=== PATIENT | male | born 1965 ===

== ENCOUNTER 2019-08-25 15:12 | Inpatient (IN) | payer MEDICAID, OTHER, SELFPAY ==
[2019-08-25 16:28] LABS: Protime INR 1.13
[2019-08-25 16:33] LABS: ALT/SGPT 35 U/L (12-78); AST/SGOT 47 U/L (15-37); Alkaline Phosphatase 140 U/L (45-117); BUN Blood Urea Nitrogen 13 mg/dL (7-18); Bicarbonate 28 mmol/L (21-32); Bilirubin Direct 0.3 mg/dL (0-0.2); Bilirubin Total 0.5 mg/dL (0.2-1.0); Glucose Level 85 mg/dL (74-106); NT PRO-BNP 148 pg/mL (<125); Potassium 3.6 mmol/L (3.5-5.1); Protein, Total 7.6 g/dL (6.4-8.2); Sodium Level 140 mmol/L (136-145); Troponin (Emerg Dept Use Only) < 0.02 ng/mL (0.0-0.045)
[2019-08-25 16:35] LABS: Absolute Lymphocytes (CBC) 2.2 K/uL (0.7-4.9); Basophils % 0.6 % (0-1.3); Hematocrit 35.5 % (39.6-49.0); Lymphocytes % 46.1 % (15.3-44.8); RBC Red Blood Cell Count 3.76 M/uL (4.33-5.43)
--- NOTE | 2019-08-25 16:37 | RAD REPORT ---
EXAM DESCRIPTION: Jayant Single View08/25/2019 3:45 pm CLINICAL HISTORY: Chest pain COMPARISON: none FINDINGS: Scoliosis involves the spine The lungs appear clear of acute infiltrate. The heart is mildly enlarged. Aorta is tortuous/ectatic . Right humeral head lies inferior to the glenohumeral joint which could in dicate laxity of the joint or dislocation
[2019-08-25] MEDS ORDERED: MORPHINE 2 MG/ML SYR ONE (16:47)
[2019-08-25] MEDS ORDERED: NA CHLORIDE 0.9% 500 ML ONE (16:47)
--- NOTE | 2019-08-25 17:08 | EDPHYS ---
Physician Documentation [facility] Name: Nico Woods Age: 54 yrs Sex: Male : 1965 Arrival Date: 08/25/2019 Time: 15:18 Bed 6 Private MD: ED Physician Prabhakar Bermeo HPI: 08/24 15:35 This 54 yrs old Male presents to ER via EMS with complaints of Chest Pain > 30 y/o. cp 15:35 The patient or guardian reports chest pain that is located primarily in the substernal cp area, right side. Onset: last night. The pain radiates to the right arm. 15:35 Associated signs and symptoms: Pertinent positives: lower extremity pain, lower cp extremity swelling, Pertinent negatives: abdominal pain, cough, shortness of breath. 15:35 Duration: The patient or guardian reports a single episode, that is still ongoing, and cp unchanged. Historical: - Allergies: 15:37 No Known Allergies; ss - PMHx: 15:37 GERD; Hypertension; CVA; ss - Immunization history:: Adult Immunizations up to date. - Social history:: Smoking status: unknown. ROS: 15:40 Constitutional: Negative for body aches, chills, fever, poor PO intake. cp 15:40 Eyes: Negative for injury, pain, redness, and discharge. cp 15:40 Neck: Negative for pain with movement, pain at rest, stiffness. 15:40 Cardiovascular: Positive for chest pain, Negative for palpitations. 15:40 Respiratory: Negative for cough, shortness of breath, wheezing. 15:40 Abdomen/GI: Negative for abdominal pain, nausea, vomiting, and diarrhea, constipation. 15:40 Back: Negative for radiated pain. 15:40 MS/extremity: Positive for pain, of the right arm and right leg. 15:40 Skin: Negative for rash. 15:40 Neuro: Negative for altered mental status, headache. 15:40 All other systems are negative. Exam: 15:30 ECG was reviewed by the Attending Physician. cp 15:42 Constitutional: The patient appears in no acute distress, alert, awake, cp non-diaphoretic, non-toxic, well developed, well nourished. 15:42 Head/Face: Normocephalic, atraumatic. cp 15:42 Eyes: Periorbital structures: appear normal, Conjunctiva: normal, no exudate, no injection, Sclera: no appreciated abnormality, Lids and lashes: appear normal, bilaterally. 15:42 ENT: External ear(s): are unremarkable, Nose: is normal, Mouth: Lips: moist, Oral mucosa: pink and intact, moist, Posterior pharynx: is normal, airway is patent, no erythema, no exudate. 15:42 Neck: ROM/movement: is normal, is supple, without pain, no range of motions limitations, no nuchal rigidity. 15:42 Chest/axilla: Inspection: normal, Palpation: is normal, no crepitus, no tenderness. 15:42 Cardiovascular: Rate: normal, Rhythm: regular, Edema: mild right lower leg, JVD: is not appreciated. 15:42 Respiratory: the patient does not display signs of respiratory distress, Respirations: normal, no use of accessory muscles, no retractions, labored breathing, is not present, Breath sounds: are clear throughout, no decreased breath sounds, no stridor, no wheezing. 15:42 Abdomen/GI: Inspection: abdomen appears normal, Palpation: abdomen is soft and non-tender, in all quadrants. 15:42 Back: pain, is absent. 15:42 Musculoskeletal/extremity: Extremities: the patient is contracted, in the right leg and right arm. 15:42 Skin: no rash present. 15:42 Neuro: Orientation: no acute changes, Mentation: no acute changes, patient non-verbal from previous CVA. Vital Signs: 15:27 BP 113 / 84; Pulse 65; Resp 16; Temp 98.4(TE); Pulse Ox 97% on R/A; Weight 77.11 kg; ss Pain 5/10; 17:30 BP 118 / 76; Pulse 64; Resp 18; Pulse Ox 98% on R/A; ph 19:00 BP 83 / 54; Pulse 67; Resp 15; Pulse Ox 98% on R/A; rv 19:30 BP 94 / 55; Pulse 67; Resp 15; Pulse Ox 100% on R/A; rv 20:00 BP 102 / 62; Pulse 66; Resp 17; Pulse Ox 100% on R/A; rv 21:25 BP 131 / 92; Pulse 54; Resp 16; Temp 98.2; Pulse Ox 98% on R/A; rv MDM: 15:26 Patient medically screened. adolfo 15:45 Differential diagnosis: abnormal EKG, acute myocardial infarction, acute pericarditis, cp pericarditis, pneumonia, pneumothorax, pulmonary embolus, stable angina, thoracic aortic disection, unstable angina. 17:06 Data reviewed: vital signs, nurses notes, lab test result(s), EKG, radiologic studies, cp plain films. Physician consultation: Marcus Moreau MD was called at 17:05, was contacted at 17:05, regarding admission, to the telemetry unit. patient's condition. 08/24 15:27 Order name: Basic Metabolic Panel 08/24 15:27 Order name: CBC with Diff; Complete Time: 17:03 cp 08/24 17:03 Interpretation: Normal except: RBC 3.76; HGB 11.9; HCT 35.5; STEVENSON% 36.2; LYM% 46.1; MN% cp 13.0; NEUT A 1.7. 08/24 15:27 Order name: LFT's; Complete Time: 16:45 08/24 16:45 Interpretation: Normal except: AST 47; ALK 140; BILID 0.3; ALB 3.0; GLOB 4.6; A/G 0.7. 08/24 15:27 Order name: Magnesium; Complete Time: 16:45 cp 08/24 15:27 Order name: NT PRO-BNP; Complete Time: 16:45 cp 08/24 15:27 Order name: PT-INR; Complete Time: 17:03 08/24 17:03 Interpretation: Abnormal: PT 13.3. 08/24 15:27 Order name: Troponin (emerg Dept Use Only); Complete Time: 16:45 cp 08/24 15:27 Order name: XRAY Chest (1 view); Complete Time: 16:45 cp 08/24 15:27 Order name: Basic Metabolic Panel; Complete Time: 16:45 EDNJ 08/24 16:56 Order name: US Extremity Venous Unilateral Ltd 08/24 17:54 Order name: CKMB Creatine Kinase MB [facility] 08/24 17:54 Order name: Creatine Phosphokinase [facility] 08/24 17:54 Order name: Troponin I [facility] 08/24 18:03 Order name: Thorax W/ Con EDNJ 08/24 15:27 Order name: EKG; Complete Time: 15:28 08/24 15:27 Order name: Cardiac monitoring; Complete Time: 16:05 cp 08/24 15:27 Order name: EKG - Nurse/Tech; Complete Time: 16:05 cp 08/24 15:27 Order name: IV Saline Lock; Complete Time: 16:04 cp 08/24 15:27 Order name: Labs collected and sent; Complete Time: 16:04 cp 08/24 15:27 Order name: O2 Per Protocol; Complete Time: 16:04 08/24 17:50 Order name: Diet Mech. Soft (ground); Complete Time: 17:50 dh3 08/24 17:53 Order name: Heart Healthy [facility] 08/24 17:54 Order name: CONS Physician Consult [facility] 08/24 18:37 Order name: US [facility] 08/24 15:27 Order name: O2 Sat Monitoring; Complete Time: 16:04 cp EC:30 Rate is 56 beats/min. Rhythm is regular. TN interval is normal. QRS interval is normal. cp QT interval is normal. T waves are Inverted in lead aVR. Interpreted by me. Reviewed by me. Administered Medications: 16:48 Drug: NS 0.9% 500 ml Route: IV; Rate: 100 ml/hr; Site: left hand; ph 16:48 Drug: morphine 1 mg Route: IVP; Site: left hand; ph 16:58 CANCELLED (Physician Discretion): fentaNYL (PF) 25 mcg IVP once; RASS on ADMIN: cp Combtv4, Very Agttd3, Agttd2, Rstlss1, AlertClm0, Drwsy-1, Lt Sdtn-2, Mod Sdtn-3, Dp Sdtn-4, UnArsble-5 Disposition: 08/25 10:26 Co-signature as Attending Physician, Prabhakar Bermeo MD I agree with the assessment and adolfo plan of care. Disposition: 08/25/19 17:08 Hospitalization ordered by Marcus Moreau for Observation. Preliminary diagnosis is Chest pain, unspecified. - Bed requested for Telemetry/MedSurg (observation). - Status is Observation. rv - Condition is Stable. - Problem is new. - Symptoms have improved. Signatures: Dispatcher [employer] [facility] Laila Fields RN RN dw Anderson, Corey, MD MD cha Smirch, Shelby, RN RN ss Jackie Canales RN RN ph Prabhakar Gordon, MIKE PA cp Vinnie Rivera, RN RN rv Corrections: (The following items were deleted from the chart) 08/24 16:58 16:55 fentaNYL (PF) 25 mcg IVP once; RASS on ADMIN: Combtv4, Very Agttd3, Agttd2, cp Rstlss1, AlertClm0, Drwsy-1, Lt Sdtn-2, Mod Sdtn-3, Dp Sdtn-4, UnArsble-5 ordered. cp 18:36 17:08 Hospitalization Ordered by Marcus Moreau MD for Observation. Preliminary dw diagnosis is Chest pain, unspecified. Bed requested for Telemetry/MedSurg (observation). Status is Observation. Condition is Stable. Problem is new. Symptoms have improved. cp 21:29 18:36 08/25/2019 17:08 Hospitalization Ordered by Marcus Moreau MD for Observation. rv Preliminary diagnosis is Chest pain, unspecified. Bed requested for Telemetry/MedSurg (observation). Status is Observation. Condition is Stable. Problem is new. Symptoms have improved. dw
--- NOTE | 2019-08-25 17:08 | ER ---
Nurse's Notes [facility] Name: Nico Woods Age: 54 yrs Sex: Male : 1965 Arrival Date: 08/25/2019 Time: 15:18 Bed 6 Private MD: Diagnosis: Chest pain, unspecified Presentation: 08/24 15:27 Chief complaint: Chest pain that began at 9pm yesterday evening. Nitro x 1 given 18 ss gauge to L AC inserted. Coronavirus screen: Patient denies a cough. Patient denies shortness of breath or difficulty breathing. Patient denies measured and/or subjective temperature greater than 100.4F prior to today's visit. Patient denies travel on a cruise ship or to a country the [facility] currently lists as an affected area. possible contact at [facility] group home. Ebola Screen: Patient denies exposure to infectious person. Patient denies travel to an Ebola-affected area in the 21 days before illness onset. Initial Sepsis Screen: Does the patient meet any 2 criteria? Does the patient have a suspected source of infection? No. Patient's initial sepsis screen is negative. Risk Assessment: Do you want to hurt yourself or someone else? Patient reports no desire to harm self or others. Onset of symptoms was August 24, 2019. 15:27 Acuity: AMADOU 3 ss 15:27 Method Of Arrival: EMS: [facility] ss Historical: - Allergies: 15:37 No Known Allergies; ss - PMHx: 15:37 GERD; Hypertension; CVA; ss - Immunization history:: Adult Immunizations up to date. - Social history:: Smoking status: unknown. Screenin:53 Abuse screen: Denies threats or abuse. Denies injuries from another. Nutritional ph screening: No deficits noted. Nutritional screening: No deficits noted. Tuberculosis screening: No symptoms or risk factors identified. Fall Risk No fall in past 12 months (0 pts). Secondary diagnosis (15 points) impaired mobility, IV access (20 points). Ambulatory Aid- None/Bed Rest/Nurse Assist (0 pts). Gait- Impaired (20 pts.). Mental Status- Oriented to own ability (0 pts). Total Alanis Fall Scale indicates High Risk Score (45 or more points). Fall prevention measures have been instituted. Side Rails Up X 2 Placed Close to Nursing Station Frequent Obs/Assessments Occuring As available patient and family educated on Fall Prevention Program and Strategies. Assessment: 16:00 General: Appears in no apparent distress. comfortable, slender, Behavior is calm, ph cooperative, appropriate for age, Denies fever, feeling ill. Pain: Complains of pain in chest Pain radiates to left arm Pain began 1 day ago. Neuro: Level of Consciousness is awake, alert, obeys commands, Oriented to person, place, time, situation, Hx of CVA w/ R sided deficits, pt aphasic. Cardiovascular: Reports chest pain, Denies nausea, palpitations, shortness of breath. Respiratory: Airway is patent Respiratory effort is even, unlabored. Derm: Skin is intact, Skin is pink, warm \T\ dry. 17:00 Reassessment: Patient appears in no apparent distress at this time. Patient and/or ph family updated on plan of care and expected duration. Pain level reassessed. Patient is alert, oriented x 3, equal unlabored respirations, skin warm/dry/pink. 18:00 Reassessment: Patient appears in no apparent distress at this time. Patient and/or ph family updated on plan of care and expected duration. Pain level reassessed. Patient is alert, oriented x 3, equal unlabored respirations, skin warm/dry/pink. Vital Signs: 15:27 BP 113 / 84; Pulse 65; Resp 16; Temp 98.4(TE); Pulse Ox 97% on R/A; Weight 77.11 kg; ss Pain 5/10; 17:30 BP 118 / 76; Pulse 64; Resp 18; Pulse Ox 98% on R/A; ph 19:00 BP 83 / 54; Pulse 67; Resp 15; Pulse Ox 98% on R/A; rv 19:30 BP 94 / 55; Pulse 67; Resp 15; Pulse Ox 100% on R/A; rv 20:00 BP 102 / 62; Pulse 66; Resp 17; Pulse Ox 100% on R/A; rv 21:25 BP 131 / 92; Pulse 54; Resp 16; Temp 98.2; Pulse Ox 98% on R/A; rv ED Course: 15:18 Patient arrived in ED. ss 15:23 Prabhakar Gordon PA is PHCP. cp 15:23 Prabhakar Bermeo MD is Attending Physician. cp 15:32 Triage completed. ss 15:37 Arm band placed on right wrist. ss 15:40 Jackie Canales, RN is Primary Nurse. ph 15:45 XRAY Chest (1 view) In Process Unspecified. EDMS 16:00 Patient has correct armband on for positive identification. Bed in low position. Call ph light in reach. Side rails up X2. platform supervisor on. Pulse ox on. NIBP on. Door closed. Noise minimized. Warm blanket given. Pillow given. 16:01 Initial lab(s) drawn, by me, sent to lab. [facility] 17:07 Marcus Moreau MD is Hospitalizing Provider. cp 18:23 Ultrasound completed. Patient tolerated well. Notified MEDICAL CUSTOMER SERVICE REPRESENTATIVE/PA page. 3 19:54 No provider procedures requiring assistance completed. Maintain EMS IV. Dressing ph intact. Good blood return noted. Site clean \T\ dry. Gauge \T\ site: 18 L wrist. Patient admitted, IV remains in place. Patient maintains SpO2 saturation greater than 95% on room air. Administered Medications: 16:48 Drug: NS 0.9% 500 ml Route: IV; Rate: 100 ml/hr; Site: left hand; ph 16:48 Drug: morphine 1 mg Route: IVP; Site: left hand; ph 16:58 CANCELLED (Physician Discretion): fentaNYL (PF) 25 mcg IVP once; RASS on ADMIN: cp Combtv4, Very Agttd3, Agttd2, Rstlss1, AlertClm0, Drwsy-1, Lt Sdtn-2, Mod Sdtn-3, Dp Sdtn-4, UnArsble-5 Outcome: 17:08 Decision to Hospitalize by Provider. cp 21:28 Admitted to Med/surg accompanied by nurse, via stretcher, room 217, with chart, Report rv called to SG CARREON 21:28 Condition: good 21:28 Instructed on the need for admit. 21:29 Patient left the ED. rv Signatures: Dispatcher [employer] EDWA Olivia Andrea RN RN Jackie Canales, RN RN ph Page, MIKE Radford cp, Deanna [facility] Leslie Verdugo 3 Vinnie Rivera RN RN rv
[2019-08-25] MEDS ORDERED: ACETAMINOPHEN 500 MG TAB PO PRN (17:50)
[2019-08-25] MEDS ORDERED: ONDANSETRON 4 MG/2 ML VIAL IV PRN (17:50)
[2019-08-25] MEDS ORDERED: HYDRALAZINE HCL 20 MG/ML VIAL IV PRN (17:53)
--- NOTE | 2019-08-25 18:01 | P.HP ---
Certification for Inpatient Patient admitted to: Observation With expected LOS: <2 Midnights Patient will require the following post-hospital care: None Practitioner: I am a practitioner with admitting privileges, knowledge of patient current condition, hospital course, and medical plan of care. Services: Services provided to patient in accordance with Admission requirements found in Title 42 Section 412.3 of the Code of Federal Regulations Patient History Date of Service: 08/25/19 Reason for admission: Chest Pain History of Present Illness: 54-year-old male with a past medical history hypertension, CVA with residual defect , GERD given with chest pain. Chest pain is located retrosternally radiating to the right arm. Denies any shortness of breath. No fever or chills. The patient is a poor historian because of the cognitive defect hence most of the history is obtained from the chart review and also talking to the ER physician. At the time of interview the pain is slightly better. Patient was assessed in the ER and was admitted to rule out ACS - Past Medical/Surgical History Past Medical History: Reviewed- Non-Contributory -: Hypertension -: CVA -: GERD Past Surgical History: Reviewed- Non-Contributory -: No significant past surgical history - Family History Family History: Reviewed- Non-Contributory - Social History Smoking Status: Former smoker Review of Systems 10-point ROS is otherwise unremarkable Physical Examination - Vital Signs Temperature: 97.8 F Blood Pressure: 158/88 Pulse: 78 Respirations: 18 - Physical Exam General: Alert, In no apparent distress HEENT: Atraumatic, Normocephalic Neck: Supple Respiratory: Clear to auscultation bilaterally, Normal air movement Cardiovascular: Regular rate/rhythm, Normal S1 S2 Capillary refill: <2 Seconds Gastrointestinal: Soft and benign, W/out hepatosplenomegaly Musculoskeletal: No clubbing, No swelling Integumentary: No rashes Neurological: Other (Alert , Awake , Focal Neurological deficits), Abnormal gait, Abnormal strength Lymphatics: No axilla or inguinal lymphadenopathy - Studies Laboratory Data (last 24 hrs) 08/25/19 16:01: PT 13.3 H, INR 1.13 08/25/19 16:01: WBC 4.8, Hgb 11.9 L, Hct 35.5 L, Plt Count 200 08/25/19 16:01: Sodium 140, Potassium 3.6, BUN 13, Creatinine 0.69, Glucose 85, Magnesium 2.0, Total Bilirubin 0.5, AST 47 H, ALT 35, Alkaline Phosphatase 140 H Assessment and Plan - Problems (Diagnosis) (1) Chest pain Current Visit: Yes Status: Acute - Plan Chest pain to rule out ACS Hypertension History of CVA with residual deficit GERD Plan Monitor under telemetry Trend cardiac enzymes Start on aspirin statin Pain control X-ray showing tortuous after Will get a CTA of the chest Continue home medications and titrate as needed Antihypertensives titrated Cardiology evaluation PT eval GI/DVT prophylaxis - Advance Directives Does patient have a Living Will: No Does patient have a Durable POA for Healthcare: No Time Spent Managing Pts Care (In Minutes): 45
--- NOTE | 2019-08-25 18:36 | RAD REPORT ---
EX[facility] DES[facility]/25/[facility] 6:30 pm CLINICAL HISTORY: Right leg pain COMPARISON: None. FINDINGS: Right common femoral, superficial femoral, popliteal and right posterior tibial veins are compressible and demonstrate augmentation. Doppler demonstrates good flow. IMPRESSION: No evidence of deep venous thrombosis involving the right lower extremity.
--- NOTE | 2019-08-25 19:32 | RAD REPORT ---
EXAM DESCRIPTION: CT - Thorax W/ Con - 08/25/2019 6:39 pm CLINICAL HISTORY: Chest pain COMPARISON: None TECHNIQUE: Computed axial tomography of the chest was obtained. 100 cc Isovue 300 was administered i ntravenously. All CT scans are performed using dose optimization technique as appropriate and may include automated exposure control or mA/KV adjustment according to patient size. FINDINGS: Minimal tree-in-bud opacity lingula. The right lung is clear No mediastinal or hilar lymphadenopathy is seen. The ascending thoracic aorta has an AP diameter 3.6 centimeters. A pleural effusion is not present. A pericardial effusion is not seen. Ill-defined increased density is present within the superior aspect of the liver. IMPRESSION: Tortuous and ectatic thoracic aorta Ill-defined heterogeneous and increased density within the superior aspect of the liver is incomplete ly evaluated on this exam. It is recommended that the patient have an ultrasound for further evaluati on
[2019-08-25] MEDS ORDERED: ASPIRIN 81 MG CHEWABLE TABLET ONE (19:48)
[2019-08-25 22:29] VITALS: BMI 22.7
[2019-08-25] MEDS: ATORVASTATIN 40 MG TAB PO SCH (23:12)
[2019-08-25 23:38] LABS: Urine Appearance CLEAR; Urine Bilirubin NEGATIVE (NEG); Urine Blood NEGATIVE (NEG); Urine Color YELLOW; Urine Glucose NEGATIVE (NEG); Urine Protein NEGATIVE (NEG); Urine pH 7.5 (5.0-7.0)
[2019-08-25 23:39] LABS: Urine Microscopic Reflex ORDER UMIC
[2019-08-25 23:56] LABS: Urine Bacteria LOADED /HPF (NONE SEEN); Urine Culture Reflex Order REFLEXED; Urine RBC <5 /HPF (NONE SEEN)
[2019-08-26 01:17] LABS: CKMB Creatine Kinase MB < 1.0 ng/mL (0.3-3.6); Creatine Phosphokinase 131 U/L (39-308); Troponin I < 0.02 ng/mL (0.0-0.045)
[2019-08-26 05:45] LABS: Absolute Lymphocytes (CBC) 2.2 K/uL (0.7-4.9); Basophils % 0.5 % (0-1.3); Hematocrit 32.8 % (39.6-49.0); Lymphocytes % 52.7 % (15.3-44.8); MPV 10.1 fL (7.6-11.3); RBC Red Blood Cell Count 3.48 M/uL (4.33-5.43)
[2019-08-26 05:54] LABS: ALT/SGPT 32 U/L (12-78); AST/SGOT 41 U/L (15-37); Albumin 2.6 g/dL (3.4-5.0); Alkaline Phosphatase 117 U/L (45-117); BUN Blood Urea Nitrogen 13 mg/dL (7-18); Bicarbonate 29 mmol/L (21-32); Bilirubin Total 0.6 mg/dL (0.2-1.0); Glucose Level 89 mg/dL (74-106); Phosphorus 3.1 mg/dL (2.5-4.9); Potassium 3.4 mmol/L (3.5-5.1); Protein, Total 6.7 g/dL (6.4-8.2); Sodium Level 143 mmol/L (136-145)
[2019-08-26 07:39] LABS: Blood Morphology Comment NOT SEEN (NOT SEEN); Platelet Estimate ADEQ
[2019-08-26] MEDS ORDERED: POTASSIUM 25 MEQ EFFERV TAB PO ONE (08:00)
--- NOTE | 2019-08-26 08:10 | EKG ---
Test Date: 2019-08-25 Test Time: 15:21:14 Hr Coordinator: HEATHER MEASUREMENT RESULTS: Intervals: Rate: 56 VT: 160 QRSD: 86 QT: 446 QTc: 430 [place]: P: 59 VT: 160 QRS: -20 T: 36 INTERPRETIVE STATEMENTS: Sinus bradycardia Septal infarct, age undetermined Abnormal ECG No previous ECG available for comparison Electronically Signed On 08-26-19 08:08:49 CDT by Feng Mejia
[2019-08-26 08:15] LABS: CKMB Creatine Kinase MB < 1.0 ng/mL (0.3-3.6); Creatine Phosphokinase 115 U/L (39-308); Troponin I < 0.02 ng/mL (0.0-0.045)
[2019-08-26] MEDS: ENOXAPARIN 40 MG/0.4 ML SQ SCH (09:00)
[2019-08-26] MEDS: ASPIRIN EC 81 MG TAB PO SCH (09:00)
[2019-08-26 10:22] LABS: CKMB Creatine Kinase MB < 1.0 ng/mL (0.3-3.6); Creatine Phosphokinase 110 U/L (39-308); Troponin I < 0.02 ng/mL (0.0-0.045)
--- NOTE | 2019-08-26 11:22 | P.PN ---
Subjective Date of Service: 08/26/19 Chief Complaint: Chest Pain Subjective: No new changes, Improving Review of Systems 10-point ROS is otherwise unremarkable Physical Examination - Vital Signs Temperature: 97.3 F Blood Pressure: 142/89 Pulse: 52 Respirations: 18 Pulse Ox (%): 99 - Physical Exam General: Alert, In no apparent distress HEENT: Atraumatic, Normocephalic Neck: Supple Respiratory: Clear to auscultation bilaterally Cardiovascular: Normal pulses, Regular rate/rhythm Capillary refill: <2 Seconds Gastrointestinal: Soft and benign, W/out hepatosplenomegaly Musculoskeletal: No erythema, Contractures Integumentary: No rashes Neurological: Abnormal gait, Abnormal speech, Abnormal strength Lymphatics: No axilla or inguinal lymphadenopathy - Studies Laboratory Data (last 24 hrs) 08/26/19 04:55: Sodium 143, Potassium 3.4 L, BUN 13, Creatinine 0.72, Glucose 89, Phosphorus 3.1, Magnesium 2.0, Total Bilirubin 0.6, AST 41 H, ALT 32, Alkaline Phosphatase 117 08/26/19 04:55: WBC 4.2 L, Hgb 11.4 L, Hct 32.8 L, Plt Count 162 08/26/19 00:09: Troponin I < 0.02 08/25/19 16:01: PT 13.3 H, INR 1.13 08/25/19 16:01: WBC 4.8, Hgb 11.9 L, Hct 35.5 L, Plt Count 200 08/25/19 16:01: Sodium 140, Potassium 3.6, BUN 13, Creatinine 0.69, Glucose 85, Magnesium 2.0, Total Bilirubin 0.5, AST 47 H, ALT 35, Alkaline Phosphatase 140 H Assessment & Plan - Problems (Diagnosis) (1) Chest pain Current Visit: Yes Status: Acute Physician Review Additional Text: Chest pain to rule out ACS Hypertension History of CVA with residual deficit GERD Plan Monitor under telemetry Trend cardiac enzymes Start on aspirin statin Pain control X-ray showing tortuous after Will get a CTA of the chest Continue home medications and titrate as needed Antihypertensives titrated Cardiology evaluation PT eval GI/DVT prophylaxis 08/26/2019 Chest pain is better Cardiac enzymes trended and is negative CT findings noted Continue home medications and antihypertensives titrated Awaiting cardiology recommendation Physical therapy evaluation and treatment Possible Dc if cleared by cardiology Time Spent Managing Pts Care (In Minutes): 39
--- NOTE | 2019-08-26 12:28 | CON ---
Date of Consultation: 08/26/[address] Moreau on 08/26/2019. I saw the patient on 08/26/2019. Reason For Consultation: Chest pain. History Of Present Illness: Mr. Woods is a 54-year-old black male, who has a history of hypertension , gastroesophageal reflux disease. He has had a CVA. He is aphasic. Could not really obtain adequa te history from him, but does sound like he had some chest pain that he was pointing to on the left l ateral chest wall that, according to him, seems to be sharp and not pressure without any other associ ated symptoms. By the time I saw him, he has already had a negative troponin and his EKG shows sinus bradycardia. He had a chest x-ray showing some cardiomegaly. CT of the chest did not show any pulm onary embolus. Venous Doppler was negative. Past Medical History: As stated above. Allergies: NONE. Review of Systems: Positive for the fact that he is aphasic. Social History: Unobtainable. Family History: Unobtainable. Medications: At home include Cardura, Coreg, and Norvasc. Physical Examination: General: Mr. Woods was aphasic, appeared to have some abnormal muscular movement in the upper and lo wer extremities, appeared to be agitated. He wanted to go home. Vital Signs: Stable, afebrile, sinus rhythm. HEENT: Negative. Neck: Supple. No bruit. Chest: Clear. Cardiac: Revealed regular rhythm and rate. No murmurs, gallops, or rubs. Abdomen: Benign. Extremities: Revealed no clubbing, cyanosis, or edema. Diagnostic Data: As stated earlier. Impression And Plan: 1.Atypical chest pain. 2.Hypertension. 3.Cerebrovascular accident with aphasia. 4.Gastroesophageal reflux disease. Mr. Woods wants to go home, but apparently has to wait for his COVID test to be back. I had initiall y ordered a stress test on him, but after physical examination, I am not so sure he can have a pharma cological stress test. I do not think he can sit still for the camera. I am very comfortable with m edical treatment for his chest pain. His chest pain is very atypical. I do not think it is cardiac in nature. I will discuss the case further with Dr. Moreau, but I am comfortable with him going home on his home medication, may be addition of a baby aspirin would be reasonable and maybe addition of a statin would be reasonable. DEVANTE/ZACHARY Voice ID: [id number] Report ID: [id number]
[2019-08-26] MEDS ORDERED: POTASSIUM CL SA 10 MEQ TAB PO ONE (15:56)
[2019-08-26] MEDS: IPRATROPIUM BROM 0.5MG/2.5ML NEB SCH (18:50)
[2019-08-26] MEDS: ALBUTEROL 2.5 MG/3 ML NEB SOL NEB SCH (18:50)
--- NOTE | 2019-08-26 19:41 | RAD REPORT ---
EXAM DESCRIPTION: CT - Head Brain Wo Cont - 08/26/2019 7:31 pm CLINICAL HISTORY: pt reports trouble swallowing Headache, drowsiness COMPARISON: No comparisons TECHNIQUE: All CT scans are performed using dose optimization technique as appropriate and may inclu de automated exposure control or mA/KV adjustment according to patient size. FINDINGS: No intracranial hemorrhage, hydrocephalus or extra-axial fluid collection.Areas of old inf arction are seen in the periventricular region bilaterally.No areas of brain edema or evidence of mid line shift. The paranasal sinuses and mastoids are clear. The calvarium is intact. IMPRESSION: No acute intracranial abnormality.
--- NOTE | 2019-08-26 20:35 | RAD REPORT ---
EXAM DESCRIPTION: RAD - Chest Single View - 08/26/2019 8:25 pm CLINICAL HISTORY: Pt reports trouble swallowing Chest pain. COMPARISON: Chest Single View dated 08/25/2019 FINDINGS: Portable technique limits examination quality. The lungs are grossly clear. The heart is mildly enlarged with a tortuous thoracic aorta again seen. No displaced fractures. IMPRESSION: No acute intrathoracic process suspected.
[2019-08-26] MEDS: ATORVASTATIN 40 MG TAB PO SCH (20:58)
[2019-08-27] MEDS: IPRATROPIUM BROM 0.5MG/2.5ML NEB SCH ×7 (04:00→23:45)
[2019-08-27] MEDS: ALBUTEROL 2.5 MG/3 ML NEB SOL NEB SCH ×7 (04:00→23:45)
[2019-08-27 04:50] LABS: BUN Blood Urea Nitrogen 11 mg/dL (7-18); Bicarbonate 30 mmol/L (21-32); Glucose Level 88 mg/dL (74-106); Potassium 3.6 mmol/L (3.5-5.1); Sodium Level 142 mmol/L (136-145)
[2019-08-27] MEDS: ASPIRIN EC 81 MG TAB PO SCH (09:00)
[2019-08-27] MEDS ORDERED: KCL 20 MEQ/100 mL IVPB 20 MEQ/100 ML BAG IV SCH (09:00)
[2019-08-27] MEDS: ENOXAPARIN 40 MG/0.4 ML SQ SCH (09:18)
--- NOTE | 2019-08-27 11:35 | P.PN ---
Subjective Date of Service: 08/27/19 Chief Complaint: Chest Pain c/o Chest Pain and cough Possible aspiration Review of Systems 10-point ROS is otherwise unremarkable Physical Examination - Vital Signs Temperature: 96.2 F Blood Pressure: 159/105 Pulse: 55 Respirations: 18 Pulse Ox (%): 96 - Physical Exam General: Alert, In no apparent distress, Other (aphasic ) HEENT: Atraumatic, Normocephalic Neck: Supple Respiratory: Clear to auscultation bilaterally, Normal air movement Cardiovascular: Normal pulses, Regular rate/rhythm Capillary refill: <2 Seconds Gastrointestinal: Soft and benign, W/out hepatosplenomegaly Musculoskeletal: No clubbing, No swelling Integumentary: No rashes Neurological: Abnormal gait, Abnormal speech, Abnormal strength Lymphatics: No axilla or inguinal lymphadenopathy Assessment & Plan - Problems (Diagnosis) (1) Chest pain Current Visit: Yes Status: Acute Physician Review Additional Text: Chest pain to rule out ACS Hypertension History of CVA with residual deficit GERD Plan Monitor under telemetry Trend cardiac enzymes Start on aspirin statin Pain control X-ray showing tortuous after Will get a CTA of the chest Continue home medications and titrate as needed Antihypertensives titrated Cardiology evaluation PT eval GI/DVT prophylaxis 08/27/2019 Chest pain resolved Cardiac enzymes trended and is negative CT findings noted Appreciate help from cardiology Will continue conservative management with outpatient follow up Continue home medications and antihypertensives titrated Physical therapy evaluation and treatment Patient has cough Chest x-ray was done to rule out aspiration pneumonia speech therapy was consulted He underwent a modified barium swallow Speech recommended NPO for now Will discuss family regarding placement of PEG tube Time Spent Managing Pts Care (In Minutes): 40
--- NOTE | 2019-08-27 12:43 | RAD REPORT ---
EXAM DESCRIPTION: RAD - Barium Swallow Modified - 08/27/2019 12:35 pm CLINICAL HISTORY: speech recommendation, cough, difficulty swallowing, CVA COMPARISON: None. TECHNIQUE: The patient was given liquid, semi-solid and solid forms of barium. Lateral view fluorosc opic imaging was performed in conjunction with speech pathology service. FINDINGS: Cineloop acquisitions: 13 Fluoro time: 2 minutes 33 seconds Laryngeal penetration not cleared. Deep tot he level of the vocal cords with pureed. Aspiration; No cough with thin, nectar, honey. There is reduced oral bolus manipulation and loss over the base of tongue. There is pooling in the v alleculae and pyriforms before the swallow. Swallow on set is delayed. There is reduced hyolaryngea l elevation and protraction. There was SILENT ASPIRATION of thin, nectar, and honey thick liquids. There was a deep penetration to the level of the vocal cords with pureed that did not clear. Study w as limited due to aggitation and limited cooperation. IMPRESSION: Modified barium swallow as summarized above and fully detailed on speech pathology mirella connors
[2019-08-27] MEDS ORDERED: LORazepam 2 MG/ML VIAL IM ONE (20:31)
[2019-08-27] MEDS ORDERED: D5 0.9 NS 1,000 ML with POTASSIUM CL 10 MEQ IV SCH ×2 (21:00)
[2019-08-27] MEDS: ATORVASTATIN 40 MG TAB PO SCH (21:00)
[2019-08-27] MEDS: D5 0.9 NS 1,000 ML IV SCH (22:00)
--- NOTE | 2019-08-27 23:16 | P.PN ---
Date of Service: 08/27/19 Patient diagnosed with oral pharyngeal dysphagia. MBS study results reviewed. Patient has severe dysphagia, even with pureed diet and pudding. I recommended IV hydration tonight and PEG tube. Patient provided his sisters phone number numbers to call and inform them. I called and spoke to the to the twin sister Shannan at [phone] and updated her. I recommended PEG tube feeding versus hospice with pleasure feeding. I suspect patient has some cognitive impairment and lacking full understandigng of his current clinical condition and may need family to assist with decision regarding PEG tube. Family would want to visit patient and discuss goals of care. Patient is refusing IV insertion and IV fluid. Vitals are stable. Continued to monitor.
[2019-08-28] MEDS: ALBUTEROL 2.5 MG/3 ML NEB SOL NEB SCH ×6 (04:00→23:46)
[2019-08-28] MEDS: IPRATROPIUM BROM 0.5MG/2.5ML NEB SCH ×6 (04:00→23:46)
[2019-08-28] MEDS: ASPIRIN EC 81 MG TAB PO SCH (08:51)
[2019-08-28] MEDS: ENOXAPARIN 40 MG/0.4 ML SQ SCH (08:53)
--- NOTE | 2019-08-28 10:50 | P.PN ---
Subjective Date of Service: 08/28/19 Chief Complaint: Chest Pain Subjective: No new changes Review of Systems is unable to be obtained Physical Examination - Vital Signs Temperature: 98.1 F Blood Pressure: 164/98 Pulse: 61 Respirations: 19 Pulse Ox (%): 93 - Physical Exam General: Alert, In no apparent distress HEENT: Atraumatic, Normocephalic Neck: Supple Respiratory: Clear to auscultation bilaterally, Normal air movement Cardiovascular: Normal pulses, Regular rate/rhythm Capillary refill: <2 Seconds Gastrointestinal: Soft and benign, W/out hepatosplenomegaly Musculoskeletal: No clubbing, No swelling Integumentary: No rashes Neurological: Normal speech, Normal strength at 5/5 x4 extr Lymphatics: No axilla or inguinal lymphadenopathy - Studies Microbiology Data (last 24 hrs): 08/25/19 23:05 Clean Catch Urine [place] Count - Final >100,000 CFU/ML. 08/25/19 23:05 Clean Catch Urine - Final Enterobacter Cloacae 08/25/19 23:00 Nasopharnyx Coronavirus COVID-19 PCR - Final Assessment & Plan - Problems (Diagnosis) (1) Chest pain Current Visit: Yes Status: Acute Physician Review Additional Text: Chest pain to rule out ACS Hypertension History of CVA with residual deficit GERD Plan Monitor under telemetry Trend cardiac enzymes Start on aspirin statin Pain control X-ray showing tortuous after Will get a CTA of the chest Continue home medications and titrate as needed Antihypertensives titrated Cardiology evaluation PT eval GI/DVT prophylaxis 08/27/2019 Chest pain resolved Cardiac enzymes trended and is negative CT findings noted Appreciate help from cardiology Will continue conservative management with outpatient follow up Continue home medications and antihypertensives titrated Physical therapy evaluation and treatment Patient has cough Chest x-ray was done to rule out aspiration pneumonia speech therapy was consulted He underwent a modified barium swallow Speech recommended NPO for now Will discuss family regarding placement of PEG tube 08/28/2019 Patient failed modified barium swallow Kept NPO Will get a speech therapy evaluation tomorrow again Will get a surgical consult for possible PEG tube placement Will discuss with family regarding PEG tube Continue antibiotics for possible aspiration pneumonia Time Spent Managing Pts Care (In Minutes): 42
[2019-08-28] MEDS: D5 0.9 NS 1,000 ML IV SCH (14:21)
[2019-08-28] MEDS: ATORVASTATIN 40 MG TAB PO SCH (20:08)
[2019-08-29] MEDS: ALBUTEROL 2.5 MG/3 ML NEB SOL NEB SCH ×5 (03:21→20:00)
[2019-08-29] MEDS: IPRATROPIUM BROM 0.5MG/2.5ML NEB SCH ×5 (03:21→20:00)
[2019-08-29] MEDS: D5 0.9 NS 1,000 ML IV SCH (03:25)
[2019-08-29] MEDS: ASPIRIN EC 81 MG TAB PO SCH (08:33)
[2019-08-29] MEDS: ENOXAPARIN 40 MG/0.4 ML SQ SCH (09:00)
--- NOTE | 2019-08-29 10:56 | P.PN ---
Subjective Date of Service: 08/29/19 Chief Complaint: Chest Pain Wants to go back Review of Systems is unable to be obtained Physical Examination - Vital Signs Temperature: 97.8 F Blood Pressure: 143/96 Pulse: 57 Respirations: 18 Pulse Ox (%): 95 - Physical Exam General: Alert HEENT: Atraumatic, Normocephalic Neck: Supple Respiratory: Clear to auscultation bilaterally, Normal air movement Cardiovascular: Normal pulses, Regular rate/rhythm Capillary refill: <2 Seconds Gastrointestinal: Soft and benign, No tenderness Musculoskeletal: No clubbing, No swelling Integumentary: No rashes Neurological: Abnormal gait, Abnormal speech, Abnormal strength Lymphatics: No axilla or inguinal lymphadenopathy - Studies Microbiology Data (last 24 hrs): 08/25/19 23:05 Clean Catch Urine [place] Count - Final >100,000 CFU/ML. 08/25/19 23:05 Clean Catch Urine - Final Enterobacter Cloacae Assessment & Plan - Problems (Diagnosis) (1) Chest pain Current Visit: Yes Status: Acute Physician Review Additional Text: Chest pain to rule out ACS Hypertension History of CVA with residual deficit GERD Plan Monitor under telemetry Trend cardiac enzymes Start on aspirin statin Pain control X-ray showing tortuous after Will get a CTA of the chest Continue home medications and titrate as needed Antihypertensives titrated Cardiology evaluation PT eval GI/DVT prophylaxis 08/27/2019 Chest pain resolved Cardiac enzymes trended and is negative CT findings noted Appreciate help from cardiology Will continue conservative management with outpatient follow up Continue home medications and antihypertensives titrated Physical therapy evaluation and treatment Patient has cough Chest x-ray was done to rule out aspiration pneumonia speech therapy was consulted He underwent a modified barium swallow Speech recommended NPO for now Will discuss family regarding placement of PEG tube 08/28/2019 Patient failed modified barium swallow Kept NPO Will get a speech therapy evaluation tomorrow again Will get a surgical consult for possible PEG tube placement Will discuss with family regarding PEG tube Continue antibiotics for possible aspiration pneumonia 08/29/2019 Repeat speech valve was done Patient was not cooperative Could not do modified barium swallow Awaiting surgical consult Patient [facility] Will discuss with disability case manager Discuss the patient regarding the nature of the illness and chance of aspiration if he eats Possible Dc back to jail if patient wishes and they can arrange for follow up as outpatient with GI to put a PEG tube if in case he fails Time Spent Managing Pts Care (In Minutes): 42
[2019-08-29] MEDS: ATORVASTATIN 40 MG TAB PO SCH (21:00)
[2019-08-30] MEDS: ALBUTEROL 2.5 MG/3 ML NEB SOL NEB SCH ×6 (04:00→20:00)
[2019-08-30] MEDS: IPRATROPIUM BROM 0.5MG/2.5ML NEB SCH ×6 (04:00→20:00)
[2019-08-30] MEDS: ASPIRIN EC 81 MG TAB PO SCH (08:39)
[2019-08-30] MEDS: ENOXAPARIN 40 MG/0.4 ML SQ SCH (08:41)
--- NOTE | 2019-08-30 12:07 | P.PN ---
Subjective Date of Service: 08/30/19 Chief Complaint: Chest Pain Subjective: No new changes, Other (Still NPO) Wants to go back Review of Systems is unable to be obtained Physical Examination - Vital Signs Temperature: 97.6 F Blood Pressure: 165/99 Pulse: 65 Respirations: 16 Pulse Ox (%): 94 - Physical Exam General: Alert, In no apparent distress HEENT: Atraumatic, Normocephalic Neck: Supple Respiratory: Clear to auscultation bilaterally, Normal air movement Cardiovascular: Normal pulses, Regular rate/rhythm Capillary refill: <2 Seconds Gastrointestinal: Soft and benign Musculoskeletal: No clubbing Neurological: Abnormal gait, Abnormal speech, Abnormal strength Lymphatics: No axilla or inguinal lymphadenopathy Assessment & Plan - Problems (Diagnosis) (1) Chest pain Current Visit: Yes Status: Acute Physician Review Additional Text: Chest pain to rule out ACS Hypertension History of CVA with residual deficit GERD Plan Monitor under telemetry Trend cardiac enzymes Start on aspirin statin Pain control X-ray showing tortuous after Will get a CTA of the chest Continue home medications and titrate as needed Antihypertensives titrated Cardiology evaluation PT eval GI/DVT prophylaxis 08/27/2019 Chest pain resolved Cardiac enzymes trended and is negative CT findings noted Appreciate help from cardiology Will continue conservative management with outpatient follow up Continue home medications and antihypertensives titrated Physical therapy evaluation and treatment Patient has cough Chest x-ray was done to rule out aspiration pneumonia speech therapy was consulted He underwent a modified barium swallow Speech recommended NPO for now Will discuss family regarding placement of PEG tube 08/28/2019 Patient failed modified barium swallow Kept NPO Will get a speech therapy evaluation tomorrow again Will get a surgical consult for possible PEG tube placement Will discuss with family regarding PEG tube Continue antibiotics for possible aspiration pneumonia 08/29/2019 Repeat speech valve was done Patient was not cooperative Could not do modified barium swallow Awaiting surgical consult Patient [facility] back [facility] the [facility] Will discuss with case operator Discuss the patient regarding the nature of the illness and chance of aspiration if he eats 08/30/2019 monitor closely Awaiting a repeat speech eval patient still refuses IV Will try to put on PPN Discusses family They want to make a decision about PEG tube after they visit him on tuesday Time Spent Managing Pts Care (In Minutes): 38
[2019-08-30] MEDS: D5 0.9 NS 1,000 ML IV SCH ×2 (16:40)
--- NOTE | 2019-08-30 17:08 | RAD REPORT ---
EXAM DESCRIPTION: RAD - Barium Swallow Modified - 08/30/2019 4:58 pm CLINICAL HISTORY: Cough/CVA FINDINGS: reduced oral bolus manipulation and increased oral transit time. Less of bolus over base of tongue with all consistencies. Delay in swallow approximately 6-13 seconds . Aspirations of thin liquid with cough, mild penetration of pureed x 1 that was cleared no penetration or aspiration of nectar and honey consistency and no aspiration of pureed. final puree d bolus passed into lower esophagus without incident hx of CVA, dysphagia. fluoro time- 3 min,6 sec 26 fluoroscopic images obtained
[2019-08-30] MEDS: ATORVASTATIN 40 MG TAB PO SCH (21:16)
[2019-08-31] MEDS: IPRATROPIUM BROM 0.5MG/2.5ML NEB SCH ×3 (04:00→08:00)
[2019-08-31] MEDS: ALBUTEROL 2.5 MG/3 ML NEB SOL NEB SCH ×3 (04:00→08:00)
[2019-08-31 04:30] VITALS: O2SAT 98
[2019-08-31] MEDS ORDERED: ASPIRIN 81 MG CHEWABLE TABLET PO SCH (09:00)
[2019-08-31] MEDS: ENOXAPARIN 40 MG/0.4 ML SQ SCH (09:07)
[2019-08-31] MEDS: D5 0.9 NS 1,000 ML IV SCH (09:20)
--- NOTE | 2019-08-31 09:48 | P.PN ---
Subjective Date of Service: 08/31/19 Chief Complaint: Chest Pain Subjective: No new changes, Other (Tolerating diet) Wants to go back Review of Systems 10-point ROS is otherwise unremarkable Physical Examination - Vital Signs Temperature: 97.4 F Blood Pressure: 124/81 Pulse: 65 Respirations: 16 Pulse Ox (%): 98 - Physical Exam General: Alert, In no apparent distress HEENT: Atraumatic, Normocephalic Neck: 2+ carotid pulse no bruit Respiratory: Clear to auscultation bilaterally Cardiovascular: Regular rate/rhythm, Normal S1 S2 Capillary refill: <2 Seconds Gastrointestinal: Soft and benign, W/out hepatosplenomegaly Musculoskeletal: No swelling Integumentary: No rashes Neurological: Abnormal gait, Abnormal speech, Abnormal strength Lymphatics: No axilla or inguinal lymphadenopathy Assessment & Plan - Problems (Diagnosis) (1) Chest pain Current Visit: Yes Status: Acute Physician Review Additional Text: Chest pain to rule out ACS Hypertension History of CVA with residual deficit GERD Plan Monitor under telemetry Trend cardiac enzymes Start on aspirin statin Pain control X-ray showing tortuous after Will get a CTA of the chest Continue home medications and titrate as needed Antihypertensives titrated Cardiology evaluation PT eval GI/DVT prophylaxis 08/27/2019 Chest pain resolved Cardiac enzymes trended and is negative CT findings noted Appreciate help from cardiology Will continue conservative management with outpatient follow up Continue home medications and antihypertensives titrated Physical therapy evaluation and treatment Patient has cough Chest x-ray was done to rule out aspiration pneumonia speech therapy was consulted He underwent a modified barium swallow Speech recommended NPO for now Will discuss family regarding placement of PEG tube 08/28/2019 Patient failed modified barium swallow Kept NPO Will get a speech therapy evaluation tomorrow again Will get a surgical consult for possible PEG tube placement Will discuss with family regarding PEG tube Continue antibiotics for possible aspiration pneumonia 08/29/2019 Repeat speech valve was done Patient was not cooperative Could not do modified barium swallow Awaiting surgical consult Patient wanted go back to the alf Will discuss with complex case manager Discuss the patient regarding the nature of the illness and chance of aspiration if he eats 08/30/2019 monitor closely Awaiting a repeat speech eval patient still refuses IV Will try to put on PPN Discusses family They want to make a decision about PEG tube after they visit him on tuesday08/31/2019 Appreciate help from speech therapy Start on pureed diet Tolerating well Patient is being discharged to alf Monitor closely Time Spent Managing Pts Care (In Minutes): 39
--- NOTE | 2019-08-31 13:13 | P.DS ---
Admission Date: 08/26/19 Discharge Date: 08/31/19 Disposition: [facility] Discharge Condition: FAIR Reason for Admission: Chest Pain - Problems (1) Chest pain Current Visit: Yes Status: Acute Brief History of Present Illness: 54-year-old male with a past medical history hypertension, CVA with residual defect , GERD given with chest pain. Chest pain is located retrosternally radiating to the right arm. Denies any shortness of breath. No fever or chills. The patient is a poor historian because of the cognitive defect hence most of the history is obtained from the chart review and also talking to the ER physician. At the time of interview the pain is slightly better. Patient was assessed in the ER and was admitted to rule out ACS Hospital Course: Chest pain unspecified Hypertension History of CVA with residual deficit GERD Dysphagia Course Monitored under telemetry Trended cardiac enzymes Started on aspirin statin Pain control X-ray showing tortuous vesselsa Got CTA of the chest Continue home medications and titrate as needed Antihypertensives titrated Chest pain resolved Cardiac enzymes trended and is negative CT findings noted Appreciate help from cardiology Will continue conservative management with outpatient follow up Continue home medications and antihypertensives titrated Physical therapy evaluation and treatment Patient has cough Chest x-ray was done to rule out aspiration pneumonia speech therapy was consulted He underwent a modified barium swallow Speech recommended NPO for now Patient failed modified barium swallow Kept NPO Will discuss with family regarding PEG tube Continued antibiotics for possible aspiration pneumonia Repeat speech valve was done Patient was not cooperative Could not do modified barium swallow Appreciate help from speech therapy Start on pureed diet Tolerating well Patient is being discharged to intermediate Vital Signs/Physical Exam: Temp Pulse Resp BP Pulse Ox 97 F 59 18 133/89 97 08/31/19 12:00 08/31/19 12:00 08/31/19 12:00 08/31/19 12:00 08/31/19 12:00 Laboratory Data at Discharge: WBC 4.2 K/uL (4.3-10.9) L 08/26/19 04:55 Hgb 11.4 g/dL (13.6-17.9) L 08/26/19 04:55 Hct 32.8 % (39.6-49.0) L 08/26/19 04:55 Plt Count 162 K/uL (152-406) 08/26/19 04:55 PT 13.3 SECONDS (9.5-12.5) H 08/25/19 16:01 INR 1.13 08/25/19 16:01 Sodium Cancelled 08/28/19 05:00 Potassium Cancelled 08/28/19 05:00 BUN Cancelled 08/28/19 05:00 Creatinine Cancelled 08/28/19 05:00 Glucose Cancelled 08/28/19 05:00 Phosphorus 3.1 mg/dL (2.5-4.9) 08/26/19 04:55 Magnesium 2.0 mg/dL (1.8-2.4) 08/26/19 04:55 Total Bilirubin 0.6 mg/dL (0.2-1.0) 08/26/19 04:55 AST 41 U/L (15-37) H 08/26/19 04:55 ALT 32 U/L (12-78) 08/26/19 04:55 Alkaline Phosphatase 117 U/L (45-117) 08/26/19 04:55 Troponin I < 0.02 ng/mL (0.0-0.045) 08/26/19 09:55 Home Medications: Acetaminophen [Tylenol] 650 mg PO Q6HP PRN 08/25/19 Amlodipine [Norvasc*] 10 mg PO DAILY 08/25/19 Ascorbic Acid [Vitamin C*] 500 mg PO DAILY 08/25/19 Carvedilol [Coreg] 12.5 mg PO BID 08/25/19 Docusate [Colace Cap*] 100 mg PO BID 08/25/19 Doxazosin [Cardura*] 2 mg PO BEDTIME 08/25/19 Lactulose 15 ml PO BID 08/25/19 Mag Hydrox/Al Hydrox/Simeth [Maalox Maximum Strength Susp] 30 ml PO TIDP PRN 08/25/19 Melatonin 5 mg PO BEDTIME 08/25/19 Mirtazapine [Remeron*] 15 mg PO BEDTIME 08/25/19 Multivitamin with Minerals [Multivitamins with Minerals] 1 each PO DAILY 08/25/19 Nystatin 10 ml PO QID 08/25/19 Omeprazole 20 mg PO DAILY 08/25/19 Zinc Sulfate [Zinc Sulfate*] 220 mg PO DAILY 08/25/19 Aspirin Chewable [Aspirin Chewable*] 81 mg PO DAILY #30 tab.chew 08/31/19 New Medications: Aspirin Chewable [Aspirin Chewable*] 81 mg PO DAILY #30 tab.chew Diet: PUREED Time spent managing pt's care (in minutes): 42
[2019-08-31 13:18] VITALS: BP 124/81; TEMP 97.4
== END 2019-08-31 14:25 | DRG 313 ==
LOC: ER 15:12 → ERHOLD 17:51 → 2ND 20:07 → OBSVTOIN 08-26 07:05 → 2ND 08-27 23:16
PROVIDERS: ADMIT Family Medicine; ATTEND Family Medicine
DX: R07.89 Other chest pain (principal); J69.0 Pneumonitis due to inhalation of food and vomit; K21.9 Gastro-esophageal reflux disease without esophagitis; I10 Essential (primary) hypertension; I69.320 Aphasia following cerebral infarction; R13.13 Dysphagia, pharyngeal phase; Z87.891 Personal history of nicotine dependence; Z11.59 Encounter for screening for other viral diseases
CPT/HCPCS: 36415; 70450; 71045; 71260; 74230; 80048; 80053; 80076; 81003; 81015; 82550; 82553; 83735; 83880; 84100; 84132; 84484; 85025; 85610; 87077; 87086; 87088; 87186; 92507; 92526; 92611; 93005; 93971; 94640; 96374; 97161; 97164; 97530; 99285; G0378; J0360; J1650; J2270; J3480; J7040; Q9967; U0002

== ENCOUNTER 2019-09-02 13:05 | Emergency (ER) | payer MEDICAID, SELFPAY ==
--- OUTSIDE RECORDS SUMMARY | 2019-09-02 13:08 | XMS REPORT | Clinical Summary ---
:1965 Author Organization [facility] Address [address] [place] [address] Care Team Providers Name Role Phone Unavailable Primary Care Provider Unavailable Allergies No Known Allergies Medications Medication Sig Dispensed Refills Start End Status Date Date hydroCHLOROthiazide Take 1 28 tablet 0 Active (HYDRODIURIL) 25 mg tablet by 8 tabletIndications: mouth daily. Hypertensive urgency atorvastatin (LIPITOR) Take 1 28 tablet 0 Active 20 mg tablet by 8 tabletIndications: mouth daily. History of CVA (cerebrovascular accident) aspirin (ASPIRIN) 81 mg Chew and 28 tablet 0 Active chewable swallow 1 8 tabletIndications: tablet by History of CVA mouth daily. (cerebrovascular accident) carvedilol (COREG) 6.25 Take 1 56 tablet 0 Active mg tabletIndications: tablet by 8 Hypertensive urgency mouth 2 times daily (with meals). amLODIPine (NORVASC) 10 Take 1 90 tablet 1 Active mg tabletIndications: tablet by 9 Medication refill, mouth daily. Essential hypertension carvedilol (COREG) 6.25 Take 1 180 tablet 1 Active mg tabletIndications: tablet by 9 Medication refill, mouth 2 Essential hypertension times daily (with meals). lisinopril (ZESTRIL) 40 Take 1 90 tablet 1 Active mg tabletIndications: tablet by 9 Medication refill, mouth daily. Essential hypertension ammonium lactate Apply to 444 mL 2 Act gabby (LAC-HYDRIN) 12 % affected 9 lotionIndications: area as Medication refill needed for dry skin. triamcinolone (TRIDERM) Apply to 160 g 2 Active 0.1 % topical affected 9 creamIndications: area 2 times Medication refill daily. ivermectin (STROMECTOL) Take all 5.5 5.5 tablet 0 Active 3 mg tabletIndications: tablets as 1 9 Scabies dose, 1 week after 1st dose (take on 01/12/19). amLODIPine (NORVASC) 10 Take 1 30 tablet 0 Active mg tabletIndications: tablet by 9 History of hypertension mouth daily. carvedilol (COREG) 6.25 Take 1 60 tablet 0 Active mg tabletIndications: tablet by 9 History of hypertension mouth 2 times daily (with meals). lisinopril (ZESTRIL) 40 Take 1 30 tablet 0 Active mg tabletIndications: tablet by 9 History of hypertension mouth daily. amLODIPine (NORVASC) 5 Take 1 28 tablet 0 Discontinued mg tabletIndications: tablet by 8 019 (Dose Hypertensive urgency mouth daily. adjustment) famotidine (PEPCID) 40 Take 1 28 tablet 0 Discontinued mg tabletIndications: tablet by 8 019 (Alternate Heartburn mouth 2 therapy) times daily. omeprazole (PRILOSEC) Take 1 28 capsule 0 Discontinued 20 mg delayed release capsule by 8 019 (Alternate capsuleIndications: mouth every therapy) Heartburn morning (before breakfast). omeprazole (PRILOSEC) Take 1 30 capsule 0 20 mg delayed release capsule by 9 020 capsuleIndications: mouth daily Gastroesophageal reflux for 30 days. disease, esophagitis presence not specified Active Problems Problem Noted Date Screening for depression 03/16/2017 Slurred speech 02/25/2017 Severe uncontrolled hypertension 10/23/2008 History of hypertension Medication refill Nonintractable headache Weakness Chest pain Gastroesophageal reflux disease Encounters Date Type Specialty Care Team Description 03/02/2019 Intake Emergency Medicine 02/20/2019 Office Visit Family Practice Aylin Kasper, Essential hypertension (Primary Dx); Physician Hiwot hassan reflux disease without esophagitis 01/08/2019 - Emergency Emergency Medicine Aaron Zuniga Severe uncontrolled hypertension (Primary Dx); 01/09/2019 S, MD Gastroesophagea l reflux disease, esophagitis presence not specified 01/05/2019 - Emergency Emergency Medicine Adreinne García, Gastro esophageal reflux disease, esophagitis presence not specified (Primary Dx); 01/06/2019 Chest pain, uns pecified type; Scabies; History of hype rtension; Liver mass 12/21/2018 Same Day Family Practice Musa Prince r efill (Primary Dx); MD Sulaiman Essential hyper tension 12/20/2018 Emergency Emergency Medicine Dinesh Lopez MD after 09/01/2018 Immunizations Name Administration Dates Next Due Influenza Vaccine 12/21/2018 (Deferred: Patient Refused) Influenza Vaccine, Seasonal, 12/22/2016 Injectable Family History Medical History Relation Name Comments Alcohol/Drug Brother Hypertension Brother Hypertension Father Stroke Father Diabetes Maternal Grandmother Hypertension Maternal Grandmother Hypertension Mother Unknown Fam Hx Paternal Aunt Unknown Fam Hx Paternal Grandfather Unknown Fam Hx Paternal Grandmother Unknown Fam Hx Paternal Uncle Hypertension Sister Relation Name Status Comments Brother Father Maternal Grandfather Maternal Grandmother Alive Mother Paternal Aunt Paternal Grandfather Paternal Grandmother Paternal Uncle Sister Social History Tobacco Use Types Packs/Day Years Used Date Current Every Day Smoker Cigarettes Smokeless Tobacco: Never Used Tobacco Cessation: Ready to Quit: Yes; C ounseling Given: Yes Alcohol Use Drinks/Week oz/Week Comments No Sex Assigned at Date Recorded Not on file Job Start Date Occupation Industry Not on file Not on file Not on file Travel History Travel Start Travel End No recent travel history available. Last Filed Vital Signs Vital Sign Reading Time Taken Comments Blood Pressure 151/83 01/09/2019 6:00 AM MESS COOK Pulse 68 01/09/2019 6:00 AM M[facility]OOK Temperature 36.8 C (98.3 F) 01/09/2019 6:00 AM M[facility] COOK Respiratory Rate 20 01/09/2019 6:00 AM MESS COOK Oxygen Saturation 99% 01/09/2019 6:00 AM MESS COOK Inhaled Oxygen Concentration - - Weight 84.8 kg (187 lb) 02/20/2019 3:58 PM M[facility] COOK Height 185.4 cm (6' 1") 02/20/2019 3:58 PM M[facility] COOK Body Mass Index 24.67 02/20/2019 3:58 PM MESS COOK Plan of Treatment Health Maintenance Due Date Last Done Comments Colorectal Cancer Scrn Annual (FIT/FOBT) Age 50 to 75 2014 IMM Influenza Seasonal Nov to April (>/= 19 yrs) 11/08/2019 12/22/2016 Procedures Procedure Name Priority Date/Time Associated Diagnosis Comme nts ECHG EKG PROC 12 STAT 01/05/2019 11:06 Results for this LEAD EKG; TRACING PM MESS COOK procedure are in ONLY the results section. TROPONIN I POC Routine 01/05/2019 7:59 Results f or this PM MESS COOK procedure are i n the results section. ECHG EKG PROC 12 STAT 01/05/2019 7:47 Results for this LEAD EKG; TRACING PM MESS COOK procedure are in ONLY the results section. U/S ABDOMEN STAT 01/05/2019 6:14 Gastroesophageal reflux Results for this PM MESS COOK disease, esophagitis procedu re are in presence not spe cified the results Chest pain, unspecified sect ion. type XRAY CHEST 2 VIEWS STAT 01/05/2019 5:20 Chest pain, unspec ified Results for this PM M[facility] COOK type procedure are i n the results section. BMP POC Routine 01/05/2019 1:42 Results for this PM M[facility] procedure are i n the results section. TROPONIN I POC Routine 01/05/2019 1:41 Results f or this PM M[facility] COOK procedure are i n the results section. URINALYSIS STAT 01/05/2019 1:35 Results for this PM [facility] procedure are i n the results section. CBC STAT 01/05/2019 1:35 Results for this PM M[facility]OOK procedure are i n the results section. URINALYSIS STAT 01/05/2019 1:35 Results for this PM M[facility] procedure are i n the results section. LIPASE STAT 01/05/2019 1:35 Results for this PM M[facility]OOK procedure are i n the results section. LIVER PROFILE STAT 01/05/2019 1:35 Results fo r this PM M[facility] COOK procedure are i n the results section. CBC/DIFF STAT 01/05/2019 1:35 Results for this PM MESS COOK procedure are i n the results section. ECHG EKG PROC 12 Routine 01/05/2019 1:19 Results for this LEAD EKG; TRACING PM MESS COOK procedure are in ONLY the results section. 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 Measu rements Intervals [place] Rate: 58 P: 65 [place]: 151 QRS: -37 QRSD: 102 T: 71 QT: 436 QTc: 431 Interpretive S tatements SINUS BRADYCARDIA POSSIBLE LEFT ATRIAL ENLARGEMENT [-0.1mV P WAVE IN V1/ V2] MARKED LEFT AXIS DEVIATION [QRS AXIS < -30] Electronically Signed On 01-06-2019 5:47:02 MESS COOK by Bala Ordaz M.D. Specimen Performing Organization Address [facility] Phone Number [facility] POCT TROPONIN I POC docked device (01/05/2019 7:59 PM MESS COOK)Only the most recent of2 resultswithin the time period is included. Pathologist Sig nature Troponin POC 0.01 0.00 - 0.08 ng/mL [facility] Specimen Blood, venous Performing Organization Address [facility] Phone Number [facility] [address] [place] [address] 12 LEAD EKG (01/05/2019 7:47 PM MESS COOK) 12 LEAD EKG FOR [facility] SMS Test Date: 2019-01-05 Pat Name: NICO SPENCE [facility] ent: [id number] Room: [facility] ISO 1 Gender: M Hand Heel Seat Fitter: : 1965 0 Requested By: YANIRA Bell Order Number: [id number] Reading MD: Hayden Ordaz M.D. Measu rements Intervals [place] Rate: 57 P: 50 [place]: 149 QRS: -2 QRSD: 94 T: 7 QT: 452 QTc: 442 Interpretive S tatements SINUS BRADYCARDIA MODERATE ST DEPRESSION [0.05+ mV ST DEPRESSION] Reviewed by Electronically Signed On 01-05-2019 20:27:59 MESS COOK by Diana Ordaz M.D. Specimen Performing Organization Address [facility] Phone Number [facility] U/S ABDOMEN (01/05/2019 6:14 PM MESS COOK) Specimen Impressions Performed At IMPRESSION: SMS 1. Two focal hepatic masses suspicious for malignancy. Recommend nonemergent CT abdomen with and without contrast liver mass protocol for further evaluation. 2. Dilation of the main pancreatic duct at 0.5 cm, w hich can be further evaluated on the CT abdomen. 3. Dilation of the main portal vein at 1.5 cm, nonsp ecific finding that can be seen in portal hypertension. Hepa topedal flow is maintained. Dictated By: Bev Otto DO, 01/06/20 6:57 PM I have reviewed the study and agree with the findings in this report. Signed By: Neha Soria MD, 01/05/2019 7:2 6 PM Narrative Performed At EXAM: Complete Abdominal Ultrasound SMS INDICATION: elevated LFTs, epigastric pain COMPARISON: None. TECHNIQUE: Transverse and longitudinal i mages of the upper abdomen were obtained. FINDINGS: Liver: Size: 17.6 cm in the right midcla vicular line, enlarged Appearance: Normal echogenicity, smooth contour Mass: 5.2 x 3.8 x 3.6 cm hypoechoic heterogenou s mass in the right lobe of the liver with questionable franco pheral vascularity. Hypoechoic 2.6 x 2.4 x 2.5 cm mass in the left lobe of the liver with internal vascularity. Spleen: Size: 7.9cm in length, normal Echogenicity: Normal Mass: No focal masses Gallbladder: Stones/Sludge: None Wall: 0.2 cm Appearance: No pericholecystic fl uid or hydrops. Sonographic Fu's Sign: Negati ve Bile Ducts: Intrahepatic Ducts: No dilatation Extrahepatic Ducts: Common bile duct measures 0 .5 cm, no dilatation Pancreas: Dilation of the pancreatic duct at 0.5 c m. Right Kidney: Size: 11.3 cm Echogenicity: Normal Parenchymal thickness: Normal Collecting System: No hydroneph rosis Stone: None Cyst/Mass: None Left Kidney: Size: 10.3 cm Echogenicity: Normal Parenchymal thickness: Normal Collecting System: No hydroneph rosis Stone: None Cyst/Mass: None Vessels: Aorta: Visualized portions are no rmal Inferior Vena Cava: Visualized po rtions are normal Main Portal Vein: 1.5 cm, dilated with hepatopetal flow. Free Fluid: No ascites or pleural effusion Procedure Note Interface, Rad/Mammog In - 01/05/2019 7 :31 PM MESS [facility]OOK EXAM: Complete Abdominal Ultrasound INDICATION: elevated LFTs, epigastric pain COMPARISON: None. TECHNIQUE: Transverse and longitudinal i mages of the upper abdomen were obtained. FINDINGS: Liver: Size: 17.6 cm in the right midclavi cular line, enlarged Appearance: Normal echogenicity, sm ooth contour Mass: 5.2 x 3.8 x 3.6 cm hypoechoic heterogenous mass in the right lobe of the liver with questionable franco pheral vascularity. Hypoechoic 2.6 x 2.4 x 2.5 cm mass in the left lobe of the liver with internal vascularity. Spleen: Size: 7.9cm in length, normal Echogenicity: Normal Mass: No focal masses Gallbladder: Stones/Sludge: None Wall: 0.2 cm Appearance: No pericholecystic flui d or hydrops. Sonographic Fu's Sign: Negative Bile Ducts: Intrahepatic Ducts: No dilatation Extrahepatic Ducts: Common bile nick t measures 0.5 cm, no dilatation Pancreas: Dilation of the pancreatic duct at 0.5 c m. Right Kidney: Size: 11.3 cm Echogenicity: Normal Parenchymal thickness: Normal Collecting System: No hydronephros is Stone: None Cyst/Mass: None Left Kidney: Size: 10.3 cm Echogenicity: Normal Parenchymal thickness: Normal Collecting System: No hydronephros is Stone: None Cyst/Mass: None Vessels: Aorta: Visualized portions are norm al Inferior Vena Cava: Visualized port ions are normal Main Portal Vein: 1.5 cm, dilated w ith hepatopetal flow. Free Fluid: No ascites or pleural effusion IMPRESSION IMPRESSION: 1. Two focal hepatic masses suspicious for malignancy. Recommend nonemergent CT abdomen with and without contrast liver mass protocol for further evaluation. 2. Dilation of the main pancreatic duct at 0.5 cm, which can be further evaluated on the CT abdomen. 3. Dilation of the main portal vein at 1.5 cm, nonspecific finding that can be seen in portal hypertension. Hepa topedal flow is maintained. Dictated By: Bev Otto DO, 01/06/20 19 6:57 PM I have reviewed the study and agree with the findings in this report. Signed By: Neha Soria MD, 01/05/2019 7:2 6 PM Performing Organization Address City/[facility] Phone Number [facility] XRAY CHEST 2 VIEWS (01/05/2019 5:20 PM MESS COOK) Specimen Impressions Performed At IMPRESSION: [facility] No acute thoracic abnormality. Dictated By: Benjamin Merino DO, 01/05/2019 7:07 PM I have reviewed the study and agree with the findings in this report. Signed By: Neha Soria MD, 01/05/2019 7:2 7 PM Narrative Performed At EXAMINATION: XRAY CHEST 2 VIEWS SMS INDICATION: chest paid COMPARISON: Chest x-ray 02/25/2017 FINDINGS: PA view TUBES, LINES, DEVICES: None. LUNGS AND PLEURA: Lungs are well infla salena. Lungs are clear. There is no evidence of pneumonia or pulmonary ed rosales. No pleural effusion or pneumothorax. HEART AND MEDIASTINUM: The cardiomediast inal silhouette is unremarkable. BONES AND SOFT TISSUES: No acute osseo us lesion. Soft tissues are unremarkable. UPPER ABDOMEN: No free air under the fahad phragm. Procedure Note Interface, Rad/Mammog In - 01/05/2019 7 :32 PM M[facility] COOK EXAMINATION: XRAY CHEST 2 VIEWS INDICATION: chest paid COMPARISON: Chest x-ray 02/25/2017 FINDINGS: PA view TUBES, LINES, DEVICES: None. LUNGS AND PLEURA: Lungs are well inflat ed. Lungs are clear. There is no evidence of pneumonia or pulmonary ed rosales. No pleural effusion or pneumothorax. HEART AND MEDIASTINUM: The cardiomediast inal silhouette is unremarkable. BONES AND SOFT TISSUES: No acute osseou s lesion. Soft tissues are unremarkable. UPPER ABDOMEN: No free air under the fahad phragm. IMPRESSION IMPRESSION: No acute thoracic abnormality. Dictated By: Benjamin Merino DO, 01/05/2019 7:07 PM I have reviewed the study and agree with the findings in this report. Signed By: Neha Soria MD, 01/05/2019 7:2 7 PM Performing Organization Address [facility] Phone Number SMS POCT BMP POC docked device (01/05/2019 1:42 PM MESS COOK) Sodium POC 134 (L) 136 - 145 [facility]/L [facility] Potassium POC 3.7 3.5 - 5.1 [facility]/L [facility] Chloride POC 98 98 - 107 [facility]L [facility] TCO2 POC 24 21 - 32 [facility] mmol/L [facility] Urea Nitrogen POC 14 7 - 18 mg/dL [facility] Creatinine POC 0.9 0.6 - 1.3 [facility] mg/dL [facility] Glucose POC 105 74 - 106 [facility] mg/dL [facility] Ionized Calcium 1.14 (L) 1.15 - 1.29 [facility] POC mmol/L LAB[facility]ORY eGFR If Africn Am >90 >=90 [facility] mL/min/1.73 [facility] m2 GFR, Estimated >90 >=90 [facility] mL/min/1.73 [facility] m2 Hemoglobin POC 14.6Comment: 12 - 16 g/dL [facility] Physician [facility] Notified Hematocrit POC 43.0 37.0 - 47.0 % [facility] Specimen Blood, venous Performing Organization Address City/State/Zipcode Phone Number [facility] [address] [place] [address] [phone] CBC/Diff (01/05/2019 1:35 PM MESS COOK) WBC 6.9 4.5 - 12.0 K/uL [facility] RBC 4.13 (L) 4.60 - 6.20 [facility] M/uL Hemoglobin 13.2 (L) 14.0 - 18.0 [facility] g/dL Hematocrit 38.3 (L) 40.0 - 54.0 % [facility] MCV 92.7 (H) 82.0 - 92.0 fL [facility] MCH 32.0 (H) 27.0 - 31.0 pg [facility] MCHC 34.5 32.0 - 36.0 [facility] g/dL RDW 44.9 (H) 35.1 - 43.9 fL [facility] Platelet 164 150 - 400 K/uL [facility] Mean Platelet Volume 12.1 9.4 - 12.4 fL [facility] Percent NRBC 0.0 % [facility] Neutrophil 51.0 34.0 - 67.9 % [facility] Lymphs 28.8 21.8 - 50.0 % [facility] Monocytes 19.4 (H) 5.3 - 12.0 % [facility] Eos 0.1 (L) 0.8 - 5.0 % [facility] Basos 0.4 0.2 - 1.2 % [facility] Immature Granulocytes 0.3 0.0 - 0.5 % [facility] Neutrophils (Absolute) 3.53 1.78 - 5.36 [facility] Y K/uL Lymphs (Absolute) 1.99 1.32 - 3.57 [facility] K/uL Monocytes(Absolute) 1.34 (H) 0.30 - 0.82 [facility] K/uL Eos (Absolute) 0.01 (L) 0.04 - 0.54 [facility] K/uL Baso (Absolute) 0.03 0.01 - 0.08 [facility] K/uL Immature Grans (Abs) 0.02 0.00 - 0.03 [facility] K/uL Absolute NRBC 0.00 K/uL [facility] Specimen Blood Performing Organization Address [facility] Phone Number [facility] [address] [place] [address] Urinalysis (01/05/2019 1:35 PM MESS COOK) Pathologist Sig nature Color Yellow Colorless, Straw, [facility] Yellow Clarity Hazy (A) Clear [facility] Spec [place], Ur 1.006 1.001 - 1.035 [facility] pH, Ur 7.0 5.0 - 8.0 [facility] Protein, Ur Negative Negative mg/dL [facility] Glucose, Ur Negative Negative mg/dL [facility] Ketone, Ur Negative Negative mg/dL [facility] Bilirubin, Ur Negative Negative mg/dL [facility] Nitrite, Ur Negative Negative [facility] Leukocyte Negative Negative mg/dL [facility] Blood, Ur 2+ (A) Negative mg/dL [facility] RBC <1 0 - 4 /HPF [facility] Urobilinogen, Ur 1.0 (A) <1.0 EU/dL [facility] Specimen Urine Performing Organization Address [facility] Phone Number [facility] [address] [place] [address] Liver Profile (01/05/2019 1:35 PM MESS COOK) Pathologist Sig nature Total Protein 6.7 6.0 - 8.3 g/dL [facility] Bilirubin, Total 1.7 (H) 0.2 - 1.2 mg/dL [facility] Alkaline Phosphatase 111 (H) 34 - 104 U/L [facility] AST 76 (H) 13 - 39 U/L [facility] Direct Bilirubin 0.8 (H) 0.0 - 0.2 mg/dL [facility] ALT 50 7 - 52 U/L [facility] Albumin 3.5 (L) 4.2 - 5.5 g/dL [facility] Specimen Blood Performing Organization Address [facility] Phone Number [facility] [address] [place], [place] [id number] Lipase (01/05/2019 1:35 PM MESS COOK) Pathologist Sig nature Lipase 34 11 - 82 U/L [facility] Specimen Blood Performing Organization Address [facility] Phone Number [facility] [address] [place] [address] 12 LEAD EKG (01/05/2019 1:19 PM MESS COOK) 12 LEAD EKG FOR [facility] SMS Test Date: 2019-01-05 Pat Name: NICO SPENCE [facility] ent: [id number] Room: Gender: Hand Heel Seat Fitter: [id number] : 1965 Requested By: JESÚS BURNETT Order Number: [id number] [place] MD: Hayden Ordaz M.D. Measu rements Intervals [place] Rate: 65 P: 79 [place]: 152 QRS: -1 QRSD: 95 T: 73 QT: 417 QTc: 436 Interpretive S tatements SINUS RHYTHM POSSIBLE RIGHT ATRIAL ENLARGEMENT [0.25mV P WAVE] POSSIBLE LEFT ATRIAL ENLARGEMENT [-0.1mV P WAVE IN V1/ V2] POSSIBLE ANTERIOR MYOCARDIAL INFARCTION [30 ms Q WAVE IN V3/V4, OR R < 0.2 mV IN V4], OF INDETERMINATE AGE Electronically Signed On 01-05-2019 13:24:15 MESS COOK by Diana Ordaz M.D. Specimen Performing Organization Address [facility] Phone Number [facility] after 09/01/2018 Insurance Payer Benefit Plan / Subscriber ID Effective Dates Phone Addre ss Type Group HOMELESS DALY HOMELESS DALY xxxxxx 2018- [id number] [id number]
--- OUTSIDE RECORDS SUMMARY | 2019-09-02 13:11 | XMS REPORT | Clinical Summary ---
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 POC GLUCOSE Routine 04/04/2019 11:42 Results for this AM ADVERTISER procedure are i n the results section. POC GLUCOSE Routine 04/04/2019 6:34 Results for this AM ADVERTISER procedure are i n the results section. POC GLUCOSE Routine 04/03/2019 11:37 Results for this PM ADVERTISER procedure are i n the results section. POC GLUCOSE Routine 04/03/2019 4:06 Results for this PM ADVERTISER procedure are i n the results section. POC GLUCOSE Routine 04/03/2019 11:26 Results for this AM ADVERTISER procedure are i n the results section. POC GLUCOSE Routine 04/03/2019 4:01 Results for this AM ADVERTISER procedure are i n the results section. POC GLUCOSE Routine 04/02/2019 11:54 Results for this PM ADVERTISER procedure are i n the results section. POC GLUCOSE Routine 04/02/2019 4:01 Results for this PM ADVERTISER procedure are i n the results section. POC GLUCOSE Routine 04/02/2019 11:58 Results for this AM ADVERTISER procedure are i n the results section. POC GLUCOSE Routine 04/02/2019 4:02 Results for this AM ADVERTISER procedure are i n the results section. POC GLUCOSE Routine 04/01/2019 11:06 Results for this PM ADVERTISER procedure are i n the results section. POC GLUCOSE Routine 04/01/2019 4:22 Results for this PM ADVERTISER procedure are i n the results section. POC GLUCOSE Routine 04/01/2019 11:53 Results for this AM ADVERTISER procedure are i n the results section. POC GLUCOSE Routine 04/01/2019 4:49 Results for this AM ADVERTISER procedure are i n the results section. POC GLUCOSE Routine 03/31/2019 11:18 Results for this PM ADVERTISER procedure are i n the results section. POC GLUCOSE Routine 03/31/2019 4:36 Results for this PM ADVERTISER procedure are i n the results section. POC GLUCOSE Routine 03/31/2019 11:47 Results for this AM ADVERTISER procedure are i n the results section. POC GLUCOSE Routine 03/31/2019 6:02 Results for this AM ADVERTISER procedure are i n the results section. SMEAR REVIEW Routine 03/31/2019 4:00 Results for this AM ADVERTISER procedure are i n the results section. ESTIMATED GFR Routine 03/31/2019 4:00 Results fo r this AM ADVERTISER procedure are i n the results section. BASIC METABOLIC PANEL Routine 03/31/2019 4:00 Re sults for this AM ADVERTISER procedure are i n the results section. HC COMPLETE BLD COUNT Routine 03/31/2019 4:00 Re sults for this W/AUTO DIFF AM ADVERTISER procedure are i n the results section. POC GLUCOSE Routine 03/30/2019 11:25 Results for this PM ADVERTISER procedure are i n the results section. POC GLUCOSE Routine 03/30/2019 6:12 Results for this PM ADVERTISER procedure are i n the results section. POC GLUCOSE Routine 03/30/2019 11:23 Results for this AM ADVERTISER procedure are i n the results section. POC GLUCOSE Routine 03/29/2019 11:32 Results for this PM ADVERTISER procedure are i n the results section. POC GLUCOSE Routine 03/29/2019 6:35 Results for this PM ADVERTISER procedure are i n the results section. POC GLUCOSE Routine 03/29/2019 11:56 Results for this AM ADVERTISER procedure are i n the results section. POC GLUCOSE Routine 03/29/2019 4:48 Results for this AM ADVERTISER procedure are i n the results section. POC GLUCOSE Routine 03/28/2019 11:49 Results for this PM ADVERTISER procedure are i n the results section. POC GLUCOSE Routine 03/28/2019 4:22 Results for this PM ADVERTISER procedure are i n the results section. POC GLUCOSE Routine 03/28/2019 11:09 Results for this AM ADVERTISER procedure are i n the results section. POC GLUCOSE Routine 03/28/2019 5:02 Results for this AM ADVERTISER procedure are i n the results section. POC GLUCOSE Routine 03/27/2019 11:29 Results for this PM ADVERTISER procedure are i n the results section. POC GLUCOSE Routine 03/27/2019 4:21 Results for this PM ADVERTISER procedure are i n the results section. POC GLUCOSE Routine 03/27/2019 12:01 Results for this PM ADVERTISER procedure are i n the results section. POC GLUCOSE Routine 03/27/2019 4:56 Results for this AM ADVERTISER procedure are i n the results section. POC GLUCOSE Routine 03/26/2019 11:08 Results for this PM ADVERTISER procedure are i n the results section. POC GLUCOSE Routine 03/26/2019 4:08 Results for this PM ADVERTISER procedure are i n the results section. POC GLUCOSE Routine 03/26/2019 11:12 Results for this AM ADVERTISER procedure are i n the results section. POC GLUCOSE Routine 03/26/2019 7:09 Results for this AM ADVERTISER procedure are i n the results section. ESTIMATED GFR Routine 03/26/2019 5:00 Results fo r this AM ADVERTISER procedure are i n the results section. BASIC METABOLIC PANEL Routine 03/26/2019 5:00 Re sults for this AM ADVERTISER procedure are i n the results section. HC COMPLETE BLD COUNT Routine 03/26/2019 5:00 Re sults for this W/AUTO DIFF AM ADVERTISER procedure are i n the results section. POC GLUCOSE Routine 03/26/2019 4:53 Results for this AM ADVERTISER procedure are i n the results section. POC GLUCOSE Routine 03/25/2019 11:54 Results for this PM ADVERTISER procedure are i n the results section. POC GLUCOSE Routine 03/25/2019 4:38 Results for this PM ADVERTISER procedure are i n the results section. POC GLUCOSE Routine 03/25/2019 11:35 Results for this AM ADVERTISER procedure are i n the results section. POC GLUCOSE Routine 03/25/2019 5:49 Results for this AM ADVERTISER procedure are i n the results section. POC GLUCOSE Routine 03/25/2019 12:23 Results for this AM ADVERTISER procedure are i n the results section. POC GLUCOSE Routine 03/24/2019 4:07 Results for this PM ADVERTISER procedure are i n the results section. POC GLUCOSE Routine 03/24/2019 11:18 Results for this AM ADVERTISER procedure are i n the results section. POC GLUCOSE Routine 03/24/2019 6:19 Results for this AM ADVERTISER procedure are i n the results section. POC GLUCOSE Routine 03/24/2019 3:11 Results for this AM ADVERTISER procedure are i n the results section. POC GLUCOSE Routine 03/23/2019 11:32 Results for this PM ADVERTISER procedure are i n the results section. POC GLUCOSE Routine 03/23/2019 11:23 Results for this AM ADVERTISER procedure are i n the results section. POC GLUCOSE Routine 03/23/2019 4:50 Results for this AM ADVERTISER procedure are i n the results section. POC GLUCOSE Routine 03/22/2019 11:30 Results for this PM ADVERTISER procedure are i n the results section. POC GLUCOSE Routine 03/22/2019 4:05 Results for this PM ADVERTISER procedure are i n the results section. POC GLUCOSE Routine 03/22/2019 11:17 Results for this AM ADVERTISER procedure are i n the results section. POC GLUCOSE Routine 03/22/2019 5:33 Results for this AM ADVERTISER procedure are i n the results section. POC GLUCOSE Routine 03/21/2019 11:31 Results for this PM ADVERTISER procedure are i n the results section. POC GLUCOSE Routine 03/21/2019 4:35 Results for this PM ADVERTISER procedure are i n the results section. POC GLUCOSE Routine 03/21/2019 11:36 Results for this AM ADVERTISER procedure are i n the results section. POC GLUCOSE Routine 03/21/2019 5:27 Results for this AM ADVERTISER procedure are i n the results section. POC GLUCOSE Routine 03/20/2019 11:37 Results for this PM ADVERTISER procedure are i n the results section. POC GLUCOSE Routine 03/20/2019 4:25 Results for this PM ADVERTISER procedure are i n the results section. POC GLUCOSE Routine 03/20/2019 11:47 Results for this AM ADVERTISER procedure are i n the results section. POC GLUCOSE Routine 03/20/2019 7:53 Results for this AM ADVERTISER procedure are i n the results section. POC GLUCOSE Routine 03/20/2019 5:58 Results for this AM ADVERTISER procedure are i n the results section. POC GLUCOSE Routine 03/19/2019 11:33 Results for this PM ADVERTISER procedure are i n the results section. POC GLUCOSE Routine 03/19/2019 5:48 Results for this PM ADVERTISER procedure are i n the results section. POC GLUCOSE Routine 03/19/2019 12:16 Results for this PM ADVERTISER procedure are i n the results section. POC GLUCOSE Routine 03/19/2019 4:22 Results for this AM ADVERTISER procedure are i n the results section. POC GLUCOSE Routine 03/18/2019 11:10 Results for this PM ADVERTISER procedure are i n the results section. POC GLUCOSE Routine 03/18/2019 4:11 Results for this PM ADVERTISER procedure are i n the results section. POC GLUCOSE Routine 03/18/2019 11:17 Results for this AM ADVERTISER procedure are i n the results section. POC GLUCOSE Routine 03/18/2019 5:25 Results for this AM ADVERTISER procedure are i n the results section. ESTIMATED GFR Routine 03/18/2019 4:50 Results fo r this AM ADVERTISER procedure are i n the results section. BASIC METABOLIC PANEL Routine 03/18/2019 4:50 Re sults for this AM ADVERTISER procedure are i n the results section. HC COMPLETE BLD COUNT Routine 03/18/2019 4:50 Re sults for this W/AUTO DIFF AM ADVERTISER procedure are i n the results section. POC GLUCOSE Routine 03/17/2019 11:43 Results for this PM ADVERTISER procedure are i n the results section. POC GLUCOSE Routine 03/17/2019 4:00 Results for this PM ADVERTISER procedure are i n the results section. POC GLUCOSE Routine 03/17/2019 11:21 Results for this AM ADVERTISER procedure are i n the results section. POC GLUCOSE Routine 03/17/2019 6:58 Results for this AM ADVERTISER procedure are i n the results section. POC GLUCOSE Routine 03/17/2019 12:01 Results for this AM ADVERTISER procedure are i n the results section. POC GLUCOSE Routine 03/16/2019 3:28 Results for this PM ADVERTISER procedure are i n the results section. POC GLUCOSE Routine 03/16/2019 11:32 Results for this AM ADVERTISER procedure are i n the results section. POC GLUCOSE Routine 03/16/2019 6:43 Results for this AM ADVERTISER procedure are i n the results section. POC GLUCOSE Routine 03/15/2019 11:38 Results for this PM ADVERTISER procedure are i n the results section. POC GLUCOSE Routine 03/15/2019 4:24 Results for this PM ADVERTISER procedure are i n the results section. XR CHEST 1 VW PORTABLE Routine 03/15/2019 1:48 R esults for this PM ADVERTISER procedure are i n the results section. POC GLUCOSE Routine 03/15/2019 11:31 Results for this AM ADVERTISER procedure are i n the results section. POC GLUCOSE Routine 03/15/2019 4:57 Results for this AM ADVERTISER procedure are i n the results section. POC GLUCOSE Routine 03/14/2019 11:20 Results for this PM ADVERTISER procedure are i n the results section. POC GLUCOSE Routine 03/14/2019 5:11 Results for this PM ADVERTISER procedure are i n the results section. POC GLUCOSE Routine 03/14/2019 11:16 Results for this AM ADVERTISER procedure are i n the results section. POC GLUCOSE Routine 03/14/2019 4:37 Results for this AM ADVERTISER procedure are i n the results section. ESTIMATED GFR Routine 03/14/2019 4:00 Results fo r this AM ADVERTISER procedure are i n the results section. MAGNESIUM LEVEL Routine 03/14/2019 4:00 Results for this AM ADVERTISER procedure are i n the results section. BASIC METABOLIC PANEL Routine 03/14/2019 4:00 Re sults for this AM ADVERTISER procedure are i n the results section. HC COMPLETE BLD COUNT Routine 03/14/2019 4:00 Re sults for this W/AUTO DIFF AM ADVERTISER procedure are i n the results section. POC GLUCOSE Routine 03/13/2019 11:31 Results for this PM ADVERTISER procedure are i n the results section. POC GLUCOSE Routine 03/13/2019 3:22 Results for this PM ADVERTISER procedure are i n the results section. POC GLUCOSE Routine 03/13/2019 11:19 Results for this AM ADVERTISER procedure are i n the results section. POC GLUCOSE Routine 03/13/2019 5:52 Results for this AM ADVERTISER procedure are i n the results section. POC GLUCOSE Routine 03/12/2019 11:26 Results for this PM ADVERTISER procedure are i n the results section. POC GLUCOSE Routine 03/12/2019 3:55 Results for this PM ADVERTISER procedure are i n the results section. POC GLUCOSE Routine 03/12/2019 11:39 Results for this AM ADVERTISER procedure are i n the results section. ESTIMATED GFR Routine 03/12/2019 5:00 Results fo r this AM ADVERTISER procedure are i n the results section. MAGNESIUM LEVEL Routine 03/12/2019 5:00 Results for this AM ADVERTISER procedure are i n the results section. HC COMPLETE BLD COUNT Routine 03/12/2019 5:00 Re sults for this W/AUTO DIFF AM ADVERTISER procedure are i n the results section. BASIC METABOLIC PANEL Routine 03/12/2019 5:00 Re sults for this AM ADVERTISER procedure are i n the results section. POC GLUCOSE Routine 03/12/2019 4:30 Results for this AM ADVERTISER procedure are i n the results section. POC GLUCOSE Routine 03/11/2019 11:44 Results for this PM ADVERTISER procedure are i n the results section. POC GLUCOSE Routine 03/11/2019 7:23 Results for this PM ADVERTISER procedure are i n the results section. POC GLUCOSE Routine 03/11/2019 4:13 Results for this PM ADVERTISER procedure are i n the results section. POC GLUCOSE Routine 03/11/2019 11:22 Results for this AM ADVERTISER procedure are i n the results section. POC GLUCOSE Routine 03/11/2019 7:47 Results for this AM ADVERTISER procedure are i n the results section. POC GLUCOSE Routine 03/11/2019 3:43 Results for this AM ADVERTISER procedure are i n the results section. POC GLUCOSE Routine 03/10/2019 11:34 Results for this PM ADVERTISER procedure are i n the results section. POC GLUCOSE Routine 03/10/2019 7:53 Results for this PM ADVERTISER procedure are i n the results section. POC GLUCOSE Routine 03/10/2019 4:48 Results for this PM ADVERTISER procedure are i n the results section. POC GLUCOSE Routine 03/10/2019 11:16 Results for this AM ADVERTISER procedure are i n the results section. POC GLUCOSE Routine 03/10/2019 7:42 Results for this AM ADVERTISER procedure are i n the results section. ESTIMATED GFR Routine 03/10/2019 4:40 Results fo r this AM ADVERTISER procedure are i n the results section. THYROID STIMULATING Routine 03/10/2019 4:40 Resu lts for this HORMONE AM ADVERTISER procedure are i n the results section. COMPREHENSIVE Routine 03/10/2019 4:40 Results fo r this METABOLIC PANEL AM ADVERTISER procedure ar e in the results section. HC COMPLETE BLD COUNT Routine 03/10/2019 4:40 Re sults for this W/AUTO DIFF AM ADVERTISER procedure are i n the results section. POC GLUCOSE Routine 03/10/2019 3:36 Results for this AM ADVERTISER procedure are i n the results section. POC GLUCOSE Routine 03/09/2019 11:24 Results for this PM ADVERTISER procedure are i n the results section. POC GLUCOSE Routine 03/09/2019 7:42 Results for this PM ADVERTISER procedure are i n the results section. POC GLUCOSE Routine 03/09/2019 5:27 Results for this PM ADVERTISER procedure are i n the results section. POC GLUCOSE Routine 03/09/2019 11:24 Results for this AM ADVERTISER procedure are i n the results section. POC GLUCOSE Routine 03/09/2019 7:32 Results for this AM ADVERTISER procedure are i n the results section. POC GLUCOSE Routine 03/09/2019 4:19 Results for this AM ADVERTISER procedure are i n the results section. ESTIMATED GFR Routine 03/09/2019 1:20 Results fo r this AM ADVERTISER procedure are i n the results section. PHOSPHORUS LEVEL Routine 03/09/2019 1:20 Results for this AM ADVERTISER procedure are i n the results section. MAGNESIUM LEVEL Routine 03/09/2019 1:20 Results for this AM ADVERTISER procedure are i n the results section. IONIZED CALCIUM Routine 03/09/2019 1:20 Results for this AM ADVERTISER procedure are i n the results section. HC COMPLETE BLD COUNT Routine 03/09/2019 1:20 Re sults for this W/AUTO DIFF AM [employer]VERTISER procedure are i n the results section. BASIC METABOLIC PANEL Routine 03/09/2019 1:20 Re sults for this AM ADVERTISER procedure are i n the results section. POC GLUCOSE Routine 03/09/2019 12:12 Results for this AM ADVERTISER procedure are i n the results section. POC GLUCOSE Routine 03/08/2019 7:21 Results for this PM ADVERTISER procedure are i n the results section. 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 POC GLUCOSE Routine 03/08/2019 Results for 11:31 AM ADVERTISER this procedure are in the results section. POC GLUCOSE Routine 03/08/2019 Results for 7:38 AM ADVERTISER this procedure are in the results section. XR CHEST 1 VW PORTABLE Routine 03/08/2019 Resul ts for 5:18 AM ADVERTISER this procedure are in the results section. POC GLUCOSE Routine 03/08/2019 Results for 4:06 AM ADVERTISER this procedure are in the results section. POC GLUCOSE Routine 03/08/2019 Results for 2:34 AM ADVERTISER this procedure are in the results section. ESTIMATED GFR Routine 03/08/2019 Results for 12:43 AM ADVERTISER this procedure are in the results section. PHOSPHORUS LEVEL Routine 03/08/2019 Results for 12:43 AM ADVERTISER this procedure are in the results section. MAGNESIUM LEVEL Routine 03/08/2019 Results for 12:43 AM ADVERTISER this procedure are in the results section. IONIZED CALCIUM Routine 03/08/2019 Results for 12:43 AM ADVERTISER this procedure are in the results section. BASIC METABOLIC PANEL Routine 03/08/2019 Result s for 12:43 AM ADVERTISER this procedure are in the results section. POC GLUCOSE Routine 03/08/2019 Results for 12:10 AM ADVERTISER this procedure are in the results section. CBC HEMOGRAM Routine 03/08/2019 Results for 12:10 AM ADVERTISER this procedure are in the results section. POC GLUCOSE Routine 03/07/2019 Results for 7:35 PM ADVERTISER this procedure are in the results section. POC GLUCOSE Routine 03/07/2019 Results for 4:00 PM ADVERTISER this procedure are in the results section. POC GLUCOSE Routine 03/07/2019 Results for 12:22 PM ADVERTISER this procedure are in the results section. POC GLUCOSE Routine 03/07/2019 Results for 7:39 AM ADVERTISER this procedure are in the results section. POC GLUCOSE Routine 03/07/2019 Results for 4:25 AM ADVERTISER this procedure are in the results section. ESTIMATED GFR Routine 03/07/2019 Results for 12:15 AM ADVERTISER this procedure are in the results section. PHOSPHORUS LEVEL Routine 03/07/2019 Results for 12:15 AM ADVERTISER this procedure are in the results section. MAGNESIUM LEVEL Routine 03/07/2019 Results for 12:15 AM ADVERTISER this procedure are in the results section. IONIZED CALCIUM Routine 03/07/2019 Results for 12:15 AM ADVERTISER this procedure are in the results section. CBC HEMOGRAM Routine 03/07/2019 Results for 12:15 AM ADVERTISER this procedure are in the results section. BASIC METABOLIC PANEL Routine 03/07/2019 Result s for 12:15 AM ADVERTISER this procedure are in the results section. POC GLUCOSE Routine 03/07/2019 Results for 12:13 AM ADVERTISER this procedure are in the results section. POC GLUCOSE Routine 03/06/2019 Results for 7:50 PM ADVERTISER this procedure are in the results section. POC GLUCOSE Routine 03/06/2019 Results for 3:27 PM ADVERTISER this procedure are in the results section. CV CTA CORONARY ARTERIES W STAT 03/06/2019 R esults for CONTRAST 12:30 PM ADVERTISER this procedure are in the results section. POC GLUCOSE Routine 03/06/2019 Results for 11:03 AM ADVERTISER this procedure are in the results section. XR ABDOMEN 1 VW PORTABLE Routine 03/06/2019 Res ults for 9:43 AM ADVERTISER this procedure are in the results section. POC GLUCOSE Routine 03/06/2019 Results for 7:08 AM ADVERTISER this procedure are in the results section. XR CHEST 1 VW PORTABLE Routine 03/06/2019 Resul ts for 4:35 AM ADVERTISER this procedure are in the results section. POC GLUCOSE Routine 03/06/2019 Results for 4:21 AM ADVERTISER this procedure are in the results section. ESTIMATED GFR Routine 03/06/2019 Results for 12:56 AM ADVERTISER this procedure are in the results section. IONIZED CALCIUM Routine 03/06/2019 Results for 12:56 AM ADVERTISER this procedure are in the results section. PHOSPHORUS LEVEL Routine 03/06/2019 Results for 12:56 AM ADVERTISER this procedure are in the results section. MAGNESIUM LEVEL Routine 03/06/2019 Results for 12:56 AM ADVERTISER this procedure are in the results section. BASIC METABOLIC PANEL Routine 03/06/2019 Result s for 12:56 AM ADVERTISER this procedure are in the results section. VITAMIN B12 LEVEL Routine 03/06/2019 Results fo r 12:56 AM ADVERTISER this procedure are in the results section. VITAMIN D 25 HYDROXY LEVEL Routine 03/06/2019 R esults for 12:55 AM ADVERTISER this procedure are in the results section. CBC HEMOGRAM Routine 03/06/2019 Results for 12:15 AM ADVERTISER this procedure are in the results section. VITAMIN C LEVEL, PLASMA Routine 03/06/2019 Resu lts for 12:15 AM ADVERTISER this procedure are in the results section. POC GLUCOSE Routine 03/05/2019 Results for 11:46 PM ADVERTISER this procedure are in the results section. POC GLUCOSE Routine 03/05/2019 Results for 7:45 PM ADVERTISER this procedure are in the results section. POC GLUCOSE Routine 03/05/2019 Results for 4:05 PM ADVERTISER this procedure are in the results section. SODIUM LEVEL Timed 03/05/2019 Results for 1:42 PM ADVERTISER this procedure are in the results section. POC GLUCOSE Routine 03/05/2019 Results for 11:10 AM ADVERTISER this procedure are in the results section. POC GLUCOSE Routine 03/05/2019 Results for 7:23 AM ADVERTISER this procedure are in the results section. SODIUM LEVEL Routine 03/05/2019 Results for 6:00 AM ADVERTISER this procedure are in the results section. XR CHEST 1 VW PORTABLE Routine 03/05/2019 Resul ts for 5:53 AM ADVERTISER this procedure are in the results section. POC GLUCOSE Routine 03/05/2019 Results for 4:18 AM ADVERTISER this procedure are in the results section. ESTIMATED GFR Routine 03/05/2019 Results for 12:40 AM ADVERTISER this procedure are in the results section. PHOSPHORUS LEVEL Routine 03/05/2019 Results for 12:40 AM ADVERTISER this procedure are in the results section. MAGNESIUM LEVEL Routine 03/05/2019 Results for 12:40 AM ADVERTISER this procedure are in the results section. IONIZED CALCIUM Routine 03/05/2019 Results for 12:40 AM ADVERTISER this procedure are in the results section. BASIC METABOLIC PANEL Routine 03/05/2019 Result s for 12:40 AM ADVERTISER this procedure are in the results section. ARTERIAL BLOOD GAS Routine 03/05/2019 Results f or 12:25 AM ADVERTISER this procedure are in the results section. HC COMPLETE BLD COUNT W/AUTO Routine 03/05/2019 Results for DIFF 12:25 AM ADVERTISER this procedure are in the results section. POC GLUCOSE Routine 03/04/2019 Results for 11:47 PM ADVERTISER this procedure are in the results section. POC GLUCOSE Routine 03/04/2019 Results for 7:39 PM ADVERTISER this procedure are in the results section. ESTIMATED GFR Routine 03/04/2019 Results for 6:41 PM ADVERTISER this procedure are in the results section. BASIC METABOLIC PANEL Routine 03/04/2019 Result s for 6:41 PM ADVERTISER this procedure are in the results section. POC GLUCOSE Routine 03/04/2019 Results for 3:27 PM ADVERTISER this procedure are in the results section. SODIUM LEVEL Timed 03/04/2019 Results for 11:57 AM ADVERTISER this procedure are in the results section. POC GLUCOSE Routine 03/04/2019 Results for 11:17 AM ADVERTISER this procedure are in the results section. POC GLUCOSE Routine 03/04/2019 Results for 7:30 AM ADVERTISER this procedure are in the results section. SODIUM LEVEL Timed 03/04/2019 Results for 6:31 AM ADVERTISER this procedure are in the results section. POC GLUCOSE Routine 03/04/2019 Results for 4:21 AM ADVERTISER this procedure are in the results section. ESTIMATED GFR Routine 03/04/2019 Results for 12:45 AM ADVERTISER this procedure are in the results section. IONIZED CALCIUM Routine 03/04/2019 Results for 12:45 AM ADVERTISER this procedure are in the results section. MAGNESIUM LEVEL Routine 03/04/2019 Results for 12:45 AM ADVERTISER this procedure are in the results section. PHOSPHORUS LEVEL Routine 03/04/2019 Results for 12:45 AM ADVERTISER this procedure are in the results section. BASIC METABOLIC PANEL Routine 03/04/2019 Result s for 12:45 AM ADVERTISER this procedure are in the results section. CBC HEMOGRAM Routine 03/04/2019 Results for 12:42 AM ADVERTISER this procedure are in the results section. POC GLUCOSE Routine 03/03/2019 Results for 11:56 PM ADVERTISER this procedure are in the results section. POC GLUCOSE Routine 03/03/2019 Results for 8:25 PM ADVERTISER this procedure are in the results section. SODIUM LEVEL Timed 03/03/2019 Results for 5:58 PM ADVERTISER this procedure are in the results section. POC GLUCOSE Routine 03/03/2019 Results for 3:33 PM ADVERTISER this procedure are in the results section. POC GLUCOSE Routine 03/03/2019 Results for 11:30 AM ADVERTISER this procedure are in the results section. POC GLUCOSE Routine 03/03/2019 Results for 7:41 AM ADVERTISER this procedure are in the results section. POC GLUCOSE Routine 03/03/2019 Results for 3:50 AM ADVERTISER this procedure are in the results section. ESTIMATED GFR Routine 03/03/2019 Results for 12:32 AM ADVERTISER this procedure are in the results section. MAGNESIUM LEVEL Routine 03/03/2019 Results for 12:32 AM ADVERTISER this procedure are in the results section. PHOSPHORUS LEVEL Routine 03/03/2019 Results for 12:32 AM ADVERTISER this procedure are in the results section. BASIC METABOLIC PANEL Routine 03/03/2019 Result s for 12:32 AM ADVERTISER this procedure are in the results section. IONIZED CALCIUM Routine 03/03/2019 Results for 12:00 AM ADVERTISER this procedure are in the results section. HC COMPLETE BLD COUNT W/AUTO Routine 03/03/2019 Results for DIFF 12:00 AM ADVERTISER this procedure are in the results section. POC GLUCOSE Routine 03/02/2019 Results for 11:33 PM ADVERTISER this procedure are in the results section. POC GLUCOSE Routine 03/02/2019 Results for 8:33 PM ADVERTISER this procedure are in the results section. ESTIMATED GFR Routine 03/02/2019 Results for 4:14 PM ADVERTISER this procedure are in the results section. BASIC METABOLIC PANEL Routine 03/02/2019 Result s for 4:14 PM ADVERTISER this procedure are in the results section. POC GLUCOSE Routine 03/02/2019 Results for 4:01 PM ADVERTISER this procedure are in the results section. POC GLUCOSE Routine 03/02/2019 Results for 11:30 AM ADVERTISER this procedure are in the results section. POC GLUCOSE Routine 03/02/2019 Results for 7:20 AM ADVERTISER this procedure are in the results section. XR CHEST 1 VW PORTABLE Timed 03/02/2019 Resul ts for 5:51 AM ADVERTISER this procedure are in the results section. POC GLUCOSE Routine 03/02/2019 Results for 3:27 AM ADVERTISER this procedure are in the results section. ESTIMATED GFR Routine 03/02/2019 Results for 12:20 AM ADVERTISER this procedure are in the results section. IONIZED CALCIUM, ARTERIAL Routine 03/02/2019 Re sults for 12:20 AM ADVERTISER this procedure are in the results section. PHOSPHORUS LEVEL Routine 03/02/2019 Results for 12:20 AM ADVERTISER this procedure are in the results section. MAGNESIUM LEVEL Routine 03/02/2019 Results for 12:20 AM ADVERTISER this procedure are in the results section. CBC HEMOGRAM Routine 03/02/2019 Results for 12:20 AM ADVERTISER this procedure are in the results section. BASIC METABOLIC PANEL Routine 03/02/2019 Result s for 12:20 AM ADVERTISER this procedure are in the results section. ARTERIAL BLOOD GAS Routine 03/02/2019 Results f or 12:20 AM ADVERTISER this procedure are in the results section. POC GLUCOSE Routine 03/01/2019 Results for 11:45 PM ADVERTISER this procedure are in the results section. POC GLUCOSE Routine 03/01/2019 Results for 7:53 PM ADVERTISER this procedure are in the results section. POC GLUCOSE Routine 03/01/2019 Results for 4:12 PM ADVERTISER this procedure are in the results section. POC GLUCOSE Routine 03/01/2019 Results for 11:21 AM ADVERTISER this procedure are in the results section. POC GLUCOSE Routine 03/01/2019 Results for 7:28 AM ADVERTISER this procedure are in the results section. XR CHEST 1 VW PORTABLE Timed 03/01/2019 Resul ts for 5:41 AM ADVERTISER this procedure are in the results section. POC GLUCOSE Routine 03/01/2019 Results for 4:22 AM ADVERTISER this procedure are in the results section. POC GLUCOSE Routine 03/01/2019 Results for 12:24 AM ADVERTISER this procedure are in the results section. ESTIMATED GFR Routine 03/01/2019 Results for 12:20 AM ADVERTISER this procedure are in the results section. IONIZED CALCIUM, ARTERIAL Routine 03/01/2019 Re sults for 12:20 AM ADVERTISER this procedure are in the results section. PHOSPHORUS LEVEL Routine 03/01/2019 Results for 12:20 AM ADVERTISER this procedure are in the results section. MAGNESIUM LEVEL Routine 03/01/2019 Results for 12:20 AM ADVERTISER this procedure are in the results section. CBC HEMOGRAM Routine 03/01/2019 Results for 12:20 AM ADVERTISER this procedure are in the results section. BASIC METABOLIC PANEL Routine 03/01/2019 Result s for 12:20 AM ADVERTISER this procedure are in the results section. ARTERIAL BLOOD GAS Routine 03/01/2019 Results f or 12:20 AM ADVERTISER this procedure are in the results section. POC GLUCOSE Routine 02/28/2019 Results for 7:48 PM ADVERTISER this procedure are in the results section. POC GLUCOSE Routine 02/28/2019 Results for 4:07 PM ADVERTISER this procedure are in the results section. URINE EOSINOPHILS Routine 02/28/2019 Results fo r 3:30 PM ADVERTISER this procedure are in the results section. ESTIMATED GFR Routine 02/28/2019 Results for 2:00 PM ADVERTISER this procedure are in the results section. BASIC METABOLIC PANEL Routine 02/28/2019 Result s for 2:00 PM ADVERTISER this procedure are in the results section. XR CHEST 1 VW PORTABLE STAT 02/28/2019 Resul ts for 12:45 PM ADVERTISER this procedure are in the results section. ECHOCARDIOGRAM TRANSESOPHAGEAL Routine 02/28/2019 Results for W ANESTHESIA 12:13 PM ADVERTISER this procedure are in the results section. POC GLUCOSE Routine 02/28/2019 Results for 12:05 PM ADVERTISER this procedure are in the results section. XR ABDOMEN 1 VW PORTABLE STAT 02/28/2019 Res ults for 12:05 PM ADVERTISER this procedure are in the results section. XR CHEST 1 VW PORTABLE STAT 02/28/2019 Resul ts for 12:00 PM ADVERTISER this procedure are in the results section. XR ABDOMEN 1 VW PORTABLE Routine 02/28/2019 Res ults for 9:15 AM ADVERTISER this procedure are in the results section. POC GLUCOSE Routine 02/28/2019 Results for 8:19 AM ADVERTISER this procedure are in the results section. POC GLUCOSE Routine 02/28/2019 Results for 3:57 AM ADVERTISER this procedure are in the results section. XR CHEST 1 VW PORTABLE Routine 02/28/2019 Resul ts for 3:50 AM ADVERTISER this procedure are in the results section. ESTIMATED GFR Routine 02/28/2019 Results for 12:10 AM ADVERTISER this procedure are in the results section. IONIZED CALCIUM, ARTERIAL Routine 02/28/2019 Re sults for 12:10 AM ADVERTISER this procedure are in the results section. ARTERIAL BLOOD GAS Routine 02/28/2019 Results f or 12:10 AM ADVERTISER this procedure are in the results section. MAGNESIUM LEVEL Routine 02/28/2019 Results for 12:10 AM ADVERTISER this procedure are in the results section. PHOSPHORUS LEVEL Routine 02/28/2019 Results for 12:10 AM ADVERTISER this procedure are in the results section. BASIC METABOLIC PANEL Routine 02/28/2019 Result s for 12:10 AM ADVERTISER this procedure are in the results section. HC COMPLETE BLD COUNT W/AUTO Routine 02/28/2019 Results for DIFF 12:10 AM ADVERTISER this procedure are in the results section. POC GLUCOSE Routine 02/27/2019 Results for 11:45 PM ADVERTISER this procedure are in the results section. POC GLUCOSE Routine 02/27/2019 Results for 7:47 PM ADVERTISER this procedure are in the results section. POC GLUCOSE Routine 02/27/2019 Results for 3:10 PM ADVERTISER this procedure are in the results section. POC GLUCOSE Routine 02/27/2019 Results for 12:05 PM ADVERTISER this procedure are in the results section. ESOPHAGOGASTRODUODENOSCOPY 02/27/[address] of (EGD) 10:25 AM ADVERTISER liver POC GLUCOSE Routine 02/27/2019 Results for 7:24 AM ADVERTISER this procedure are in the results section. XR CHEST 1 VW PORTABLE Routine 02/27/2019 Resul ts for 4:31 AM ADVERTISER this procedure are in the results section. POC GLUCOSE Routine 02/27/2019 Results for 4:02 AM ADVERTISER this procedure are in the results section. ESTIMATED GFR Routine 02/27/2019 Results for 12:15 AM ADVERTISER this procedure are in the results section. HIV AG/AB COMBINATION Routine 02/27/2019 Result s for 12:15 AM ADVERTISER this procedure are in the results section. ARTERIAL BLOOD GAS Routine 02/27/2019 Results f or 12:15 AM ADVERTISER this procedure are in the results section. IONIZED CALCIUM Routine 02/27/2019 Results for 12:15 AM ADVERTISER this procedure are in the results section. MAGNESIUM LEVEL Routine 02/27/2019 Results for 12:15 AM ADVERTISER this procedure are in the results section. PHOSPHORUS LEVEL Routine 02/27/2019 Results for 12:15 AM ADVERTISER this procedure are in the results section. BASIC METABOLIC PANEL Routine 02/27/2019 Result s for 12:15 AM ADVERTISER this procedure are in the results section. HC COMPLETE BLD COUNT W/AUTO Routine 02/27/2019 Results for DIFF 12:15 AM ADVERTISER this procedure are in the results section. POC GLUCOSE Routine 02/26/2019 Results for 11:49 PM ADVERTISER this procedure are in the results section. POC GLUCOSE Routine 02/26/2019 Results for 8:02 PM ADVERTISER this procedure are in the results section. POC GLUCOSE Routine 02/26/2019 Results for 3:08 PM ADVERTISER this procedure are in the results section. BLOOD CULTURE, AEROBIC & Routine 02/26/2019 Res ults for ANAEROBIC 11:46 AM ADVERTISER this procedure are in the results section. BLOOD CULTURE, AEROBIC & Routine 02/26/2019 Res ults for ANAEROBIC 11:45 AM ADVERTISER this procedure are in the results section. POC GLUCOSE Routine 02/26/2019 Results for 11:12 AM ADVERTISER this procedure are in the results section. POC GLUCOSE Routine 02/26/2019 Results for 7:06 AM ADVERTISER this procedure are in the results section. XR CHEST 1 VW PORTABLE Routine 02/26/2019 Resul ts for 6:09 AM ADVERTISER this procedure are in the results section. XR ABDOMEN 1 VW PORTABLE Timed 02/26/2019 Res ults for 5:59 AM ADVERTISER this procedure are in the results section. POC GLUCOSE Routine 02/26/2019 Results for 4:19 AM ADVERTISER this procedure are in the results section. ESTIMATED GFR Routine 02/26/2019 Results for 12:52 AM ADVERTISER this procedure are in the results section. BASIC METABOLIC PANEL Routine 02/26/2019 Result s for 12:52 AM ADVERTISER this procedure are in the results section. HC COMPLETE BLD COUNT W/AUTO Routine 02/26/2019 Results for DIFF 12:35 AM ADVERTISER this procedure are in the results section. ARTERIAL BLOOD GAS Routine 02/26/2019 Results f or 12:35 AM ADVERTISER this procedure are in the results section. POC GLUCOSE Routine 02/26/2019 Results for 12:13 AM ADVERTISER this procedure are in the results section. POC GLUCOSE Routine 02/25/2019 Results for 8:17 PM ADVERTISER this procedure are in the results section. POC GLUCOSE Routine 02/25/2019 Results for 4:12 PM ADVERTISER this procedure are in the results section. POC GLUCOSE Routine 02/25/2019 Results for 11:21 AM ADVERTISER this procedure are in the results section. XR ABDOMEN 1 VW PORTABLE STAT 02/25/2019 Res ults for 10:27 AM ADVERTISER this procedure are in the results section. POC GLUCOSE Routine 02/25/2019 Results for 7:32 AM ADVERTISER this procedure are in the results section. XR CHEST 1 VW PORTABLE Routine 02/25/2019 Resul ts for 4:45 AM ADVERTISER this procedure are in the results section. XR ABDOMEN 1 VW PORTABLE Routine 02/25/2019 Res ults for 4:45 AM ADVERTISER this procedure are in the results section. POC GLUCOSE Routine 02/25/2019 Results for 3:54 AM ADVERTISER this procedure are in the results section. IONIZED CALCIUM, ARTERIAL Routine 02/25/2019 Re sults for 12:35 AM ADVERTISER this procedure are in the results section. ESTIMATED GFR Routine 02/25/2019 Results for 12:35 AM ADVERTISER this procedure are in the results section. ARTERIAL BLOOD GAS Routine 02/25/2019 Results f or 12:35 AM ADVERTISER this procedure are in the results section. PHOSPHORUS LEVEL Routine 02/25/2019 Results for 12:35 AM ADVERTISER this procedure are in the results section. MAGNESIUM LEVEL Routine 02/25/2019 Results for 12:35 AM ADVERTISER this procedure are in the results section. HC COMPLETE BLD COUNT W/AUTO Routine 02/25/2019 Results for DIFF 12:35 AM ADVERTISER this procedure are in the results section. BASIC METABOLIC PANEL Routine 02/25/2019 Result s for 12:35 AM ADVERTISER this procedure are in the results section. POC GLUCOSE Routine 02/24/2019 Results for 11:52 PM ADVERTISER this procedure are in the results section. US DUPLEX VENOUS LOWER Routine 02/24/2019 Resul ts for EXTREMITY BILATERAL 8:20 PM ADVERTISER this procedure are in the results section. POC GLUCOSE Routine 02/24/2019 Results for 7:17 PM ADVERTISER this procedure are in the results section. POC GLUCOSE Routine 02/24/2019 Results for 3:13 PM ADVERTISER this procedure are in the results section. POC GLUCOSE Routine 02/24/2019 Results for 11:23 AM ADVERTISER this procedure are in the results section. XR ABDOMEN 1 VW PORTABLE STAT 02/24/2019 Res ults for 9:21 AM ADVERTISER this procedure are in the results section. POC GLUCOSE Routine 02/24/2019 Results for 7:16 AM ADVERTISER this procedure are in the results section. POC GLUCOSE Routine 02/24/2019 Results for 3:05 AM ADVERTISER this procedure are in the results section. ESTIMATED GFR Routine 02/24/2019 Results for 12:16 AM ADVERTISER this procedure are in the results section. IONIZED CALCIUM, ARTERIAL Routine 02/24/2019 Re sults for 12:16 AM ADVERTISER this procedure are in the results section. ARTERIAL BLOOD GAS Routine 02/24/2019 Results f or 12:16 AM ADVERTISER this procedure are in the results section. PHOSPHORUS LEVEL Routine 02/24/2019 Results for 12:16 AM ADVERTISER this procedure are in the results section. MAGNESIUM LEVEL Routine 02/24/2019 Results for 12:16 AM ADVERTISER this procedure are in the results section. HC COMPLETE BLD COUNT W/AUTO Routine 02/24/2019 Results for DIFF 12:16 AM ADVERTISER this procedure are in the results section. BASIC METABOLIC PANEL Routine 02/24/2019 Result s for 12:16 AM ADVERTISER this procedure are in the results section. POC GLUCOSE Routine 02/23/2019 Results for 11:15 PM ADVERTISER this procedure are in the results section. POC GLUCOSE Routine 02/23/2019 Results for 7:08 PM ADVERTISER this procedure are in the results section. GRAM STAIN Routine 02/23/2019 Results for 5:35 PM ADVERTISER this procedure are in the results section. RESPIRATORY CULTURE, Routine 02/23/2019 Results for QUANTITATIVE 5:35 PM ADVERTISER this procedure are in the results section. POC GLUCOSE Routine 02/23/2019 Results for 3:48 PM ADVERTISER this procedure are in the results section. BLOOD CULTURE, AEROBIC & Routine 02/23/2019 Res ults for ANAEROBIC 12:30 PM ADVERTISER this procedure are in the results section. BLOOD CULTURE, AEROBIC & Routine 02/23/2019 Res ults for ANAEROBIC 12:25 PM ADVERTISER this procedure are in the results section. POC GLUCOSE Routine 02/23/2019 Results for 11:27 AM ADVERTISER this procedure are in the results section. POC GLUCOSE Routine 02/23/2019 Results for 7:28 AM ADVERTISER this procedure are in the results section. XR CHEST 1 VW PORTABLE Routine 02/23/2019 Resul ts for 5:11 AM ADVERTISER this procedure are in the results section. POC GLUCOSE Routine 02/23/2019 Results for 4:15 AM ADVERTISER this procedure are in the results section. POC GLUCOSE Routine 02/23/2019 Results for 12:17 AM ADVERTISER this procedure are in the results section. IONIZED CALCIUM, ARTERIAL Routine 02/23/2019 Re sults for 12:10 AM ADVERTISER this procedure are in the results section. ESTIMATED GFR Routine 02/23/2019 Results for 12:10 AM ADVERTISER this procedure are in the results section. SEDIMENTATION RATE Routine 02/23/2019 Results f or 12:10 AM ADVERTISER this procedure are in the results section. ARTERIAL BLOOD GAS Routine 02/23/2019 Results f or 12:10 AM ADVERTISER this procedure are in the results section. MAGNESIUM LEVEL Routine 02/23/2019 Results for 12:10 AM ADVERTISER this procedure are in the results section. PHOSPHORUS LEVEL Routine 02/23/2019 Results for 12:10 AM ADVERTISER this procedure are in the results section. HC COMPLETE BLD COUNT W/AUTO Routine 02/23/2019 Results for DIFF 12:10 AM ADVERTISER this procedure are in the results section. BASIC METABOLIC PANEL Routine 02/23/2019 Result s for 12:10 AM ADVERTISER this procedure are in the results section. POC GLUCOSE Routine 02/22/2019 Results for 8:03 PM ADVERTISER this procedure are in the results section. POC GLUCOSE Routine 02/22/2019 Results for 3:45 PM ADVERTISER this procedure are in the results section. POC GLUCOSE Routine 02/22/2019 Results for 11:32 AM ADVERTISER this procedure are in the results section. POC GLUCOSE Routine 02/22/2019 Results for 7:31 AM ADVERTISER this procedure are in the results section. XR CHEST 1 VW PORTABLE Routine 02/22/2019 Resul ts for 4:30 AM ADVERTISER this procedure are in the results section. POC GLUCOSE Routine 02/22/2019 Results for 3:24 AM ADVERTISER this procedure are in the results section. IONIZED CALCIUM, ARTERIAL Routine 02/22/2019 Re sults for 12:35 AM ADVERTISER this procedure are in the results section. ESTIMATED GFR Routine 02/22/2019 Results for 12:35 AM ADVERTISER this procedure are in the results section. ARTERIAL BLOOD GAS Routine 02/22/2019 Results f or 12:35 AM ADVERTISER this procedure are in the results section. MAGNESIUM LEVEL Routine 02/22/2019 Results for 12:35 AM ADVERTISER this procedure are in the results section. PHOSPHORUS LEVEL Routine 02/22/2019 Results for 12:35 AM ADVERTISER this procedure are in the results section. HC COMPLETE BLD COUNT W/AUTO Routine 02/22/2019 Results for DIFF 12:35 AM ADVERTISER this procedure are in the results section. BASIC METABOLIC PANEL Routine 02/22/2019 Result s for 12:35 AM ADVERTISER this procedure are in the results section. POC GLUCOSE Routine 02/21/2019 Results for 11:03 PM ADVERTISER this procedure are in the results section. POC GLUCOSE Routine 02/21/2019 Results for 6:57 PM ADVERTISER this procedure are in the results section. MRI BRAIN WO CONTRAST STAT 02/21/2019 Result s for 5:05 PM ADVERTISER this procedure are in the results section. POC GLUCOSE Routine 02/21/2019 Results for 3:27 PM ADVERTISER this procedure are in the results section. POC GLUCOSE Routine 02/21/2019 Results for 11:18 AM ADVERTISER this procedure are in the results section. XR CHEST 1 VW PORTABLE Routine 02/21/2019 Resul ts for 9:31 AM ADVERTISER this procedure are in the results section. POC GLUCOSE Routine 02/21/2019 Results for 7:20 AM ADVERTISER this procedure are in the results section. POC GLUCOSE Routine 02/21/2019 Results for 3:28 AM ADVERTISER this procedure are in the results section. CT HEAD WO CONTRAST Routine 02/21/2019 Results for 3:14 AM ADVERTISER this procedure are in the results section. IONIZED CALCIUM Routine 02/21/2019 Results for 12:15 AM ADVERTISER this procedure are in the results section. ESTIMATED GFR Routine 02/21/2019 Results for 12:15 AM ADVERTISER this procedure are in the results section. MAGNESIUM LEVEL Routine 02/21/2019 Results for 12:15 AM ADVERTISER this procedure are in the results section. PHOSPHORUS LEVEL Routine 02/21/2019 Results for 12:15 AM ADVERTISER this procedure are in the results section. BASIC METABOLIC PANEL Routine 02/21/2019 Result s for 12:15 AM ADVERTISER this procedure are in the results section. CBC HEMOGRAM Routine 02/21/2019 Results for 12:15 AM ADVERTISER this procedure are in the results section. POC GLUCOSE Routine 02/20/2019 Results for 11:10 PM ADVERTISER this procedure are in the results section. POC GLUCOSE Routine 02/20/2019 Results for 7:06 PM ADVERTISER this procedure are in the results section. XR ABDOMEN 1 VW PORTABLE Routine 02/20/2019 Res ults for 4:30 PM ADVERTISER this procedure are in the results section. XR CHEST 1 VW PORTABLE Routine 02/20/2019 Resul ts for 4:30 PM ADVERTISER this procedure are in the results section. POC GLUCOSE Routine 02/20/2019 Results for 3:11 PM ADVERTISER this procedure are in the results section. POC GLUCOSE Routine 02/20/2019 Results for 11:51 AM ADVERTISER this procedure are in the results section. POC GLUCOSE Routine 02/20/2019 Results for 7:21 AM ADVERTISER this procedure are in the results section. POC GLUCOSE Routine 02/20/2019 Results for 3:52 AM ADVERTISER this procedure are in the results section. CT HEAD WO CONTRAST Routine 02/20/2019 Results for 2:07 AM ADVERTISER this procedure are in the results section. ESTIMATED GFR Routine 02/20/2019 Results for 12:50 AM ADVERTISER this procedure are in the results section. PHOSPHORUS LEVEL Routine 02/20/2019 Results for 12:50 AM ADVERTISER this procedure are in the results section. MAGNESIUM LEVEL Routine 02/20/2019 Results for 12:50 AM ADVERTISER this procedure are in the results section. BASIC METABOLIC PANEL Routine 02/20/2019 Result s for 12:50 AM ADVERTISER this procedure are in the results section. IONIZED CALCIUM, ARTERIAL Routine 02/20/2019 Re sults for 12:20 AM ADVERTISER this procedure are in the results section. ARTERIAL BLOOD GAS Routine 02/20/2019 Results f or 12:20 AM ADVERTISER this procedure are in the results section. CBC HEMOGRAM Routine 02/20/2019 Results for 12:20 AM ADVERTISER this procedure are in the results section. POC GLUCOSE Routine 02/20/2019 Results for 12:15 AM ADVERTISER this procedure are in the results section. MRI BRAIN W WO CONTRAST Routine 02/19/2019 Resu lts for 9:12 PM ADVERTISER this procedure are in the results section. POC GLUCOSE Routine 02/19/2019 Results for 7:53 PM ADVERTISER this procedure are in the results section. CT ANGIOGRAM ABDOMEN W WO Routine 02/19/2019 Re sults for CONTRAST 6:47 PM ADVERTISER this procedure are in the results section. POC GLUCOSE Routine 02/19/2019 Results for 3:10 PM ADVERTISER this procedure are in the results section. US RENAL DOPPLER Routine 02/19/2019 Results for 1:00 PM ADVERTISER this procedure are in the results section. IONIZED CALCIUM Routine 02/19/2019 Results for 12:25 PM ADVERTISER this procedure are in the results section. POTASSIUM LEVEL Routine 02/19/2019 Results for 12:25 PM ADVERTISER this procedure are in the results section. POC GLUCOSE Routine 02/19/2019 Results for 11:37 AM ADVERTISER this procedure are in the results section. TTE COMPLETE, WO CONTRAST, W Routine 02/19/2019 Results for DOPPLER ([id number]) 9:10 AM ADVERTISER this procedure are in the results section. POC GLUCOSE Routine 02/19/2019 Results for 7:41 AM ADVERTISER this procedure are in the results section. XR CHEST 1 VW PORTABLE Routine 02/19/2019 Resul ts for 5:52 AM ADVERTISER this procedure are in the results section. XR ABDOMEN 1 VW PORTABLE Routine 02/19/2019 Res ults for 5:47 AM ADVERTISER this procedure are in the results section. POC GLUCOSE Routine 02/19/2019 Results for 4:19 AM ADVERTISER this procedure are in the results section. CT HEAD WO CONTRAST Routine 02/19/2019 Results for 3:58 AM ADVERTISER this procedure are in the results section. CA INSERT Routine 02/19/2019 Pontine hemorrhage Results f or CATH,ART,PERCUT,SHORTTERM 2:57 AM ADVERTISER ([facility]) this Hemorrhagic procedure are cerebrovascular in the accident (CVA) results ([facility]) section. Hypertensive emergency Hypokalemia Elevated lactic acid level Acute respiratory failure with hypoxia ([facility]) Non-intractable vomiting, presence of nausea not specified, unspecified vomiting type JAIR (acute kidney injury) ([facility]) Cocaine abuse ([facility]) LACTIC ACID LEVEL Routine 02/19/2019 Results fo r 1:07 AM ADVERTISER this procedure are in the results section. ESTIMATED GFR Routine 02/19/2019 Results for 1:07 AM ADVERTISER this procedure are in the results section. PHOSPHORUS LEVEL Routine 02/19/2019 Results for 1:07 AM ADVERTISER this procedure are in the results section. MAGNESIUM LEVEL Routine 02/19/2019 Results for 1:07 AM ADVERTISER this procedure are in the results section. BASIC METABOLIC PANEL Routine 02/19/2019 Result s for 1:07 AM ADVERTISER this procedure are in the results section. TROPONIN Timed 02/19/2019 Results for 1:00 AM ADVERTISER this procedure are in the results section. TYPE AND SCREEN Routine 02/19/2019 Results for 12:41 AM ADVERTISER this procedure are in the results section. IONIZED CALCIUM, ARTERIAL Routine 02/19/2019 Re sults for 12:41 AM ADVERTISER this procedure are in the results section. HC COMPLETE BLD COUNT W/AUTO Routine 02/19/2019 Results for DIFF 12:41 AM ADVERTISER this procedure are in the results section. ARTERIAL BLOOD GAS Routine 02/19/2019 Results f or 12:41 AM ADVERTISER this procedure are in the results section. POC GLUCOSE Routine 02/19/2019 Results for 12:22 AM ADVERTISER this procedure are in the results section. LACTIC ACID LEVEL Timed 02/18/2019 Results fo r 10:45 PM ADVERTISER this procedure are in the results section. TROPONIN Timed 02/18/2019 Results for 10:45 PM ADVERTISER this procedure are in the results section. CT ANGIOGRAM HEAD W WO CONTRAST STAT 02/18/2019 Results for 9:07 PM ADVERTISER this procedure are in the results section. CT ANGIOGRAM NECK W WO CONTRAST STAT 02/18/2019 Results for 9:04 PM ADVERTISER this procedure are in the results section. ARTERIAL BLOOD GAS STAT 02/18/2019 Results f or 8:50 PM ADVERTISER this procedure are in the results section. ALCOHOL LEVEL, BLOOD STAT 02/18/2019 Results for 8:47 PM ADVERTISER this procedure are in the results section. URINALYSIS SCREEN AND STAT 02/18/2019 Result s for MICROSCOPY, WITH REFLEX TO 8:40 PM ADVERTISER t his CULTURE procedure are in the results section. URINE DRUGS OF ABUSE SCREEN STAT 02/18/2019 Results for 8:40 PM ADVERTISER this procedure are in the results section. URINE CULTURE STAT 02/18/2019 Results for 8:40 PM ADVERTISER this procedure are in the results section. CT STROKE BRAIN WO CONTRAST STAT 02/18/2019 Results for 8:22 PM ADVERTISER this procedure are in the results section. XR CHEST 1 VW PORTABLE STAT 02/18/2019 Resul ts for 8:06 PM ADVERTISER this procedure are in the results section. POC GLUCOSE Routine 02/18/2019 Results for 8:02 PM ADVERTISER this procedure are in the results section. ECG ED PRELIMINARY Routine 02/18/2019 Results f or INTERPRETATION 7:54 PM ADVERTISER this procedure are in the results section. CA PLACEMENT NG/OG TUBE BY Routine 02/18/2019 R esults for PHYSICIAN 7:54 PM ADVERTISER this procedure are in the results section. INTUBATION Routine 02/18/2019 Results for 7:54 PM ADVERTISER this procedure are in the results section. CA CRITICAL CARE, E/M 30-74 Routine 02/18/2019 Results for MINUTES 7:54 PM ADVERTISER this procedure are in the results section. ECG 12-LEAD STAT 02/18/2019 Results for 7:51 PM ADVERTISER this procedure are in the results section. ESTIMATED GFR STAT 02/18/2019 Results for 7:50 PM ADVERTISER this procedure are in the results section. TROPONIN STAT 02/18/2019 Results for 7:50 PM ADVERTISER this procedure are in the results section. PARTIAL THROMBOPLASTIN TIME STAT 02/18/2019 Results for (PTT) 7:50 PM ADVERTISER this procedure are in the results section. PROTHROMBIN TIME WITH INR STAT 02/18/2019 Re sults for 7:50 PM ADVERTISER this procedure are in the results section. LACTIC ACID LEVEL STAT 02/18/2019 Results fo r 7:50 PM ADVERTISER this procedure are in the results section. HC COMPLETE BLD COUNT W/AUTO STAT 02/18/2019 Results for DIFF 7:50 PM ADVERTISER this procedure are in the results section. COMPREHENSIVE METABOLIC PANEL STAT 02/18/2019 Results for 7:50 PM ADVERTISER this procedure are in the results section. after 09/01/2018 Results PEG tube removal (05/30/2019 8:54 AM CDT) Narrative Performed At Shannan uDrham NP 05/30/2019 1 0:23 AM PEG tube removal Date/Time: 05/30/2019 8:55 AM Performed by: Shannan Durham NP Authorized by: Shannan Durham NP Consent: Consent obtained: Verbal Consent given by: Patient Risks discussed: Pain and bleeding Alternatives discussed: Delayed salomón atment Indications: Indications: No more use of PEG tub e Anesthesia (see MAR for exact dosages): Anesthesia method: None Post-procedure details: Patient tolerance of procedure: Danielle erated well, no immediate complications Comments: PEG tube came out as whole. No bleeding present. Applied pressure at the site. Applied clean sterile dressing. Estimated GFR (05/30/2019 4:45 AM CDT)Only the most recent of41 resultswithin the time period is included. Estimated GFR >=90 mL/min/1.73 STEELE HINDU Comment: [address] Catergory Units Interpretation G1 >=90 Normal or high G2 60-89 Mildly decreased G3a 45-59 Mildly to moderately decreas ed G3b 30-44 Moderately to severely decre ased G4 15-29 Severely decreased G5 <15 Kidney failure The eGFR was calculated using the Chronic Kidney Disea se Epidemiology Collaboration (CKD-EPI) equation. Interpretation is based on recommendations of the National Kidney Foundation-Kidney Disease Outcomes Pancho lity Initiative (NKF-KDOQI) published in 2014. Specimen Performing Organization Address City/[facility] Cent[facility]ode Phone Number [facility] DEPARTMENT OF PATHOLOGY AND [address] [place] [phone] [facility] [address] [place], [place] [address] Partial thromboplastin time, activated (05/30/2019 4:45 AM CDT)Only the most recent of2 resultswithin the time period is included. PTT 35.2 23.0 - 36.0 JESUS HINDU Comment: [facility] PTT therapeutic range for unfractionated heparin is 61.0-112.0 seconds which corresponds to Anti-Xa 0.3-0.7 U/ml. Specimen Blood Performing Organization Address City/[facility]/Zipcode Phone Number [facility] DEPARTMENT OF PATHOLOGY AND [address] [place] [place], [place] [address] [facility] [address] [place], [place] [address] Prothrombin time with INR (05/30/2019 4:45 AM CDT)Only the most recent of2 resultswithin the time period is included. Prothrombin time 13.9 11.5 - 14.5 [facility] INR 1.1 STEELE Comment: [facility] International Normalized Ratio (INR) is a [facility] HOSPITAL monitoring tool for patients who are stable on oral anticoagulant therapy. An INR of 2.0-3.0 is suggested for deep vein thrombosis/pulmonary embolism. Specimen Blood Performing Organization Address City/State/Zipcode Phone Number [facility] DEPARTMENT OF PATHOLOGY AND [address] [place], [place] [address] [facility] [address] [place] [address] CBC with platelet and differential (05/30/2019 4:45 AM CDT)Only the most recent of29 resultswithin the time period is included. Pathologist [facility] WBC 7.53 4.50 - 11.00 [facility] k/uL [facility] RBC 4.33 (L) 4.40 - 6.00 [facility] m/uL [facility] HGB 14.2 14.0 - 18.0 [facility] g/dL [facility] HCT 41.5 41.0 - 51.0 % [facility] MCV 95.8 82.0 - 100.0 fL [facility] MCH 32.8 27.0 - 34.0 pg [facility] MCHC 34.2 31.0 - 37.0 [facility] g/dL [facility] RDW - SD 41.6 37.0 - 55.0 fL [facility] MPV 12.2 8.8 - 13.2 fL [facility] Platelet count 225 150 - 400 k/uL [facility] Neutrophils 42.6 39.0 - 69.0 % [facility] Lymphocytes 44.0 25.0 - 45.0 % [facility] Monocytes 8.8 0.0 - 10.0 % [facility] Eosinophils 4.2 0.0 - 5.0 % [facility] Basophils 0.3 0.0 - 1.0 % [facility] Immature granulocytes 0.1 0.0 - 1.0 % [facility] Specimen Blood Performing Organization Address City/State/Zipcode Phone Number [facility] DEPARTMENT OF PATHOLOGY AND [address] [address] [place] [place], [place] [address] [facility] [address] [address] [place], [place] [address] Basic metabolic panel (05/30/2019 4:45 AM CDT)Only the most recent of34 results within the time period is included. Pathologist Sig nature Sodium 144 135 - 148 mEq/L [facility] Potassium 3.3 (L) 3.5 - 5.0 mEq/L [facility] Chloride 103 99 - 109 mEq/L [facility] CO2 26 24 - 31 mEq/L [facility] Anion gap 15@ANIO 7 - 15 mEq/L [facility] BUN 15 8 - 24 mg/dL [facility] Creatinine 1.05 0.70 - 1.20 mg/dL [facility] Glucose 80 65 - 99 mg/dL [facility] Calcium 11.4 (H) 8.6 - 10.6 mg/dL [facility] Specimen Blood Performing Organization Address City/State/Zipcode Phone Number [facility] DEPARTMENT OF PATHOLOGY AND [address] [address] [place], [place] [address] [facility] [address] [address] [place], [place] [address] 4 XR Abdomen 1 Vw (05/29/2019 5:24 PM CDT) Specimen Narrative Performed At EXAMINATION: XR ABDOMEN 1 VW [facility] CLINICAL HISTORY: PEG tube removal COMPARISON: KUB from 03/06/2019 IMPRESSION: Radiopaque tubing likely representing a gastrostomy fe eding tube overlies the mid abdomen. Confirmation of placement of the tube is not possible on this radiograph. If placement within the s tomach needs to be confirmed, recommend injection of enteri c contrast and follow-up imaging with a re peat KUB. A moderate amount of stool seen throughout the visuali zed portions of the colon, correlate for constipation. No dilated gas- filled loops of large or small bowel are noted. [id number] Procedure Note Hm Interface, Radiology Results Incoming - 05/29/2019 5:37 PM CDT EXAMINATION: XR ABDOMEN 1 VW CLINICAL HISTORY: PEG tube removal COMPARISON: KUB from 03/06/2019 IMPRESSION: Radiopaque tubing likely representing a gastrostomy feeding tube overlies the mid abdomen. Confirmation of placement of the tube is not possible on this radiograph. If placement within the stomach needs to be confirmed, recommend injection of enteric contrast and follow-up imaging with a re peat KUB. A moderate amount of stool seen througho ut the visualized portions of the colon, correlate for constipation. No dilated gas-filled loops of large or small bowel are noted. [id number] Performing Organization Address City/State/Zipcode Phone Number [facility] [address] [place] [address] POC glucose (05/21/2019 3:41 PM CDT)Only the most recent of371 resultswithin the time period is included. [facility] POC glucose 103 (H) 65 - 99 mg/dL [facility] Comment: [facility] Point of Care Testing performed at [facility],[address], [place] [address] Guest Services Director Name: Osvaldo Lua Device ID: [id number] Chartable: [facility] Notified RN Specimen Blood Performing Organization Address City/State/Zipcode Phone Number [facility] DEPARTMENT OF PATHOLOGY AND [address] [facility] [place], [place] [address] [facility]IC[facility] [address] [place], [place] [address] Comprehensive metabolic panel (05/15/2019 4:00 AM CDT)Only the most recent of7 resultswithin the time period is included. [facility] nature Sodium 147 135 - 148 mEq/L [facility] Potassium 3.4 (L) 3.5 - 5.0 mEq/L [facility] Chloride 108 99 - 109 mEq/L [facility] CO2 25 24 - 31 mEq/L [facility] Anion gap 14@ANIO 7 - 15 mEq/L [facility] BUN 19 8 - 24 mg/dL [facility] Creatinine 0.83 0.70 - 1.20 [facility] mg/dL [facility] Glucose 80 65 - 99 mg/dL [facility] Calcium 10.2 8.6 - 10.6 mg/dL [facility] Protein 7.7 6.3 - 8.2 g/dL [facility] Albumin 2.7 (L) 3.5 - 5.0 g/dL [facility] A/G ratio 0.5 (L) 0.7 - 3.8 [facility] Alkaline phosphatase 187 (H) 30 - 115 U/L [facility] AST 91 (H) 15 - 46 U/L [facility] ALT 67 (H) 10 - 55 U/L [facility] Total bilirubin 0.7 0.2 - 1.2 mg/dL [facility] Specimen Blood Performing Organization Address City/[facility]/Zipcode Phone Number [facility] DEPARTMENT OF PATHOLOGY AND [address] [place] [place] [address] [facility] [address] [address] [place], [place] [address] Manual differential (05/06/2019 4:40 AM CDT)Only the most recent of2 results within the time period is included. Manual differential PERFORMED [facility] Neutrophils 38.0 (L) 39.0 - 69.0 % [facility] Lymphocytes 48.0 (H) 25.0 - 45.0 % [facility] Monocytes 7.0 0.0 - 10.0 % [facility] Eosinophils 6.0 (H) 0.0 - 5.0 % [facility] Basophils 1.0 0.0 - 1.0 % [facility] Metamyelocytes 0 % [facility] Promyelocytes 0 % [facility] Platelet slide review [place] adequate [facility] Anisocytosis Moderate [facility] Polychromasia Moderate [facility] Tear drop cells Occasional [facility] Enlarged platelets Moderate (A) [facility] Specimen Performing Organization Address City/[facility] Centercode Phone Number [facility] DEPARTMENT OF PATHOLOGY AND [address] [address] [place] [address] [facility] [address] [place] [address] Smear review (04/25/2019 4:40 AM CDT)Only the most recent of5 resultswithin the time period is included. Pathologist Sig nature Platelet slide [place] adequate [facility] Specimen Performing Organization Address City/[facility]/Zipcode Phone Number [facility] DEPARTMENT OF PATHOLOGY AND [address] [place] [address] [facility] [address] [place] [address] Head Wo Contrast (04/19/2019 1:23 PM CDT)Only the most recent of4 results within the time period is included. Specimen Narrative Performed At EXAMINATION: CT HEAD WO CONTRAST HM [facility] CLINICAL HISTORY: Altered level of consciousness (LO C) unexplained, Stroke follow up COMPARISON: CT head 02/21/2019 TECHNIQUE: Noncontrast head CT performed using radiati on dose reduction techniques. Technical factors are evaluated and adju sted to ensure appropriate moderation of exposure. Automated dose m anagement technology is applied to adjust radiatio n exposure while achieving a diagnostic quality willy ge. FINDINGS: Examination is limited by patient motion. No evidence of acute intracranial hemorrhage, mass, mass effect, midline sh ift, or acute infarct. Encephalomalacia in the left brachium pontis, wilma, an d cerebellar peduncle in previously noted region of hemorrhage. Mul tiple chronic colmenares radiata infarcts. Moderate chronic microvascula r ischemic change. Basal cisterns are clear. Intracranial vascular calcifications are present. Calvarium is intact. Visualized orbits are normal in a ppearance. Visualized paranasal sinuses are clear. Large left mas toid and small right mastoid effusion. IMPRESSION: 1. Examination is limited by patient motion. No CT césar dence of acute intracranial abnormality. [id number] Procedure Note Hm Interface, Radiology Results Incoming - 04/19/2019 1:30 PM CDT EXAMINATION: CT HEAD WO CONTRAST CLINICAL HISTORY: Altered level of cons ciousness (LOC) unexplained, Stroke follow up COMPARISON: CT head 02/21/2019 TECHNIQUE: Noncontrast head CT performed using radiation dose reduction techniques. Technical factors are evaluated and adjusted to ensure appropriate moderation of exposure. Automated dose management technology is applied to adjust radiation exposure while achieving a diagnostic quality willy ge. FINDINGS: Examination is limited by patient motion . No evidence of acute intracranial hemorrhage, mass, mass effect, midline shift, or acute infarct. Encephalomalacia in the left brachium po ntis, wilma, and cerebellar peduncle in previously noted region of hemorrhage. Multiple chronic colmenares radiata infarcts. Moderate chronic microvascular ischemic change. Basal cisterns are clear. Intracranial vascular calcifications are present. Calvarium is intact. Visualized orbits a re normal in appearance. Visualized paranasal sinuses are clear. Large left mastoid and small right mastoid effusion. IMPRESSION: 1. Examination is limited by patient mot ion. No CT evidence of acute intracranial abnormality. [id number] Performing Organization Address [facility]/Zipcode Phone Number [facility] [address] [place] [address] Magnesium level (04/19/2019 4:00 AM CDT)Only the most recent of22 resultswithin the time period is included. Pathologist Sig nature Magnesium 1.8 1.7 - 2.4 mg/dL [facility] Specimen Plasma specimen Performing Organization Address [facility] Centercohi Phone Number [facility] DEPARTMENT OF PATHOLOGY AND [address] [place] [address] GENOMIC MEDICINE [facility] [address] [place] [address] US Gallbladder (04/16/2019 6:21 PM CDT) Specimen Narrative Performed At EXAMINATION: US GALLBLADDER [facility] CLINICAL HISTORY:Abn liver function test s (LFTs) COMPARISON: CT angiogram dated 02/19/19 20 IMPRESSION: 1. The gallbladder is not seen. A liver mass is not se en. The study is limited due to bowel gas and altered mental status wit h the patient not being able to cooperate with the exam. 2. CBD: The common bile duct is within normal limits.. The duct measures 4.6 mm. 3. Other Findings: None [id number] Procedure Note Hm Interface, Radiology Results Incoming - 04/16/2019 7:45 PM CDT EXAMINATION: US GALLBLADDER CLINICAL HISTORY:Abn liver function test s (LFTs) COMPARISON: CT angiogram dated 0 IMPRESSION: 1. The gallbladder is not seen. A liver mass is not seen. The study is limited due to bowel gas and altered mental status with the patient not being able to cooperate with the exam. 2. CBD: The common bile duct is within n ormal limits.. The duct measures 4.6 mm. 3. Other Findings: None [id number] Performing Organization Address [facility] Centercode Phone Number [facility] [address] [place] [address] Heparin PF4 antibody (IgG) (04/15/2019 5:00 AM CDT) Pathologist Sig nature Heparin PF4 Ab OD 0.194 0.000 - 0.399 [facility] Heparin PF4 Ab, IgG Negative Negative [facility] Specimen Blood Performing Organization Address City/[facility]/Zipcode Phone Number [facility] DEPARTMENT OF PATHOLOGY AND [address] [place], [place] [address] [address] XR Chest 1 Vw Portable (03/15/2019 1:48 PM ADVERTISER)Only the most recent of18 resultswithin the time period is included. Specimen Narrative Performed At EXAMINATION: XR CHEST 1 VW PORTABLE [facility] CLINICAL HISTORY: Tachypnea IMPRESSION: Aorta is tortuous. Heart size is at upper limits of no rmal. Lungs are clear. Regional skeleton is intact. [id number] Procedure Note Hm Interface, Radiology Results Incoming - 03/15/2019 2:00 PM ADVERTISER EXAMINATION: XR CHEST 1 VW PORTABLE CLINICAL HISTORY: Tachypnea IMPRESSION: Aorta is tortuous. Heart size is at uppe r limits of normal. Lungs are clear. Regional skeleton is intact. [id number] Performing Organization Address City/[facility] Centercode Phone Number [facility] [address] [place] [address] Thyroid stimulating hormone (03/10/2019 4:40 AM ADVERTISER) Pathologist Sig nature TSH 1.01 0.55 - 4.78 uIU/mL [facility] Specimen Serum Performing Organization Address [facility] Centercohi Phone Number [facility] DEPARTMENT OF PATHOLOGY AND [address] [place] [place] [address] [facility] [address] [place] [address] [place] [address] Phosphorus level (03/09/2019 1:20 AM ADVERTISER)Only the most recent of18 results within the time period is included. Pathologist Sig nature Phosphorus 3.8 2.4 - 4.5 mg/dL [facility] L Specimen Plasma specimen Performing Organization Address [facility]/Zipcode Phone Number [facility] DEPARTMENT OF PATHOLOGY AND [address] [place], [place] [address] [address] Ionized calcium (03/09/2019 1:20 AM ADVERTISER)Only the most recent of10 resultswithin the time period is included. Pathologist Sig nature pH 7.49 [facility] Ionized calcium 1.21 1.11 - 1.32 mmol/L [facility] Specimen Plasma specimen Performing Organization Address City/[facility]/Zipcode Phone Number [facility] DEPARTMENT OF PATHOLOGY AND [address] [place] [address] 0 [place] [address] CBC hemogram (03/08/2019 12:10 AM ADVERTISER)Only the most recent of8 resultswithin the time period is included. Pathologist Sig nature WBC 7.22 4.50 - 11.00 k/uL [facility] RBC 3.96 (L) 4.40 - 6.00 m/uL [facility] HGB 12.2 (L) 14.0 - 18.0 g/dL [facility] HCT 37.2 (L) 41.0 - 51.0 % [facility] MCV 93.9 82.0 - 100.0 fL [facility] MCH 30.8 27.0 - 34.0 pg [facility] MCHC 32.8 31.0 - 37.0 g/dL [facility] RDW - SD 47.5 37.0 - 55.0 fL [facility] MPV 10.8 8.8 - 13.2 fL [facility] Platelet count 434 (H) 150 - 400 k/uL [facility] Nucleated RBC 0.00 /100 WBC [facility] Specimen Blood Performing Organization Address City/[facility]/Zipcode Phone Number [facility] DEPARTMENT OF PATHOLOGY AND [address] [place], [place] [address] 0 [place] [phone] Cv cta coronary arteries w contrast and ffr if needed (03/06/2019 12:30 PM ADVERTISER) Specimen Narrative Performed At This result has an attachment that is no t available. [facility] Nuclear Cardiology and Card iac CT [address] [place] [id number] [phone] CTA Coronary Arteries R eport Pat.Name: NICO WOODS Pat .ID: [id number] .Date: 03/06/2019 Refer.MD: ALLISON MARROQUIN MD. Exam Time: 12:25:00 PM Study Type:CT A Coronary Arteries Height: 70in Weight: 181lb BSA: 2 m2 Age: 608/06/1965,53Y Sex: MALE BP: 165/82 HR: 77 bpm Nuclear Tech:Leia Rod RT(R)(CT) Pat. Stat.:Inpatient Tape Vol: 25.91, CPT - 4: CCTA w Thoracic Aorta (NonCongenital) [id number] Nuclear Event ID:[id number] Order ID: [id number] Reason for Study:Endocardititis Procedures: CT Retrospective Race: B SUMMARY: Technique: IV contrast was administered and sequential 0.[address] cuts were obtained through the chest using the [employer] ravinder Force CT scanner. Image post-processing consisting of multiplan ar and 3D reconstructions were performed using the [employer] workstation. Interactive image viewing, volumetric dis play and analysis were also performed. CTA RESULTS Left Main: A normal sized artery which arises normally from the l eft sinus of Valsalva and divides into the left anterior descending and circumflex coronary arteries. Mild predominantly calcified athero sclerotic plaque is present but without significant stenosis. A small b ranch courses posterior and superiorly between the LM and left atr ium The left main has a high take-off, arising superior to the aortic root cusp at the level of the ST junction. Left anterior descending (LAD): A normal sized artery which wraps around the apex and gives off one diagonal branch. Moderate calcified and non-calcifie d atherosclerotic plaque is present in the proximal and distal segments but without significant stenosis in the visualized segments. A por tion of the LAD's mid segment cannot be assessed due to motion art ifact. The first diagonal is a normal sized bifurcating arter y which has mild predominantly calcified atherosclerotic plaque present but with no significant stenosis. Left circumflex: A normal sized non-dominant artery which arises normal ly from the left main and gives off one large major obtuse marginal art rosana before terminating in the AV groove. Mild predominantly calci fied atherosclerotic plaque is present in the proximal segm ent with but without significant stenosis. The first obtuse marginal is a large mm trifurcating a rtery which has no significant atherosclerotic plaque present in the v isualized proximal and mid segments. Right coronary artery: A normal sized dominant artery which arises normally f rom the right sinus of Valsalva and gives off a large right ventricu lar branche, the posterior descending artery and the posterolateral art rosana. Mild predominantly calcified atherosclerotic plaque is pres ent in the proximal segment but without significant stenosis. T he RCA has a high take-off, arising superior to the aortic root cusp at the level of the ST junction. The posterior descending is not well visualized. It pr obably branches out of the large RV branch, which has no significant a therosclerotic plaque present. The posterolateral is a small artery which has no sign ificant atherosclerotic plaque present. Stents: None. Bypass Grafts: None. Pulmonary Arteries: Normal pulmonary artery sizes with no proximal thrombu s identified. Left Atrial and Pulmonary Vein Dimensions: Left atrial size (A-P diameter) 4.5 cm. Left atrial volume 117 ml. Variant PV anatomy (superior PV). There is no evidence of the left atrial appendage clot . Left Ventricular Valve Morphology/Function: LV end-diastolic volume is 153 mL LV end-systolic volume is 55 mL LVE is 64% with normal wall motion. LV septal wall thickness 11 mm. Aortic valve is tri-leaflet and there is no evidence o f stenosis. Mitral valve is normal without evidence of stenosis. Thoracic Aortic Dimensions: No aortic aneurysm or dissection is seen. Aortic root 3.3 cm. Sinotubular junction 3.0 cm. Mid ascending aorta 3.8 cm. Descending thoracic aorta 2.6 cm. Pericardium: No pericardial effusion or pericardial thickening. Non-Cardiac Findings: Small bilateral pleural effusions. A gastric tube is noted. CONCLUSION Coronary CTA shows mild coronary atherosclerosis but n o significant coronary artery stenosis in the visualized segments. T he left main and RCA exhibit high take-off at the level of the ST junct ion. No evidence of left sided valvular endocarditis or abs cess The LVEF is normal. There is no evidence of the left atrial appendage clot . Please refer to the separate radiology report in Epic of non-cardiovascular findings. STUDY QUALITY The study quality is good. COMMENTS None. FINDINGS: Signed 03/06/2019 04:34 PM Jaycee Serna MD Procedure Note Interface, Radiology Results In - 2019 4:34 PM ADVERTISER Nuclear Cardiology and Cardiac CT [address] [place] [address] CTA Coronary Arteri es Report Pat.Name: NICO WOODS Pat.I D: [id number] St.Date: 03/06/2019 Refer .MD: ALLISON MARROQUIN MD. Exam Time: 12:25:00 PM Study Type:CTA Coronary Arteries Height: 70in Weigh t: 181lb BSA: 2 m2 Age: 608/06/1965,53Y Sex: MALE BP: 165/82 HR: 77 bpm Nuclear Tech:RT Maximo(R)(CT) Pat. Stat.:Inpatient Tape Vol: 25.91, CPT - 4: CCTA w Thoracic Aorta (NonCo ngenital) 66282;20220 Nuclear Event ID:[id number] Order ID: [id number] Reason for Study:Endocardititis Procedures: CT Retrospective Race: B SUMMARY: Technique: IV contrast was administered and sequential 0.[address] cuts were obtained through the chest using e Siemens Somatom Force CT scanner. Image post-processing consistin g of multiplanar and 3D reconstructions were performed using the [employer] Aortic Valve workstation. Interactive image viewing, volumetric display and analysis were also performed. CTA RESULTS Left Main: A normal sized artery which arises ashley lly from the left sinus of Valsalva and divides into the left anter ior descending and circumflex coronary arteries. Mild predominantly ca lcified atherosclerotic plaque is present but without significant steno sis. A small branch courses posterior and superiorly between the LM and left atrium The left main has a high take-off, arisi ng superior to the aortic root cusp at the level of the ST junction. Left anterior descending (LAD): A normal sized artery which wraps around the apex and gives off one diagonal branch. Moderate calcified and non-calcified atherosclerotic plaque is present in the proximal and di stal segments but without significant stenosis in the visualized s egments. A portion of the LAD's mid segment cannot be assessed due to motion artifact. The first diagonal is a normal sized bif urcating artery which has mild predominantly calcified atherosclerotic plaque present but with no significant stenosis. Left circumflex: A normal sized non-dominant artery which arises normally from the left main and gives off one large major obtus e marginal artery before terminating in the AV groove. Mild predo minantly calcified atherosclerotic plaque is present in the proximal segment with but without significant stenosis. The first obtuse marginal is a large mm trifurcating artery which has no significant atherosclerotic plaque pr esent in the visualized proximal and mid segments. Right coronary artery: A normal sized dominant artery which cayetano ses normally from the right sinus of Valsalva and gives off a large right ventricular branche, the posterior descending artery and the post erolateral artery. Mild predominantly calcified atherosclerotic plaque is present in the proximal segment but without significant stenosis. The RCA has a high take-off, arising superior to the aortic root cusp at the level of the ST junction. The posterior descending is not well vis ualized. It probably branches out of the large RV branch, which has no significant atherosclerotic plaque present. The posterolateral is a small artery whi ch has no significant atherosclerotic plaque present. Stents: None. Bypass Grafts: None. Pulmonary Arteries: Normal pulmonary artery sizes with no pr oximal thrombus identified. Left Atrial and Pulmonary Vein Dimension s: Left atrial size (A-P diameter) 4.5 cm. Left atrial volume 117 ml. Variant PV anatomy (superior PV). There is no evidence of the left atrial appendage clot. Left Ventricular Valve Morphology/Functi on: LV end-diastolic volume is 153 mL LV end-systolic volume is 55 mL LVE is 64% with normal wall motion. LV septal wall thickness 11 mm. Aortic valve is tri-leaflet and there is no evidence of stenosis. Mitral valve is normal without evidence of stenosis. Thoracic Aortic Dimensions: No aortic aneurysm or dissection is seen . Aortic root 3.3 cm. Sinotubular junction 3.0 cm. Mid ascending aorta 3.8 cm. Descending thoracic aorta 2.6 cm. Pericardium: No pericardial effusion or pericardial t hickening. Non-Cardiac Findings: Small bilateral pleural effusions. A gastric tube is noted. CONCLUSION Coronary CTA shows mild coronary atheros clerosis but no significant coronary artery stenosis in the visualiz ed segments. The left main and RCA exhibit high take-off at the level o f the ST junction. No evidence of left sided valvular endoc arditis or abscess The LVEF is normal. There is no evidence of the left atrial appendage clot. Please refer to the separate radiology r eport in [facility] of non-cardiovascular findings. STUDY QUALITY The study quality is good. COMMENTS None. FINDINGS: Signed 03/06/2019 04:34 PM Jaycee Serna MD Performing Organization Address [facility] Cent[facility]i Phone Number [facility] [address] [place] [address] XR Abdomen 1 Vw Portable (03/06/2019 9:43 AM ADVERTISER)Only the most recent of9 resultswithin the time period is included. Specimen Narrative Performed At EXAM: XR ABDOMEN 1 VW PORTABLE RADIANT CLINICAL: Ileus COMPARISON: 02/28/2019 IMPRESSION: 1.Dobbhoff tube advanced into the third portion duodenum. 2.Nonspecific gaseous distention of loops of small bow el and colon, possible ileus. 3.Lung bases are clear. 4.No acute osseous abnormality. [id number] Procedure Note Interface, Radiology Results Incoming - 03/06/2019 9:58 AM ADVERTISER EXAM: XR ABDOMEN 1 VW PORTABLE CLINICAL: Ileus COMPARISON: 02/28/2019 IMPRESSION: 1.Dobbhoff tube advanced into the third portion duodenum. 2.Nonspecific gaseous distention of loop s of small bowel and colon, possible ileus. 3.Lung bases are clear. 4.No acute osseous abnormality. [id number] Performing Organization Address [facility] CenterCarePaymenthi Phone Number [employer] [address] [place] [address] Vitamin B12 level (03/06/2019 12:56 AM ADVERTISER) Vitamin B12 611 211 - 946 [facility] Comment: pg/mL HOSPITAL Significant overlap exists between normal and deficien cy states. However, most patients with deficiencies will have Ser um B12 <200 pg/mL. Specimen Serum Performing Organization Address City/[facility]/Zipcode Phone Number [facility] DEPARTMENT OF PATHOLOGY AND [address] [place] [address] [phone] [address] Vitamin D 25 hydroxy level (03/06/2019 12:55 AM ADVERTISER) Vitamin D, 13.5 (L) 30.0 - 150.0 [facility] 25-hydroxy Comment: ng/mL HOSPITAL This assay reports the sum of 25-hydroxy vitamin D3 an d 25-hydroxy vitamin D2. Reference range: 0-17 years: Deficiency: less than 20ng/mL Optimum level: greater than or equal to 20 ng/mL. 18 years and older: Deficiency: less than 20ng/mL Insufficiency: 20-29 ng/mL Optimum Level: 30-80 ng/mL The assay reportable range is 3.4 155.9 ng/mL. Level s higher than 150 ng/mL may be associated with toxicity. If toxicity is clinically suspected and the reported r esult is >155.9 ng/mL,contact lab for alternative methods to obtain a definitive level. If separate quantitation of 25-hydroxy vitamin D3 and 25-hydroxy vitamin D2 is needed, please contact lab for alternative methods. Specimen Blood Performing Organization Address City/[facility]/Zipcode Phone Number [facility] DEPARTMENT OF PATHOLOGY AND [address] [place] [address] [phone] [address] Vitamin C level, plasma (03/06/2019 12:15 AM ADVERTISER) Vitamin C, plasma 31 23 - 114 [facility] Comment: umol/L INTERPRETIVE DATA: Vitamin C (Ascorbic Acid), Plasma Vitamin C concentrations lower than 11 umol/L indicate deficiency. Concentrations between 11 and 23 umol/L are consistent with a moderate risk of deficiency due to inadequate tissue s inge. Vitamin C concentration is reported as micromoles per liter (umol/L). To convert concentration to milligrams per d eciliter (mg/dL), multiply the result by 0.0176. Test developed and characteristics determined by [facility]. See Compliance Statement B: GTx.Drawn to Scale/ CS Performed by [facility], [address] [place] [email or web address], Law Scott MD, Lab. Director Specimen Plasma specimen Performing Organization Address [facility] Centercode Phone Number [facility] [address] [place] [address] [facility] [address] [place] [address] Sodium level (03/05/2019 1:42 PM ADVERTISER)Only the most recent of5 resultswithin the time period is included. Pathologist Sig nature Sodium 143 135 - 148 mEq/L [facility] Specimen Plasma specimen Performing Organization Address [facility] Phone Number [facility] DEPARTMENT OF PATHOLOGY AND [address] [place] [address] [address] Arterial blood gas (03/05/2019 12:25 AM ADVERTISER)Only the most recent of13 results within the time period is included. Pathologist Sig nature pH, arterial 7.45 7.35 - 7.45 [facility] pCO2, arterial 35 35 - 45 mmHg [facility] pO2, arterial 106 (H) 80 - 90 mmHg [facility] Bicarbonate, 24.2 21.0 - 28.0 [facility] mmol/L HOSPITAL Base excess, 1 -2 - 2 mEq/L [facility] O2 saturation, 98 95 - 100 % [facility] Specimen Blood Performing Organization Address [facility] Phone Number [facility] DEPARTMENT OF PATHOLOGY AND [address] [place], [place] [address] [address] [address] Ionized calcium, arterial (03/02/2019 12:20 AM ADVERTISER)Only the most recent of9 resultswithin the time period is included. Pathologist Sig nature Ionized calcium, 1.19 1.11 - 1.32 [facility] arterial mmol/L HOSPITAL Specimen Blood Performing Organization Address [facility] Centercode Phone Number [facility] DEPARTMENT OF PATHOLOGY AND [address] [place], [place] [address] 0 [facility] [address] [place] [address] Urine eosinophils (02/28/2019 3:30 PM ADVERTISER) Pathologist Sig nature Eosinophils, urine NONE [facility] ITAL Specimen Urine Performing Organization Address City/State/Zipcode Phone Number [facility] DEPARTMENT OF PATHOLOGY AND [address] [place], [place] [address] [facility] [address] [place] [address] Echocardiogram transesophageal (02/28/2019 12:13 PM ADVERTISER) Specimen Narrative Performed At [facility] Transes ophageal Echo Report [address], [place], [place] [address] Pat.Name: NICO WOODS Pat.ID: [id number]Date: 02/28/2019 Refer.MD: JUSTIN ARRIETA MD Exam Time: 10:08:00 AM Study Type:TE E Height: 70in Weight: 181lb BSA: 2 m2 Age: 608/06/1965,53Y Sex: MALE BP: 159/78 HR: 60 bpm Sonogr phr: Guillaume De La Rosa MD Room: [facility] ICU( [facility]) Study Statu s:Final Echo Event ID:[id number] Order ID: [id number] Reason for Study:THROMBUS History / Clinical:Pontine hemorrhage Procedures: Transesophageal Echo with Co lorflow Doppler Race: B SUMMARY: No thrombus or mass is visualized in the LA or LA appendage. No Valvular vegetations visualized. There is an echo lucency adjacent to the sinotubular junction superior to the LCC of the aortic valve. This m ay represent an unusually large or prominent coronary artery. If infecti on is a clinical concern, this area would be better evaluated with a [facility]. FINDINGS: ROSA: The attending shoe sticks repairer performed the ROSA procedure and was present for the ent [place] duration. The patient was counseled and an informed consent was obtained. Topical and intravenous anesthesia was administer ed. The esophagus was intubated without difficulty. The pro be was passed to the gastric fundus and all standard echocardiographic views were obtained. The patient tolerated the procedure well. LV: LV size is normal. LV EF is hyperdynamic. Overall wall motion is hyperdynamic. Estimated EF is >70%. RV: RV size is normal. RV systo lic function is normal. LA: LA volume is mildly enlarge d. No thrombus or mass is visualized in the LA or LA appendage. RA: RA size is normal. AO: Aortic root diameter is nor mal. DEANNA: No pericardial effusion. AV: Focal thickening and calcification of AV left coronary cusp. Mild central aortic reg urgitation. MV: No structural MV abnormalit ies noted. PV: No structural PV abnormalit ies noted. TV: No structural TV abnormalit ies noted. ROSA: Anesthesia: Moderate Sedation A Class: 4 Physician: Tyler Redman M.D. Bayron tant: Guillaume De La Rosa MD Pre ROSA BP HR Post ROSA BP HR 159/78 60 148/69 60 Meds: Viscous xylocaine, Cetacai ne spray to oropharynx, Versed 2 mg IV, Fentanyl 50 mcg IV Complications: None Condition: Stable Signed 02/28/2019 03:58 PM Tyler Redman M.D. Procedure Note Interface, Radiology Results In - 2019 3:59 PM ADVERTISER Transesophageal Ec ho Report [address], [place], [place] [address] Pat.Name: NICO WOODS Pat.I D: [id number] St.Date: 02/28/2019 Refer .MD: JUSTIN ARRIETA MD Exam Time: 10:08:00 AM Study Type:ROSA Height: 70in Weigh t: 181lb BSA: 2 m2 Age: 608/06/1965,53Y Sex: MALE BP: 159/78 HR: 60 bpm Sonog rphr: Guillaume De La Rosa MD Room: [facility]( 1114) Study Status:Final Echo Event ID:[id number] Order ID: [id number] Reason for Study:THROMBUS History / Clinical:Pontine hemorrhage Procedures: Transesophageal Echo with Co lorflow Doppler Race: B SUMMARY: No thrombus or mass is visualized in the LA or LA appendage. No Valvular vegetations visualized. There is an echo lucency adjacent to the sinotubular junction superior to the LCC of the aortic valve. This ma y represent an unusually large or prominent coronary artery. If infecti on is a clinical concern, this area would be better evaluated with a [place] CT. FINDINGS: ROSA: The attending shoe sticks repairer per formed the ROSA procedure and was present for the entire du ration. The patient was counseled and an informed con sent was obtained. Topical and intravenous anesthesia was ad ministered. The esophagus was intubated without difficulty. The probe was passed to the gastric fundus and all standa rd echocardiographic views were obtained. The patient to lerated the procedure well. LV: LV size is normal. LV EF is hy perdynamic. Overall wall motion is hyperdynamic. Estim ated EF is >70%. RV: RV size is normal. RV systolic function is normal. LA: LA volume is mildly enlarged. No thrombus or mass is visualized in the LA or LA ap pendage. RA: RA size is normal. AO: Aortic root diameter is normal . DEANNA: No pericardial effusion. AV: Focal thickening and calcifica tion of AV left coronary cusp. Mild central aortic regurgita tion. MV: No structural MV abnormalities noted. PV: No structural PV abnormalities noted. TV: No structural TV abnormalities noted. ROSA: Anesthesia: Moderate Sedation ASA C lass: 4 Physician: Tyler Redman M.D. Bayron tant: Guillaume De La Rosa MD Pre ROSA BP HR Post ROSA BP HR 159/78 60 148/69 60 Meds: Viscous xylocaine, Cetacaine spray to oropharynx, Versed 2 mg IV, Fentanyl 50 mcg IV Complications: None Condition: Stable Signed 02/28/2019 03:58 PM Tyler Redman M.D. Performing Organization Address City/[facility]/Zipcode Phone Number [facility] [address] [place] [address] HIV Ag/Ab combination (02/27/2019 12:15 AM ADVERTISER) HIV Ag/Ab combination Non-reactive Non-reactive [facility] Specimen Blood Performing Organization Address City/[facility] Centercode Phone Number [facility] DEPARTMENT OF PATHOLOGY AND [address] [place] [address] [phone] [address] Blood culture, aerobic & anaerobic (02/26/2019 11:46 AM ADVERTISER)Only the most recent of4 resultswithin the time period is included. Blood culture No growth after 5 days of incubation. MARYJO GIBSON HINDU isolate Comment: HOSPITAL Specimen Information Specimen Source: Blood Specimen Site: Hand, left Specimen Blood - Hand, left Performing Organization Address [facility]/Zipcode Phone Number [facility] DEPARTMENT OF PATHOLOGY AND [address] [place] [address] [phone] [address] Us duplex venous lower extremity (02/24/2019 8:20 PM ADVERTISER) Specimen Narrative Performed At [facility] Vascular U ltrasound Laboratory Lower Extr emity Venous Report [address] [facility], [place] [address], [place] [address] Pat.Name: NICO WOODS Pat.ID: [id number]Date: 02/24/2019 Refer.MD: JUSTIN ARRIETA MD Exam Time: 7:52:00 PM Study Type:L E Venous Height: 70in Weight: 181lb BSA: 2 m2 Age: 608/06/1965,53Y Sex: MALE Sonogr phr: Venkatesh Chavez, RVT, RDMS Pat. Stat.:Inpatient Room: [address] Tape Vol: MK, CPT - 4: [address] Echo Event ID:[id number] Order ID: [id number] Reason for Study:Evaluate for DVT. PMH o f stroke, HTN. Procedures: Colorflow, Grayscale/2D, Pul sed wave Doppler Race: B SUMMARY: DUPLEX SCAN OBSERVATIONS Deep Veins Superficial Veins Right Left Right Left EIV GSV (prox) Normal Normal CFV Normal Normal (above knee) Femoral Normal Normal GSV (dist) Normal Normal Profunda Normal Normal (below knee) Popliteal Normal Normal PT (prox) Normal Normal SSV Normal Nor mal PT (dist) Normal Normal Peroneal Normal Normal Gastrocs Normal Normal RIGHT: There is normal compressibility w ith no evidence of echogenic material noted within the lumen of the v isualized veins.Colorflow and Doppler signals are normal. LEFT: There is normal compressibility wi th no evidence of echogenic material noted within the lumen of the v isualized veins.Colorflow and Doppler signals are normal. PRELIMINARY FINDINGS 1. No evidence of venous thrombosis in t he visualized veins. PHYSICIAN INTERPRETATION Venous examination of the both lower ext remities demonstrated no evidence of venous thrombosis in the vis ualized veins. Normal compressibility and augmentation of all veins visualized. FINDINGS: Signed 02/24/2019 11:02 PM Yash Stanley MD, RPVI Procedure Note Interface, Radiology Results In - 2019 11:04 PM [facility] Vascular Ultrasound Laboratory Lower Extremity Veno us Report [address] [facility], [place] [address] , [place] [address] Pat.Name: NICO WOODS Pat.I D: [id number] St.Date: 02/24/2019 Refer .MD: JUSTIN ARRIETA MD Exam Time: 7:52:00 PM Study Type:LE Venous Height: 70in Weigh t: 181lb BSA: 2 m2 Age: 608/06/1965,53Y Sex: MALE Sonog rphr: Venkatesh Chavez RVT, RDMS Pat. Stat.:Inpatient Room: [address] Vol: , [facility] - 4: [address] Echo Event ID:[id number] Order ID: [id number] Reason for Study:Evaluate for DVT. PMH o f stroke, HTN. Procedures: Colorflow, Grayscale/2D, Pul sed wave Doppler Race: B SUMMARY: DUPLEX SCAN OBSERVATIONS Deep Veins Superficial Veins Right Left Right Left EIV GSV (prox) Normal Normal CFV Normal Normal (above knee) Femoral Normal Normal GSV (dist) Normal Normal Profunda Normal Normal (below knee) Popliteal Normal Normal PT (prox) Normal Normal SSV Normal Norm al PT (dist) Normal Normal Peroneal Normal Normal Gastrocs Normal Normal RIGHT: There is normal compressibility w ith no evidence of echogenic material noted within the lumen of the v isualized veins.Colorflow and Doppler signals are normal. LEFT: There is normal compressibility wi th no evidence of echogenic material noted within the lumen of the v isualized veins.Colorflow and Doppler signals are normal. PRELIMINARY FINDINGS 1. No evidence of venous thrombosis in t he visualized veins. PHYSICIAN INTERPRETATION Venous examination of the both lower ext remities demonstrated no evidence of venous thrombosis in the vis ualized veins. Normal compressibility and augmentation of all veins visualized. FINDINGS: Signed 02/24/2019 11:02 PM Yash Stanley MD, RPVI Performing Organization Address [facility] Centercode Phone Number [facility] [address] [place] [address] Respiratory culture, quantitative (02/23/2019 5:35 PM ADVERTISER) Respiratory culture Normal oral liliam JESUS isolate, >10-5 cfu/ml [facility] quantitative (A) [facility]OSPITAL Comment: Specimen Information Specimen Source: Mini bronchial alveolar lavage Specimen Site: UNSPECIFIED Respiratory culture Staphylococcus aureus JESUS isolate, >10-5 cfu/ml HINDU quantitative This organism is Methicillin Sensitive. H OSPITAL (A) Specimen Mini bronchial alveolar lavage Organism Antibiotic Method Susceptibility Staphylococcus aureus Ampicillin CHINO mcg/mL: R esistant Staphylococcus aureus Clindamycin CHINO <=0.5 mcg/ mL: Susceptible Staphylococcus aureus Erythromycin CHINO <=0.5 mcg/ mL: Susceptible Staphylococcus aureus Linezolid CHINO 2 mcg/mL: Susceptible Staphylococcus aureus Minocycline CHINO <=1 mcg/mL : Susceptible Staphylococcus aureus Oxacillin CHINO 1 mcg/mL: Susceptible Staphylococcus aureus Penicillin G CHINO >1 mcg/mL: Resistant Staphylococcus aureus Rifampin CHINO <=0.5 mcg/ mL: Susceptible Staphylococcus aureus Tetracycline CHINO <=0.5 mcg/ mL: Susceptible Staphylococcus aureus Trimethoprim/Sulfamethoxazo CHINO <=0.5/9.5 mcg/mL: Susceptible le Staphylococcus aureus Vancomycin CHINO 1 mcg/mL: Susceptible Performing Organization Address [facility] Centercode Phone Number [facility] DEPARTMENT OF PATHOLOGY AND [address] [place], [place] [address] GENOMIC MEDICINE [address] [address] Gram stain (02/23/2019 5:35 PM ADVERTISER) Gram stain isolate Many WBC's [facility] Moderate Gram positive cocci in pairs HOS PITAL Comment: Specimen Information Specimen Source: Mini bronchial alveolar lavage Specimen Site: UNSPECIFIED Specimen Mini bronchial alveolar lavage Performing Organization Address City/[facility]/Zipcode Phone Number [facility] DEPARTMENT OF PATHOLOGY AND [address] [place], [place] [address] [facility] [address] [place] [address] Sedimentation rate (02/23/2019 12:10 AM ADVERTISER) Pathologist Sig nature Sedimentation rate 62 (H) 0 - 10 mm/hr [facility] Specimen Blood Performing Organization Address City/[facility]/Zipcode Phone Number [facility] DEPARTMENT OF PATHOLOGY AND [address] [place] [address] [facility] [address] [place] [address] MRI Brain Wo Contrast (02/21/2019 5:05 PM ADVERTISER) Specimen Narrative Performed At This result has an attachment that is no t available. EXAMINATION: MRI BRAIN WO CONTRAST [facility] COMPARISON: February 19, 2019. CLINICAL HISTORY: STROKE COMMENTS: Multiplanar MR imaging of th e brain was obtained without contrast material. FINDINGS: The appearance of acute hemo rrhage in the left cerebellum extending to the wilma and midbrain is again noted. The slight diffusion signal change along the margins is again identified. There i s a tiny new focus of acute ischemic change in the superior cerebellar vermis and also at the left assistant analyst ior insula. The scattered areas of susceptibility ar tifact in the brain are again identified. The appearance of small amounts of hemor rhage in the occipital horns of the lateral ventricles is again noted. The moderate signal change in the perive ntricular white matter is again noted. The chronic insults in the periventricular white matter focally are again noted. The expected flow voids are present in t he internal carotid and basilar arteries. There is mild mucosal thickening in the visualized sinuses. There is mild fluid like signal in the mastoid air cells. IMPRESSION: Parenchymal and intraventr icular hemorrhage again noted as described. Tiny new foci of acute ischemic change a t the cerebellar vermis superiorly and at the left posterior insula. [id number] Procedure Note Interface, Radiology Results Incoming - 02/21/2019 5:43 PM ADVERTISER EXAMINATION: MRI BRAIN WO CONTRAST COMPARISON: February 19, 2019. CLINICAL HISTORY: STROKE COMMENTS: Multiplanar MR imaging of the brain was obtained without contrast material. FINDINGS: The appearance of acute hemor rhage in the left cerebellum extending to the wilma and midbrain is again noted. The slight diffusion signal change along the margins is again identified. There is a tiny new focus of acute ischemic change in the superior cerebellar vermis and also at t he left posterior insula. The scattered areas of susceptibility ar tifact in the brain are again identified. The appearance of small amounts of hemor rhage in the occipital horns of the lateral ventricles is again noted. The moderate signal change in the perive ntricular white matter is again noted. The chronic insults in the periventricular white matter focally are again noted. The expected flow voids are present in t he internal carotid and basilar arteries. There is mild mucosal thickening in the visualized sinuses. There is mild fluid like signal in the mastoid air cells. IMPRESSION: Parenchymal and intraventri cular hemorrhage again noted as described. Tiny new foci of acute ischemic change a t the cerebellar vermis superiorly and at the left posterior insula. [id number] Performing Organization Address City/State/Zipcode Phone Number [facility] [address] [place] [address] MRI Brain W Wo Contrast (02/19/2019 9:12 PM ADVERTISER) Specimen Narrative Performed At This result has an attachment that is no t available. EXAMINATION: MRI BRAIN W WO CONTRAST HELENA CLINICAL HISTORY: ICH COMPARISON: CT brain dated February 19, 2019 TECHNIQUE: Multiplanar and multisequence MRI imaging of the brain was obtained with and without contrast. FINDINGS: Diffusion imaging shows some mild diffus ion signal changes around the area of the left pontine hemorrhage as expected. There is no acute cortical ischemia. The hematoma in the left wilma extending down t he left middle cerebellar peduncle and anterior left cerebellar hemisphere is again noted an d grossly similar to prior CT. Postcontrast imaging shows no enhancing lesion in this area. There is mild local mass effect without significant midline shift or effacement of the fourth ventricle. FLAIR imaging shows moderate extensive F LAIR signal changes which are confluent around the periventricular white matter corresponding to the lucencies on CT as well as chronic bilateral colmenares radiata insults. These are stable. There is no extra-axial fluid or hydroce phalus. Visualized paranasal sinuses shows no acute air-fluid levels. Visualized soft tissue shows no gross abnormalities. Coronal imaging shows no midline shift. Sagittal imaging shows no mass lesion. Postcontrast imaging shows no enhancing lesions in the brain parenchyma. IMPRESSION: MRI confirms a hematoma in the left wilma , middle cerebellar peduncle and left cerebellum which is similar to the prior CT with no new or progressive change. [facility]-[id number] Procedure Note Hm Interface, Radiology Results Incoming - 02/19/2019 10:11 PM ADVERTISER EXAMINATION: MRI BRAIN W WO CONTRAST CLINICAL HISTORY: ICH COMPARISON: CT brain dated February 19, 2019 TECHNIQUE: Multiplanar and multisequence MRI imaging of the brain was obtained with and without contrast. FINDINGS: Diffusion imaging shows some mild diffus ion signal changes around the area of the left pontine hemorrhage as expected. There is no acute cortical ischemia. The hematoma in the left wilma extending down the left middle cerebellar peduncle and anterior left cerebellar hemisphere is again noted an d grossly similar to prior CT. Postcontrast imaging shows no enhancing lesion in this area. There is mild local mass effect without significant midline shift or effacement of the fourth ventricle. FLAIR imaging shows moderate extensive F LAIR signal changes which are confluent around the periventricular white matter corresponding to the lucencies on CT as well as chronic bilateral colmenares radiata insults. These are stable. There is no extra-axial fluid or hydroce phalus. Visualized paranasal sinuses shows no acute air-fluid levels. Visualized soft tissue shows no gross abnormalities. Coronal imaging shows no midline shift. Sagittal imaging shows no mass lesion. Postcontrast imaging shows no enhancing lesions in the brain parenchyma. IMPRESSION: MRI confirms a hematoma in the left wilma , middle cerebellar peduncle and left cerebellum which is similar to the prior CT with no new or progressive change. [facility]-[id number] Performing Organization Address City/State/Zipcode Phone Number [facility] [address] [place] [address] CTA Abdomen W Wo Contrast (02/19/2019 6:47 PM ADVERTISER) Specimen Narrative Performed At EXAMINATION: CT ANGIOGRAM ABDOMEN W WO CONTRAST [facility] CLINICAL HISTORY: Eval for renal artery stenosis F U to renal artery US COMPARISON: Renal Doppler ultrasound TECHNIQUE: Multiple CT angiographic images of the abdomen were ob tained during intravenous administration of contrast. Multiple compu terized reformatted images as well as 3-D volume rendered imag es were also obtained. Precontrast images of the abdomen were also obtained. CT imaging was performed with iterative reconstruction techniques and/or automated exposure control to reduce rad iation dose. Findings: 1.There are single bilateral main renal arteries which are widely patent. Renal arterial branches all appear widely toth nt without stenoses. 2.The aorta, superior mesenteric, and inferior mesente shanel arteries and imaged visceral branch arteries are norm al. 3.The partly imaged bilateral common iliac arteries de monstrate minimal atherosclerosis but otherwise are normal . 4.There is dependent left lower basal delacruz bsegmental atelectasis. 5.The liver has a slightly lobular contour, the possib ility of cirrhosis is raised. 6.Low-attenuation in right hepatic lobe adjacent to ga llbladder may represent focal fatty deposition. 7.The spleen, pancreas, and adrenals are normal. 8.Renal parenchyma is normal bilaterally. Enhancement is symmetric. There is no hydronephrosis. 9.There is an NG tube in the proximal stomach. Otherwi se the stomach and imaged bowel loops are within normal frost its. 10.There is no ascites or lymphadenopath y. 11.No significant skeletal abnormality i s seen. IMPRESSION: No renal artery stenosis. [id number] Procedure Note [facility], Radiology Results Incoming - 02/19/2019 7:06 PM ADVERTISER EXAMINATION: CT ANGIOGRAM ABDOMEN W WO CONTRAST CLINICAL HISTORY: Eval for renal artery stenosis FU to renal artery US COMPARISON: Renal Doppler ultrasound TECHNIQUE: Multiple CT angiographic images of the a bdtaniya were obtained during intravenous administration of contrast. Multiple computerized reformatted images as well as 3-D volume rendered images were also obtained. Precontrast images of the abdomen were also obtained. CT imaging was performed with iterative reconstruction techniques and/or automated exposure control to reduce radiation dose. Findings: 1.There are single bilateral main renal arteries which are widely patent. Renal arterial branches all appear widely patent without stenoses. 2.The aorta, superior mesenteric, and in ferior mesenteric arteries and imaged visceral branch arteries are normal. 3.The partly imaged bilateral common sandor ac arteries demonstrate minimal atherosclerosis but otherwise are normal. 4.There is dependent left lower basal delacruz bsegmental atelectasis. 5.The liver has a slightly lobular conto ur, the possibility of cirrhosis is raised. 6.Low-attenuation in right hepatic lobe adjacent to gallbladder may represent focal fatty deposition. 7.The spleen, pancreas, and adrenals are normal. 8.Renal parenchyma is normal bilaterally . Enhancement is symmetric. There is no hydronephrosis. 9.There is an NG tube in the proximal st omach. Otherwise the stomach and imaged bowel loops are within normal limits. 10.There is no ascites or lymphadenopath y. 11.No significant skeletal abnormality i s seen. IMPRESSION: No renal artery stenosis. [id number] Performing Organization Address City/State/Zipcode Phone Number [facility] [address] [place] [address] [place] Renal Doppler (02/19/2019 1:00 PM ADVERTISER) Specimen Narrative Performed At EXAMINATION: US RENAL DOPPLER [facility] CLINICAL HISTORY: Uncontrolled HTN TECHNIQUE: Examination includes a full duplex Doppler scan of the renal vessels (real-time B mode grayscale, Doppler spectral analysis, and Doppler color flow imaging). COMPARISON: None. FINDINGS: Right renal arterial waveforms demonstrate normal sys tolic upstrokes and good end diastolic flow. The right renal vein is patent. Evaluation of the intrarenal arteries demonstrates nor mal acceleration time and acceleration indices. Left renal arterial waveforms demonstrate normal systo lic upstrokes and good end diastolic flow. The left renal vein is patent . Evaluation of the intrarenal arteries demonstrate normal acceleratio n times and low acceleration indices. IMPRESSION: 1. Low acceleration indices on the left kidney may be artifactual given normal acceleration times and normal Doppler evaluatio n of the main renal artery. Alternate consideration would include di stal renal artery stenosis which could be better evaluated with CTA or MRA of the renal arteries. 2. No Doppler evidence of right renal ar heaven stenosis. [id number] Procedure Note Interface, Radiology Results Incoming - 02/19/2019 4:18 PM ADVERTISER EXAMINATION: US RENAL DOPPLER CLINICAL HISTORY: Uncontrolled HTN TECHNIQUE: Examination includes a full d uplex Doppler scan of the renal vessels (real-time B mode grayscale, Doppler spectral analysis, and Doppler color flow imaging). COMPARISON: None. FINDINGS: Right renal arterial waveforms demonstr ate normal systolic upstrokes and good end diastolic flow. The right renal vein is patent. Evaluation of the intrarenal arteries demonstrates normal acceleration time and acceleration indices. Left renal arterial waveforms demonstrat e normal systolic upstrokes and good end diastolic flow. The left renal vein is patent. Evaluation of the intrarenal arteries demonstrate normal acceleration times and low acceleration indices. IMPRESSION: 1. Low acceleration indices on the left kidney may be artifactual given normal acceleration times and normal Doppler evaluation of the main renal artery. Alternate consideration would include distal renal artery stenosis which could be better evaluated with CTA or MRA of the renal arteries. 2. No Doppler evidence of right renal ar heaven stenosis. [id number] Performing Organization Address [facility]/Zipcode Phone Number [facility] [address] [place] [address] Potassium level (02/19/2019 12:25 PM ADVERTISER) Pathologist [facility] [place] [place] nature Potassium 3.9 3.5 - 5.0 mEq/L [facility] L Specimen Plasma specimen Performing Organization Address [facility] Centercohi Phone Number [facility] DEPARTMENT OF PATHOLOGY AND [address] [place], [place] [address] 0 GENOMIC MEDICINE [facility] [address] [place] [address] Echocardiogram complete w contrast and 3D if needed (02/19/2019 9:10 AM ADVERTISER) Specimen Narrative Performed At [facility] Echo cardiography Report [id number] [facility], [facility] [address] [id number] Pat.Name: NICO WOODS Pat.ID: [id number] .Date: 02/19/2019 Refer.MD: JUSTIN ARRIETA MD Exam Time: 8:23:00 AM Study Type:R outine Echo Height: 70in Weight: 181lb BSA: 2 m2 Age: 608/06/1965,53Y Sex: MALE BP: 164/68 HR: 77 bpm Sonogrphr: Taya Gambino RDCS, RVT Pat. Stat.:Inpatient Room: [address] Study Status:Final Echo Event ID:[id number] Order ID: [id number] Reason for Study:Stroke History / Clinical:Pontine hemorrhage Procedures: 2D Echo, Colorflow Doppler, Strain, Portable SUMMARY: Normal LV size with hyperdynamic functio n and cavitary obliteration. Normal RV size and function. No hemodynamically significant valvular abnormalities. Normal filling pressure. FINDINGS: LV: LV size is normal. Concentr ic left ventricular remodeling. Reduced average LV global longitudina l strain at -14%. LV EF is hyperdynamic with cavity oblite ration. Overall wall motion is hyperdynamic. Estimated EF is >70%. RV: RV size is normal. RV systo lic function is normal. LA: LA volume is mildly enlarge d. RA: RA size is normal. AO: Aortic root diameter is nor mal. DEANNA: No pericardial effusion. SVn: Inferior vena cava is ashley l. Normal collapse of IVC during inspiration is consiste nt with normal RA pressure. AV: Mild calcification of AV le aflets. Tri cuspid aortic valve. A trace of aortic regur gitation. MV: No structural MV abnormalit ies noted. PV: No structural PV abnormalit ies noted. A trace of pulmonic regurgitation. TV: No structural TV abnormalit ies noted. Delgado: LV relaxation is normal. LV filling pressure is normal. Hepatic vein pressure i s normal, RA pressure < 5mmHg. Other: Estimated PA systolic pressu re is 34 mmHg, assuming a mean RAP of 5 mmHg. MEASUREMENTS: 2D Parasternal Long Lotus Ao An 2.4 cm LVPWd 1.1 cm Ao Rtd 3.1 cm Index 1.5 cm/m2 LA Ds 2.9 cm IVSd 0.96 cm RWT 0.44 LVIDd 5 cm Index 2.5 cm/m2 LV Mass 189 g (122-1 74) LVIDs 2.8 cm LVM In dex 94 g/m LV%fs 44 % LA Sng Plane LA Area 22 cm (8.8-23.4) LA Vol 72 ml Index 36 ml/m2 LA LngAx 6 cm LVOT Stroke Vol LVOT 2.2 cm LVOT LVOT Area 3.8 cm DOPPLER LVOT Stroke Vol LVOT TVI 32 cm LVOT CI 4.4 l/m/m LVOT SV 122 ml HR 73 bpm LVOT CO 8.9 l/min LVOT SVi 61 ml/m TV Pressure Gradient TV PkVel 269 cm/s TV PG 29 mmHg Signed 02/19/2019 03:28 PM Bibi Benavidez MD Procedure Note Interface, Radiology Results In - 2019 3:29 PM ADVERTISER Echocardiography Report [address] [place] [address] Pat.Name: NICO WOODS Pat.I D: [id number] .Date: 02/19/2019 Refer .MD: JUSTIN ARRIETA MD Exam Time: 8:23:00 AM Study Type:Routine Echo Height: 70in Weigh t: 181lb BSA: 2 m2 Age: 608/06/1965,53Y Sex: MALE BP: 164/68 HR: 77 bpm Sonogrphr: Taya Gambino RDCS, RVT Pat. Stat.:Inpatient Room: [address] Study Status:Final Echo Event ID:[id number] Order ID: [id number] Reason for Study:Stroke History / Clinical:Pontine hemorrhage Procedures: 2D Echo, Colorflow Doppler, Strain, Portable SUMMARY: Normal LV size with hyperdynamic functio n and cavitary obliteration. Normal RV size and function. No hemodynamically significant valvular abnormalities. Normal filling pressure. FINDINGS: LV: LV size is normal. Concentric left ventricular remodeling. Reduced average LV global saran gitudinal strain at -14%. LV EF is hyperdynamic with cavit y obliteration. Overall wall motion is hyperdynamic. Estim ated EF is >70%. RV: RV size is normal. RV systolic function is normal. LA: LA volume is mildly enlarged. RA: RA size is normal. AO: Aortic root diameter is normal . DEANNA: No pericardial effusion. SVn: Inferior vena cava is normal. Normal collapse of IVC during inspiration is consistent wit h normal RA pressure. AV: Mild calcification of AV leafl ets. Tri cuspid aortic valve. A trace of aortic regurgitati on. MV: No structural MV abnormalities noted. PV: No structural PV abnormalities noted. A trace of pulmonic regurgitation. TV: No structural TV abnormalities noted. Delgado: LV relaxation is normal. LV fi lling pressure is normal. Hepatic vein pressure is norm al, RA pressure < 5mmHg. Other: Estimated PA systolic pressure is 34 mmHg, assuming a mean RAP of 5 mmHg. MEASUREMENTS: 2D Parasternal Long Lotus Ao An 2.4 cm LVPW d 1.1 cm Ao Rtd 3.1 cm Inde x 1.5 cm/m2 LA Ds 2.9 cm IVSd 0.96 cm RWT 0.44 LVIDd 5 cm Inde x 2.5 cm/m2 LV Mass 189 g (122-174) LVIDs 2.8 cm LVM Index 94 g/m LV%fs 44 % LA Sng Plane LA Area 22 cm (8.8-23.4) L A Vol 72 ml Index 36 ml/m2 LA LngAx 6 cm LVOT Stroke Vol LVOT 2.2 cm LVOT LVOT Area 3.8 cm DOPPLER LVOT Stroke Vol LVOT TVI 32 cm LVOT CI 4.4 l/m/m LVOT SV 122 ml HR 73 bpm LVOT CO 8.9 l/min LVOT SVi 61 ml/m TV Pressure Gradient TV PkVel 269 cm/s TV P G 29 mmHg Signed 02/19/2019 03:28 PM Bibi Benavidez MD Performing Organization Address [facility] Cent[facility]ode Phone Number [facility] [address] [place] [address] Arterial Line Insertion (02/19/2019 2:57 AM ADVERTISER) Narrative Performed At Paul Herring NP 02/19/2019 2:59 AM Arterial Line Insertion Date/Time: 02/19/2019 2:57 AM Performed by: Paul Herring NP Authorized by: Paul Herring NP Consent: Consent obtained: Emergent situatio n Indications: Indications: hemodynamic monitoring a nd multiple ABGs Pre-procedure details: Skin preparation: 2% Chlorhexidine Preparation: Patient was prepped and draped in sterile fashion Anesthesia (see MAR for exact dosages): Anesthesia method: Local infiltrati on Local anesthetic: Lidocaine 1% w/o epi Procedure details: Location: R radial Rupert's test performed: yes Rupert's test abnormal: no Needle gauge: 20 G Placement technique: Ultrasound maryanne ded Number of attempts: 1 Transducer: waveform confirmed Post-procedure details: Post-procedure: Biopatch applied, secured with ta pe, sterile dressing applied, sutured and wrist guard applied CMS: Normal Patient tolerance of procedure: Danielle erated well, no immediate complications Lactic acid level (02/19/2019 1:07 AM ADVERTISER)Only the most recent of3 results within the time period is included. Pathologist Sig nature Lactic acid 1.6 0.5 - 2.2 mmol/L [facility] Specimen Plasma specimen Performing Organization Address [facility] Centercode Phone Number [facility] DEPARTMENT OF PATHOLOGY AND [address] [place], [place] [address] GENOMIC MEDICINE [facility] [address] [place] [phone] Troponin (02/19/2019 1:00 AM ADVERTISER)Only the most recent of3 resultswithin the time period is included. Troponin 0.014 0.000 - 0.040 [facility] Comment: ng/mL HOSPITAL In patients suspected of having a myocardial infarctio n, along with all other appropriate clinical measures and actions includ ing ECG and other diagnostics as appropriate, measure Ultra TnI at 0 hrs and at 3 hrs. Myocardial infarction VERY LIKELY The 0 hr TnI level is > 0.10 ng/mL Myocardial infarction LIKELY The 0 hr TnI level is > 0.04 ng/mL and 3 hr level is i ncreased or decreased by at least 0.020 ng/mL Myocardial infarction VERY UNLIKELY Both the 0 hr and 3 hr TnI levels <= 0.04 ng/mL(within normal limits) OR 0 hr is > 0.04 ng/mL and 3 hr is increased OR decreased by less than 0.020 ng/mL Specimen Plasma specimen Performing Organization Address City/[facility]/Zipcode Phone Number [facility] DEPARTMENT OF PATHOLOGY AND [address] [place] [address] Type and screen (02/19/2019 12:41 AM ADVERTISER) Pathologist Sig nature ABO grouping B [facility] Rh type NEG [facility] Antibody screen (gel) NEG [facility] Specimen Blood Performing Organization Address City/[facility] Centercode Phone Number [facility] DEPARTMENT OF PATHOLOGY AND [address] [place] [address] 0 [place] [phone] CTA Head W Wo Contrast (02/18/2019 9:07 PM ADVERTISER) Specimen Narrative Performed At EXAMINATION: CT ANGIOGRAM HEAD W WO CONT RAST [facility] CLINICAL HISTORY: STROKE COMPARISON: CT brain dated February 18, 2019 TECHNIQUE: Imaging of the intracranial circulation w as obtained from the skull base to the vertex during the arterial phase of enhancement. Postprocessing was performed with MIP multiplanar and 3D reconstructed images. CT imaging was performed with iterative reconstruction technique and/or automated ex posure control to reduce radiation dose. FINDINGS: The large hematoma in the left wilma and cerebellum is visualized but better assessed on noncontrast CT imagin g. Orbits are intact. Soft tissue shows no evidence of lacerat ion or hematoma. No hemodynamically significant stenosis is identified of the intracranial internal carotid arteries, middle cerebra l arteries, anterior cerebral arteries, intracranial vertebral art eries, basilar artery or posterior cerebral arteries. T here is no aneurysmal dilatation or vascular malfor mation of the [place]. There is no vascular abnormality in the area of hemorr hussain suggesting hypertensive hemorrhage. There is tortuosity of the ve rtebrobasilar circulation from chronic hypertension changes. There i s origin of the right posterior cerebral artery. IMPRESSION: No hemodynamically significant narrowing of the [place] vessels. [facility]-[id number] Procedure Note Interface, Radiology Results Incoming - 02/18/2019 9:18 PM ADVERTISER EXAMINATION: CT ANGIOGRAM HEAD W WO CONTRAST CLINICAL HISTORY: STROKE COMPARISON: CT brain dated February 18, 2019 TECHNIQUE: Imaging of the intracranial circulation was obtained from the skull base to the vertex during the arterial phase of enhancement. Postprocessing was performed with MIP multiplanar and 3D reconstructed images. CT imaging was performed with iterative reconstruction technique and/o r automated exposure control to reduce radiation dose. FINDINGS: The large hematoma in the left wilma and cerebellum is visualized but better assessed on noncontrast CT imaging. Orbits are intact. Soft tissue shows no evidence of lacerat ion or hematoma. No hemodynamically significant stenosis is identified of the intracranial internal carotid arteries, middle cerebral arteries, anterior cerebral arteries, intracranial vertebral arteries, basilar artery or posterior cerebral arteries. There is no aneurysmal dilatation or vascular malfor mation of the [place]. There is no vascular abnormality in the area of hemorrhage suggesting hypertensive hemorrhage. There is tortuosity of the vertebrobasilar circulation from chronic hypertension changes. There is origin of the right posterior cerebral artery. IMPRESSION: No hemodynamically significant narrowing of the [place] vessels. [facility]-[id number] Performing Organization Address City/State/Zipcode Phone Number [facility] [address] [place] [address] CTA Neck W Wo Contrast (02/18/2019 9:04 PM ADVERTISER) Specimen Narrative Performed At EXAMINATION: CT ANGIOGRAM NECK W WO CONT RAST [facility] CLINICAL HISTORY: STROKE COMPARISON: None TECHNIQUE: Imaging of the cervical circulation was obt ained from the upper thorax to the skull base during the arterial pha se of enhancement. Postprocessing was performed with MIP multiplanar and 3D reconstructed images. CT imaging was performed with iterative reconstruction technique and/or automated ex posure control to reduce radiation dose. FINDINGS: Visualized upper mediastinum shows no mass lesion. Micheal g apices are clear. Visualized soft tissues shows no mass, adenopathy or f luid collection. The patient is intubated. Feeding tube i s also noted in the esophagus. Visualized osseous structures shows no a cute fracture or dislocation. The common carotid arteries, carotid bulbs, internal c arotid arteries and external carotid arteries are opacified with 0% st enosis by NASCET criteria. The vertebral arteries are patent throughout the visua lized cervical segments without significant stenosis. The right vertebral artery is dominant. The left verte bral artery takes off directly from the aortic arch. IMPRESSION: No hemodynamically significant narrowing of the cervic al vessels by NASCET criteria. [facility]-[id number] Procedure Note Interface, Radiology Results Incoming - 02/18/2019 9:19 PM ADVERTISER EXAMINATION: CT ANGIOGRAM NECK W WO CONTRAST CLINICAL HISTORY: STROKE COMPARISON: None TECHNIQUE: Imaging of the cervical circu lation was obtained from the upper thorax to the skull base during the arterial phase of enhancement. Postprocessing was performed with MIP multiplanar and 3D reconstructed images. CT imaging was performed with iterative reconstruction technique and/o r automated exposure control to reduce radiation dose. FINDINGS: Visualized upper mediastinum shows no ma ss lesion. Lung apices are clear. Visualized soft tissues shows no mass, a denopathy or fluid collection. The patient is intubated. Feeding tube is also noted in the esophagus. Visualized osseous structures shows no a cute fracture or dislocation. The common carotid arteries, carotid bul bs, internal carotid arteries and external carotid arteries are opacified with 0% stenosis by NASCET criteria. The vertebral arteries are patent throug hout the visualized cervical segments without significant stenosis. The right vertebral artery is dominant. The left vertebral artery takes off directly from the aortic arch. IMPRESSION: No hemodynamically significant narrowing of the cervical vessels by NASCET criteria. [facility]-[id number] Performing Organization Address City/State/[facility] Centercode Phone Number [facility] [address] [place] [address] Alcohol level, blood (02/18/2019 8:47 PM ADVERTISER) Pathologist [facility] Alcohol None Detected mg/dL [facility] Comment: HOSPITAL Normal None Detected Legal Intoxication in [place] 80 mg/dL (0.08%) - Whole Blood Toxic Concentration 200 mg/dL (0.2%) Potentially Fatal 350 - 500 mg/dL (0. 35 - 0.5%) Alcohol percent None Detected % [facility] Specimen Plasma specimen Performing Organization Address [facility] Centercohi Phone Number [facility] DEPARTMENT OF PATHOLOGY AND [address] [place] [phone] [facility] MEDICINE [address] [address] Urinalysis screen and microscopy, with reflex to culture (02/18/2019 8:40 PM ADVERTISER) Specimen site Catheterized [facility] Color, UA Phoebe [facility] Appearance, UA Hazy [facility] Specific gravity, UA 1.025 1.001 - 1.035 [facility] pH, UA 5.0 5.0 - 8.5 [facility] Protein, UA 2+ (A) Negative [facility] Glucose, UA Negative Negative [facility] Ketones, UA Negative Negative [facility] Bilirubin, UA Negative Negative [facility] Blood, UA Negative Negative [facility] Nitrite, UA Negative Negative [facility] Urobilinogen, UA 4.0 (A) <2.0 [facility] Leukocyte esterase, Negative Negative [facility] Epithelial cells, UA <1 /HPF [facility] WBC, UA 1 0 - 1 /HPF [facility] RBC, UA <1 0 - 5 /HPF [facility] Bacteria, UA Few None seen [facility] Yeast, UA None seen [facility] Yeast with None seen [facility] pseudohyphae, [facility] Amorphous crystals Few [facility] Hyaline casts, UA 6 /LPF [facility] Specimen Urine Performing Organization Address City/[facility] Centercode Phone Number [facility] DEPARTMENT OF PATHOLOGY AND [address] [place] [address] [phone] [address] Urine drugs of abuse screen (02/18/2019 8:40 PM ADVERTISER) Amphetamine screen, Negative STEELE urine [facility] Barbiturate screen, Negative STEELE urine [facility] Benzodiazepine Negative [place]EELE screen, urine [facility] Cocaine screen, urine Positive (A) [facility] Methadone metabolite Negative STEELE (EDDP), urine [facility] Opiates screen, urine Negative [facility] Oxycodone screen, Negative STEELE urine [facility] Phencyclidine screen, Negative STEELE urine [facility] Tricyclic screen, Negative STEELE urine [facility] Cannabinoid screen, Negative STEELE urine Comment: [facility] Drug screen minimum concentration of detectability [facility] Amphetamines 1000 ng/mL Barbiturates 200 ng/mL Benzodiazepines 300 ng/mL Cocaine 300 ng/mL Methadone 300 ng/mL Opiates 300 ng/mL Oxycodone 300 ng/mL Phencyclidine 25 ng/mL Cannabinoids 50 ng/mL Tricyclics 1000 ng/mL Results are from screening tests and should only be used for medical evaluation. Drug testing for legal purposes requires definitive (or confirmatory) testing methods, which are available upon request. Contact the laboratory if definitive testing is requir ed. Specimen Urine Performing Organization Address City/State/Zipcode Phone Number [facility] DEPARTMENT OF PATHOLOGY AND [address] [place] [phone] Urine culture (02/18/2019 8:40 PM ADVERTISER) Pathologist Sig nature Urine culture SEE COMMENTComment: [facility] Bacteriuria screen HOSPITAL negative. Specimen Performing Organization Address City/[facility] Centercohi Phone Number [facility] DEPARTMENT OF PATHOLOGY AND [address] [place], [place] [phone] CT Stroke Brain Wo Contrast (02/18/2019 8:22 PM ADVERTISER) Specimen Narrative Performed At EXAMINATION: CT STROKE BRAIN WO CONTRAST [facility] CLINICAL HISTORY: STROKE COMPARISON: None TECHNIQUE: Noncontrast enhanced images of the brain we re obtained from the skull base to the vertex. Both soft tissue and bon e reconstruction algorithms were performed. CT imaging was performed with iterative reconstruction technique and/or automate d exposure control to reduce radiation dos e. FINDINGS: There is an acute hematoma involving the anterolateral left wilma extending to left middle cerebellar peduncle and down into the anterior left cerebellar hemisphere. There is no significant ma ss effect. There is mild adjacent edema and a couple punc wild areas of subarachnoid hemorrhage noted in the anterior posterior fossa. The hematoma measures mostly 2.7 cm in transverse dime nsion by 3 cm in superior inferior dimension by 3.4 cm in AP dimension. There is no hydrocephalus. There are extensive lucen cies throughout the white matter from chronic small vessel changes and lacunar insults as well as chronic bilateral basal katelynn glia insults. There is no midline shift or mass effect . No definite acute loss of ezpeda-white mat ter distinction identified. No acute soft tissue hematoma or lacerat ion. Paranasal sinuses shows no acute air-flu id levels. Mastoid air cells are clear. No skull fractures or a ggressive bony lesions. IMPRESSION: There is a large hematoma arising in the left anterola teral wilma extending inferiorly and laterally into the middle cer ebellar peduncle and anterior left cerebellar hemisphere. Findings were discussed with Dr. Roberts at 02/18/2019 8 :23 PM who verbalized understanding. [facility]-[id number] Procedure Note Hm Interface, Radiology Results Incoming - 02/18/2019 8:30 PM ADVERTISER EXAMINATION: CT STROKE BRAIN WO CONTRAST CLINICAL HISTORY: STROKE COMPARISON: None TECHNIQUE: Noncontrast enhanced images o f the brain were obtained from the skull base to the vertex. Both soft tissue and bone reconstruction algorithms were performed. CT imaging was performed with iterative reconstruction technique and/or automate d exposure control to reduce radiation dos e. FINDINGS: There is an acute hematoma involving the anterolateral left wilma extending to left middle cerebellar peduncle and down into the anterior left cerebellar hemisphere. There is no significant mass effect. There is mild adjacent edema and a couple punctate areas of subarachnoid hemorrhage noted i n the anterior posterior fossa. The hematoma measures mostly 2.7 cm in transverse dimension by 3 cm in superior inferior dimension by 3.4 cm in AP dimension. There is no hydrocephalus. There are extensive lucen cies throughout the white matter from chroni c small vessel changes and lacunar insults as well as chronic bilateral basal ganglia insults. There is no midline shift or mass effect. No definite acute loss of zepeda-white mat ter distinction identified. No acute soft tissue hematoma or lacerat ion. Paranasal sinuses shows no acute air-flu id levels. Mastoid air cells are clear. No skull f ractures or aggressive bony lesions. IMPRESSION: There is a large hematoma arising in the left anterolateral wilma extending inferiorly and laterally into the middle cerebellar peduncle and anterior left cerebellar hemisphere. Findings were discussed with Dr. Roberts at 02/18/2019 8:23 PM who verbalized understanding. [id number] Performing Organization Address City/State/Zipcode Phone Number [facility] [address] [place] [address] ECG ED Preliminary Interpretation - Not an Order (02/18/2019 7:54 PM ADVERTISER) Narrative Performed At Jd Roberts DO 02/19/2019 1:00 PM ECG ED Preliminary Interpretation - Not an Order Date/Time: 02/18/2019 7:51 PM Performed by: Jd Roberts DO Authorized by: Jd Roberts DO ECG reviewed by ED Physician in the abse nce of a shoe sticks repairer: yes Interpretation: Interpretation: abnormal Rate: ECG rate: 70 ECG rate assessment: normal Rhythm: Rhythm: sinus rhythm QRS: QRS axis: Left QRS intervals: Normal Conduction: Conduction: normal ST segments: ST segments: Normal T waves: T waves: normal Other findings: Other findings: LVH CRITICAL CARE (02/18/2019 7:54 PM ADVERTISER) Narrative Performed At Jd Roberts DO 02/19/2019 1:00 PM Critical Care Performed by: Jd Roberts DO Authorized by: Jd Roberts DO Critical care provider statement: Critical care time (minutes): 45 Critical care time was exclusive of: Separately b illable procedures and treating other patients Critical care was necessary to treat or prevent imminent or life-threatening deterioration of the following condit ions: Respiratory failure and FOOD BR[employer]ER failure or compromise Critical care was time spent personal ly by me on the following activities: Ordering and performing tr eatments and interventions, ordering and review of laboratory studie s, ordering and review of radiographic studies, pulse oximetry, re -evaluation of patient's condition, ventilator management, obtain ing history from patient or surrogate, examination of patient, evalu ation of patient's response to treatment, discussions with consultants, development of treatment plan with patient or surrogate and gastric in tubation Kory 'yes' if you are taking over critical care for this patient from another provider.: no Comments: The patient is critically ill due to but not limited to: ongoing respiratory failure, high risk for respi ratory failure, hemodynamic or metabolic deterioration, altered mental status, and ac curyung organ failure. The patient is requiring frequent assess ment, treatment, life-saving devices, and prevention and management of life threate darwin conditions. Intubation (02/18/2019 7:54 PM ADVERTISER) Narrative Performed At Jd Roberts DO 02/19/2019 1:00 PM Intubation Performed by: Jd Roberts DO Authorized by: Jd Roberts DO Consent: Consent obtained: Emergent situatio n [place] protocol: Patient identity confirmed: Provide d demographic data Pre-procedure details: Patient status: Altered mental stat us Induction: Etomidate Paralytics: Rocuronium Procedure details: Preoxygenation: Nasal cannula CPR in progress: no Intubation method: Oral Technique: Video laryngoscopy Laryngoscope blade: Mac 4 Difficult airway?: No Tube size (mm): 7.5 Tube type: Cuffed Number of attempts: 1 Ventilation between attempts: no Cricoid pressure: yes Tube visualized through cords: yes Placement assessment: ETT to lip: 25 Tube secured with: ETT youngblood Breath sounds: Equal Placement verification: chest rise, c ondensation, CXR verification, direct visualization, equal breath sound s and ETCO2 detector CXR findings: ETT in proper place Post-procedure details: Patient tolerance of procedure: Danielle erated well, no immediate complications GI Tubes (02/18/2019 7:54 PM ADVERTISER) Narrative Performed At Jd Roberts DO 02/19/2019 1:00 PM GI Tubes Performed by: Jd Roberts DO Authorized by: Jd Roberts DO Consent: Consent obtained: Emergent situatio n Procedure details: Patient position: Supine Procedure type: Insertion Fluoro Guidance?: No Tube type: Orogastric Tube size: 16 Fr Post-procedure details: Placement/position confirmation: Au scultation Placement difficulty: None Bleeding: None Patient tolerance of procedure: Danielle erated well, no immediate complications ECG 12 lead (02/18/2019 7:51 PM ADVERTISER) Pathologist Sig nature Ventricular rate 70 [facility] Atrial rate 70 [facility] CA interval 148 [facility] QRSD interval 110 [facility] QT interval 442 [facility] QTC interval 477 [facility] P axis 1 64 [facility] QRS axis 1 -37 [facility] T wave axis 71 [facility] EKG impression Normal sinus [facility] M[facility] rhythm-Left axis deviation-Minimal voltage criteria for LVH, may be normal variant-Abnormal ECG-No previous ECGs available-Electronicall y Signed By Mariana Chou MD ([id number]) on 02/19/2019 10:59:01 PM Specimen Narrative Performed At This result has an attachment that is no t available. Performing Organization Address City/State/Zipcode Phone Number [facility] MUSE [address] [place] [address] after 09/01/2018 Insurance Payer Benefit Plan / Subscriber ID Effective Phone Address T ype Group Dates PENDING PENDING xxxxxxxxx 2019-Pres [address] Medic aid MEDICAID DISABILITY ent [id number] [place], [place] [id number] Advance Directives For more information, please contact: [phone] Type Date Recorded Patient Top Flavor Attendant Explanati on Advance Directives, Living Will and Medical Power of Entry Level Assistant Manager
--- OUTSIDE RECORDS SUMMARY | 2019-09-02 13:17 | XMS REPORT | Continuity of Care Document ---
:1965 Author Organization [facility] t Address [address] [place] [address] Care Team Providers Name Role Phone ER, PHYSICIAN Primary Care Physician Unavailable John Paul Lara MD Attending Clinician Seamus Parker RN Attending Clinician Unavailable MoralesreJd daley DO Attending Clinician Viktoriya Lowery MD. Attending Clinician Reyes CARTER TKaylin Attending Clinician Dory CARREON Attending Clinician Unavailable Emery CARTER V. Attending Clinician Jose CARTER Attending Clinician Jhon [place] Attending Clinician Jose Saldivar MD Attending Clinician Ranjith Physician, L Attending Clinician Destinee Zuniga MD Attending Clinician Nona García MD Attending Clinician Niki CARTER Attending Clinician Jessica CARTER Attending Clinician CRYSTAL Attending Clinician Unavailable JEM AVILEZ MD, M.D. Attending Clinician Unavailable KYREE Attending Clinician Unavailable NOOR Admitting Clinician Unavailable SEBASTIÁN Admitting Clinician Unavailable CRYSTAL Admitting Clinician Unavailable JEM AVILEZ MD, M.D., M Admitting Clinician Unavailable KYREE Admitting Clinician Unavailable Payers Payer Name Policy Type Policy Number Effective Expiration Source Date Date PENDING xxxxxxxxx 2019 [place] MEDICAIDPENDING 00:00:00 [facility]ain[facility] DISABILITY MEDICAID COVERAGExxxxxxxxx1/3 02/2019-Present [address], [place] [address]Medicaid HOMELESS xxxxxx 2018 2019 [facility] GRANTHOMELESS 00:00:00 23:59:59 GRANTxxxxxx9/10/07/[id number] [place] [address] Problems Condition Condition Condition Status Onset Resolution Last Treating Co mments Source Name Details Category Date Date Treatment Clinician Date CVA CVA Disease Active [place] (cerebral (cerebral 03-09 Meth kamari vascular vascular 00:00: st accident) accident) 00 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 Me thodi 00:00: st 00 Abnormal Abnormal Disease Active Overview: Atif elkins CT of CT of 12 Added Methodi liver liver 00:00: automatic st 00 ally from request for surgery [id number] Screening Screening Disease Active Matt ris for for 2-07 Health depression depression 00:00: 00 Slurred Slurred Disease Active [place] speech speech 1-19 Health 00:00: 00 Severe Severe Disease Active [facility] uncontroll uncontroll 9-16 He alth ed ed 00:00: hypertensi hypertensi 00 on on History of History of Disease Active H arris hypertensi hypertensi He alth on on Medication Medication Disease Active H arris refill refill Health Nonintract Nonintract Disease Active H arris able able Health headache headache Weakness Weakness Disease Active [facility] Chest pain Chest pain Disease Active H [facility] Health Gastroesop Gastroesop Disease Active H arris hageal hageal Health reflux reflux disease disease Allergies, Adverse Reactions, Alerts This patient has no known allergies or adverse reactions. Family History Family Member Diagnosis Comments Start Date Stop Date Source Natural brother Alcohol/Drug [facility] Natural brother Hypertension [facility] Natural father Hypertension [facility] Natural father Stroke [facility] Maternal grandmother Diabetes [facility] Maternal grandmother Hypertension [facility] Natural mother Hypertension [facility] Paternal aunt Unknown Fam Hx [facility] Paternal grandfather Unknown Fam Hx [facility] Paternal grandmother Unknown Fam Hx [facility] Paternal uncle Unknown Fam Hx [facility] Natural sister Hypertension [place] Damian bush Social History Social Habit Start Date Stop Date Quantity Comments Source History of Cigarette Smoker [facility] tobacco use Sex Assigned At [facility] ethodist Alcohol intake 2019-04-19 2019-04-19 Current drinker [place] [facility] 00:00:00 00:00:00 of alcohol (finding) Smoking Status Start Date Stop Date Source Former smoker 2019-04-19 00:00:00 2019-04-19 00:00:00 [facility] Current every day smoker 2019-04-02 00:00:00 [facility] Medications Ordered Filled Start Stop Current Ordering Indication Dosage Frequency Signature Comments Components Source Medication Medication Date Date Medication? Clinician (SIG) Name Name amLODIPine 2019- No 10mg QD Take 1 [place] (NORVASC) 05-30 tablet (10 Met hodi 10 mg 00:00: 23:59 mg total) st tablet 00 :00 by mouth daily for 30 days. doxazosin 2019- No 2mg QD Take 1 [place] (CARDURA) 2 05-30 tablet (2 Me thodi MG tablet 00:00: 23:59 mg total) st 00 :00 by mouth daily for 30 days. carvediloL 2019- 2020- No 12.5mg Q.5D Take 1 [place] (COREG) 05-29- tablet Methodi 12.5 MG 00:00: 23:59 (12.[address] tablet 00 :00 total) by mouth 2 (two) times a day for 30 days. mirtazapine 2019- 2020- No 15mg QD Take 1 Adeola ston (REMERON) 05-29 tablet (15 Met hodi 15 MG 00:00: 23:59 mg total) st tablet 00 :00 by mouth nightly for 30 days. docusate 2019- 2020- No 50mg Q.5D Take 1 [place] sodium 05-29 capsule Methodi (COLACE) 50 00:00: 23:59 ([address] MG capsule 00 :00 total) by mouth 2 (two) times a day for 30 days. omeprazole 2018-02 2020- No Gastroesoph 20mg QD Take 1 [facility] (PRILOSEC) 2-03 02-08 ageal capsule by ealth 20 mg 00:00: 23:59 reflux mouth delayed 00 :00 disease, daily for release esophagitis 30 days. capsule presence not specified ivermectin 2018-02 Yes Scabies Take all [facility] (STROMECTOL - 5.5 Health ) 3 mg 00:00: tablets as tablet 00 1 dose, 1 week after 1st dose (take on 01/12/19). amLODIPine 2018-02 Yes History of 10mg QD Take 1 [facility] (NORVASC) 1- hypertensio tablet by [facility] 10 mg 00:00: n mouth tablet 00 daily. carvedilol 2018-02 Yes History of 6.25mg Take 1 [facility] (COREG) - hypertensio tablet by [facility] 6.25 mg 00:00: n mouth 2 tablet 00 times daily (with meals). lisinopril 2018-02 Yes History of 40mg QD Take 1 [facility] (ZESTRIL) 29 hypertensio tablet by [facility] 40 mg 00:00: n mouth tablet 00 daily. amLODIPine 2018-02 Yes Essential 10mg QD Take 1 [facility] (NORVASC) 1-14 hypertensio tablet by [facility] 10 mg 00:00: n mouth tablet 00 daily. carvedilol 2018-02 Yes Essential 6.25mg Take 1 [facility] (COREG) 1-14 hypertensio tablet by [facility] 6.25 mg 00:00: n mouth 2 tablet 00 times daily (with meals). lisinopril 2018-02 Yes Essential 40mg QD Take 1 [facility] (ZESTRIL) 1-14 hypertensio tablet by [facility] 40 mg 00:00: n mouth tablet 00 daily. ammonium 2018-02 Yes Medication Apply to [place] lactate 1-14 refill affected Health (LAC-HYDRIN 00:00: area as ) 12 % 00 needed for lotion dry skin. triamcinolo 2018-02 Yes Medication Q.5D Apply to [place] ne 1-14 refill affected Health (TRIDERM) 00:00: area 2 0.1 % 00 times topical daily. cream hydroCHLORO Yes Hypertensiv 25mg QD Take 1 [place] thiazide 2-07 e urgency tablet by H ealth (HYDRODIURI 00:00: mouth L) 25 mg 00 daily. tablet atorvastati Yes History of 20mg QD Take 1 [facility] n (LIPITOR) 2- CVA tablet by Hea lth 20 mg 00:00: (cerebrovas mouth tablet 00 cular daily. accident) aspirin Yes History of 81mg QD Chew and [facility] (ASPIRIN) 2- CVA swallow 1 Healt h 81 mg 00:00: (cerebrovas tablet by chewable 00 cular mouth tablet accident) daily. carvedilol Yes Hypertensiv 6.25mg Take 1 [facility] (COREG) 2 e urgency tablet by alth 6.25 mg 00:00: mouth 2 tablet 00 times daily (with meals). famotidine 2018- No Heartburn 40mg Q.5D Take 1 [place] (PEPCID) 40 03-16 tablet by alth mg tablet 00:00: 00:00 mouth 2 00 :00 times daily. omeprazole 2018- No Heartburn 20mg QD Take 1 [facility] (PRILOSEC) 03-16 capsule by alth 20 mg 00:00: 00:00 mouth delayed 00 :00 every release morning capsule (before breakfast) . amLODIPine 2018- No Hypertensiv 5mg QD Take 1 [place] (NORVASC) 5 03-16 e urgency tablet by Health mg tablet 00:00: 00:00 mouth 00 :00 daily. Immunizations Ordered Immunization Filled Immunization Date Status Commen ts Source Name Name Influenza Vaccine, 2016-12-22 Completed [facility] Seasonal, Injectable 00:00:00 Vital Signs Vital Name Observation Time Observation Value Comments Source Systolic blood 2019-05-30 08:30:26 108 mm[Hg] Nino n [facility]ainism pressure Diastolic blood 2019-05-30 08:30:26 73 mm[Hg] Lenard mckinney Jainism pressure Heart rate 2019-05-30 08:30:26 56 /min [place] [facility] Body temperature 2019-05-30 08:30:26 36.39 Cecy Brijesh ton Jainism Respiratory rate 2019-05-30 08:30:26 19 /min Brijesh slaughter Jainism Oxygen saturation in 2019-05-30 08:30:26 95 /min [place] [facility] Arterial blood by Pulse oximetry Body weight 2019-05-27 03:18:51 72.1 kg [place] [facility] BMI 2019-05-27 03:18:51 22.81 kg/m2 [place] [facility] Body height 2019-03-09 18:05:00 177.8 cm [place] [facility] Body height 2019-02-20 15:58:00 185.4 cm [facility] Body weight 2019-02-20 15:58:00 84.823 kg [facility] BMI 2019-02-20 15:58:00 24.67 kg/m2 [facility] Systolic blood 2019-01-09 06:00:00 151 mm[Hg] [place] [facility] pressure Diastolic blood 2019-01-09 06:00:00 83 mm[Hg] [facility] pressure Heart rate 2019-01-09 06:00:00 68 /min [facility] Body temperature 2019-01-09 06:00:00 36.83 Cecy [facility] Respiratory rate 2019-01-09 06:00:00 20 /min [facility] Oxygen saturation in 2019-01-09 06:00:00 99 /min [facility] Arterial blood by Pulse oximetry Procedures Procedure Date / Time Performing Source Performed Clinician GENERAL 2019-05-30 [facility] Shannan SterlingKaylin Mane 08:54:30 [facility] HC COMPLETE BLD COUNT W/AUTO DIFF 2019-05-30 [facility] Shannan SterlingKaylin Mane 04:45:00 [facility]ism BASIC METABOLIC PANEL 2019-05-30 [facility] Shannan SterlingKaylin Mane 04:45:00 Jainism PROTHROMBIN TIME WITH INR 2019-05-30 [facility] Shannan EspinalMunir Adeola ston 04:45:00 Jainism PARTIAL THROMBOPLASTIN TIME (PTT) 2019-05-30 [facility] Shannan SterlingKaylin Mane 04:45:00 Jainism ESTIMATED GFR 2019-05-30 [facility] Shannan SchusterMau Mane 04:45:00 Jainism XR ABDOMEN 1 VW 2019-05-29 [facility] Shannan SterlingKaylin Mane 17:24:33 [facility] HC COMPLETE BLD COUNT W/AUTO DIFF 2019-05-23 Gopal Espinal Mane 04:30:00 Juana Jainism BASIC METABOLIC PANEL 2019-05-22 Gloria Wall [place] 04:30:00 [place] [facility] HC COMPLETE BLD COUNT W/AUTO DIFF 2019-05-22 Vandana Wall [facility] 04:30:00 Jillian Jainism ESTIMATED GFR 2019-05-22 Gloria Wall [facility] 04:30:00 Jillian Jainism POC GLUCOSE 2019-05-21 Noor, [facility] 15:41:00 Jainism HC COMPLETE BLD COUNT W/AUTO DIFF 2019-05-15 [facility] 04:[facility]:00 [facility]ainism COMPREHENSIVE METABOLIC PANEL 2019-05-15 [facility] 04:00:00 [facility]ainism ESTIMATED GFR 2019-05-15 [facility] 04:00:00 Jainism POC GLUCOSE 2019-05-11 Noor, [facility] 12:09:00 Jainism POC GLUCOSE 2019-05-11 Noor, [facility] 04:43:00 Jainism POC GLUCOSE 2019-05-10 Noor, [facility] 23:19:00 Jainism POC GLUCOSE 2019-05-10 Noor, [facility] 16:02:00 Jainism POC GLUCOSE 2019-05-10 Noor, [facility] 11:06:00 Jainism POC GLUCOSE 2019-05-10 Noor, [facility] 00:04:00 Jainism POC GLUCOSE 2019-05-09 Noor, [facility] 16:38:00 Jainism POC GLUCOSE 2019-05-09 Noor, [facility] 10:56:00 Jainism POC GLUCOSE 2019-05-08 Noor, [facility] 23:45:00 Jainism POC GLUCOSE 2019-05-08 Noor, [facility] 16:03:00 Jainism POC GLUCOSE 2019-05-08 Noor, [facility] 11:45:00 Jainism POC GLUCOSE 2019-05-08 Noor, [facility] 05:11:00 Jainism POC GLUCOSE 2019-05-08 Noor, [facility] 00:33:00 Jainism POC GLUCOSE 2019-05-07 Noor, [facility] 16:44:00 Jainism POC GLUCOSE 2019-05-07 Noor, [facility] 11:35:00 Jainism POC GLUCOSE 2019-05-07 Noor, [facility] 04:29:00 Jainism POC GLUCOSE 2019-05-06 Noor, [facility] 23:42:00 Jainism POC GLUCOSE 2019-05-06 Noor, [facility] 16:16:00 Jainism POC GLUCOSE 2019-05-06 Noor, [facility] 11:04:00 Jainism POC GLUCOSE 2019-05-06 Noor, [facility] 04:50:00 Jainism CBC WITH PLATELET AND DIFFERENTIAL 2019-05-06 Gentry, [facility] 04:40:00 Robyn-Ratna Jainism BASIC METABOLIC PANEL 2019-05-06 Gentry, [facility] 04:40:00 Robyn-Ratna Jainism ESTIMATED GFR 2019-05-06 Gentry, [facility] 04:40:00 Robyn-Ratna Jainism MANUAL DIFFERENTIAL 2019-05-06 Gentry, [facility] 04:40:00 Robyn-Ratna Jainism POC GLUCOSE 2019-05-05 Noor, [facility] 23:43:00 Jainism POC GLUCOSE 2019-05-05 Noor, [facility] 16:36:00 Jainism POC GLUCOSE 2019-05-05 Noor, [facility] 11:53:00 Jainism POC GLUCOSE 2019-05-05 Noor, [facility] 04:55:00 Jainism POC GLUCOSE 2019-05-04 Noor, [facility] 23:15:00 Jainism POC GLUCOSE 2019-05-04 Noor, [facility] 16:05:00 Jainism POC GLUCOSE 2019-05-04 Noor, [facility] 11:53:00 Jainism POC GLUCOSE 2019-05-04 Noor, [facility] 04:37:00 Jainism POC GLUCOSE 2019-05-03 Noor, [facility] 23:14:00 Jainism POC GLUCOSE 2019-05-03 Noor, [facility] 15:26:00 Jainism POC GLUCOSE 2019-05-03 Noor, [facility] 11:11:00 Jainism POC GLUCOSE 2019-05-03 Noor, [facility] 04:23:00 Jainism POC GLUCOSE 2019-05-02 Noor, [facility] 23:31:00 Jainism POC GLUCOSE 2019-05-02 Noor, [facility] 17:00:00 Jainism POC GLUCOSE 2019-05-02 Noor, [facility] 11:27:00 Jainism POC GLUCOSE 2019-05-02 Noor, [facility] 05:36:00 Jainism POC GLUCOSE 2019-05-02 Noor, [facility] 00:11:00 Jainism POC GLUCOSE 2019-05-01 Noor, [facility] 15:54:00 Jainism POC GLUCOSE 2019-05-01 Noor, [facility] 12:02:00 Jainism POC GLUCOSE 2019-05-01 Noor, [facility] 05:55:00 Jainism POC GLUCOSE 2019-04-30 Noor, [facility] 23:48:00 Jainism POC GLUCOSE 2019-04-30 Noor, [facility] 16:28:00 Jainism POC GLUCOSE 2019-04-30 Noor, [facility] 11:24:00 Jainism HC COMPLETE BLD COUNT W/AUTO DIFF 2019-04-30 [facility], Shannan SchusterMau [facility] 04:10:00 Jainism COMPREHENSIVE METABOLIC PANEL 2019-04-30 [facility], Shannan SchusterMau [facility] 04:10:00 Jainism ESTIMATED GFR 2019-04-30 [facility], Shannan SterlingKaylin [facility] 04:10:00 Jainism POC GLUCOSE 2019-04-30 Noor, [facility] 04:03:00 Jainism POC GLUCOSE 2019-04-29 Noor, [facility] 23:29:00 Jainism POC GLUCOSE 2019-04-29 Noor, [facility] 16:51:00 Jainism POC GLUCOSE 2019-04-29 Noor, [facility] 11:16:00 Jainism POC GLUCOSE 2019-04-29 Noor, [facility] 05:15:00 Jainism POC GLUCOSE 2019-04-28 Noor, [facility] 23:29:00 Jainism POC GLUCOSE 2019-04-28 Noor, [facility] 16:28:00 Jainism POC GLUCOSE 2019-04-28 Noor, [facility] 11:51:00 Jainism POC GLUCOSE 2019-04-28 Noor, [facility] 06:17:00 Jainism POC GLUCOSE 2019-04-28 Noor, [facility] 00:13:00 Jainism POC GLUCOSE 2019-04-27 Noor, [facility] 16:42:00 Jainism POC GLUCOSE 2019-04-27 Noor, [facility] 11:47:00 Jainism POC GLUCOSE 2019-04-27 Noor, [facility] 05:28:00 Jainism POC GLUCOSE 2019-04-26 Noor, [facility] 23:55:00 Jainism POC GLUCOSE 2019-04-26 Noor, [facility] 16:47:00 Jainism POC GLUCOSE 2019-04-26 Noor, [facility] 11:34:00 Jainism POC GLUCOSE 2019-04-26 Noor, [facility] 05:46:00 Jainism POC GLUCOSE 2019-04-25 Noor, [facility] 23:34:00 Jainism POC GLUCOSE 2019-04-25 Noor, [facility] 16:07:00 Jainism POC GLUCOSE 2019-04-25 Noor, [facility] 11:56:00 Jainism POC GLUCOSE 2019-04-25 Noor, [facility] 05:44:00 Jainism HC COMPLETE BLD COUNT W/AUTO DIFF 2019-04-25 Jessica Rod [facility] 04:40:00 Robyn-Ratna Jainism BASIC METABOLIC PANEL 2019-04-25 Jemma Rod [facility] 04:40:00 Robyn-Ratna Jainism ESTIMATED GFR 2019-04-25 Viola Jemma [facility] 04:40:00 Robyn-Ratna Jainism SMEAR REVIEW 2019-04-25 Viola Jemma [facility] 04:40:00 Robyn-Ratna Jainism POC GLUCOSE 2019-04-25 Noor, [facility] 00:21:00 Jainism POC GLUCOSE 2019-04-24 Noor, [facility] 16:47:00 Jainism POC GLUCOSE 2019-04-24 Noor, [facility] 11:45:00 Jainism POC GLUCOSE 2019-04-24 Noor, [facility] 04:54:00 Jainism POC GLUCOSE 2019-04-24 Noor, [facility] 00:06:00 Jainism POC GLUCOSE 2019-04-23 Noor, [facility] 16:58:00 Jainism POC GLUCOSE 2019-04-23 Noor, [facility] 11:19:00 Jainism POC GLUCOSE 2019-04-23 Noor, [facility] 05:06:00 Jainism POC GLUCOSE 2019-04-22 Noor, [facility] 23:46:00 Jainism POC GLUCOSE 2019-04-22 Nosc, [facility] 16:01:00 Jainism POC GLUCOSE 2019-04-22 Nosc, [facility] 11:50:00 [facility]ainism [facility]OC GLUCOSE [facility]04[facility] Jainism POC GLUCOSE 2019-04-21 Nosc, [facility] 23:40:00 Jainism POC GLUCOSE 2019-04-21 Nosc, [facility] 16:42:00 Jainism POC GLUCOSE 2019-04-21 Nosc, [facility] 11:52:00 Jainism POC GLUCOSE 2019-04-21 Nosc, [facility] 05:06:00 Jainism POC GLUCOSE 2019-04-21 [facility]ainism POC GLUCOSE 2019-04-20 [facility] 17[facility]18:00 Jainism POC GLUCOSE 2019-04-20 Nosc, [facility] 11:51:00 Jainism POC GLUCOSE 2019-04-20 Nosc, [facility] 04:49:00 Jainism POC GLUCOSE 2019-04-19 [facility] 23:35:00 [facility]ain[facility] POC GLUCOSE 2019-04-19 [facility] HEAD WO CONTRAST 2019-04-19 [facility] 13:23:17 Jainism POC GLUCOSE 2019-04-19 [facility] 11:42:00 Jainism POC GLUCOSE 2019-04-19 [facility] 04:09:00 Jainism HC COMPLETE BLD COUNT W/AUTO DIFF 2019-04-19 [facility] 04:00:00 [facility]ism COMPREHENSIVE METABOLIC PANEL 2019-04-19 [facility] 04:00:00 Jainism MAGNESIUM LEVEL 2019-04-19 [facility] 04:00:00 [facility]ainism ESTIMATED GFR 2019-04-19 [facility] 04:00:00 [facility]ainism SMEAR REVIEW 2019-04-19 [facility] 04:00:00 Jainism POC GLUCOSE 2019-04-18 [facility] 23:29:00 Jainism POC GLUCOSE 2019-04-18 Nosc, [facility] 16:04:00 Jainism POC GLUCOSE 2019-04-18 Noor, [facility] 10:57:00 Jainism POC GLUCOSE 2019-04-18 Noor, [facility] 04:28:00 Jainism POC GLUCOSE 2019-04-17 Noor, [facility] 17:24:00 Jainism POC GLUCOSE 2019-04-17 Noor, [facility] 11:25:00 Jainism POC GLUCOSE 2019-04-17 Noor, [facility] 04:08:00 Jainism COMPREHENSIVE METABOLIC PANEL 2019-04-17 Nosc, [facility] 04:00:00 Jainism MAGNESIUM LEVEL 2019-04-17 Nosc, [facility] 04:00:00 Jainism ESTIMATED GFR 2019-04-17 [facility], [facility] 04:00:00 Jainism POC GLUCOSE 2019-04-17 [facility], [facility] 01:04:00 Jainism US GALLBLADDER 2019-04-16 MoosaviJem [facility] 18:21:39 Shadaab Jainism POC GLUCOSE 2019-04-16 Nosc, [facility] 16:20:00 Jainism POC GLUCOSE 2019-04-16 Nosc, [facility] 11:14:00 Jainism HC COMPLETE BLD COUNT W/AUTO DIFF 2019-04-16 [facility] Shannan SterlingKaylin Rosman 05:00:00 Jainism COMPREHENSIVE METABOLIC PANEL 2019-04-16 [facility] 05:00:00 Jainism ESTIMATED GFR 2019-04-16 [facility] 05:00:00 Jainism SMEAR REVIEW 2019-04-16 [facility] MarielyKaylin Rosman 05:00:00 Jainism POC GLUCOSE 2019-04-16 [facility], [facility] 04:36:00 Jainism POC GLUCOSE 2019-04-15 Nosc, [facility] 23:16:00 Jainism POC GLUCOSE 2019-04-15 Nosc, [facility] 15:45:00 Jainism POC GLUCOSE 2019-04-15 Nosc, [facility] 11:44:00 Jainism POC GLUCOSE 2019-04-15 Nosc, [facility] 06:53:00 Jainism HEPARIN PF4 ANTIBODY (IGG) 2019-04-15 Shannan [place] 05:00:00 Jainism POC GLUCOSE 2019-04-14 Nosc, [facility] 23:38:00 Jainism POC GLUCOSE 2019-04-14 Noor, [facility] 16:10:00 Jainism POC GLUCOSE 2019-04-14 Noor, [facility] 11:19:00 Jainism POC GLUCOSE 2019-04-14 Noor, [facility] 05:10:00 Jainism POC GLUCOSE 2019-04-14 Noor, [facility] 00:04:00 Jainism POC GLUCOSE 2019-04-13 Noor, [facility] 16:50:00 Jainism POC GLUCOSE 2019-04-13 Noor, [facility] 11:15:00 Jainism POC GLUCOSE 2019-04-13 Noor, [facility] 05:10:00 Jainism POC GLUCOSE 2019-04-12 Noor, [facility] 23:51:00 Jainism POC GLUCOSE 2019-04-12 Noor, [facility] 16:01:00 Jainism POC GLUCOSE 2019-04-12 Noor, [facility] 11:16:00 Jainism POC GLUCOSE 2019-04-12 Noor, [facility] 04:34:00 Jainism POC GLUCOSE 2019-04-11 Noor, [facility] 23:52:00 Jainism POC GLUCOSE 2019-04-11 Noor, [facility] 16:25:00 Jainism POC GLUCOSE 2019-04-11 Nosc, [facility] 11:19:00 Jainism POC GLUCOSE 2019-04-11 Noor, [facility] 05:46:00 Jainism CBC WITH PLATELET AND DIFFERENTIAL 2019-04-11 GentryJessy Ros[facility] 05:11:00 Robyn-Ratna Jainism BASIC METABOLIC PANEL 2019-04-11 Gentry Jemma [facility] 05:11:00 Robyn-Ratna Jainism ESTIMATED GFR 2019-04-11 GentryJemma [facility] 05:11:00 Robyn-Ratna Jainism MANUAL DIFFERENTIAL 2019-04-11 GentryAprylJemma Rosman 05:11:00 Robyn-Ratna Jainism POC GLUCOSE 2019-04-11 Noor, [facility] 00:02:00 Jainism POC GLUCOSE 2019-04-10 Noor, [facility] 16:23:00 Jainism POC GLUCOSE 2019-04-10 Noor, [facility] 12:00:00 Jainism BASIC METABOLIC PANEL 2019-04-10 Jmema Rod [facility] 11:55:00 Robyn-Ratna Jainism ESTIMATED GFR 2019-04-10 Jemma Rod [facility] 11:55:00 Robyn-Ratna Jainism POC GLUCOSE 2019-04-10 Noor, [facility] 06:13:00 Jainism POC GLUCOSE 2019-04-10 Noor, [facility] 00:03:00 Jainism POC GLUCOSE 2019-04-09 Noor, [facility] 16:39:00 Jainism POC GLUCOSE 2019-04-09 Noor, [facility] 11:37:00 Jainism POC GLUCOSE 2019-04-09 Noor, [facility] 06:30:00 Jainism HC COMPLETE BLD COUNT W/AUTO DIFF 2019-04-09 Jessica Rod [facility] 04:00:00 Robyn-Ratna Jainism BASIC METABOLIC PANEL 2019-04-09 Jemma Rod Rosman 04:00:00 Robyn-Ratna Jainism ESTIMATED GFR 2019-04-09 Jemma Rod Rosman 04:00:00 Robyn-Ratna Jainism SMEAR REVIEW 2019-04-09 Jemma Rod Rosman 04:00:00 Robyn-Ratna Jainism POC GLUCOSE 2019-04-09 Noor, [facility] 00:24:00 Jainism POC GLUCOSE 2019-04-08 Noor, [facility] 17:20:00 Jainism POC GLUCOSE 2019-04-08 Noor, [facility] 10:38:00 Jainism POC GLUCOSE 2019-04-08 Noor, [facility] 07:49:00 Jainism POC GLUCOSE 2019-04-08 Noor, [facility] 05:28:00 Jainism POC GLUCOSE 2019-04-07 Noor, [facility] 23:24:00 Jainism POC GLUCOSE 2019-04-07 Noor, [facility] 15:23:00 Jainism POC GLUCOSE 2019-04-07 Noor, [facility] 11:22:00 Jainism POC GLUCOSE 2019-04-07 Noor, [facility] 03:39:00 Jainism POC GLUCOSE 2019-04-07 Noor, [facility] 00:10:00 Jainism POC GLUCOSE 2019-04-06 Noor, [facility] 16:39:00 Jainism POC GLUCOSE 2019-04-06 Noor, [facility] 11:40:00 Jainism POC GLUCOSE 2019-04-06 Noor, [facility] 06:24:00 Jainism POC GLUCOSE 2019-04-06 Noor, [facility] 00:53:00 Jainism POC GLUCOSE 2019-04-05 Noor, [facility] 16:05:00 Jainism POC GLUCOSE 2019-04-05 Noor, [facility] 11:30:00 Jainism POC GLUCOSE 2019-04-05 Noor, [facility] 05:08:00 Jainism POC GLUCOSE 2019-04-04 Noor, [facility] 23:42:00 Jainism POC GLUCOSE 2019-04-04 Noor, [facility] 16:24:00 Jainism POC GLUCOSE 2019-04-04 Noor, [facility] 11:42:00 Jainism POC GLUCOSE 2019-04-04 Noor, [facility] 06:34:00 Jainism POC GLUCOSE 2019-04-03 Noor, [facility] 23:37:00 Jainism POC GLUCOSE 2019-04-03 Noor, [facility] 16:06:00 Jainism POC GLUCOSE 2019-04-03 Noor, [facility] 11:26:00 Jainism POC GLUCOSE 2019-04-03 Noor, [facility] 04:01:00 Jainism POC GLUCOSE 2019-04-02 Noor, [facility] 23:54:00 Jainism POC GLUCOSE 2019-04-02 Noor, [facility] 16:01:00 Jainism POC GLUCOSE 2019-04-02 Noor, [facility] 11:58:00 Jainism POC GLUCOSE 2019-04-02 Noor, [facility] 04:02:00 Jainism POC GLUCOSE 2019-04-01 Noor, [facility] 23:06:00 Jainism POC GLUCOSE 2019-04-01 Noor, [facility] 16:22:00 Jainism POC GLUCOSE 2019-04-01 Noor, [facility] 11:53:00 Jainism POC GLUCOSE 2019-04-01 Noor, [facility] 04:49:00 Jainism POC GLUCOSE 2019-03-31 Noor, [facility] 23:18:00 Jainism POC GLUCOSE 2019-03-31 Noor, [facility] 16:36:00 Jainism POC GLUCOSE 2019-03-31 Noor, [facility] 11:47:00 Jainism POC GLUCOSE 2019-03-31 Noor, [facility] 06:02:00 Jainism HC COMPLETE BLD COUNT W/AUTO DIFF 2019-03-31 GentryJessica Rosman 04:00:00 Robyn-Ratna Jainism BASIC METABOLIC PANEL 2019-03-31 GentryJemma Rosman 04:00:00 Robyn-Ratna Jainism ESTIMATED GFR 2019-03-31 Gentry, Jemma Rosman 04:00:00 Robyn-Ratna Jainism SMEAR REVIEW 2019-03-31 [facility] 04:[facility]00 Robyn-Ratna Jainism POC GLUCOSE 2019-03-30 Noor, [facility] 23:25:00 Jainism POC GLUCOSE 2019-03-30 Noor, [facility] 18:12:00 Jainism POC GLUCOSE 2019-03-30 Noor, [facility] 11:23:00 Jainism POC GLUCOSE 2019-03-29 Noor, [facility] 23:32:00 Jainism POC GLUCOSE 2019-03-29 Noor, [facility] 18:35:00 Jainism POC GLUCOSE 2019-03-29 Noor, [facility] 11:56:00 Jainism POC GLUCOSE 2019-03-29 Noor, [facility] 04:48:00 Jainism POC GLUCOSE 2019-03-28 Noor, [facility] 23:49:00 Jainism POC GLUCOSE 2019-03-28 Noor, [facility] 16:22:00 Jainism POC GLUCOSE 2019-03-28 Noor, [facility] 11:09:00 Jainism POC GLUCOSE 2019-03-28 Noor, [facility] 05:02:00 Jainism POC GLUCOSE 2019-03-27 Noor, [facility] 23:29:00 Jainism POC GLUCOSE 2019-03-27 Noor, [facility] 16:21:00 Jainism POC GLUCOSE 2019-03-27 Noor, [facility] 12:01:00 Jainism POC GLUCOSE 2019-03-27 Noor, [facility] 04:56:00 Jainism POC GLUCOSE 2019-03-26 Noor, [facility] 23:08:00 Jainism POC GLUCOSE 2019-03-26 Noor, [facility] 16:08:00 Jainism POC GLUCOSE 2019-03-26 Noor, [facility] 11:12:00 Jainism POC GLUCOSE 2019-03-26 Noor, [facility] 07:09:00 Jainism HC COMPLETE BLD COUNT W/AUTO DIFF 2019-03-26 GentryJessica Rosman 05:00:00 Robyn-Ratna Jainism BASIC METABOLIC PANEL 2019-03-26 Gentry, Jemma Rosman 05:00:00 Robyn-Ratna Jainism ESTIMATED GFR 2019-03-26 Gentry, [facility] 05:00:00 Robyn-Ratna Jainism POC GLUCOSE 2019-03-26 Noor, [facility] 04:53:00 Jainism POC GLUCOSE 2019-03-25 Noor, [facility] 23:54:00 Jainism POC GLUCOSE 2019-03-25 Noor, [facility] 16:38:00 Jainism POC GLUCOSE 2019-03-25 Noor, [facility] 11:35:00 Jainism POC GLUCOSE 2019-03-25 Noor, [facility] 05:49:00 Jainism POC GLUCOSE 2019-03-25 Noor, [facility] 00:23:00 Jainism POC GLUCOSE 2019-03-24 Noor, [facility] 16:07:00 Jainism POC GLUCOSE 2019-03-24 Noor, [facility] 11:18:00 Jainism POC GLUCOSE 2019-03-24 Noor, [facility] 06:19:00 Jainism POC GLUCOSE 2019-03-24 Noor, [facility] 03:11:00 Jainism POC GLUCOSE 2019-03-23 Noor, [facility] 23:32:00 Jainism POC GLUCOSE 2019-03-23 Noor, [facility] 11:23:00 Jainism POC GLUCOSE 2019-03-23 Noor, [facility] 04:50:00 Jainism POC GLUCOSE 2019-03-22 Noor, [facility] 23:30:00 Jainism POC GLUCOSE 2019-03-22 Noor, [facility] 16:05:00 Jainism POC GLUCOSE 2019-03-22 Noor, [facility] 11:17:00 Jainism POC GLUCOSE 2019-03-22 Noor, [facility] 05:33:00 Jainism POC GLUCOSE 2019-03-21 Noor, [facility] 23:31:00 Jainism POC GLUCOSE 2019-03-21 Noor, [facility] 16:35:00 Jainism POC GLUCOSE 2019-03-21 Noor, [facility] 11:36:00 Jainism POC GLUCOSE 2019-03-21 Noor, [facility] 05:27:00 Jainism POC GLUCOSE 2019-03-20 Noor, [facility] 23:37:00 Jainism POC GLUCOSE 2019-03-20 Noor, [facility] 16:25:00 Jainism POC GLUCOSE 2019-03-20 Noor, [facility] 11:47:00 Jainism POC GLUCOSE 2019-03-20 Noor, [facility] 07:53:00 Jainism POC GLUCOSE 2019-03-20 Noor, [facility] 05:58:00 Jainism POC GLUCOSE 2019-03-19 Noor, [facility] 23:33:00 Jainism POC GLUCOSE 2019-03-19 Noor, [facility] 17:48:00 Jainism POC GLUCOSE 2019-03-19 Noor, [facility] 12:16:00 Jainism POC GLUCOSE 2019-03-19 Noor, [facility] 04:22:00 Jainism POC GLUCOSE 2019-03-18 Noor, [facility] 23:10:00 Jainism POC GLUCOSE 2019-03-18 Noor, [facility] 16:11:00 Jainism POC GLUCOSE 2019-03-18 Noor, [facility] 11:17:00 Jainism POC GLUCOSE 2019-03-18 Noor, [facility] 05:25:00 Jainism HC COMPLETE BLD COUNT W/AUTO DIFF 2019-03-18 Jessica Rod Rosman 04:50:00 Robyn-Ratna Jainism BASIC METABOLIC PANEL 2019-03-18 Jemma Rod 04:50:00 Robyn-Ratna Jainism ESTIMATED GFR 2019-03-18 Jemma Rod Rosman 04:50:00 Robyn-Ratna Jainism POC GLUCOSE 2019-03-17 Noor, [facility] 23:43:00 Jainism POC GLUCOSE 2019-03-17 Noor, [facility] 16:00:00 Jainism POC GLUCOSE 2019-03-17 Noor, [facility] 11:21:00 Jainism POC GLUCOSE 2019-03-17 Noor, [facility] 06:58:00 Jainism POC GLUCOSE 2019-03-17 Noor, [facility] 00:01:00 Jainism POC GLUCOSE 2019-03-16 Noor, [facility] 15:28:00 Jainism POC GLUCOSE 2019-03-16 Noor, [facility] 11:32:00 Jainism POC GLUCOSE 2019-03-16 Noor, [facility] 06:43:00 Jainism POC GLUCOSE 2019-03-15 Noor, [facility] 23:38:00 Jainism POC GLUCOSE 2019-03-15 Noor, [facility] 16:24:00 Jainism XR CHEST 1 VW PORTABLE 2019-03-15 [facility]-03-15 Noor, [facility] 11:31:00 Jainism POC GLUCOSE 2019-03-15 Noor, [facility] 04:57:00 Jainism POC GLUCOSE 2019-03-14 Noor, [facility] 23:20:00 Jainism POC GLUCOSE 2019-03-14 Noor, [facility] 17:11:00 Jainism POC GLUCOSE 2019-03-14 Noor, [facility] 11:16:00 Jainism POC GLUCOSE 2019-03-14 Noor, [facility] 04:37:00 Jainism HC COMPLETE BLD COUNT W/AUTO DIFF 2019-03-14 Jessica Rod Rosman 04:00:00 Robyn-Ratna Meansist BASIC METABOLIC PANEL 2019-03-14 [facility] 04:00:00 Robyn-Ratna Jainism MAGNESIUM LEVEL 2019-03-14 [facility]ola [facility] 04:00:00 Robyn-Ratna Jainism ESTIMATED GFR 2019-03-14 Viola Jemma Rosman 04:00:00 Robyn-Ratna Jainism POC GLUCOSE 2019-03-13 Noor, [facility] 23:31:00 Jainism POC GLUCOSE 2019-03-13 Noor, [facility] 15:22:00 Jainism POC GLUCOSE 2019-03-13 Noor, [facility] 11:19:00 Jainism POC GLUCOSE 2019-03-13 [facility] 05[facility]00 Jainism POC GLUCOSE 2019-03-12 Noor, [facility] 23:26:00 Jainism POC GLUCOSE 2019-03-12 [facility], [facility] 15:55:00 Jainism POC GLUCOSE 2019-03-12 [facility], [facility] 11:39:00 Jainism BASIC METABOLIC PANEL 2019-03-12 [facility], Shannan Hatfield Rosman 05:00:00 Jainism HC COMPLETE BLD COUNT W/AUTO DIFF 2019-03-12 [facility], Shannan Hatfield Rosman 05:00:00 Jainism MAGNESIUM LEVEL 2019-03-12 [facility], Shannan Hatfield Rosman 05:00:00 Jainism ESTIMATED GFR 2019-03-12 Noor, [facility] 05:00:00 Jainism POC GLUCOSE 2019-03-12 Noor, [facility] 04:30:00 Jainism POC GLUCOSE 2019-03-11 Noor, [facility] 23:44:00 Jainism POC GLUCOSE 2019-03-11 Noor, [facility] 19:23:00 Jainism POC GLUCOSE 2019-03-11 Noor, [facility] 16:13:00 Jainism POC GLUCOSE 2019-03-11 Noor, [facility] 11:22:00 Jainism POC GLUCOSE 2019-03-11 Noor, [facility] 07:47:00 Jainism POC GLUCOSE 2019-03-11 Noor, [facility] 03:43:00 Jainism POC GLUCOSE 2019-03-10 Noor, [facility] 23:34:00 Jainism POC GLUCOSE 2019-03-10 Noor, [facility] 19:53:00 Jainism POC GLUCOSE 2019-03-10 Noor, [facility] 16:48:00 Jainism POC GLUCOSE 2019-03-10 Noor, [facility] 11:16:00 Jainism POC GLUCOSE 2019-03-10 Noor, [facility] 07:42:00 Jainism HC COMPLETE BLD COUNT W/AUTO DIFF 2019-03-10 [facility], Shannan Hatfield Rosman 04:40:00 Jainism COMPREHENSIVE METABOLIC PANEL 2019-03-10 [facility], Shannan Hatfield Rosman 04:40:00 Jainism THYROID STIMULATING HORMONE 2019-03-10 Shannan [facility] 04:40:00 Jainism ESTIMATED GFR 2019-03-10 MarnisukumarShannan lowe 04:40:00 Jainism POC GLUCOSE 2019-03-10 [facility] 03:36:00 Jainism POC GLUCOSE 2019-03-09 Novasc [facility] 23:24:00 Jainism POC GLUCOSE 2019-03-09 [facility] 19:42:00 Jainism POC GLUCOSE 2019-03-09 [facility] 17:27:00 Jainism POC GLUCOSE 2019-03-09 Allison Chambers 11:24:00 Jainism POC GLUCOSE 2019-03-09 Allison Chambers 07:32:00 Jainism POC GLUCOSE 2019-03-09 Allison Chambers 04:19:00 Jainism BASIC METABOLIC PANEL 2019-03-09 HerringPaul Mane 01:20:00 Ramez Jainism HC COMPLETE BLD COUNT W/AUTO DIFF 2019-03-09 NimaPaul Mane 01:20:00 Ramez Jainism IONIZED CALCIUM 2019-03-09 NimaPaul Mane 01:20:00 Ramez Jainism MAGNESIUM LEVEL 2019-03-09 HerringPaul Rosman 01:20:00 Ramez Jainism PHOSPHORUS LEVEL 2019-03-09 HerringPaul Rosman 01:20:00 Ramez Jainism ESTIMATED GFR 2019-03-09 NimaPaul Mane 01:20:00 Ramez Jainism POC GLUCOSE 2019-03-09 Allison Chambers 00:12:00 Jainism POC GLUCOSE 2019-03-08 Allison Chambers 19:21:00 Jainism INSERTION OR REMOVAL PEG 2019-03-08 Ron [place] on 15:36:00 Jainism POC GLUCOSE 2019-03-08 Allison Chambers 15:08:00 Jainism POC GLUCOSE 2019-03-08 Allison Chambers 11:31:00 Jainism POC GLUCOSE 2019-03-08 Allison Chambers 07:38:00 Jainism XR CHEST 1 VW PORTABLE 2019-03-08 Rogelio Parker 05:18:00 Jainism POC GLUCOSE 2019-03-08 Allison Chambers 04:06:00 Jainism POC GLUCOSE 2019-03-08 Allison Chambers 02:34:00 Jainism BASIC METABOLIC PANEL 2019-03-08 [facility] 00:43:00 Jainism IONIZED CALCIUM 2019-03-08 [facility] 00:43:00 Jainism MAGNESIUM LEVEL 2019-03-08 [facility] 00:43:00 Jainism PHOSPHORUS LEVEL 2019-03-08 [facility] 00:43:00 Jainism ESTIMATED GFR 2019-03-08 [facility] 00:43:00 Jainism CBC HEMOGRAM 2019-03-08 [facility]Note 3[facility]00 Jainism POC GLUCOSE 2019-03-08 Allison Chambers 00:10:00 Jainism POC GLUCOSE 2019-03-07 Allison Chambers 19:35:00 Jainism POC GLUCOSE 2019-03-07 Allison Chambers 16:00:00 Jainism POC GLUCOSE 2019-03-07 Allison Chambers 12:22:00 Jainism POC GLUCOSE 2019-03-07 Allison Chambers 07:39:00 Jainism POC GLUCOSE 2019-03-07 Allison Chambers 04:25:00 Jainism BASIC METABOLIC PANEL 2019-03-07 [facility][Note 3] [facility]:00 Jainism CBC HEMOGRAM 2019-03-07 [facility] 00:15:00 Jainism IONIZED CALCIUM 2019-03-07 [facility] 00:15:00 Jainism MAGNESIUM LEVEL 2019-03-07 [facility] 00:15:00 Jainism PHOSPHORUS LEVEL 2019-03-07 [facility] 00:15:00 Jainism ESTIMATED GFR 2019-03-07 [facility] 00:15:00 Jainism POC GLUCOSE 2019-03-07 Allison Chambers 00:13:00 Jainism POC GLUCOSE 2019-03-06 Allison Chambers 19:50:00 Jainism POC GLUCOSE 2019-03-06 Allison Chambers 15:27:00 Jainism CV CTA CORONARY ARTERIES W 2019-03-06 Orestes Romero ton CONTRAST 12:30:52 Jainism POC GLUCOSE 2019-03-06 Allison Chambers 11:03:00 Jainism XR ABDOMEN 1 VW PORTABLE 2019-03-06 Paul Bryson Rosman 09:43:28 Emitseilu Jainism POC GLUCOSE 2019-03-06 Allison Chambers Mane 07:08:00 Jainism XR CHEST 1 VW PORTABLE 2019-03-06 Alondra Mclaughlin Rosman 04:35:00 Jainism POC GLUCOSE 2019-03-06 Allison Chambers Rosman 04:21:00 Jainism VITAMIN B12 LEVEL 2019-03-06 Juana Guevara Rosman 00:56:00 Jainism BASIC METABOLIC PANEL 2019-03-06 [facility] 00:56:00 Jainism MAGNESIUM LEVEL 2019-03-06 [facility] 00:56:00 Jainism PHOSPHORUS LEVEL 2019-03-06 [facility] 00:56:00 Jainism IONIZED CALCIUM 2019-03-06 [facility] 00:56:00 Jainism ESTIMATED GFR 2019-03-06 [facility] 00:56:00 Jainism VITAMIN D 25 HYDROXY LEVEL 2019-03-06 Juana Guevara [facility] 00:55:00 Jainism VITAMIN C LEVEL, PLASMA 2019-03-06 Juana Guevara 00:15:00 Jainism CBC HEMOGRAM 2019-03-06 [facility] 00:15:00 Jainism POC GLUCOSE 2019-03-05 Allison Chambers 23:46:00 Jainism POC GLUCOSE 2019-03-05 Allison Chambers 19:45:00 Jainism POC GLUCOSE 2019-03-05 Allison Chambers Mane 16:05:00 Jainism SODIUM LEVEL 2019-03-05 Alondra Mclaughlin Rosman 13:42:00 Jainism POC GLUCOSE 2019-03-05 Allison Chambers Mane 11:10:00 Jainism POC GLUCOSE 2019-03-05 Allison Chambers Rosman 07:23:00 Jainism SODIUM LEVEL 2019-03-05 KeithRogelio Rosman 06:00:00 Jainism XR CHEST 1 VW PORTABLE 2019-03-05 Tesha Cervantes n 05:53:00 Jainism POC GLUCOSE 2019-03-05 Allison Chambers Mane 04:18:00 Jainism BASIC METABOLIC PANEL 2019-03-05 Tesha Cervantes 00:40:00 Jainism IONIZED CALCIUM 2019-03-05 HelenTesha Rosman 00:40:00 Jainism MAGNESIUM LEVEL 2019-03-05 Tesha Cervantes Rosman 00:40:00 Jainism PHOSPHORUS LEVEL 2019-03-05 Tesha Cervantes Rosman 00:40:00 Jainism ESTIMATED GFR 2019-03-05 HelenTesha hernández Rosman 00:40:00 Jainism HC COMPLETE BLD COUNT W/AUTO DIFF 2019-03-05 HelenClarissa Rosman 00:25:00 Jainism ARTERIAL BLOOD GAS 2019-03-05 Rogelio Parker Rosman 00:25:00 Jainism POC GLUCOSE 2019-03-04 Allison Chambers Mane 23:47:00 Jainism POC GLUCOSE 2019-03-04 Reyes Allison AlmanzaKaylin Rosman 19:39:00 Jainism BASIC METABOLIC PANEL 2019-03-04 Paul Bryson Mane 18:41:00 Emitseilu Jainism ESTIMATED GFR 2019-03-04 Paul Bryson Rosman 18:41:00 Emitseilu Jainism POC GLUCOSE 2019-03-04 Martiniquais Allison AlmanzaKaylin Rosman 15:27:00 Jainism SODIUM LEVEL 2019-03-04 Paul Bryson Rosman 11:57:00 Emitseilu Jainism POC GLUCOSE 2019-03-04 Martiniquais Allison AlmanzaKaylin Rosman 11:17:00 Jainism POC GLUCOSE 2019-03-04 Reyes Allison AlmanzaKaylin Rosman 07:30:00 Jainism SODIUM LEVEL 2019-03-04 Paul Bryson Rosman 06:31:00 Emitseilu Jainism POC GLUCOSE 2019-03-04 Martiniquais Allison AlmanzaKaylin Rosman 04:21:00 Jainism BASIC METABOLIC PANEL 2019-03-04 Rosy Bermudez Rosman 00:45:00 Yuk Mao Jainism PHOSPHORUS LEVEL 2019-03-04 Rosy Bermudez Rosman 00:45:00 Yuk Mao Jainism MAGNESIUM LEVEL 2019-03-04 [facility] 00:[facility]00 Yuk Mao Jainism IONIZED CALCIUM 2019-03-04 [facility] 00:45:00 Yuk Mao Jainism ESTIMATED GFR 2019-03-04 [facility] 00:45:00 Yuk Mao Jainism CBC HEMOGRAM 2019-03-04 Bermudez [facility] 00:42:00 Yuk Mao Jainism POC GLUCOSE 2019-03-03 MartiniquaisAllisonKaylin Mane 23:56:00 Jainism POC GLUCOSE 2019-03-03 Martiniquais, Allison ArchieKaylin Mane 20:25:00 Jainism SODIUM LEVEL 2019-03-03 Paul Bryson Mane 17:58:00 Emitseilu Jainism POC GLUCOSE 2019-03-03 Martiniquais, Allison Kraft Mane 15:33:00 Jainism POC GLUCOSE 2019-03-03 Martiniquais, Allison AlmanzaKaylin Mane 11:30:00 Jainism POC GLUCOSE 2019-03-03 Martiniquais, Allison AlmanzaKaylin Mane 07:41:00 Jainism POC GLUCOSE 2019-03-03 Martiniquais Allison AlmanzaKaylin Mane 03:50:00 Jainism BASIC METABOLIC PANEL 2019-03-03 [facility] 00:32:00 Yuk Mao Jainism PHOSPHORUS LEVEL 2019-03-03 [facility] 00:32:00 Yuk Mao Jainism MAGNESIUM LEVEL 2019-03-03 [facility] 00:32:00 Yuk Mao Jainism ESTIMATED GFR 2019-03-03 [facility] 00:32:00 Yuk Mao Jainism HC COMPLETE BLD COUNT W/AUTO DIFF 2019-03-03 [facility] 00:00:00 Yuk Mao Jainism IONIZED CALCIUM 2019-03-03 [facility] 00:00:00 Yuk Mao Jainism POC GLUCOSE 2019-03-02 MartiniquaisAllisonKaylin Mane 23:33:00 Jainism POC GLUCOSE 2019-03-02 MartiniquaisAllisonKaylin Mane 20:33:00 Jainism BASIC METABOLIC PANEL 2019-03-02 BermudezRosy Rosman 16:14:00 Yuk Mao Jainism ESTIMATED GFR 2019-03-02 [facility] 16:14:00 Yuk Mao Jainism POC GLUCOSE 2019-03-02 Reyes Allison AlmanzaKaylin Mane 16:01:00 Jainism POC GLUCOSE 2019-03-02 MartiniquaisAllison ArchieKaylin Mane 11:30:00 Jainism POC GLUCOSE 2019-03-02 MartiniquaisAllison 07:20:00 Jainism XR CHEST 1 VW PORTABLE 2019-03-02 Ezequiel bowen Rosman 05:51:00 Jainism POC GLUCOSE 2019-03-02 MartiniquaisAllison ArchieKaylin Mane 03:27:00 Jainism ARTERIAL BLOOD GAS 2019-03-02 [facility] 00:20:00 Jainism BASIC METABOLIC PANEL 2019-03-02 [facility] [place] 00:20:00 Jainism CBC HEMOGRAM 2019-03-02 [facility] 00:20:00 Jainism MAGNESIUM LEVEL 2019-03-02 [facility] 00:20:00 Jainism PHOSPHORUS LEVEL 2019-03-02 [facility][Note 3] [facility] 00:20:00 Jainism IONIZED CALCIUM, ARTERIAL 2019-03-02 [facility][Note 3] [facility] 00:20:00 Jainism ESTIMATED GFR 2019-03-02 [facility][Note 3] Ezequiel Rosman 00:20:00 Jainism POC GLUCOSE 2019-03-01 Allison Chambers 23:45:00 Jainism POC GLUCOSE 2019-03-01 Allison Chambers 19:53:00 Jainism POC GLUCOSE 2019-03-01 Allison Chambers 16:12:00 Jainism POC GLUCOSE 2019-03-01 Allison Chambers Mane 11:21:00 Jainism POC GLUCOSE 2019-03-01 Allison Chambers Mane 07:28:00 Jainism XR CHEST 1 VW PORTABLE 2019-03-01 [facility] [place] [place] [facility] 05:41:00 Jainism POC GLUCOSE 2019-03-01 Allison Chambers 04:22:00 Jainism POC GLUCOSE 2019-03-01 Allison Chambers 00:24:00 Jainism ARTERIAL BLOOD GAS 2019-03-01 [facility] 00:20:00 Jainism BASIC METABOLIC PANEL 2019-03-01 [facility] 00:20:00 Jainism CBC HEMOGRAM 2019-03-01 [facility] 00:20:00 Jainism MAGNESIUM LEVEL 2019-03-01 [facility] 00:20:00 Jainism PHOSPHORUS LEVEL 2019-03-01 [facility] 00:20:00 Jainism IONIZED CALCIUM, ARTERIAL 2019-03-01 [facility][Note 3] [place] 00:20:00 Jainism ESTIMATED GFR 2019-03-01 [facility] 00:20:00 Jainism POC GLUCOSE 2019-02-28 Allison Chambers 19:48:00 Jainism POC GLUCOSE 2019-02-28 Allison Chambers [place] 16:07:00 Jainism URINE EOSINOPHILS 2019-02-28 Krys Delarosa [facility]man 15:30:00 Jainism BASIC METABOLIC PANEL 2019-02-28 InohoneyOrestes Rosman 14:00:00 Jainism ESTIMATED GFR 2019-02-28 SebastiánJustin Rosman 14:00:00 Jainism XR CHEST 1 PORTABLE 2019-02-28 Ezequiel Will Rosman 12:45:00 Jainism ECHOCARDIOGRAM TRANSESOPHAGEAL W 2019-02-28 Mojgan Romero kimberly Rosman ANESTHESIA 12:13:57 Jainism XR ABDOMEN 1 PORTABLE 2019-02-28 Sebastián, Justin Gonzales Rosman 12:05:00 Jainism POC GLUCOSE 2019-02-28 Sebastián, Justin Christian Rosman 12:05:00 Jainism XR CHEST 1 PORTABLE 2019-02-28 [facility], Justin Christian Rosman 12:00:00 Jainism XR ABDOMEN 1 PORTABLE 2019-02-28 Sully, Rosman 09:15:00 Vasyl Catherine Jainism POC GLUCOSE 2019-02-28 [facility] 08:19:00 Jainism POC GLUCOSE 2019-02-28 Justin Lowery Rosman 03:57:00 Jainism XR CHEST 1 PORTABLE 2019-02-28 Rosy Bermudez Rosman 03:50:00 Yuk Mao Jainism HC COMPLETE BLD COUNT W/AUTO DIFF 2019-02-28 BermudezLandoni dmitry Rosman 00:10:00 Yuk Mao Jainism BASIC METABOLIC PANEL 2019-02-28 Bermudez [facility] 00:10:00 Yuk Mao Jainism PHOSPHORUS LEVEL 2019-02-28 [facility] 00:10:00 Yuk Mao Jainism MAGNESIUM LEVEL 2019-02-28 [facility] 00:10:00 Yuk Mao Jainism ARTERIAL BLOOD GAS 2019-02-28 [facility] 00:10:00 Yuk Mao Jainism IONIZED CALCIUM, ARTERIAL 2019-02-28 [place] 00:10:00 Yuk Mao Jainism ESTIMATED GFR 2019-02-28 [facility] 00:10:00 Yuk Mao Jainism POC GLUCOSE 2019-02-27 Justin Lowery Rosman 23:45:00 Jainism POC GLUCOSE 2019-02-27 Justin Lowery Rosman 19:47:00 Jainism POC GLUCOSE 2019-02-27 SebastiánJustin Rosman 15:10:00 Jainism POC GLUCOSE 2019-02-27 Sebastián Justin SadlerKaylin Rosman 12:05:00 Jainism ESOPHAGOGASTRODUODENOSCOPY (EGD) 2019-02-27 Ron Land V. Rosman 10:25:00 Jainism POC GLUCOSE 2019-02-27 Sebastián Justin SadlerKaylin Rosman 07:24:00 Jainism XR CHEST 1 VW PORTABLE 2019-02-27 Rosy Bermudez Rosman 04:31:00 Yuk Mao Jainism POC GLUCOSE 2019-02-27 Sebastián Justin SadlerKaylin Rosman 04:02:00 Jainism HC COMPLETE BLD COUNT W/AUTO DIFF 2019-02-27 [facility] Betty dmitry Rosman 00:15:00 Yuk Mao Jainism BASIC METABOLIC PANEL 2019-02-27 [facility] 00:15:00 Yuk Mao Jainism PHOSPHORUS LEVEL 2019-02-27 [facility] 00:15:00 Yuk Mao Jainism MAGNESIUM LEVEL 2019-02-27 [facility] 00:15:00 Yuk Mao Jainism IONIZED CALCIUM 2019-02-27 [facility] 00:15:00 Yuk Mao Jainism ARTERIAL BLOOD GAS 2019-02-27 [facility] 00:15:00 Yuk Mao Jainism HIV AG/AB COMBINATION 2019-02-27 Krys Delarosa Rosman 00:15:00 Jainism ESTIMATED GFR 2019-02-27 Muriel Delarosatamanna Rosman 00:15:00 Jainism POC GLUCOSE 2019-02-26 Sebastián Justin SadlreKaylin Rosman 23:49:00 Jainism POC GLUCOSE 2019-02-26 Justin Lowery ViktoriyaKaylin Rosman 20:02:00 Jainism POC GLUCOSE 2019-02-26 Sebastián Justin SadlerKaylin Rosman 15:08:00 Jainism BLOOD CULTURE, AEROBIC & ANAEROBIC 2019-02-26 Isaura Murieltamanna Rosman 11:46:00 Jainism BLOOD CULTURE, AEROBIC & ANAEROBIC 2019-02-26 Isaura Murieltamanna Rosman 11:45:00 Jainism POC GLUCOSE 2019-02-26 Sebastián Justin SadlerKaylin Rosman 11:12:00 Jainism POC GLUCOSE 2019-02-26 Justin Lowery ViktoriyaKaylin Rosman 07:06:00 Jainism XR CHEST 1 VW PORTABLE 2019-02-26 Demario Rosman 06:09:00 Zoulficar Ali Jainism XR ABDOMEN 1 VW PORTABLE 2019-02-26 Ezequiel Will Nino n 05:59:00 Jainism POC GLUCOSE 2019-02-26 Justin Lowery Rosman 04:19:00 Jainism BASIC METABOLIC PANEL 2019-02-26 [facility] 00:52:00 Zoulficar Ali Jainism ESTIMATED GFR 2019-02-26 [facility] 00:52:00 Zoulficar Ali Jainism ARTERIAL BLOOD GAS 2019-02-26 [facility] 00:35:00 Zoulficar Ali Jainism HC COMPLETE BLD COUNT W/AUTO DIFF 2019-02-26 [facility] 00:35:00 Zoulficar Ali Jainism POC GLUCOSE 2019-02-26 Justin Lowery Rosman 00:13:00 Jainism POC GLUCOSE 2019-02-25 Justin Lowery Rosman 20:17:00 Jainism POC GLUCOSE 2019-02-25 Justin Lowery Kaylin Rosman 16:12:00 Jainism POC GLUCOSE 2019-02-25 Justin Lowery Rosman 11:21:00 Jainism XR ABDOMEN 1 VW PORTABLE 2019-02-25 Ezequiel Will Nino harris 10:27:18 Jainism POC GLUCOSE 2019-02-25 Justin Lowery Rosman 07:32:00 Jainism XR ABDOMEN 1 VW PORTABLE 2019-02-25 Ezequiel Will Nino n 04:45:00 Jainism XR CHEST 1 VW PORTABLE 2019-02-25 [facility] 04:45:00 Zoulficar Ali Jainism POC GLUCOSE 2019-02-25 Justin Lowery Rosman 03:54:00 Jainism BASIC METABOLIC PANEL 2019-02-25 [facility] 00:35:00 Zoulficar Ali Jainism HC COMPLETE BLD COUNT W/AUTO DIFF 2019-02-25 [facility] 00:35:00 Zoulficar Ali Jainism MAGNESIUM LEVEL 2019-02-25 [facility] 00:35:00 Zoulficar Ali Jainism PHOSPHORUS LEVEL 2019-02-25 [facility] 00:35:00 Zoulficar Ali Jainism ARTERIAL BLOOD GAS 2019-02-25 [facility] 00:35:00 Zoulficar Ali Jainism ESTIMATED GFR 2019-02-25 [facility] 00:35:00 Zoulficar Ali Jainism IONIZED CALCIUM, ARTERIAL 2019-02-25 Nino Hanks n 00:35:00 Zoulficar Ali Jainism POC GLUCOSE 2019-02-24 Sebastián, Justin Gonzales Rosman 23:52:00 Jainism US DUPLEX VENOUS LOWER EXTREMITY 2019-02-24 Sulaiman Man Mane BILATERAL 20:20:00 Jainism POC GLUCOSE 2019-02-24 Sebastián, Justin Gonzales Rosman 19:17:00 Jainism POC GLUCOSE 2019-02-24 Sebastián, Justin Gonzales Rosman 15:13:00 Jainism POC GLUCOSE 2019-02-24 [facility] 11:23:00 Jainism XR ABDOMEN 1 VW PORTABLE 2019-02-24 [facility] 09:21:56 Zoulficar Ali Jainism POC GLUCOSE 2019-02-24 Sebastián, Justin Gonzales Rosman 07:16:00 Jainism POC GLUCOSE 2019-02-24 Sebastián, Justin Gonzales Rosman 03:05:00 Jainism BASIC METABOLIC PANEL 2019-02-24 [facility] 00:16:00 Jainism HC COMPLETE BLD COUNT W/AUTO DIFF 2019-02-24 [facility] 00:16:00 Jainism MAGNESIUM LEVEL 2019-02-24 [facility] 00:16:00 Jainism PHOSPHORUS LEVEL 2019-02-24 [facility] 00:16:00 Jainism ARTERIAL BLOOD GAS 2019-02-24 Paul Herring 00:16:00 Ramez Bennett IONIZED CALCIUM, ARTERIAL 2019-02-24 Paul Herring n 00:16:00 Ramez Bennett ESTIMATED GFR 2019-02-24 [facility] 00:16:00 Jainism POC GLUCOSE 2019-02-23 [facility] Justin [facility] 23:15:00 Jainism POC GLUCOSE 2019-02-23 [facility] 19:08:00 Jainism RESPIRATORY CULTURE, QUANTITATIVE 2019-02-23 [facility] 17:35:00 Jainism GRAM STAIN 2019-02-23 [facility] 17:35:00 Jainism POC GLUCOSE 2019-02-23 Sebastián Justin SadlerKayiln Rosman 15:48:00 Jainism BLOOD CULTURE, AEROBIC & ANAEROBIC 2019-02-23 [facility] 12:30:00 Jainism BLOOD CULTURE, AEROBIC & ANAEROBIC 2019-02-23 Leslie Oh Rosman 12:25:00 Jainism POC GLUCOSE 2019-02-23 Sebastián, Justin Gonzales Rosman 11:27:00 Jainism POC GLUCOSE 2019-02-23 Sebastián, Justin Gonzales Rosman 07:28:00 Jainism XR CHEST 1 VW PORTABLE 2019-02-23 Rosy Bermudez Rosman 05:11:00 Yuk Mao Jainism POC GLUCOSE 2019-02-23 Sebastián, Justin Gonzales Rosman 04:15:00 Jainism POC GLUCOSE 2019-02-23 Sebastián, Justin Gonzales Rosman 00:17:00 Jainism BASIC METABOLIC PANEL 2019-02-23 [facility]00 Yuk Mao Jainism HC COMPLETE BLD COUNT W/AUTO DIFF 2019-02-23 Betty Bermudez Rosman 00:10:00 Yuk Mao Jainism PHOSPHORUS LEVEL 2019-02-23 BermudezRosy Rosman 00:10:00 Yuk Mao Jainism MAGNESIUM LEVEL 2019-02-23 [facility] 00:10:00 Yuk Mao Jainism ARTERIAL BLOOD GAS 2019-02-23 [facility] 00:10:00 Yuk Mao Jainism SEDIMENTATION RATE 2019-02-23 [facility] Rosman 00:10:00 Meryim Jainism ESTIMATED GFR 2019-02-23 [facility] 00:10[facility]00 Yuk Mao Jainism IONIZED CALCIUM, ARTERIAL 2019-02-23 [facility] Yuk Mao Jainism POC GLUCOSE 2019-02-22 Sebastián, Justin Gonzales Rosman 20:03:00 Jainism POC GLUCOSE 2019-02-22 Sebastián, Justin Gonzales Rosman 15:45:00 Jainism POC GLUCOSE 2019-02-22 Sebastián, Justin Gonzales Rosman 11:32:00 Jainism POC GLUCOSE 2019-02-22 Sebastián, Justin SadlerKaylin Rosman 07:31:00 Jainism XR CHEST 1 VW PORTABLE 2019-02-22 Rosy Bermudez Rosman 04:30:00 Yuk Mao Jainism POC GLUCOSE 2019-02-22 Sebastián, Justin Gonzales Rosman 03:24:00 Jainism BASIC METABOLIC PANEL 2019-02-22 [facility] 00:35:00 Yuk Mao Jainism HC COMPLETE BLD COUNT W/AUTO DIFF 2019-02-22 [facility] 00:35:00 Yuk Mao Jainism PHOSPHORUS LEVEL 2019-02-22 [facility] 00:35:00 Yuk Mao Jainism MAGNESIUM LEVEL 2019-02-22 [facility] 00:35:00 Yuk Mao Jainism ARTERIAL BLOOD GAS 2019-02-22 [facility] 00:35:00 Yuk Mao Jainism ESTIMATED GFR 2019-02-22 [facility] 00:35:00 Yuk Mao Jainism IONIZED CALCIUM, ARTERIAL 2019-02-22 [facility] 00:35:00 Yuk Mao Jainism POC GLUCOSE 2019-02-21 Justin Lowery Rosman 23:03:00 Jainism POC GLUCOSE 2019-02-21 Justin Lowery Rosman 18:57:00 Jainism MRI BRAIN WO CONTRAST 2019-02-21 [facility] 17:05:00 Jainism POC GLUCOSE 2019-02-21 Justin Lowery ViktoriyaKaylin Rosman 15:27:00 Jainism POC GLUCOSE 2019-02-21 Justin Lowery Rosman 11:18:00 Jainism XR CHEST 1 VW PORTABLE 2019-02-21 [employer] [facility] Alondra Rosman 09:31:16 Jainism POC GLUCOSE 2019-02-21 Justin Lowery Rosman 07:20:00 Jainism POC GLUCOSE 2019-02-21 SebastiánJustin Rosman 03:28:[address] HEAD WO CONTRAST 2019-02-21 [facility] Orestes Rosman 03:14:16 Jainism CBC HEMOGRAM 2019-02-21 [facility] 00:15:00 Yuk Mao Jainism BASIC METABOLIC PANEL 2019-02-21 [facility] 00:15:00 Yuk Mao Jainism PHOSPHORUS LEVEL 2019-02-21 [facility] 00:15:00 Yuk Mao Jainism MAGNESIUM LEVEL 2019-02-21 [facility] 00:15:00 Yuk Mao Jainism ESTIMATED GFR 2019-02-21 [facility] 00:15:00 Yuk Mao Jainism IONIZED CALCIUM 2019-02-21 [facility] 00:15:00 Yuk Mao Jainism POC GLUCOSE 2019-02-20 SebastiánJustin ViktoriyaKaylin Rosman 23:10:00 Jainism POC GLUCOSE 2019-02-20 Justin Lowery ViktoriyaKaylin Mane 19:06:00 Jainism XR CHEST 1 VW PORTABLE 2019-02-20 Orestes Romero Mane 16:30:00 Jainism XR ABDOMEN 1 VW PORTABLE 2019-02-20 Orestes Romeroto n 16:30:00 Jainism POC GLUCOSE 2019-02-20 Justin Lowery ViktoriyaKaylin Rosman 15:11:00 Jainism POC GLUCOSE 2019-02-20 Justin Lowery ViktoriyaKaylin Rosman 11:51:00 Jainism POC GLUCOSE 2019-02-20 Justin Lowery ViktoriyaKaylin Rosman 07:21:00 Jainism POC GLUCOSE 2019-02-20 Justin Lowery ViktoriyaKaylin Rosman 03:52:[address] HEAD WO CONTRAST 2019-02-20 Orestes Romero Rosman 02:07:32 Jainism BASIC METABOLIC PANEL 2019-02-20 [facility] 00:50:00 Jainism MAGNESIUM LEVEL 2019-02-20 [facility] 00:50:00 Jainism PHOSPHORUS LEVEL 2019-02-20 [facility] 00:50:00 Jainism ESTIMATED GFR 2019-02-20 [facility] 00:50:00 Jainism CBC HEMOGRAM 2019-02-20 [facility] 00:20:00 Jainism ARTERIAL BLOOD GAS 2019-02-20 Paul Herring 00:20:00 Ramez Jainism IONIZED CALCIUM, ARTERIAL 2019-02-20 Paul Herring n 00:20:00 Ramez Jainism POC GLUCOSE 2019-02-20 Justin Lowery ViktoriyaKaylin Rosman 00:15:00 Jainism MRI BRAIN W WO CONTRAST 2019-02-19 Delaney Manaj Rosman 21:12:00 Jainism POC GLUCOSE 2019-02-19 Justin Lowery Rosman 19:53:[address] ANGIOGRAM ABDOMEN W WO CONTRAST 2019-02-19 Yamila Mclaughlina sherrie Rosman 18:47:33 Jainism POC GLUCOSE 2019-02-19 Justin Lowery Mane 15:10:00 Jainism US RENAL DOPPLER 2019-02-19 Aolndra Mclaughlin 13:00:00 Jainism POTASSIUM LEVEL 2019-02-19 Paul Herring 12:25:00 Ramez Jainism IONIZED CALCIUM 2019-02-19 Paul Herring 12:25:00 Ramezmarck Bennett POC GLUCOSE 2019-02-19 SebastiánJustin Rosman 11:37:00 Jainism TTE COMPLETE, WO CONTRAST, W 2019-02-19 NimaAnkurin Adeolaperla anglin DOPPLER ([id number]) 09:10:00 Ramezmarck Bennett POC GLUCOSE 2019-02-19 Sebastián, Justin Gonzales Rosman 07:41:00 Jainism XR CHEST 1 VW PORTABLE 2019-02-19 Nima Paul Mane 05:52:00 Ramezmarck Bennett XR ABDOMEN 1 VW PORTABLE 2019-02-19 Nima Paul Alhaji 05:47:00 Ramezmarck Bennett POC GLUCOSE 2019-02-19 SebastiánJustin Rosman 04:19:[address] HEAD WO CONTRAST 2019-02-19 Nima Pauldestiny Mane 03:58:41 Ramez Bennett AR INSERT 2019-02-19 Nima Pauldestiny Mane CATH,ART,PERCUT,SHORTTERM 02:57:42 Ramez Method ist BASIC METABOLIC PANEL 2019-02-19 Nima Paul Alhaji 01:07:00 Ramez Bennett MAGNESIUM LEVEL 2019-02-19 Nima Paul Alhaji 01:07:00 Ramez Jainism PHOSPHORUS LEVEL 2019-02-19 NimaPaul Mane 01:07:00 Ramez Bennett ESTIMATED GFR 2019-02-19 Nima Paul Alhaji 01:07:00 Ramez Bennett LACTIC ACID LEVEL 2019-02-19 Nima Paul Alhaji 01:07:00 Ramezmarck Bennett TROPONIN 2019-02-19 Allison Chew Rosman 01:00:00 Johnnie Bennett ARTERIAL BLOOD GAS 2019-02-19 Nima Paul Alhaji 00:41:00 Ramez Bennett HC COMPLETE BLD COUNT W/AUTO DIFF 2019-02-19 Nima Paul Alhaji 00:41:00 Ramez Jainism IONIZED CALCIUM, ARTERIAL 2019-02-19 [facility]00 Ramezmarck Meansist TYPE AND SCREEN 2019-02-19 Nima Paul Alhaji 00:41:00 Ramez Jainism POC GLUCOSE 2019-02-19 Sebastián Justin Gonzales Rosman 00:22:00 Jainism TROPONIN 2019-02-18 Allison Chew Rosman 22:45:00 Johnnie Bennett LACTIC ACID LEVEL 2019-02-18 Rehrer [facility] 22:45:[address] ANGIOGRAM HEAD W WO CONTRAST 2019-02-18 Rehrer, [facility] 21:07:[address] ANGIOGRAM NECK W WO CONTRAST 2019-02-18 Rehrer, [facility] 21:04:50 Demetri Jainism ARTERIAL BLOOD GAS 2019-02-18 [facility] 20:50:00 Demetri Jainism ALCOHOL LEVEL, BLOOD 2019-02-18 [facility] 20:47:00 Demetri Jainism URINE CULTURE 2019-02-18 Rehrer, [facility] 20:40:00 Demetri Jainism URINE DRUGS OF ABUSE SCREEN 2019-02-18 [facility], [place] 20:40:00 Demetri Jainism URINALYSIS SCREEN AND MICROSCOPY, 2019-02-18 Rehrer, [facility] WITH REFLEX TO CULTURE 20:40:[address] STROKE BRAIN WO CONTRAST 2019-02-18 [facility], [place] [facility] 20:22:38 Demetri Jainism XR CHEST 1 VW PORTABLE 2019-02-18 Rehrer, [facility] 20:06:40 Demetri Jainism POC GLUCOSE 2019-02-18 Rehrer, [facility] 20:02:00 Demetri Jainism AR CRITICAL CARE, E/M 30-74 2019-02-18 Rehrer, [facility] ton MINUTES 19:54:36 Demetri Jainism INTUBATION 2019-02-18 Rehrer, [facility] 19:54:36 Demetri Jainism AR PLACEMENT NG/OG TUBE BY 2019-02-18 [facility] 19:54:36 Demetri Jainism ECG ED PRELIMINARY INTERPRETATION 2019-02-18 Rehrer, [facility] 19:54:36 Demetri Jainism ECG 12-LEAD 2019-02-18 Rehrer, [facility] 19:51:59 Demetri Jainism COMPREHENSIVE METABOLIC PANEL 2019-02-18 Rehrer, [facility] severo 19:50:00 Demetri Jainism HC COMPLETE BLD COUNT W/AUTO DIFF 2019-02-18 Rehrer, [facility] 19:50:00 Demetri Jainism LACTIC ACID LEVEL 2019-02-18 Rehrer, [facility] 19:50:00 Demetri Jainism PROTHROMBIN TIME WITH INR 2019-02-18 [facility], [place] [facility] 19:50:00 Demetri Jainism PARTIAL THROMBOPLASTIN TIME (PTT) 2019-02-18 Rehrer, [facility] 19:50:00 Demetri Bennett TROPONIN 2019-02-18 Rehrer, [facility] 19:50:00 Demetri Bennett ESTIMATED GFR 2019-02-18 Rehrer, [facility] 19:50:00 Demetri Bennett ECHG EKG PROC 12 LEAD EKG; TRACING 2019-01-05 Maverick Hampton [facility] ONLY 23:06:32 TROPONIN I POC 2019-01-05 ChristopherAdrienne hernández Nona [facility] 19:59:00 ECHG EKG PROC 12 LEAD EKG; TRACING 2019-01-05 Maverick Hampton [facility] ONLY 19:47:56 U/S ABDOMEN 2019-01-05 Janina Johnson [facility] 18:14:00 XRAY CHEST 2 VIEWS 2019-01-05 Janina Johnson [facility] th 17:20:02 BMP POC 2019-01-05 Unknown, Provider [facility] 13:42:00 TROPONIN I POC 2019-01-05 Unknown, Provider [facility] 13:41:00 CBC/DIFF 2019-01-05 Rola Burnett [facility] 13:35:00 LIVER PROFILE 2019-01-05 Héctor [facility] 13:35:00 LIPASE 2019-01-05 Ocfuaddavidson Rola [facility] 13:35:00 URINALYSIS 2019-01-05 Rola Burnett [facility] 13:35:00 CBC 2019-01-05 Héctor [facility] 13:35:00 URINALYSIS 2019-01-05 Héctor [facility] 13:35:00 ECHG EKG PROC 12 LEAD EKG; TRACING 2019-01-05 Héctor Corbinjennifer harris [facility] ONLY 13:19:26 Plan of Care Planned Activity Planned Date Details Comments Source Future Scheduled 2019-11-08 IMM Influenza Alexander Rodrigue[facility] Test 00:00:00 Seasonal Nov to April (>/= 19 yrs) [code = IMM Influenza Seasonal Nov to April (>/= 19 yrs)] Future Scheduled 2019-09-08 INFLUENZA VACCINE Nino Bennett Test 00:00:00 [code = INFLUENZA VACCINE] Future [facility] malignant neoplasm of colon (procedure) [code = 792805253] Future Scheduled 2014 COLONOSCOPY SCREENING Ho severo [facility] Test 00:00:00 [code = COLONOSCOPY SCREENING] Future Scheduled 2014 SHINGLES VACCINES [place] [facility] Test 00:00:00 (#1) [code = SHINGLES VACCINES (#1)] Encounters Start End Encounter Admission Attending Care Care Encounter Source Date/Time Date/Time Type Type Clinicians Facility Department ID 2019-03-09 2019-05-30 Inpatient SIMON, [facility] [id number] Rosman 00:00:00 00:00:00 JOHN PAUL 826 Method i 2019-02-18 2019-03-09 Inpatient [facility] [id number] Rosman 00:00:00 00:00:[address] 2017-08-29 2017-08-29 Outpatient [facility] [id number] [place] [address] 00:00:00 00:00:00 [facility] 2017-04-21 2017-06-[address] [facility] [id number] [place] 00:00:00 00:00:00 [facility] 2017-06-13 2017-06-[address] [facility] [id number] [place] 05:39:01 05:39:01 [facility] 2017-05-10 2017-05-10 Outpatient [facility] [id number] [place] [address] 00:00:00 00:00:00 [facility] 2017-03-24 2017-03-24 Outpatient [facility] [id number] [facility] 00:00:00 00:00:00 2017-03-16 2017-03-16 Outpatient [facility] [id number] [facility] 15:34:40 15:34:40 2017-02-25 2017-02-25 Emergency [facility] [id number] [place] 17:23:23 17:23:23 Health 2017-02-25 2017-02-25 Emergency [facility] [id number] [place] 16:50:39 16:50:39 Health 2017-02-25 2017-02-25 Emergency [facility] [id number] [place] 16:41:18 16:41:18 Health 2017-02-25 2017-02-25 Emergency [facility] [id number] [place] 16:39:52 16:39:52 Health 2017-02-18 2017-02-20 Inpatient E JEM AVILEZ [facility] MED [id number] 14:40:00 13:40:00 Jose De Jesus CARTER [facility] 2017-02-16 2017-02-16 Emergency E KYREE [facility] MED [id number] 17:19:00 17:19:00 [facility] 2016-12-22 2016-12-22 Outpatient [facility] [id number] [place] 16:45:23 16:45:23 Health 2016-12-14 2016-12-14 Outpatient [facility] [id number] [place] 00:00:00 00:00:00 [facility] 2016-12-11 2016-12-11 Emergency [facility] [id number] [place] 20:30:05 20:30:05 [facility] 2016-11-23 2016-11-23 Outpatient [facility] [id number] [place] 08:59:18 08:59:18 [facility] 2016-11-23 2016-11-23 Outpatient [facility] [id number] [place] 00:00:00 00:00:00 [facility] 2016-11-21 2016-11-21 Emergency [facility] [id number] [place] 02:00:13 02:00:13 [facility] 2016-11-20 2016-11-20 Emergency [facility] [id number] [place] 23:43:07 23:43:07 Health Results Test Description Test Time Test Comments Results Result Sour e Comments PEG tube removal 2019-05-10 Shannan Durham [place] 2 YANELY 05/30/2019 Methodis t 08:54:30 10:23 AMPEG tube removalDate/Time: 05/30/2019 8:55 AMPerformed by: Shannan Durham NPAuthorized by: Shannan Durham NP Consent: Consent obtained: Verbal Consent given by: Patient Risks discussed: Pain and bleeding Alternatives discussed: Delayed treatmentIndication s: Indications: No more use of PEG tubeAnesthesia (see MAR for exact dosages): Anesthesia method: NonePost-procedure details: Patient tolerance of procedure: Tolerated well, no immediate complicationsCommen ts: PEG tube came out as whole. No bleeding present. Applied pressure at the site. Applied clean sterile dressing. Basic metabolic panel 2019-05-30 06:58:52 Test Item Value Reference Range Interpretation Comme nts Sodium (test code = 2951-2) 144 135- 148 mEq/L Potassium (test code = 2823-3) 3.3 3.5- 5.0 mEq/L L Chloride (test code = 2075-0) 103 99- 109 mEq/L CO2 (test code = 2027-9) 26 24- 31 mEq/L Anion gap (test code = 80041-6) 15@ANIO 7- 15 mEq/L BUN (test code = 3094-0) 15 mg/dL 8-24 Creatinine (test code = 2160-0) 1.05 mg/dL 0.7-1.2 Glucose (test code = 2345-7) 80 mg/dL 65-99 Calcium (test code = 37426-6) 11.4 mg/dL 8.6-10.6 H Lab Interpretation (test code = 68600-4) Abnormal Mane MethodistEstimated [id number] 06:58:52 Test Item Value Reference Range Interpretation Comments Estimated GFR (test >=90 mL/min/1.73 m2 [facility] Units code = 5488) InterpretationG 1 >=90 Normal or highG2 60-89 Mildly ensyzunodQ2o 45-59 Mildly to mode rately hqnzwmbxmS4e 30-44 Moderately to severely decreasedG4 15-29 Severely decre asedG5 <15 Kidn ey failureThe eGFR was calculated joe pina the Chronic Kidney Disease Epidemiology Co llaboration (CKD-EPI) equat ion. Interpretation is based on recommendations of the National Kidney Foundation-Kidn ey Disease Outcomes Qualit y Initiative (NKF-KDOQI) pub lished in 2014. Alhaji MethodistPartial thromboplastin time, [id number] 06:51:51 Test Item Value Reference Range Interpretation Comments PTT (test code = 35.2 23.0- 36.0 sec PTT thera peutic range for 3173-2) unfractionated heparin is61.0-112.0 se conds which corresponds to Anti-Xa0.3-0.7 U/ml. Alhaji MethodistProthrombin time with [id number] 06:51:38 Test Item Value Reference Range Interpretation Comments Prothrombin time (test 13.9 11.5- 14.5 sec code = 5902-2) INR (test code = 1.1 The Interna tional 44329-8) Normalized Rati o (INR) is a therapeutic m onitoring tool for patien ts who are stable on oral anticoagulant t herapy. An INR of 2.0-3.0 is suggested for d eep vein thrombosis/pulm onary embolism. Alhaji MethodistCBC with platelet and [id number] 06:35:40 Test Item Value Reference Range Interpretation Comments WBC (test code = 72854-7) 7.53 4.50- 11.00 k/uL RBC (test code = 87922-1) 4.33 m/uL 4.4-6 L HGB (test code = 718-7) 14.2 g/dL 14-18 HCT (test code = 4544-3) 41.5 % 41-51 MCV (test code = 787-2) 95.8 fL 82-100 MCH (test code = 785-6) 32.8 pg 27-34 MCHC (test code = 786-4) 34.2 g/dL 31-37 RDW - SD (test code = 30992-5) 41.6 fL 37-55 MPV (test code = 38773-5) 12.2 fL 8.8-13.2 Platelet count (test code = 225 150- 400 k/uL 45832-9) Neutrophils (test code = 39529-3) 42.6 % 39-69 Lymphocytes (test code = 56137-8) 44.0 % 25-45 Monocytes (test code = 92306-0) 8.8 % 0-10 Eosinophils (test code = 21111-9) 4.2 % 0-5 Basophils (test code = 79193-2) 0.3 % 0-1 Immature granulocytes (test code = 0.1 % 0-1 14134-5) Lab Interpretation (test code = Abnormal 39637-5) Mane MethodistXR Abdomen 1 [id number] 17:34:05Hm Interface, Radiology Results - 05/29/2019 5:37 PM CDTEXAMINATION: XR ABDOMEN 1 VWCLINICAL HISTORY: PEG tube removalCOMPARISON: KUB from 03/06/2019IMPRESSION:Radiopaque tubing likely representing a gastrostomy feeding tube overlies the mid abdomen. Confirmation of placement of the tube is not possible on this radiograph. If placement within the stomach needs to be confirmed, recommend injection of enteric contrast and follow-up imaging with a repeat KUB.A moderate amount of stool seen throughout the visualized portions of the colon, correlate for constipation. No dilated gas-filled loops of large or small bowel are noted.[facility]-WPHYAAWHousMemorial Herm[facility] hyfmhnq9518-74-45 16:13:44 Test Item Value Reference Range Interpretation Comments POC glucose (test code = 103 mg/dL 65-99 H Poi nt of Care 95518-5) Testing perform ed at [facility],[address], [place], [place] [address]Aigwkumi N stephie: Osvaldo Anaya ice ID: [id number] able: HMW Notified value analysis coordinator Interpretation (test Abnormal code = 17267-1) [facility] vficd5834-07-45 07:02:25 Test Item Value Reference Range Interpretation Comments Sodium (test code = 2951-2) 147 135- 148 mEq/L Potassium (test code = 2823-3) 3.4 3.5- 5.0 mEq/L L Chloride (test code = 2075-0) 108 99- 109 mEq/L CO2 (test code = 2027-9) 25 24- 31 mEq/L Anion gap (test code = 26524-7) 14@ANIO 7- 15 mEq/L BUN (test code = 3094-0) 19 mg/dL 8-24 Creatinine (test code = 2160-0) 0.83 mg/dL 0.7-1.2 Glucose (test code = 2345-7) 80 mg/dL 65-99 Calcium (test code = 39752-8) 10.2 mg/dL 8.6-10.6 Protein (test code = 2885-2) 7.7 g/dL 6.3-8.2 Albumin (test code = 1751-7) 2.7 g/dL 3.5-5 L A/G ratio (test code = 1759-0) 0.5 0.7-3.8 L Alkaline phosphatase (test code = 187 U/L 30-115 H 6768-6) AST (test code = 1920-8) 91 U/L 15-46 H ALT (test code = 1742-6) 67 U/L 10-55 H Total bilirubin (test code = 0.7 mg/dL 0.2-1.2 1975-2) Lab Interpretation (test code = Abnormal 61205-5) Rosman MethodistManual ndpbhlzqdgvt3826-26-14 09:16:58 Test Item Value Reference Range Interpretation Comments Manual differential (test code = PERFORMED 21055-7) Neutrophils (test code = 38.0 % 39-69 L 18874-9) Lymphocytes (test code = 48.0 % 25-45 H 96911-0) Monocytes (test code = 99507-2) 7.0 % 0-10 Eosinophils (test code = 6.0 % 0-5 H 72416-3) Basophils (test code = 48894-0) 1.0 % 0-1 Metamyelocytes (test code = 0 % 740-1) Promyelocytes (test code = 0 % 783-1) Platelet slide review (test code Lowell adequate = 18339-4) Anisocytosis (test code = 702-1) Moderate Polychromasia (test code = Moderate 38513-8) Tear drop cells (test code = Occasional 7791-7) Enlarged platelets (test code = Moderate A 12125-2) Lab Interpretation (test code = Abnormal 25815-9) Rosman MethodistSmear sqqtmm7677-79-64 08:00:58 Test Item Value Reference Range Interpretation Comments Platelet slide review (test code Lowell adequate = 77344-8) Rosman MethodistCT Head Wo Caecfgdx8708-50-52 13:27:31Hm Interface, Radiology Results - 04/19/2019 1:30 PM CDTEXAMINATION: CT HEAD WO CONTRASTCL INICAL HISTORY: Altered level of consciousness (LOC) unexplained, Stroke follow upCOMPARISON: CThead 02/21/2019TECHNIQUE: Noncontrast head CT performed using radiation dose reduction techniques. Technical factors are evaluated and adjusted to ensure appropriate moderation of exposure. Automated dose management technology is applied to adjust radiation exposure while achieving a diagnostic quality image. FINDINGS:Examination is limited by patient motion. No evidence of acute intracranial hemorrhage, mass, mass effect, midline shift, or acute infarct. Encephalomalacia in the left brachium pontis, wilma, and cerebellar peduncle in previously noted region of hemorrhage. Multiple chronic colmenares radiata infarcts. Moderate chronic microvascular ischemic change. Basal cisterns are clear. Intracranial vascular calcifications are present.Calvarium is intact. Visualized orbits are normal in appearance. Visualized paranasal sinuses are clear. Large left mastoid and small right mastoid effusion.IMPRESS ION:1. Examination is limited by patient motion. No CT evidence of acute intracranial abnormality.HMTW-[id number] MethodistMagnesium level 2019-04-19 06:52:26 Test Item Value Reference Range Interpretation Comments Magnesium (test code = 96600-9) 1.8 mg/dL 1.7-2.4 Rosman MiguelangelistHeparin PF4 antibody (IgG)2019-04-17 03:32:29 Test Item Value Reference Range Interpretation Comments Heparin PF4 Ab OD reading (test code 0.194 0.000-0.399 = 1500) Heparin PF4 Ab, IgG (test code = Negative Negative 43253-0) Rosman JainismUS Ykcvhnpekuq3469-39-29 19:42:18Hm Interface, Radiology Results 04/16/2019 7:45 PM CDTEXAMINATION: US GALLBLADDERCLINICAL HISTORY:Abn liver function tests (LFTs)COMPARISON: CT angiogram dated 02/19/2019 IMPRESSION:1. Thegallbladder is not seen. A liver mass is not seen. The study is limited due to bowel gas and alteredmental status with the patient not being able to cooperate with the exam.2. CBD: The common bile duct is within normal limits.. The duct measures 4.6 mm.3. Other Findings: NoneOPC-[id number] MethodistXR Chest 1 Vw Hmyynrtb7275-45-89 13:56:53Hm Interface, Radiology Results 03/15/2019 2:00 PM CSTEXAMINATION: XR CHEST 1 VW PORTABL ECLINICAL HISTORY: TachypneaIMPRESSION:Aorta is tortuous. Heart size is at upper limits of normal. Lungs are clear. Regional skeleton is intact.HMWH-[id number] MethodistThyroid stimulating iychlkw6882-08-11 07:10:27 Test Item Value Reference Range Interpretation Comments TSH (test code = 3016-3) 1.01 0.55- 4.78 uIU/mL Rosman JainismVitamin C level, anfboo0071-93-30 14:53:31 Test Item Value Reference Range Interpretation Comments Vitamin C, plasma 31 umol/L 23-114 INTERPRETI VE DATA: Vitamin (test code = C (Ascorbic Aci d), 92172-3) PlasmaVitamin C concentrations lower than 11 umol/L indic ate deficiency. Con centrations between 11 and 23 umol/L are consistent with a moderate risk o f deficiency due to inadequate tiss ue stores. Vitamin C soctt ntration is reported as maverick romoles per liter (umol/L). To convert concentration t o milligrams per deciliter (mg/dL), multip ly the result by 0.017 6.Test developed and characteristics determined by [employer]. See Compliance Stat ement B: [employer]/CSP erformed by [employer] [facility],[address], [place] [address] snx .SiteJabber.co mLaw MD, Lab. Director [facility]hamPhosphorus mqalo3838-75-25 02:08:06 Test Item Value Reference Range Interpretation Comments Phosphorus (test code = 2777-1) 3.8 mg/dL 2.4-4.5 [facility] CenteristIonized meelzvx1603-62-51 02:05:46 Test Item Value Reference Range Interpretation Comments pH (test code = 2753-2) 7.49 Ionized calcium (test code = 1.21 mmol/L 1.11-1.32 ) [facility] zpninbkr8976-74-53 00:56:38 Test Item Value Reference Range Interpretation Comments WBC (test code = 25962-7) 7.22 4.50- 11.00 k/uL RBC (test code = 42759-6) 3.96 m/uL 4.4-6 L HGB (test code = 718-7) 12.2 g/dL 14-18 L HCT (test code = 4544-3) 37.2 % 41-51 L MCV (test code = 787-2) 93.9 fL 82-100 MCH (test code = 785-6) 30.8 pg 27-34 MCHC (test code = 786-4) 32.8 g/dL 31-37 RDW - SD (test code = 70406-9) 47.5 fL 37-55 MPV (test code = 61898-9) 10.8 fL 8.8-13.2 Platelet count (test code = 434 150- 400 k/uL H 55213-5) Nucleated RBC (test code = 0.00 /100 WBC 28499-0) Lab Interpretation (test code = Abnormal 56764-4) [facility] c[facility] coronary arteries w contrast and ffr if wvkgpq2029-04-78 16:34:00Interface, Radiology Results In - 03/06/2019 4:34 PM MEDICAL EDUCATION COORDINATOR Nuclear Cardiology and Cardiac CT [address] [place] [address] CTA Coronary Arteries ReportPat.Name: CHLOE WOODS Pat.ID: [id number] .Date: 03/06/2019 Refer.MD: ALLISON CHAMBERS MD. Exam Time: 12:25:00 PM [facility] Type:CTA Coronary Arteries Height: 70in Weight: 181lb BSA: 2 m2 Age: 608/06/1965,53Y Sex: MALE BP: 165/82 HR: 77 bpm Nuclear Tech:RT Maximo(R)(CT)Pat. Stat.:Inpatient Tape Vol: 25.91, CPT - 4: CCTA w Thoracic Aorta (NonCongenital) 16710;89744Kyjolam Event ID:[id number] Order ID: [id number] Reason for Study:Endocardititis Procedures: CT Retrospective Race: B SUMMARY: Technique: IV contrast was administered and sequential 0.[address] cutswere obtained through the chest using the Siemens Somatom Force CTscanner. Image post-processing consisting of multiplanar and 3Dreconstructions were performed using the Gig[employer]orkstation. Interactive image viewing, volumetric display andanalysis were also performed.CTA RESULTSLeft Main: A normal sized artery which arises normally from the left sinus ofValsalva and divides into the left anterior descending and circumflexcoronary arteries. Mild predominantly calcified atherosclerotic plaqueis present but without significant stenosis. A small branch coursesposterior and superiorly between the LM and left atrium The left main has a high take-off, arising superior to the aortic rootcusp at the level of the ST junction.Leftanterior descending (LAD): A normal sized artery which wraps around the apex and gives off onediagonal branch. Moderate calcified and non-calcified atheroscleroticplaque is present in the proximal and distal segments but withoutsignificant stenosis in the visualized segments. A portion of theLAD's mid segment cannot be assessed due to motion artifact.The first diagonal is a normal sized bifurcating artery which has mildpredominantly calcified atherosclerotic plaque present but with nosignificant stenosis. Left circumflex: A normal sized non-dominant artery which arises normally from the leftmain and gives off one large major obtuse marginal artery beforeterminating in the AV groove. Mild predominantly calcifiedatherosclerotic plaque is present in the proximal segment with butwithout significant stenosis. The first obtuse marginal is a large mm trifurcating artery which hasno significant atherosc lerotic plaque present in the visualizedproximal and mid segments.Right coronary artery: A normal sized dominant artery which arises normally from the rightsinus of Valsalva and gives off a large rightventricular branche, theposterior descending artery and the posterolateral artery. Mildpredominantlycalcified atherosclerotic plaque is present in theproximal segment but without significant stenosis. The RCA has a hightake-off, arising superior to the aortic root cusp at the level of theST junction.The posterior descending is not well visualized. It probably branchesout of the large RV branch, which has no significant atheroscleroticplaque present.The posterolateral is a small artery which has no significantatherosclerotic plaque present. Stents: None.Bypass Grafts: None. Pulmonary Arteries:Normal pulmonary artery sizes with no proximal thrombus identified.Left Atrial and Pulmonary Vein Dimensions:Left atrial size (A-P diameter) 4.5 cm.Left atrial volume 117 ml.Variant PV anatomy (superior PV) .There is no evidence of the left atrial appendage clot.Left Ventricular Valve Morphology/Function:LV end-diastolic volume is 153 mLLV end-systolic volume is 55 mLLVE is 64% with normal wall motion.LV septal wall thickness 11 mm.Aortic valve is tri-leaflet and there is no evidence of stenosis.Mitral valve is normal without evidence of stenosis. Thoracic Aortic Dimensions:No aortic aneurysm or dissection is seen. Aortic root 3.3 cm.Sinotubular junction 3.0 cm.Mid ascending aorta 3.8 cm.Descending thoracic aorta 2.6 cm.Pericardium:No pericardial effusion or pericardial thickening.Non-Cardiac Findings:Small bilateral pleural effusions.A gastric tube is noted.CONCLUSIONCoronary CTA shows mild coronary atherosclerosis but no significantcoronary artery stenosis in the visualized segments. The left main andRCA exhibit high take-off at the level of the ST junction.No evidence of left sided valvular endocarditis or abscessThe LVEF is normal. There is no evidence of the left atrial appendage clot.Please refer to the separate radiology report in [facility] ofnon-cardiovascular findings. STUDY QUALITYThe study quality is good.COMMENTSNone. FINDINGS: Signed 03/06/2019 04:34 PMSu Karen Sloan MethodistXR Abdomen 1 Vw Xzlseotq7360-48-20 09:55:15Hm Interface, Radiology Results Incoming - 03/06/2019 9:58 AM CSTEXAM: XR ABDOMEN 1 VW PORTABLECLINICAL: IleusCOMPARISON: 02/28/2019IMPRESSION: 1.Dobbhoff tube advanced into the third portion duodenum.2.Nonspecific gaseous distention of loops of small bowel and colon, possible ileus.3.Lung bases are clear.4.No acute osseous abnormality.HMTW-[id number] JainismVitamin B12 flbdb8102-58-74 06:24:21 Test Item Value Reference Range Interpretation Comments Vitamin B12 (test 611 pg/mL 211-946 Significan t overlap code = 2132-9) exists betwee n normal and deficiency states.However, most patients with deficiencies wi ll have Serum B12 <2 00 pg/mL. Alhaji BennettVitamin D 25 hydroxy vxgun1626-37-29 03:51:37 Test Item Value Reference Range Interpretation Comments Vitamin D, 25-hydroxy 13.5 ng/mL 30-150 L This a ssay reports (test code = 1988-) the sum of 25-hydroxy nicolle min D3 and 25-hydro xy vitamin D2. Reference range :0-17 years:Deficienc y: less than 20ng/mLOptimum level: greater than or equal to 20 ng/mL.18 years and older:Deficienc y: less than 20ng/mLInsuffic iency : 20-29 ng/mLOp timum Level: 30-80 ng/mLThe assay reportable rang e is 3.4 155.9 ng/m L. Levels higher t angela 150 ng/mL may b e associated with toxicity.If tox icity is clinically suspected and t he reported result is >155.9 ng/mL,co ntact lab for alterna tive methods to obta in a definitive lev el.If separate quantitation of 25-hydroxy nicolle min D3 and 25-hydro xy vitamin D2 is needed, please contact lab for alternative met hods. Lab Interpretation Abnormal (test code = 51391-1) Mane MethodistSodium epaix3230-86-05 14:36:49 Test Item Value Reference Range Interpretation Comments Sodium (test code = 2951-2) 143 135- 148 mEq/L Rosman MethodistArterial blood zrl8835-88-23 00:42:54 Test Item Value Reference Range Interpretation Comments pH, arterial (test code = 2744-1) 7.45 7.35-7.45 pCO2, arterial (test code = 35 35- 45 mmHg 2018-) pO2, arterial (test code = 106 80- 90 mmHg H 2703-7) Bicarbonate, arterial (test code 24.2 mmol/L 21-28 = 1960-4) Base excess, arterial (test code 1 -2 - 2 mEq-L = 1925-7) O2 saturation, arterial (test 98 % 95-100 code = 2708-6) Lab Interpretation (test code = Abnormal 23613-6) Mane MethodistBlood culture, aerobic & qhmpnjexa1827-15-16 13:03:04 Test Item Value Reference Range Interpretation Comments Blood culture No growth Specimen isolate (test after 5 days InformationSpe cimen code = 600-7) of Source: BloodS pecimen incubation. Site: Hand, [facility] Alhaji MethodistIonized calcium, cpoeikmb5048-39-81 00:59:53 Test Item Value Reference Range Interpretation Comments Ionized calcium, arterial (test 1.19 mmol/L 1.11-1.32 code = 26288-3) Mane MethodistUrine iatsgmziysg4371-84-43 22:44:34 Test Item Value Reference Range Interpretation Comments Eosinophils, urine (test code = NONE 00086-7) Rosman MethodistEchocardiogram kydixjcassoeiud1311-26-89 15:58:00Interface, Radiology Results In - 02/28/2019 3:59 PM MEDICAL EDUCATION COORDINATOR Transesophageal Echo Report [address], [place], [place] [address] Pat.Name: CHLOE WOODS Pat.ID: [id number] St.D ate: 02/28/2019 Refer.MD: JUSTIN LOWERY MD Exam Time: 10:08:00 AMStudy Type:ROSA Height: 70in Weight: 181lb BSA: 2 m2 Age: 608/06/1965,53Y Sex: MALE BP: 159/78 HR: 60 bpm Sonogrphr: Guillaume De La Rosa MD Room: [facility]( [facility]) Study Status:Final Echo Event ID:[id number] Order ID: [id number] Reason for Study:THROMBUS History / Clinical:Pontine hemorrhageProcedures: Transesophageal Echo with Colorflow DopplerRace: B SUMMARY: No thrombus or mass is visualized in the LA or LA appendage.No Valvular vegetations visualized.There is an echo lucency adjacent to the sinotubular junction superiorto the LCC of the aortic valve. This may represent an unusually largeor prominent coronary artery. If infection is a clinical concern, thisarea would be better evaluated with a cardiac CT. FINDINGS: ROSA: The attending worm farmer performed the ROSA procedure and was present for the entire duration. The patient was counseled and an informed consent wasobtained. Topical and intravenous anesthesia was administered. The esophagus was intubated without difficulty. The probe was passed to the gastric fundus and all standard echocardiographic views were obtained. The patient tolerated the procedure well.LV: LV size is normal. LV EF is hyperdynamic. Overall wall motion is hyperdynamic. Estimated EF is >70%.RV: RV size is normal. RV systolic function is normal.LA: LA volume is mildly e nlarged. No thrombus or mass is visualized in the LA or LA appendage.RA: RA size is normal.AO: Aortic root diameter is normal.DEANNA: No pericardial effusion.AV: Focal thickening and calcification of AV left coronary cusp. Mild central aortic regurgitation.MV: No structural MV abnormalities noted.PV: No structural PV abnormalities noted.TV: Nostructural TV abnormalities noted. ROSA: ---------Anesthesia: Moderate Sedation ASA Class: 4Physician: Tyler Redman M.D. Preschool Assistant Director: Kapil Serra ROSA BP HR Post ROSA BP HR 159/78 60 148/69 60Meds: Viscous xylocaine, Cetacaine spray to oropharynx, Versed 2mgIV, Fentanyl 50 mcg IVComplications: None Condition: Stable Signed 02/28/2019 03:58 PMSbhakti Redman M.D.Rosman MethodistHIV Ag/Ab combination 2019-02-27 02:10:00 Test Item Value Reference Range Interpretation Comments HIV Ag/Ab combination (test code Non-reactive Non-reactive = 5299) Rosman JainismUs duplex venous lower rltkiosmh9092-91-90 23:02:00Interface, Radiology Results In - 02/24/2019 11:04 PM [facility] Vascular Ultrasound Laboratory Lower Extremity Venous Owgimy[address] [address] Pat.Name: CHLOE WOODS Pat.ID: [id number] .Date: 02/24/2019 Refer.MD: JUSTIN LOWERY MD Exam Time: 7:52:00 PM Study Type:LE Venous Height: 70in Weight: 181lb BSA: 2 m2 Age: 608/06/1965,53Y Sex: MALE Sonogrphr: Venkatesh Chavez RVT, MICHAEL Pat. Stat.:Inpatient Room: JH0530-V Tape Vol: [facility], [facility] - 4: [id number] Echo Event ID:[id number] Order ID: [id number] Reason for Study:Evaluate for DVT. PMH of stroke, HTN.Procedures: Colorflow, Grayscale/2D, Pulsed wave DopplerRace: B SUMMARY:------- DUPLEX SCAN OBSERVATIONS Deep Veins Superficial Veins Right Left Right LeftEIV GSV (prox) Normal NormalCFV Normal Normal (above knee)Femoral Normal Normal GSV (dist) Normal NormalProfunda Normal Normal (below knee)Popliteal Normal NormalPT (prox) Normal Normal SSV Normal NormalPT (dist) Normal Normal Peroneal Normal Normal Gastrocs Normal Normal RIGHT: There is normal compressibility with no evidence of echogenicmaterial noted within the lumen of the visualizedveins.Colorflow andDoppler signals are normal. LEFT: There is normal compressibility with no evidence of echogenicmaterial noted within the lumen of the visualized veins.Colorflow andDoppler signals are normal. PRELIMINARY FINDINGS1. No evidence of venous thrombosis in the visualized veins. PHYSICIAN INTERPRETATION Venous examination of the both lower extremities demonstrated noevidence of venous thrombosis in the visualized veins. Normalcompressibility and augmentation of all veins visualized. FINDINGS: -Signed 02/24/2019 11:02 PMYash Stanley MD, RPAbdelrahman MethodistGram stain 2019-02-24 13:20:35Gram stain isolateMany WBC'sModerate Gram positive cocci in pairs Comment: Specimen InformationSpecimen Source: Mini bronchial alveolar lavage Specimen Site: UNSPECIFIED [facility] Jainism Sedimentation [id number] 01:33:01 Test Item Value Reference Range Interpretation Comments Sedimentation rate (test code = 62 0- 10 mm/hr H 41387-4) Lab Interpretation (test code = Abnormal 42195-7) [facility] [place] [place] Brain Wo Zsqzuvwo8178-62-54 17:40:17Hm Interface, Radiology Results Incoming 02/21/2019 5:43 PM CSTEXAMINATION: MRI BRAIN WO CONTRAST COMPARISON: February 19, 2019.CLINICAL HISTORY: STROKECOMMENTS: Multiplanar MR imaging of the brain was obtained without contrast material.FINDINGS: The appearance of acute hemorrhage in the left cerebellum extending to the wilma and midbrain is again noted. The slight diffusion signal change along the margins is again identified. There is a tiny new focus of acute ischemic change in the superior cerebellar vermis and also at the left posterior insula.The scattered areas of susceptibility artifactin the brain are again identified.The appearance of small amounts of hemorrhage in the occipital horns of the lateral ventricles is again noted.The moderate signal change in the periventricular white matter is again noted. The chronic insults in the periventricular white matter focally are again noted.The expected flow voids are present in the internal carotid and basilar arteries. There is mild mucosal thickening in the visualized sinuses. There is mild fluid like signal in the mastoid air cells.IMPRESSION: Parenchymal and intraventricular hemorrhage again noted as described.Tiny new foci of acute ischemic change at the cerebellar vermis superiorly and at the left posterior insula.[facility]-[id number] MethodistEC 12 nekn7190-10-14 22:59:07 Test Item Value Reference Range Interpretation Comments Ventricular rate (test 70 code = 253) Atrial rate (test code = 70 255) AR interval (test code = 148 266) QRSD interval (test code 110 = 260) QT interval (test code = 442 264) QTC interval (test code 477 = 265) P axis 1 (test code = 64 267) QRS axis 1 (test code = -37 268) T wave axis (test code = 71 270) EKG impression (test Normal sinus code = 273) rhythm-Left axis deviation-Minimal voltage criteria for LVH, may be normal variant-Abnormal ECG-No previous ECGs available-Electronica lly Signed By Mariana Chou MD ([id number]) on 02/19/2019 10:59:01 PM [facility]Ro[facility] HospitalI [facility] W Wo Sdmqenlo3055-98-79 22:08:49Hm Interface, Radiology Results Incoming - 02/19/2019 10:11 PM CSTEXAMINATION: MRI BRAIN W WO CONTRASTCLINICAL HISTORY: ICHCOMPARISON: CT brain dated February 19, 2019TECHNIQUE: Multiplanar and multisequence MRI imaging of the brain was obtained with and without contrast.FINDINGS:Diffusion imaging shows some mild diffusion signal changes around the area of the left pontine hemorrhage as expected. There is no acute cortical ischemia. The hematoma in the left wilma extending down the left middle cerebellar peduncle and anterior left cerebellar hemisphere is again noted and grossly similar to prior CT.Postcontrast imaging shows no enhancing lesion in this area. There is mild local mass effect without significant midline shift or effacement of the fourth ventricle.FLAIR imaging shows moderate extensive FLAIR signal changes which are confluent around the periventricular white matter corresponding to the lucencies on CT as well as chronic bilateral colmenares radiata insults. These are stable.There is noextra- axial fluid or hydrocephalus. Visualized paranasal sinuses shows no acute air- fluid levels. Visualized soft tissue shows no gross abnormalities. Coronal imaging shows no midline shift. Sagittal imaging shows no mass lesion. Postcontrast imaging shows no enhancing lesions in the brain parenchyma. IMPRESSION:MRI confirms a hematoma in the left wilma, middle cerebellar peduncle and left cerebellum which is similar to the prior CT with no new or progressive change.[facility]-[id number] MethodistCTA Abdomen W Wo Riyiknzk2289-69-76 19:02:52Hm Interface, Radiology Results Incoming - 02/19/2019 7:06 PM CSTEXAMINATION: CT ANGIOGRAM ABDOMENW WO CONTRASTCLINICAL HISTORY: Eval for renal artery stenosis FU to renal artery USCOMPARISON: Renal Doppler ultrasound 02/19/2019TECHNIQUE:Multiple CT angiographic images of the abdomen were obtained during intravenous administration of contrast. Multiple computerized reformatted images as well as 3-D volume rendered images were also obtained. Precontrast images of the abdomen were also obtained.CT imaging was performed with iterative reconstruction techniques and/or automated exposure control to reduce radiation dose. Findings:1.There are single bilateral main renal arteries which are widelypatent. Renal arterial branches all appear widely patent without stenoses.2.The aorta, superior mesenteric, and inferior mesenteric arteries and imaged visceral branch arteries are normal.3.The partly imaged bilateral common iliac arteries demonstrate minimal atherosclerosis but otherwise are normal.4.There is dependent left lower basal subsegmental atelectasis.5.The liver has a slightly lobular contour, the possibility of cirrhosis is raised.6.Low-attenuation in right hepatic lobe adjacent to gallbl adder may represent focal fatty deposition.7.The spleen, pancreas, and adrenals are normal.8.Renal parenchyma is normal bilaterally. Enhancement is symmetric. There is no hydronephrosis.9.There is an NG tube in the proximal stomach. Otherwise the stomach and imaged bowel loops are within normal limits.10.There is no ascites or lymphadenopathy.11.No significant skeletal abnormality is seen.IMPRESSION:No renal artery stenosis.[facility]-[id number] MethodistUS Renal [id number] 16:15:47Hm Interface, Radiology Results Incoming 02/19/2019 4:18 PM CSTEXAMINATION: US RENAL DOPPLERCLINICAL HISTORY: Uncontrolled HTNTECHNIQUE: Examination includes a full duplex Doppler scan of the renal vessels (real-time B mode grayscale, Doppler spectral analysis, and Doppler color flow imaging).COMPARISON: None.FINDINGS: Right renal arterial waveforms demonstrate normal systolic upstrokes and good end diastolic flow. The right renal vein is patent. Evaluation of the intrarenal arteries demonstrates normal acceleration time and acceleration indices.Left renal arterial waveforms demonstrate normal systolic upstrokes and good end diastolic flow. The left renal vein is patent. Evaluation of the intrarenal arteries demonstrate normal acceleration times and low acceleration indices.IMPRESSION: 1.Low acceleration indices on the left kidney may be artifactual given normal acceleration times and normal Doppler evaluation of the main renal artery. Alternate consideration would include distal renalartery stenosis which could be better evaluated with CTA or MRA of the renal arteries.2. No Doppler evidence of right renal artery stenosis.[facility]-[id number] MethodistEchocardiogram complete w contrast and 3D if [id number] 15:28:00Interface, Radiology Results In 02/19/2019 3:29 PM MEDICAL EDUCATION COORDINATOR Echocardiography Report [id number] [address] Pat.Name: CHLOE WOODS Pat.ID: [id number].Date: 02/19/2019 Refer.MD: JUSTIN LOWERY MD Exam Time: 8:23:00 AM Study Type:Routine Echo Height: 70in Weight: 181lb BSA: 2 m2 Age: 608/06/1965,53Y Sex: MALE BP: 164/68 HR: 77 bpm Sonogrphr: Taya Gambino RDCS, RVTPat. Stat.:Inpatient Room: [address] Study Status:Final Echo Event ID:[id number] Order ID: [id number] Reason for Study:Stroke History / Clinical:Pontine hemorrhageProcedures: 2D Echo, Colorflow Doppler, Strain, Portable SUMMARY: --------Normal LV size with hyperdynamic function and cavitary obliteration.Normal RV size and function.No hemodynamically significant valvular abnormalities. Normal filling pressure. -----FINDINGS: LV: LV size is normal. Concentric left ventricular remodeling. Reduced average LV global longitudinal strain at -14%. LV EF is hyperdynamic with cavity obliteration. Overall wall motion is hyperdynamic. Estimated EF is >70%.RV: RV size is normal. RV systolic function is normal.LA: LA volume is mildly enlarged.RA: RA size is normal.AO: Aortic root diameter is normal.DEANNA: No pericardial effusion.SVn: Inferior vena cava is normal. Normal collapse of IVC during inspiration is consistent with normal RA pressure.AV: Mild calcification of AV leaflets. Tri cuspid aortic valve. A trace of aortic regurgitation.MV: No structural MV abnormalities noted.PV: No structural PV abnormalities noted. A trace of pulmonic regurgitation. TV: Nostructural TV abnormalities noted.Delgado: LV relaxation is normal. LV filling pressure is normal. Hepatic vein pressure is normal, RA pressure < 5mmHg.Other: Estimated PA systolic pressure is 34 mmHg, assuming a mean RAP of 5 mmHg. MEASUREM ENTS: 2DParasternal Long [place] Ao An 2.4 cm LVPWd 1.1 cm Ao Rtd 3.1 cm Index 1.5 cm/m2 LA Ds 2.9 cm IVSd 0.96 cm RWT 0.44 LVIDd 5 cm Index 2.5 cm/m2 LV Mojc594 g (122- 174) LVIDs 2.8 cm LVM Index 94 g/m2 LV%fs 44% LA Sng Plane LA Area 22 cm2 (8.8-23.4) LA Vol 72 ml Index 36 ml/m2 LA LngAx 6 cm LVOT Stroke Vol LVOT 2.2 cm LVOT LVOT Area 3.8 cm2 DOPPLERLVOT Stroke Vol LVOT TVI 32 cm LVOT CI 4.4 l/m/m2 LVOT SV 122 ml HR 73 bpm LVOT CO 8.9 l/min LVOT SVi 61 ml/m2 TV Pressure Gradient TV PkVel 269 cm/s TV PG 29 mmHg Signed 02/19/2019 03:28 Karen Law MethodistPotassium level 2019-02-19 13:33:54 Test Item Value Reference Range Interpretation Comments Potassium (test code = 2823-3) 3.9 3.5- 5.0 mEq/L Rosman MethodistArterial Line [id number] 02:57:42Paul Herring NP 02/19/2019 2:59 AMArterial Line InsertionDate/Time: 02/19/2019 2:57 AMPer formed by: Paul Herring NPAuthorized by: Paul Herring NP Consent: Consent obtained: Emergent situationIndications: Indications: hemodynamic monitoring and multiple ABGs Pre-procedure details: Skin preparation: 2% Chlorhexidine Preparation: Patient was prepped and draped in sterile fashion Anesthesia (see MAR for exact dosages): Anesthesia method: Local infiltration Local anesthetic: Lidocaine 1% w/o epiProcedure details: Location: R radial Rupert's test performed: yes Rupert's test abnormal: no Needle gauge: 20 G Placement technique: Ultrasound guided Number of attempts: 1 Transducer: waveform confirmed Post-procedure details: Post- procedure: Biopatch applied, secured with tape, sterile dressing applied, sutured and wrist guard applied CMS: Normal Patient tolerance of procedure: Tolerated well, no immediate complicationsRosman MethodistType and screen 2019-02-19 01:59:00 Test Item Value Reference Range Interpretation Comments ABO grouping (test code = 883-9) B Rh type (test code = 20711-7) NEG Antibody screen (gel) (test code = NEG 890-4) Mane [id number] 01:34:50 Test Item Value Reference Range Interpretation Comments Troponin (test code 0.014 ng/mL 0-0.04 In patie nts suspected = 94575-7) of having a james cardial infarction, anabel hernandez with all other appro priate clinical measur es and actions includi ng ECG and other diagn ostics as appropriate, measure Ultra TnI at 0 hrs and at 3 hrs.Myocar dial infarction VERY LIKELYThe 0 hr TnI level is > 0.10 ng/mL -------- -------- -------- --------Myocard ial infarction LIKE LYThe 0 hr TnI level is > 0.04 ng/mL and 3 hr level is increased or de creased by at least 0.0 20 ng/mL -------- -------- -------- ---Myocardial infarction VERY UNLIKELYBoth th e 0 hr and 3 hr TnI le vels <= 0.04 ng/mL(with in normal limits) OR 0 hr is > 0.04 ng/mL and 3 hr is increased OR decreased by le ss than 0.020 ng/mL Rosman MethodistLactic acid [id number] 01:29:40 Test Item Value Reference Range Interpretation Comments Lactic acid (test code = 86682-1) 1.6 mmol/L 0.5-2.2 Rosman MethodistUrinalysis screen and microscopy, with reflex to culture 2019-02-18 22:50:31 Test Item Value Reference Range Interpretation Comments Specimen site (test code = Catheterized 9780042) Color, UA (test code = 5778-6) Phoebe Appearance, UA (test code = Hazy 5767-9) Specific gravity, UA (test code 1.025 1.001-1.035 = 5811-5) pH, UA (test code = 5803-2) 5.0 5.0-8.5 Protein, UA (test code = 2+ Negative A 07212-7) Glucose, UA (test code = Negative Negative 87112-3) Ketones, UA (test code = 2514-8) Negative Negative Bilirubin, UA (test code = Negative Negative 5770-3) Blood, UA (test code = 5794-3) Negative Negative Nitrite, UA (test code = 5802-4) Negative Negative Urobilinogen, UA (test code = 4.0 <2.0 A 42893-5) Leukocyte esterase, UA (test Negative Negative code = 5799-2) Epithelial cells, UA (test code <1 /HPF = 5787-7) WBC, UA (test code = 5821-4) 1 0- 1 /HPF RBC, UA (test code = 36600-5) <1 0- 5 /HPF Bacteria, UA (test code = Few None seen 10710-5) Yeast, UA (test code = 52727-5) None seen Yeast with pseudohyphae, UA None seen (test code = 85293-5) Amorphous crystals (test code = Few 29540-5) Hyaline casts, UA (test code = 6 /LPF 5796-8) Lab Interpretation (test code = Abnormal 48372-4) Mane JainismUrine [id number] 21:41:06 Test Item Value Reference Range Interpretation Comments Urine culture (test SEE COMMENT Bacteriu dany screen code = 9701616) negative. Rosman Abebe drugs of abuse [id number] 21:40:41 Test Item Value Reference Interpretation Comments Range Amphetamine screen, Negative urine (test code = 3349-8) Barbiturate screen, Negative urine (test code = 3377-9) Benzodiazepine Negative screen, urine (test code = 3390-2) Cocaine screen, Positive A urine (test code = 3397-7) Methadone Negative metabolite (EDDP), urine (test code = 30377-5) Opiates screen, Negative urine (test code = 3879-4) Oxycodone screen, Negative urine (test code = 03080-0) Phencyclidine Negative screen, urine (test code = 3936-2) Tricyclic screen, Negative urine (test code = 17051-2) Cannabinoid screen, Negative Drug scr een minimum urine (test code = concentra tion of 3427-2) detectabilityAm phetamines 1000 ng/mLBarbiturat es 200 ng/mLBe nzodiazepines 300 ng/mLCocaine 300 ng/mLMethadone 300 ng/mLOp iates 300 ng/mLOxycodone 300 ng/mLPh encyclidine 25 ng/mLCannabinoi ds 50 ng/mLTr icyclics 1000 ng/mLResults are from screen ing tests and should only be used for medical evaluat ion. Drug testing for leg al purposes requires defini tive (or confirmatory) t esting methods, which are available upon request. C ontact the laboratory if d efinitive testing is requ ired. Lab Interpretation Abnormal (test code = 43945-7) Rosman MethodistAlcohol level, [id number] 21:27:59 Test Item Value Reference Range Interpretation Comments Alcohol percent None Detected % Normal (test code = None Detec tedLegal 5643-2) Intoxication in [place] 80 mg/dL (0.08% ) - Whole BloodToxi c Concentration 200 mg/dL (0.2%)Potential ly Fatal 350 - 500 mg/dL (0.35 - 0 .5%) Rosman MethodistCTA Neck W Wo [id number] 21:16:48Hm Interface, Radiology Results Incoming 02/18/2019 9:19 PM CSTEXAMINATION: CT ANGIOGRAM NECK W WO CONTRASTCLINICAL HISTORY: STROKECOMPARISON: NoneTECHNIQUE: Imaging of the cervical circulation wasobtained from the upper thorax to the skull base during the arterial phase of enhancement. Postprocessing was performed with MIP multiplanar and 3D reconstructed images. CT imaging was performed with i terative reconstruction technique and/or automated exposure control to reduce radiation dose.FINDINGS:Visualized upper mediastinum shows no mass lesion. Lung apices are clear.Visualized soft tissues shows no mass, adenopathy or fluid collection. The patient is intubated. Feeding tube is also noted in the esophagus.Visualized osseous structures shows no acute fracture or dislocation.The common carotidarteries, carotid bulbs, internal carotid arteries and external carotid arteries are opacified with 0% stenosis by NASCET criteria. The vertebral arteries are patent throughout the visualized cervical segments without significant stenosis.The right vertebral artery is dominant. The left vertebral artery takes off directly from the aortic arch.IMPRESSION:No hemodynamically significant narrowing of thecervical vessels by NASCET criteria.[facility]-[id number] MethodistCTA Head W Wo [id number] 21:14:58Hm Interface, Radiology Results 02/18/2019 9:18 PM CSTEXAMINATION: CT ANGIOGRAM HEAD W WO CONTRASTCLINICAL HISTORY: STROKECOMPARISON: CT brain dated February 18, 2019TECHNIQUE: Imaging of the intracranial circulation was obtained from the skull base to the vertex during the arterial phaseof enhancement. Postprocessing was performed with MIP multiplanar and 3D reconstructed images. CT imaging was performed with iterative reconstruction technique and/or automated exposure control to reduce radiation dose.FINDINGS:The large hematoma in the left wilma and cerebellum is visualized but better assessed on noncontrast CT imaging.Orbits are intact.Soft tissue shows no evidence of laceration or hematoma.No hemodynamically significant stenosis is identified of the intracranial internal carotidarteries, middle cerebral arteries, anterior cerebral arteries, intracranial vertebral arteries, basilar artery or posterior cerebral arteries. There is no aneurysmal dilatation or vascular malformation of the [place].There is no vascular abnormality in the area of hemorrhage suggesting hypertensive hemorrhage. There is tortuosity of the vertebrobasilar circulation from chronic hypertension c hanges. There is origin of the right posterior cerebral artery.IMPRESSION:No hemodynamically significant narrowing of the [place] vessels.[facility]-[id number] MethodistCT Stroke Brain Wo Contrast 2019-02-18 20:27:22Hm Interface, Radiology Results - 02/18/2019 8:30 PM CSTEXAMINATION: CT STROKE BRAIN WO CONTRASTCLINICAL HISTORY: STROKECOMPARISON: NoneTECHNIQUE: Noncontrast enhanced images of the brain were obtained from the skull base to the vertex. Both soft tissue and bone reconstruction algorithms were performed. CT imaging was performed with iterative reconstruction technique and/or automated exposure control to reduce radiation dose.FINDINGS:There is an acute hematoma involving the anterolateral left wilma extending to left middle cerebellar peduncle and down into the anterior left cerebellar hemisphere. There is no significant mass effect. There is mild adjacent edema and a couple punctate areas of subarachnoid hemorrhage noted in the anterior posterior fossa. The hematoma measures mostly 2.7cm in transverse dimension by 3 cm in superior inferior dimension by 3.4 cm in AP dimension. There is no hydrocephalus. There are extensive lucencies throughout the white matter from chronic small vessel changes and lacunar insults as well as chronic bilateral basal ganglia insults. There is no midline shift or mass effect.No definite acute loss of capellan-white matter distinction identified.No acute soft tissue hematoma or laceration.Paranasal sinuses shows no acute air- fluid levels. Mastoid air cells are clear. No skull fractures or aggressive bony lesions. IMPRESSION:There is a large hematoma arising in the left anterolateral wilma extending inferiorly and laterally into the middle cerebellar peduncle and anterior left cerebellar hemisphere.Findings were discussed with Dr. Roberts at 02/18/2019 8:23 PM who verbalized understanding.[facility]-[id number] Ros[facility] Preliminary Interpretation - Not an [id number] 19:54:36 Test Item Value Reference Range Interpretation Comments CHUY (test code = CHUY) Jd Roberts DO 02/19/2019 1:00 [facility] Preliminary Interpretation - Not an OrderDate/Time: 02/18/2019 7:51 PMPerformed by: Jd Roberts DOAuthorized by: Jd Roberts DO ECG reviewed by ED Physician in the absence of a worm farmer: yes Interpretation: Interpretation: abnormal Rate: ECG rate: 70 ECG rate assessment: normal Rhythm: Rhythm: sinus rhythm QRS: QRS axis: Left QRS intervals: NormalConduction: Conduction: normal ST segments: ST segments: NormalT waves: T waves: normal Other findings: Other findings: LVH Lab Interpretation Abnormal (test code = 77858-1) Alhaji BennettGI [id number] 19:54:36Jd Roberts DO 02/19/2019 1:00 PMGI TubesPerformed by: Jd Roberts DOAuthorized by: Jd Roberts DO Consent: Consent obtained: Emergent situationProcedure details: Patient position: Supine Procedure type: Insertion Fluoro Guidance?: No Tube type: OrogastricTube size: 16 FrPost- procedure details: Placement/position confirmation: Auscultation Placement difficulty: None Bleeding: None Patient tolerance of procedure: Tolerated well, no immediate complicationsRosman DxnsoxvypMxzcrkhnju2511-46-93 19:54:36 Jd Roberts DO 02/19/2019 1:00 PMIntubationPerformed by: Jd Roberts DOAuthorized by: Jd Roberts DO Consent: Consent obtained: Emergent situationUniversal protocol: Patient identity confirmed: Provided demographic dataPre-procedure details: Patient status: Altered mental status Induction: Etomidate Paralytics: RocuroniumProcedure details: Preoxygenation: Nasal cannula CPR in progress: no Intubation method: Oral Technique: Video laryngoscopy Laryngoscope blade: Mac 4 Difficult airway?: No Tube size (mm): 7.5 Tube type: Cuffed Number of attempts: 1 Ventilation between attempts: no Cricoid pressure: yes Tube visualized through cords: yes Placement assessment: ETT to lip: 25 Tube secured with: ETT youngblood Breath sounds: Equal Placement verification: chest rise, condensation, CXR verification, direct visualization, equal breath sounds and ETCO2 detector CXR findings: ETT in proper placePost-procedure details: Patient tolerance of procedure: Tolerated well, no immediate complications [facility] HospitalTICAL [id number] 19:54:36Jd Roberts DO 02/19/2019 1:00 PMCritical CarePerformed by: Jd Roberts DOAuthorized by: Jd Roberts DO Critical care provider statement: Critical care time (minutes): 45 Critical care time was exclusive of: Separately billable procedures and treating other patients Critical care was necessary to treat or prevent imminent or life-threatening deterioration of the following conditions: Respiratory failure and ASSISTIVE TECHNOLOGY SPECIALIST failure or compromise Critical care was time spent personally by me on the following activities: Ordering and performing treatments and interventions, ordering and review of laboratory studies, ordering and review of radiographic studies, pulse oximetry, re-evaluation of patient's condition, ventilator management, obtaining history from patient or delacruz rrogate, examination of patient, evaluation of patient's response to treatment, discussions with consultants, development of treatment plan with patient or surrogate and gastric intubation Kory 'yes' if you are taking over critical care for this patient from another provider.: no Comments: The patient is critically ill due to but not limited to: ongoing respiratory failure, high risk for respiratory failure, hemodynamic or metabolic deterioration, altered mental status, and acute organ failure.The patient is requiring frequent assessment, treatment, life-saving devices, and prevention and management of life threatening conditions.[place] [address] LEAD [id number] 05:47:0412 LEAD EKG FOR [facility] Test Date: 3179-13-99Dma Name: CHLOE WOODS Department: 5520Patient ID: [id number] Room: [facility] 1Gender: M Sr Vice President: [id number]: 1965 Requested By: YANIRA Whyte Number: [id number] [place] MD: Hayden Ordaz M.D. MeasurementsIntervals [place] Rate: 58 P: 65PR: 151 QRS: -37QRSD: 102 T: 71QT: 436 QTc: 431 Interpretive StatementsSINUS BRADYCARDIAPOSSIBLE LEFT ATRIAL ENLARGEMENT [-0.1mV P WAVE IN V1/V2]MARKED LEFT AXIS DEVIATION [QRS AXIS < - 30]Electronically Signed On 01-06-2019 5:47:02 MEDICAL EDUCATION COORDINATOR by Hayden Ordaz M.D.[place] [address] LEAD [id number] 20:28:0212 LEAD EKG FOR [facility] Test Date: 8329-13-00Muc Name: CHLOE WOODS Department: 5520Patient ID: [id number] Room: [facility] 1Gender: M Sr Vice President: : 1965 Requested By: YANIRA Whyte Number: [id number] [place] MD: Hayden Ordaz M.D. MeasurementsIntervals [place] Rate: 57 P: 50PR: 149 QRS: -2QRSD: 94 T: 7QT: 452 QTc: 442 Interpretive StatementsSINUS BRADYCARDIAMODERATE ST DEPRESSION [0.05+ mV ST DEPRESSION]Reviewed by Electronically Signed On 01-05-2019 20:27:59 MEDICAL EDUCATION COORDINATOR by Hayden Ordaz M.D.[facility] TROPONIN I POC docked [id number] 20:27:00 Test Item Value Reference Range Interpretation Comments Troponin POC (test code = 0.01 ng/mL 0-0.08 [id number]) Lab Interpretation (test code = Normal 10790-2) [facility] GateXRAY CHEST 2 [id number] 19:27:42IMPRESSION: No acute thoracic abnormality. Dictated By: Benjamin Merino DO, 01/05/2019 7:07 PM I have reviewed the study and agree with the findings in this report. Signed By: Neha Soria MD, 01/05/2019 7:27 PM Interface, Rad/Mammog In - 01/05/2019 7:32 PM CSTEXAMINATION: XRAY CHEST 2 VIEWS INDICATION: chest paid COMPARISON: Chest x-ray 02/25/2017FINDINGS: PA viewTUBES, LINES, DEVICES: None.LUNGS AND PLEURA: Lungs are well inflated. Lungs are clear. There isno evidence of pneumonia or pulmonary edema. No pleural effusion orpneumothorax.HEART AND MEDIASTINUM: The cardiomediastinal silhouette isunremarkable.BONES AND SOFT TISSUES: No acute osseous lesion. Soft tissues areunremarkable.UPPER ABDOMEN: No free air under the diaphragm. IMPRESSIONIMPRESSION: No acute thoracic abnormality.DictatedBy: Benjamin Merino DO, 01/05/2019 7:07 PMI have reviewed the study and agree with the findings in thisreport.Signed By: Neha Soria MD, 01/05/2019 7:27 PM[facility] U/S [id number] 19:26:45IMPRESSION:1. Two focal hepatic masses suspicious for malignancy. Recommendnonemergent CT abdomen with and without contrast liver mass protocol forfurther evaluation.2. Dilation of the main pancreatic duct at 0.5 cm, which can be furtherevaluated on the CT abdomen.3. Dilation of the main portal vein at 1.5 cm, nonspecific finding thatcan be seen in portal hypertension. Hepatopedal flow is maintained. Dictated By: Bev Otto DO, 01/05/2019 6:57 PM I have reviewed the study and agree with the findings in this report. Signed By: Neha Soria MD, 01/05/2019 7:26 PM Interface, Rad/Mammog In - 01/05/2019 7:31 PM CSTEXAM: Complete Abdominal UltrasoundINDICATION: elevated LFTs, epigastric pain COMPARISON: None. TECHNIQUE: Transverse and longitudinal images of the upper abdomen wereobtained. FINDINGS: Liver: Size: 17.6 cm in the right midclavicular line, enlarged Appearance: Normal echogenicity, smooth contour Mass: 5.2 x 3.8 x 3.6 cm hypoechoic heterogenous mass in the rightlobe of the liver with questionable peripheral vascularity. Hypoechoic2.6 x 2.4 x 2.5 cm mass in the left lobe of the liver with internalvascularity.Spleen: Size: 7.9cm in length, normal Echogenicity: Normal Mass: No focal massesGallbladder: Stones/Sludge: None Wall: 0.2 cm Appearance: No pericholecystic fluid or hydrops. Sonographic Fu's Sign: NegativeBile Ducts:Intrahepatic Ducts: No dilatation Extrahepatic Ducts: Common bile duct measures 0.5 cm, no dilatationPancreas:Dilation of the pancreatic duct at 0.5 cm. Right Kidney: Size: 11.3 cm Echogenicity: Normal Parenchymal thickness: Normal Collecting System: No hydronephrosis Stone: None Cyst/Mass: None Left Kidney: Size: 10.3 cm Echogenicity: Normal Parenchymal thickness: Normal Collecting System: No hydronephrosis Stone: None Cyst/Mass: NoneVessels: Aorta: Visualized portions are normal Inferior Vena Cava: Visualized portions are normal Main Portal Vein: 1.5 cm, dilated with hepatopetal flow.Free Fluid: No ascites or pleural effusionIMPRESSIONIMPRESSION:1. Two focal hepatic masses suspicious for malignancy. Recommendnonemergent CT abdomen with and without contrast liver mass protocol forfurther evaluation.2. Dilation of the main pancreatic duct at 0.5 cm, which can be furtherevaluated on the CT abdomen.3. Dilation of the main portal vein at 1.5 cm, nonspecific finding thatcan be seen in portal hypertension. Hepatopedal flow is maintained.Dictated By: Bev Otto DO, 01/05/2019 6:57 PMI have reviewed the study and agree with the findings in this report.Signed By: Neha Soria MD, 01/05/2019 7:26 PM [facility] GateIhurppAehltj9212-71-76 15:44:00 Test Item Value Reference Range Interpretation Comments Lipase (test code = 84745653) 34 U/L 11-82 Lab Interpretation (test code = Normal 19540-2) [facility] GateLiver Ilsuyfr2019-19-23 15:44:00 Test Item Value Reference Range Interpretation Comments Bilirubin, Total (test code = 1.7 mg/dL 0.2-1.2 H 2885-2) Alkaline Phosphatase (test code = 111 U/L 34-104 H 80944817) AST (test code = 57631289) 76 U/L 13-39 H Direct Bilirubin (test code = 0.8 mg/dL 0-0.2 H 1968-7) ALT (test code = 64272018) 50 U/L 7-52 Albumin (test code = 29345-2) 3.5 g/dL 4.2-5.5 L Lab Interpretation (test code = Abnormal 64759-3) [facility] GateTxjineWrhkgpayvg0938-53-24 15:37:00 Test Item Value Reference Range Interpretation Comments Color (test code = 57309877) Yellow Colorless, Straw, Yellow Clarity (test code = Hazy Clear A 95208168) Spec Reardan, Ur (test code 1.006 1.001-1.035 = 28782145) pH, Ur (test code = 7.0 5.0-8.0 68112017) Protein, Ur (test code = Negative Negative mg/dL 89883487) Glucose, Ur (test code = Negative Negative mg/dL 33697054) Ketone, Ur (test code = Negative Negative mg/dL 77581800) Bilirubin, Ur (test code = Negative Negative mg/dL 35618637) Nitrite, Ur (test code = Negative Negative 59089049) Leukocyte (test code = Negative Negative mg/dL 94282067) Blood, Ur (test code = 2+ Negative mg/dL A 11889669) RBC (test code = 64696191) <1 0- 4 /HPF Urobilinogen, Ur (test code 1.0 EU/dL <1.0 A = 80018930) Lab Interpretation (test Abnormal code = 18827-8) [facility]/[id number] 15:26:00 Test Item Value Reference Range Interpretation Comments WBC (test code = 6690-2) 6.9 K/uL 4.5-12 RBC (test code = 789-8) 4.13 4.60- 6.20 M/uL L Hemoglobin (test code = 718-7) 13.2 g/dL 14-18 L Hematocrit (test code = 4544-3) 38.3 % 40-54 L MCV (test code = 787-2) 92.7 fL 82-92 H MCH (test code = 785-6) 32.0 pg 27-31 H MCHC (test code = 786-4) 34.5 g/dL 32-36 RDW (test code = 79836-1) 44.9 fL 35.1-43.9 H Platelet (test code = 777-3) 164 K/uL 150-400 Mean Platelet Volume (test code = 12.1 fL 9.4-12.4 40451-3) Percent NRBC (test code = 75064752) 0.0 % Neutrophil (test code = 770-8) 51.0 % 34-67.9 Lymphs (test code = 736-9) 28.8 % 21.8-50 Monocytes (test code = 5905-5) 19.4 % 5.3-12 H Eos (test code = 713-8) 0.1 % 0.8-5 L Basos (test code = 706-2) 0.4 % 0.2-1.2 Immature Granulocytes (test code = 0.3 % 0-0.5 79903875) Neutrophils (Absolute) (test code = 3.53 K/uL 1.78-5.36 15571261) Lymphs (Absolute) (test code = 1.99 K/uL 1.32-3.57 80300747) Monocytes(Absolute) (test code = 1.34 K/uL 0.3-0.82 H 55540187) Eos (Absolute) (test code = 0.01 K/uL 0.04-0.54 L 30042763) Baso (Absolute) (test code = 0.03 K/uL 0.01-0.08 37885826) Immature Grans (Abs) (test code = 0.02 K/uL 0-0.03 73423327) Absolute NRBC (test code = 0.00 K/uL 50633780) Lab Interpretation (test code = Abnormal 53241-7) [facility] BMP POC docked [id number] 13:52:00 Test Item Value Reference Range Interpretation Comments Sodium POC (test code = 134 mmol/L 136-145 L 18185754) Potassium POC (test 3.7 mmol/L 3.5-5.1 code = 04038181) Chloride POC (test code 98 mmol/L 98-107 = 98171116) TCO2 POC (test code = 24 mmol/L 21-32 41506227) Urea Nitrogen POC (test 14 mg/dL 7-18 code = 50596019) Creatinine POC (test 0.9 mg/dL 0.6-1.3 code = 76308989) Glucose POC (test code 105 mg/dL 74-106 = 38377248) Ionized Calcium POC 1.14 mmol/L 1.15-1.29 L (test code = 61957173) eGFR If Africn Am (test >90 >=90 mL/min/1.73 code = 93222262) m2 GFR, Estimated (test >90 >=90 mL/min/1.73 code = 43416861) m2 Hemoglobin POC (test 14.6 g/dL 12-16 Physici an code = 04851326) Notified Hematocrit POC (test 43.0 % 37-47 code = 75277532) Lab Interpretation Abnormal (test code = 91647-3) [place] [address] LEAD [id number] 13:24:1912 LEAD EKG FOR [facility] Test Date: [id number] Name: CHLOE WOODS Department: 5520Patient ID: [id number] Room: Gender: M Sr Vice President: [id number]: 1965 Requested By: ROLA BURNETT Order Number: [id number] Reading MD: Hayden Odraz M.D. MeasurementsIntervals [place] Rate: 65 P: 79PR: 152 QRS: -1QRSD: 95 T: 73QT: 417 QTc: 436 Interpretive StatementsSINUS RHYTHMPOSSIBLE RIGHT ATRIAL ENLARGEMENT [0.25mV P WAVE]POSSIBLE LEFT ATRIAL ENLARGEMENT [-0.1mV P WAVE IN V1/V2]POSSIBLE ANTERIOR MYOCARDIAL INFARCTION [30 ms Q WAVE IN V3/V4, OR R < 0.2 mVIN V4], OF INDETERMINATE AGEElectronically Signed On 01-05-2019 13:24:15 MEDICAL EDUCATION COORDINATOR by Hayden Ordaz M.D.[facility] 2018-08-16 03:43:33 Test Item Value Reference Range Interpretation Comments Sodium Level (test code = Sodium 138.0 mmol/L 135.0-145.0 Level) Potassium Level (test code = 4.2 mmol/L 3.5-5.1 Potassium Level) Chloride Level (test code = 102 mmol/L 98-105 Chloride Level) CO2 (test code = CO2) 27 mmol/L 22-29 Anion Gap (test code = Anion 9 mmol/L 7-16 Gap) BUN (test code = BUN) 18.40 mg/dL 6.00-20.00 Creatinine Level (test code = 0.90 mg/dL 0.70-1.20 Creatinine Level) BUN/Creat Ratio (test code = 20 N BUN/Creat Ratio) Glucose Level (test code = 104 mg/dL 70-115 Glucose Level) Calcium Level (test code = 9.2 mg/dL 8.3-10.5 Calcium Level) Alk Phos (test code = Alk Phos) 143 U/L 40-129 H Bilirubin Total (test code = 1.1 mg/dL 0.1-0.9 H Bilirubin Total) Albumin Level (test code = 3.9 g/dL 3.5-5.2 Albumin Level) Protein Total (test code = 7.3 g/dL 6.4-8.3 Protein Total) ALT (test code = ALT) 75 U/L 1-41 H AST (test code = AST) 114 U/L 1-40 H Globulin (test code = Globulin) 3.4 g/dL 2.9-3.1 H A/G Ratio (test code = A/G 1.1 ratio N Ratio) Comprehensive Metabolic [id number] 03:43:33 Test Item Value Reference Range Interpretation Comments Sodium Level (test 138.0 mmol/L 135.0-145.0 code = Sodium Level) Potassium Level 4.2 mmol/L 3.5-5.1 (test code = Potassium Level) Chloride Level (test 102 mmol/L 98-105 code = Chloride Level) CO2 (test code = 27 mmol/L 22-29 CO2) Anion Gap (test code 9 mmol/L 7-16 = Anion Gap) BUN (test code = 18.40 mg/dL 6.00-20.00 BUN) Creatinine Level 0.90 mg/dL 0.70-1.20 (test code = Creatinine Level) BUN/Creat Ratio 20 N (test code = BUN/Creat Ratio) Glucose Level (test 104 mg/dL 70-115 code = Glucose Level) Calcium Level (test 9.2 mg/dL 8.3-10.5 code = Calcium Level) Alk Phos (test code 143 U/L 40-129 H = Alk Phos) Bilirubin Total 1.1 mg/dL 0.1-0.9 H (test code = Bilirubin Total) Albumin Level (test 3.9 g/dL 3.5-5.2 code = Albumin Level) Protein Total (test 7.3 g/dL 6.4-8.3 code = Protein Total) ALT (test code = 75 U/L 1-41 H ALT) AST (test code = 114 U/L 1-40 H AST) Globulin (test code 3.4 g/dL 2.9-3.1 H = Globulin) A/G Ratio (test code 1.1 ratio N = A/G Ratio) eGFR AA (test code = >60 N eGFR (e stimated eGFR AA) mL/min/1.73 m2 Glomerular Filtration Rate ) is an estimated va lue, calculated from the patient's serum creatinine usin g the MDRD equation. It is NOT the patient 's actual GFR. The eGFR provides a more clinically usef ul measure of kidn ey disease than se rum creatinine alone.This calculation jacque es sex and race in to account, if the information is provided. If th e race is not provided, and t he patient is -Edie n, multiply by 1.2 12. If sex is not provided, and t he patient is fema le, multiply by 0.7 42. Results for pat ients <18 years of ag e have not been validated by [facility] MDRD study and should be interpreted wit h caution. eGFR R esult Interpretation: eGFR > or = 60 is in the Normal RangeeGF R < 60 may mean kid radha diseaseeGFR < 1 5 may mean kidney failure Rang es recommended by the National Kidney Foundation, http://nkdep.ni h.gov eGFR Non-AA (test >60.00 N eGFR (rose mary mated code = eGFR Non-AA) mL/min/1.73 m2 Glomer ular Filtration Rate ) is an estimated va lue, calculated from the patient's serum creatinine usin g the MDRD equation. It is NOT the patient 's actual GFR. The eGFR provides a more clinically usef ul measure of kidn ey disease than se rum creatinine alone.This calculation jacque es sex and race in to account, if the information is provided. If th e race is not provided, and t he patient is -Edie n, multiply by 1.2 12. If sex is not provided, and t he patient is fema le, multiply by 0.7 42. Results for pat ients <18 years of ag e have not been validated by [facility] MDRD study and should be interpreted wit h caution. eGFR R esult Interpretation: eGFR > or = 60 is in the Normal RangeeGF R < 60 may mean kid radha diseaseeGFR < 1 5 may mean kidney failure Rang es recommended by the National Kidney Foundation, http://nkdep.ni h.gov Comprehensive Metabolic [id number] 03:43:33 Test Item Value Reference Range Interpretation Comments Sodium Level (test 138.0 mmol/L 135.0-145.0 code = Sodium Level) Potassium Level 4.2 mmol/L 3.5-5.1 (test code = Potassium Level) Chloride Level (test 102 mmol/L 98-105 code = Chloride Level) CO2 (test code = 27 mmol/L 22-29 CO2) Anion Gap (test code 9 mmol/L 7-16 = Anion Gap) BUN (test code = 18.40 mg/dL 6.00-20.00 BUN) Creatinine Level 0.90 mg/dL 0.70-1.20 (test code = Creatinine Level) BUN/Creat Ratio 20 N (test code = BUN/Creat Ratio) Glucose Level (test 104 mg/dL 70-115 code = Glucose Level) Calcium Level (test 9.2 mg/dL 8.3-10.5 code = Calcium Level) Alk Phos (test code 143 U/L 40-129 H = Alk Phos) Bilirubin Total 1.1 mg/dL 0.1-0.9 H (test code = Bilirubin Total) Albumin Level (test 3.9 g/dL 3.5-5.2 code = Albumin Level) Protein Total (test 7.3 g/dL 6.4-8.3 code = Protein Total) ALT (test code = 75 U/L 1-41 H ALT) AST (test code = 114 U/L 1-40 H AST) Globulin (test code 3.4 g/dL 2.9-3.1 H = Globulin) A/G Ratio (test code 1.1 ratio N = A/G Ratio) eGFR AA (test code = >60 N eGFR (e stimated eGFR AA) mL/min/1.73 m2 Glomerular Filtration Rate ) is an estimated va lue, calculated from the patient's serum creatinine usin g the MDRD equation. It is NOT the patient 's actual GFR. The eGFR provides a more clinically usef ul measure of kidn ey disease than se rum creatinine alone.This calculation jacque es sex and race in to account, if the information is provided. If th e race is not provided, and t he patient is -Edie n, multiply by 1.2 12. If sex is not provided, and t he patient is fema le, multiply by 0.7 42. Results for pat ients <18 years of ag e have not been validated by th e MDRD study and should be interpreted wit h caution. eGFR R esult Interpretation: eGFR > or = 60 is in the Normal RangeeGF R < 60 may mean kid radha diseaseeGFR < 1 5 may mean kidney failure Rang es recommended by the National Kidney Foundation, http://nkdep.ni h.gov eGFR Non-AA (test >60.00 N eGFR (rose mary mated code = eGFR Non-AA) mL/min/1.73 m2 Glomer ular Filtration Rate ) is an estimated va lue, calculated from the patient's serum creatinine usin g the MDRD equation. It is NOT the patient 's actual GFR. The eGFR provides a more clinically usef ul measure of kidn ey disease than se rum creatinine alone.This calculation jacque es sex and race in to account, if the information is provided. If th e race is not provided, and t he patient is -Edie n, multiply by 1.2 12. If sex is not provided, and t he patient is fema le, multiply by 0.7 42. Results for pat ients <18 years of ag e have not been validated by th e MDRD study and should be interpreted wit h caution. eGFR R esult Interpretation: eGFR > or = 60 is in the Normal RangeeGF R < 60 may mean kid radha diseaseeGFR < 1 5 may mean kidney failure Rang es recommended by the National Kidney Foundation, http://nkdep.ni h.gov Troponin [id number] 03:35:14 Test Item Value Reference Range Interpretation Comments Troponin-T (test 8.110 ng/L 0.000-22.000 The CV of t he assay at code = Troponin-T) 99th perc entile for both male and female patient population is < 10%. A rise and fall i n KORTNEY with at least one va lue above the 99th percen tile with clinical eviden ce of myocardial isch emia would support a diagn osis of AMI. A delta of at least 20% is recommen ded to access acute ch anges in results above t he 99th percentile in s erial measurements. S table KORTNEY levels (<20%) d elta above the 99th percen tile URL would support a diagnosis of chronic myoc ardial injury. Drugs of Abuse Urine [id number] 03:32:47 Test Item Value Reference Range Interpretation Comments Amphetamine Screen Ur Negative Negative For di agnostic (test code = Amphetamine pur poses only. Screen Ur) Positive result s should always b e assessed in conjunction wit h a patient's medic al history. Barbiturate Screen Ur Negative Negative (test code = Barbiturate Screen Ur) Benzodiazepines Ur (test Negative Negative code = Benzodiazepines Ur) Cocaine Screen Ur (test Negative Negative code = Cocaine Screen Ur) U Methadone (test code = Negative Negative U Methadone) Opiate Screen Ur (test Negative Negative code = Opiate Screen Ur) U PCP Scrn (test code = U Negative Negative PCP Scrn) U Propoxyphene (test code Negative Negative = U Propoxyphene) Cannabinoid Screen Ur Negative Negative (test code = Cannabinoid Screen Ur) Prothrombin Time and [id number] 03:01:47 Test Item Value Reference Range Interpretation Comments Prothrombin Time (test code = 12.2 seconds 9.8-13.4 Prothrombin Time) INR (test code = INR) 1.0 ratio 0.6-1.2 Partial Thromboplastin [id number] 03:01:47 Test Item Value Reference Range Interpretation Comments Partial Thromboplastin Time 34.30 seconds 24.39-37.25 (test code = Partial Thromboplastin Time) XR Chest 1 View [id number] 01:40:35Patient: CHLOE WOODS Date/Time08/16/2018 01:08 CDTReason for ExamChest painReportLOCATION: [id number]: 53-year-old male with chest pain.COMMENT:The examination was obtained at the bedside at 12:24 a.m., and is compared to study of March 17, 2017.The lungs are clear, and well-aerated. The cardiac silhouette, darius, and mediastinum are unremarkable. The skeleton and soft tissues are unremarkable. Again seen is a mildly elongated and ectatic thoracic aorta, unchanged from the prior study.Cardiac monitoring leads are present.IMPRESSION:Unremarkable portable examination of the chest. Final Dictated by: MD Emery Robert LDictated DT/TM: 08/16/2018 1:39 amSigned by: MD Emery Robert LSigned (Electronic Signature): 08/16/2018 1:40 amManual [id number] 01:08:17 Test Item Value Reference Range Interpretation Comments Segs Man (test code = Segs Man) 38.0 % 36.0-70.0 Band Man (test code = Band Man) 0.0 % 0.0-6.0 Lymph Man (test code = Lymph Man) 41.0 % 12.0-44.0 Monocyte Man (test code = Monocyte 18.0 % 0.0-11.0 H Man) Eos Man (test code = Eos Man) 1.0 % 0.0-7.0 Basophil Man (test code = Basophil 1.0 0.0-2.0 Man) Lymph, Atyp Manual (test code = 1.0 % 0.0-0.0 H Lymph, Atyp Manual) Neut Man Abs (test code = Neut Man 2.0 x10 1.6-7.4 Abs) Lymph Man Abs (test code = Lymph Man 2.1 x10 0.5-4.6 Abs) Fisher Man Abs (test code = Fisher Man 0.9 x10 0.0-1.2 Abs) Eos Man Abs (test code = Eos Man 0.05 x10 0.00-0.74 Abs) Baso Man Abs (test code = Baso Man 0.05 x10 0.00-0.21 Abs) RBC Morph (test code = RBC Morph) Normal Normal Plt Estimation (test code = Plt Normal Normal Estimation) Troponin [id number] 00:47:54 Test Item Value Reference Range Interpretation Comments Troponin-T (test 8.710 ng/L 0.000-22.000 The CV of t he assay at code = Troponin-T) 99th perc entile for both male and female patient population is < 10%. A rise and fall i n KORTNEY with at least one va lue above the 99th percen tile with clinical eviden ce of myocardial isch emia would support a diagn osis of AMI. A delta of at least 20% is recommen ded to access acute ch anges in results above t he 99th percentile in s erial measurements. S table KORTNEY levels (<20%) d elta above the 99th percen tile URL would support a diagnosis of chronic myoc ardial injury. Complete Blood Count with [id number] 00:28:47 Test Item Value Reference Range Interpretation Comments WBC (test code = WBC) 5.2 x10 4.4-10.5 RBC (test code = RBC) 4.30 x10 4.10-5.70 Hgb (test code = Hgb) 14.0 g/dL 13.4-17.4 MCV (test code = MCV) 94.90 fL 80.00-100.00 Hct (test code = Hct) 40.8 % 38.7-52.0 MCHC (test code = 34.30 g/dL 32.00-37.50 MCHC) RDW CV (test code = 14.3 % 11.5-14.5 RDW CV) MCH (test code = MCH) 32.6 pg 27.0-32.5 H Platelets (test code = 170.0 x10 140.0-440.0 Platelets) MPV (test code = MPV) 11.4 fL N Slide Review (test Manual Auto A Result cr eated by code = Slide Review) GL_SJM_ SLIDE_REV_AUTO GL_SJM_XN_RFLX nRBC (test code = 0 N nRBC) NRBC Abs (test code = 0.00 x10 N NRBC Abs) Pos Diff XN (test code A N = Pos Diff XN) IPF (test code = IPF) 0 % N IG [id number] 00:28:47 Test Item Value Reference Range Interpretation Comments IG (test code = IG) 0.2 % 0.0-5.0 IG Abs (test code = IG Abs) 0 x10 N Culture, Blood [id number] 09:49:00Specimen: BloodCollected: 03/17/2017 23:17 Status: Final Last Updated: 03/23/2017 09:49 (1) ER Bed 1 Culture Result (Final) (Final) No Growth After 5 DaysCulture, Blood Routine 2017-03-23 09:49:00Specimen: BloodCollected: 03/17/2017 23:13 Status: Final Last Updated: 03/23/2017 09:49 (1) ER Bed 1 Culture Result (Final) (Final) No Growth After 5 DaysUS [id number] 23:44:53GALLBLADDER ULTRASOUNDAfter-hours services performed at 2327 hours.LOCATION: [id number]: Abdominal pain.COMPARISON: CT from earlier the same day.TECHNIQUE: Grayscale and color sonographic imaging ofthe abdomen with afocus on the gallbladder.FINDINGS:There is no shadowing echogenic gallbladder calculus, gallbladder wallthickening, or pericholecystic fluid. Fu's sign is reportedlynegative. The common bile duct measures 3 mm in diameter. Visualizedportions of the liver are normal.IMPRESSION:Normal gallbladder. 93167& PELVIS W/O [id number] 23:12:24CT abdomen and pelvis without IV contrast.Indication: Abdominal painComparison: None availableLocation: E96Lilkjdcnn: CT images of the abdomen and pelvis were obtained from thediaphragm to the pubic symphysis without administration of IV contrast.Coronal and sagittal reformats are provided.Findings:Lungs bases: UnremarkableLiver: Unremarkable.Gallbladder: Noncontrast appearance is unremarkablePancreas: Noncontrast appearance is unremarkableSpleen: Mild enlargement to 13 cm.Adrenal glands: Noncontrast appearance is unremarkable with theexception of mild left adrenal thickeningKidneys: Noncontrast appearance is unremarkableBowel: No bowel obstruction. There is air and stool seen throughout thecolon.The appendix is partially visualized, the visualized portioncontains air.Peritoneum: No ascites or free air. Skeletal: No acute fracture or aggressive osseous lesion.Impression:Limited exam in the setting of absence of oral and IV contrastespecially as there is a relative paucity of intra-abdominal fat. Withinthese limitations no definite evidence of an etiology of patient'sabdominal pain is visualized.Additional findings aboveTroponin T 2017-03-17 22:18:00 Test Item Value Reference Range Interpretation Comments Troponin T (test code = KORTNEY) <0.010 ng/mL 0.000-0.090 N [id number] 21:50:00 Test Item Value Reference Range Interpretation Comments Amphetamine (test Negative Negative N For diagno stic code = AMPH) purposes only, positive result s should always b e assessedin conjunctionwith the patient's medic al history,clinica l examination and otherfindings.T o fulfill legal requirements, a more specific altern ate chemical method must be used inorder to obtain a Confirmed adina lytical result. GC/MS i s the preferred confi rmatory method. Barbiturates (test Negative Negative N code = CLIFTON) Benzodiazepine (test Negative Negative N code = AG) Cocaine (test code = Negative Negative N COCA) Methadone (test code Negative Negative N = MTHD) Opiates (test code = Negative Negative N OPIA) PCP (test code = PCP) Negative Negative N Propoxyphene (test Negative Negative N code = PROPOX) THC (test code = THC) Negative Negative N Alcohol, Urine (test <0.01 g/dL 0.00-0.01 N code = ETOHU) Influenza A [id number] 21:41:00Specimen: NasalCollected: 03/17/2017 19:55 Status: Final Last Updated: 03/17/2017 21:41 Influenza A Ag (Final) (Final) Negative for Flu A protein antigen FLU COMMENT 1 (Final) (Final) A negative test result does not exclude infection with influenza Aor B. Flu A or B antigen in the sample may be below the detection limitof the test. Culture of negative samples is recommended.Influenza B [id number] 21:39:00Specimen: NasalCollected: 03/17/2017 19:55 Status: Final Last Updated: 03/17/2017 21:39 Influenza B Ag (Final) (Final) Negative for Flu B protein antigen FLU COMMENT 1 (Final) (Final) A negative test result does not exclude infection with influenza Aor B. Flu A or B antigen in the sample may be below the detection limitof the test. Culture of negative samples is recommended.Urinalysis [id number] 21:38:00 Test Item Value Reference Range Interpretation Comments Color (test code = COLOR) Yellow Yellow,Straw,Pl N yellow Clarity (test code = Clear Clear N CLAR) Specific Reardan (test 1.008 1.001-1.035 N code = SPGR) pH (test code = PH) 6.5 5.0-9.0 N Ketone (test code = KET) 5 mg/dL Negative A Glucose (test code = Negative mg/dL Negative N GLUCUR) Protein (test code = Negative mg/dL Negative N PROT) Bilirubin (test code = Negative mg/dL Negative N BILI) Occult Blood (test code = Negative Negative N UDOB) Urobilinogen (test code = 1.0 mg/dL 0.2-1.0 N UROB) Nitrite (test code = NIT) Negative Negative N Leuk Esterase (test code Negative Negative N = LEUK) Micros Exam (test code = Indicated MEXAM) Epithelial Cells (test None /LPF 0-30 A code = EPI) WBC, Urine (test code = None seen /HPF 0-5 A UWBC) RBC, Urine (test code = None Seen /HPF 0-5 A URBC) Bacteria (test code = None /HPF BACT) Comprehensive Metabolic [id number] 21:05:00 Test Item Value Reference Range Interpretation Comments Sodium (test code = 131 mmol/L 135-145 L NA) Potassium (test 3.7 mmol/L 3.5-5.1 N code = K) Chloride (test code 93 mmol/L 98-105 L = CL) Carbon Dioxide 27 mmol/L 22-29 N (test code = CO2) Glucose (test code 99 mg/dL 70-115 N = GLU) Blood Urea Nitrogen 11 mg/dL 6-20 N (test code = BUN) Creatinine (test 1.1 mg/dL 0.7-1.2 N code = CREAT) Calcium (test code 9.0 mg/dL 8.3-10.5 N = CA) Prot Total (test 7.7 g/dL 6.4-8.3 N code = TP) Albumin (test code 3.7 g/dL 3.5-5.2 N = ALB) A/G Ratio (test 0.9 Ratio code = AGRATIO) Globulin (test code 4.0 2.9-3.1 H = GLOB) Bili Total (test 1.3 mg/dL 0.1-0.9 H code = TBIL) Alk Phos (test code 136 U/L 40-129 H = APHOS) AST (test code = 52 U/L 1-40 H AST) ALT (test code = 33 U/L 1-41 N ALT) BUN/Creatinine 10.0 Ratio (test code = BCRATIO) Anion Gap (test 11 mmol/L 7-16 N code = AGAP) Estimated GFR (test >60 eGFR (es timated code = GFR) mL/min/1.73m2 Glomerular Neri tration Rate) is an est imated value,calculate d from the patient's s tanisha creatinine usin g the MDRD equation.I t is NOT the patient 's actual GFR. The eGFR provides a more clinicallyusefu l measure of kidn ey disease than se rum creatinine alone.This calculation jacque es sex and race into account, if the informationis provided. If th e race is not provided , and the patient isPaty can, multiply by 1.2 12. If sex is not prov ided, and thepatient is female, multipl y by 0.742. Results for patients <18 ye ars ofage have not been validated by th e MDRD study and shoul d be interpretedwith caution.eGFR Re sult Interpretation: eGFR > or = 60 is in t he Normal RangeeGF R < 60 may mean kidney diseaseeGFR < 1 5 may mean kidney failureRange s recommended by the National Kidney Foundation,http ://nkd ep.nih.gov CBC with [id number] 20:57:00 Test Item Value Reference Range Interpretation Comments WBC (test code = WBC) 8.4 K/cumm 4.4-10.5 N RBC (test code = RBC) 4.49 M/cumm 4.10-5.70 N Hemoglobin (test code = HGB) 14.3 gm/dL 13.4-17.4 N Hematocrit (test code = HCT) 41.3 % 38.7-52.0 N MCV (test code = MCV) 92.0 fL 80-100 N MCH (test code = MCH) 31.8 pg 27.0-32.5 N MCHC (test code = MCHC) 34.6 g/dL 32.0-37.5 N RDW (test code = RDW) 12.9 % 11.5-14.5 N Platelet Count (test code = 163 K/cumm 140-440 N PLTCT) MPV (test code = MPV) 10.6 fL Diff Method (test code = DIFFM) Auto Neutrophil (test code = NEUT) 68.0 % 36-70 N Lymphocyte (test code = LYMPH) 21.1 % 12-44 N Monocyte (test code = MONO) 9.5 % 0-11 N Eosinophil (test code = EOS) 0.1 % 0-7 N Basophil (test code = BASO) 1.2 % 0-2 N Neutro Abs (test code = ANEUT) 5.7 K/cumm 1.6-7.4 N Lymph Abs (test code = ALYMPH) 1.8 K/cumm 0.5-4.6 N Fisher Abs (test code = AMONO) 0.8 K/cumm 0.0-1.2 N Eos Abs (test code = AEOS) 0.00 K/cumm 0.00-0.74 N Baso Abs (test code = ABASO) 0.1 K/cumm 0.00-0.21 N XR CHEST 1 [id number] 20:17:40LOCATION: [id number]: 51-year-old male with a fever.COMMENT:The examination was obtained at the bedside at 7:52 p.m.The lungs are clear, and well-aerated. The cardiac silhouette, darius, andmediastinum are unremarkable. The skeleton and soft tissues areunremarkable. The thoracic aorta is uncoiled and mildly ectatic.IMPRESSION:Unremarkable portable examination of the chest.CT HEAD OR BRAIN WO [id number] 19:41:26EXAM: CT Head without contrastLocation code: [id number]: HeadacheCOMPARISON: None available.TECHNIQ UE: Multiple transaxial images of the brain were obtained withoutintravenous contrast using 5mm slices.One or more of the following dosereduction techniques were used: Automated exposure control, adjustmentof the mA and/or kV according to patient size, and/or utilization ofiterative reconstruction technique. DLP: 718 mGy-cm FINDINGS: There is no acute intracranial hemorrhage. There is no mass, mass effect, midline shift or extra-axial fluidcollection.Brain parenchymal volume and ventricular caliberare within normallimits. There is focus of low-attenuation within the right caudate headextending tothe colmenares radiata possibly representing subacute tochronic infarct. The remaining capellan- white differentiation is maintained.There is no evidence for acute major vessel infarct. There are furtherareas of decreased attenuation within subcortical and deep white matterwhich are nonspecific. There is complete opacification of the right maxillary sinus withreactive new osteogenesis. There is also mucosal th ickening of theanterior right ethmoid air cells and right frontal sinus. The remainingparanasal sinuses are clear. Mastoid air cells are clear. Bones of thecalvaria and skull base are intact. Intraorbital contents areunremarkable.IMPRESSION:1. No acute intracranial abnormality. No acute hemorrhage, mass lesionor infarct.2. 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 Chronic small vessel ischemic disease.4. Inflammatory disease of the right maxillary sinus, anterior rightethmoid air cells and right frontal sinus.CT HEAD ANGIOGRAPHY W/WO CONTRAST 2017-02-19 09:53:27CT ANGIOGRAM OF THE neck and head WITH CONTRAST LOCATION CODE: R 16HISTORY: Concern for CVATECHNIQUE:Axial postcontrast images of the head and neck are obtained with coronaland sagittal reformatted imag es.COMPARISON: NoneFINDINGS:Normal three-vessel arch. No significant stenosis or aneurysm of thebilateral common carotid arteries or bilateral internal carotid arteriesidentified. The stenosis is estimated at 0%. Codominant vertebral arterysystem. No significant stenosis or aneurysm is identified in thebilateral vertebral arteries.The bilateral ANABELLE and MCA are unremarkable. The bilateral COPYWRITING INTERN areunremarkable. The right A1 segment is aplastic. The right T1 segment isaplastic. The right posterior communicating artery is unremarkable. Theleft posterior communicating artery is not identified.The neck soft tissues are unremarkable. A fluid filled distendedthoracic esophagus is noted. The bones are intact. The lung apices areclear.There are no areas of abnormal attenuation. No masses or extra-axialfluidcollections are seen. The CSF-containing spaces are normal insize, shape and position. The visualized aspects of the globes, bony calvarium and upper cervicalcord structures are unremarkable. Bone windows are unremarkable.Opacification of the right maxillary sinus is noted with right maxillarysinus wall sclerosis and thickening.IMPRESSION:1. No significant stenosis or aneurysm is identified in the head orneck.2. Chronic right maxillary sinusitis.3. Fluid-filled distended thoracic esophagus is noted.CT NECK ANGIOGRAPHY W/WO [id number] 09:53:27CT ANGIOGRAM OF THE neck and head WITH CONTRAST LOCATION CODE: R 16HISTORY: Concern for CVATECHNIQUE:Axial postcontrast images of the head and neck are obtained with coronaland sagittal reformatted images.COMPARISON: NoneFINDINGS:Normal three-vessel arch. No significant stenosis or aneurysm of thebilateral common carotid arteries or bilateral internal carotid arteriesidentified. The stenosis is estimated at 0%. Codominant vertebral arterysystem. No significant stenosis or aneurysm is identified in thebilateral vertebral arteries.The bilateral ANABELLE and MCA are unremarkable. The bilateral COPYWRITING INTERN areunremarkable. The right A1 segment is aplastic. The right T1 segment isaplastic. The right posterior communicating artery is unremarkable. Theleft posterior communicating artery is not identified.The neck soft tissues are unremarkable. A fluid filled distendedthoracic esophagus is noted. The bones are intact. The lung apices areclear.There are no areas of abnormal attenuation. No masses or extra-axialfluidcollections are seen. The CSF-containing spaces are normal insize, shape and position. The visualized aspects of the globes, bony calvarium and upper cervicalcord structures are unremarkable. Bone windows are unremarkable.Opacification of the right maxillary sinus is noted with right maxillarysinus wall sclerosis and thickening.IMPRESSION:1. No significant stenosis or aneurysm is identified in the head orneck.2. Chronic right maxillary sinusitis.3. Fluid-filled distended thoracic esophagus is noted.Glycosylated [id number] 07:00:00 Test Item Value Reference Range Interpretation Comments HBA1c (test code = HBA1C) 5.0 % 4.8-5.9 N Thyroid Stimulating Hormone (TSH)2017-02-19 05:58:00 Test Item Value Reference Range Interpretation Comments TSH (test code = TSH) 1.12 mIU/mL 0.270-4.200 N Lipid [id number] 05:51:00 Test Item Value Reference Range Interpretation Comments Cholesterol (test 154 mg/dL 0-200 N code = CHOL) Triglycerides (test 89 mg/dL 9-200 N code = TRIG) HDL (test code = 102 mg/dL 40-60 H HDL) Chol/HDL (test code 1.5 Ratio 0.0-5.0 N = CHOLPHDL) LDL, Calculated 34 0-130 N (NOTE)RISK O F HEART (test code = LDLC) DISEASEPu blished by [place] Heart AssociationAnal yte Optim al Boderline Increased RiskC HOL <200 200-239 >240TRI G <150 150-199 >200HDL Male: >60 <40HDL Female: >60 <50 LDL < 100 130-15 9 >160 LDL NEAR OPTIMAL IS 100- 129 VLDL (test code = 18 mg/dL 5-40 N VLDL) LDL/HDL (test code = 0 LDLPHDL) Comprehensive Metabolic [id number] 05:50:00 Test Item Value Reference Range Interpretation Comments Sodium (test code = 135 mmol/L 135-145 N NA) Potassium (test 4.0 mmol/L 3.5-5.1 N code = K) Chloride (test code 99 mmol/L 98-105 N = CL) Carbon Dioxide 28 mmol/L 22-29 N (test code = CO2) Glucose (test code 89 mg/dL 70-115 N = GLU) Blood Urea Nitrogen 17 mg/dL 6-20 N (test code = BUN) Creatinine (test 1.1 mg/dL 0.7-1.2 N code = CREAT) Calcium (test code 9.1 mg/dL 8.3-10.5 N = CA) Prot Total (test 7.0 g/dL 6.4-8.3 N code = TP) Albumin (test code 3.1 g/dL 3.5-5.2 L = ALB) A/G Ratio (test 0.8 Ratio code = AGRATIO) Globulin (test code 3.9 2.9-3.1 H = GLOB) Bili Total (test 1.0 mg/dL 0.1-0.9 H code = TBIL) Alk Phos (test code 115 U/L 40-129 N = APHOS) AST (test code = 61 U/L 1-40 H AST) ALT (test code = 35 U/L 1-41 N ALT) BUN/Creatinine 15.5 Ratio (test code = BCRATIO) Anion Gap (test 8 mmol/L 7-16 N code = AGAP) Estimated GFR (test >60 eGFR (es timated code = GFR) mL/min/1.73m2 Glomerular Neri tration Rate) is an est imated value,calculate d from the patient's s tanisha creatinine usin g the MDRD equation.I t is NOT the patient 's actual GFR. The eGFR provides a more clinicallyusefu l measure of kidn ey disease than se rum creatinine alone.This calculation jacque es sex and race into account, if the informationis provided. If th e race is not provided , and the patient isAfrican-Ameri can, multiply by 1.2 12. If sex is not prov ided, and thepatient is female, multipl y by 0.742. Results for patients <18 ye ars ofage have not been validated by th e MDRD study and yonathan garcia be interpretedwith caution.eGFR Re sult Interpretation: eGFR > or = 60 is in t he Normal RangeeGF R < 60 may mean kidney diseaseeGFR < 1 5 may mean kidney failureRange s recommended by the National Kidney Foundation,http ://nkd ep.nih.gov CAROTID DUPLEX SCAN, [id number] 17:39:26CAROTID DOPPLER CLINICAL HISTORY: slurred speech, left-sided weakness.TECHNIQUE: Capellan-scale, color, and duplex sonography of theextracranial carotid vessels was performed. Maximum peak systolicvelocities were obtained.FINDINGS: Right side: Plaque: MinimalPeak systolic velocities (cm/sec): CCA: 101 ICA: 48.4ICA/CCA ratio: 0.48Vertebral artery: Antegrade flowLeft side: Plaque: MinimalPeak systolicvelocities (cm/sec): CCA: 127 ICA: 54.4ICA/CCA ratio: 0.43Vertebral artery: Not identifiedIMPRESSION: 1. Right internal carotid artery: Less than 50% stenosis2. Left internal carotid artery: Less than 50% stenosis3. Vertebral arteries: The left vertebral artery is not identified inthe neck. Further correlation with CTA/MRA is recommended.Society of Radiologists in Ultrasound (SRU) consensus statement(Radiology 2003; 229:340-346. DOI 10.1148/radiol.2612009430) was used toestimate internal carotid artery stenosis.Location: R16MRI BRAIN WO [id number] 16:19:23MR BRAIN WITHOUT CONTRASTLOCATION: R16 COMPARISON: Head CT 02/18/2017INDICATION: slurred speech, left-sided weaknessTECHNIQUE: Sagittal T1, axial T2, axial T1, axial T2/FLAIR, axial gradient echo,axial DWI, coronal [id number]:Motion artifacts obscure some details.Scalp/bone marrow: Unremarkable.Brainsulci: Appropriate for patient's age.Ventricles: Normal in size and configuration. No hydrocephalus. Extra-axial spaces:No masses or fluid collections.Parenchyma:A focal area of diffusion restriction (bright on DWI, dark on ADC) isseen in the right colmenares radiata.Scattered T2/FLAIR hyperintense foci throughout the supratentorial whitematter and wilma are likely chronic microvascular ischemic changes.There is an associated old small lacunar infarct in the left frontalperiventricular white matter.Otherwise, no mass, or hemorrhageVessels: Normal flow voids in major arteries and veins.Sellar/Suprasellarregion: No abnormalities.Craniocervical junction: There are mild degenerative changes throughoutthespine.Incidental findings: Prominent T2 hyperintense mucosal thickening in theright frontal sinus, right anterior ethmoid air cells, right maxillarysinus, and right middle meatus is nonspecific. Mild T2 hyperintensity inthe right mastoid air cells may be due to a trace right mastoideffusion.IMPRESSION: 1. Focal area of acute ischemia in the right colmenares radiata.2. Mild to moderate supratentorial/pontine chronic microvascularischemic change.Urinalysis [id number] 10:12:00 Test Item Value Reference Range Interpretation Comments Color (test code = Yellow Yellow,Straw,Pl N COLOR) yellow Clarity (test code = Clear Clear N CLAR) Specific Reardan (test 1.012 1.001-1.035 N code = SPGR) pH (test code = PH) 6.5 5.0-9.0 N Ketone (test code = 5 mg/dL Negative A KET) Glucose (test code = Negative mg/dL Negative N GLUCUR) Protein (test code = 75 mg/dL Negative A PROT) Bilirubin (test code = See IctoTest mg/dL Negative A BILI) Occult Blood (test code Trace Negative A = UDOB) Urobilinogen (test code 8.0 mg/dL 0.2-1.0 H = UROB) Nitrite (test code = Negative Negative N NIT) Leuk Esterase (test Small Negative A code = LEUK) Ictotest (test code = Confirmed Negative Negative,Confirmed N ICTOTEST) Negative Micros Exam (test code Indicated = MEXAM) Epithelial Cells (test 3-5 /LPF 0-30 A code = EPI) WBC, Urine (test code = 2-5 /HPF 0-5 A UWBC) RBC, Urine (test code = 0-3 /HPF 0-5 A URBC) Bacteria (test code = Few /HPF BACT) Casts (test code = 0-2 Hyaline /HPF CASTS) Comprehensive Metabolic [id number] 09:48:00 Test Item Value Reference Range Interpretation Comments Sodium (test code = 137 mmol/L 135-145 N NA) Potassium (test 4.1 mmol/L 3.5-5.1 N code = K) Chloride (test code 100 mmol/L 98-105 N = CL) Carbon Dioxide 24 mmol/L 22-29 N (test code = CO2) Glucose (test code 88 mg/dL 70-115 N = GLU) Blood Urea Nitrogen 13 mg/dL 6-20 N (test code = BUN) Creatinine (test 1.0 mg/dL 0.7-1.2 N code = CREAT) Calcium (test code 9.4 mg/dL 8.3-10.5 N = CA) Prot Total (test 7.6 g/dL 6.4-8.3 N code = TP) Albumin (test code 3.5 g/dL 3.5-5.2 N = ALB) A/G Ratio (test 0.9 Ratio code = AGRATIO) Globulin (test code 4.1 2.9-3.1 H = GLOB) Bili Total (test 1.3 mg/dL 0.1-0.9 H code = TBIL) Alk Phos (test code 110 U/L 40-129 N = APHOS) AST (test code = 62 U/L 1-40 H AST) ALT (test code = 35 U/L 1-41 N ALT) BUN/Creatinine 13.0 Ratio (test code = BCRATIO) Anion Gap (test 13 mmol/L 7-16 N code = AGAP) Estimated GFR (test >60 eGFR (es timated code = GFR) mL/min/1.73m2 Glomerular Neri tration Rate) is an est imated value,calculate d from the patient's s tanisha creatinine usin g the MDRD equation.I t is NOT the patient 's actual GFR. The eGFR provides a more clinicallyusefu l measure of kidn ey disease than se rum creatinine alone.This calculation jacque es sex and race into account, if the informationis provided. If th e race is not provided , and the patient isAfrican-Ameri can, multiply by 1.2 12. If sex is not prov ided, and thepatient is female, multipl y by 0.742. Results for patients <18 ye ars ofage have not been validated by th e MDRD study and yonathan d be interpretedwith caution.eGFR Re sult Interpretation: eGFR > or = 60 is in t he Normal RangeeGF R < 60 may mean kidney diseaseeGFR < 1 5 may mean kidney failureRange s recommended by the National Kidney Foundation,http ://nkd ep.nih.gov CK [id number] 09:48:00 Test Item Value Reference Range Interpretation Comments CK (test code = CK) 272 U/L 39-308 N Troponin [id number] 09:45:00 Test Item Value Reference Range Interpretation Comments Troponin T (test code = KORTNEY) <0.010 ng/mL 0.000-0.[address] HEAD OR BRAIN WO [id number] 09:44:42CT HEAD WITHOUT CONTRASTLOCATION: R16 INDICATION: PainCOMPARISON: NoneTECHNIQUE: Axial scans were obtained from skull base to the vertex.Coronal and sagittal reconstructions obtained from the axial data. One or more of the following dose reduction techniques were used:Automated exposure control, adjustment of the mA and/or kV according topatient size, and/or utilization of iterative reconstruction radha hniqueFINDINGS: There is no evidence of hemorrhage or hydrocephalus. There are scatteredareas of subcortical, periventricular and deep white matterhypoattenuation compatible with microangiopathic ischemic disease. 10 mmfocal area of encephalomalacia in the left periventricular frontal whitematter, likely from chronic ischemia.Nonspecific calcification along the right tentorium, likely the sequelaof a chronic insult.There is no mass effect or midline shift. There is no abnormal intra nor extra-axialfluid collection. The calvarium is intact without fracture. Opacification of the right maxillary sinus. Mucosal thickening withinanterior right ethmoid air cells. The remaining visualized paranasalsinuses and mastoids are clear. IMPRESSION: 1. No intracranial hemorrhage.2. Microangiopathic ischemic disease.3. A 10 mm focal area of encephalomalacia in the left periventricularfrontal white matter, likely from chronic ischemia.4. Opacified right maxillary sinus and mucosal thickening withinanterior right ethmoid air cells. Correlate clinically for sinusitis.[id number] 2017-02-18 09:42:00 Test Item Value Reference Range Interpretation Comments Amphetamine (test code Negative Negative N For d iagnostic purposes = AMPH) only, positive results should always b e assessedin conjunctionwith the patient's medic al history,clinica l examination and otherfindings.T o fulfill legal requirements, a more specific altern ate chemical method must be used inorder to obtain a Confirmed adina lytical result. GC/MS i s the preferred confi rmatory method. Barbiturates (test Negative Negative N code = CLIFTON) Benzodiazepine (test Negative Negative N code = AG) Cocaine (test code = POSITIVE Negative A COCA) Methadone (test code = Negative Negative N MTHD) Opiates (test code = Negative Negative N OPIA) PCP (test code = PCP) Negative Negative N Propoxyphene (test Negative Negative N code = PROPOX) THC (test code = THC) Negative Negative N CBC with [id number] 09:31:00 Test Item Value Reference Range Interpretation Comments WBC (test code = WBC) 5.1 K/cumm 4.4-10.5 N RBC (test code = RBC) 4.38 M/cumm 4.10-5.70 N Hemoglobin (test code = HGB) 14.3 gm/dL 13.4-17.4 N Hematocrit (test code = HCT) 42.2 % 38.7-52.0 N MCV (test code = MCV) 96.5 fL 80-100 N MCH (test code = MCH) 32.6 pg 27.0-32.5 H MCHC (test code = MCHC) 33.8 g/dL 32.0-37.5 N RDW (test code = RDW) 12.7 % 11.5-14.5 N Platelet Count (test code = 209 K/cumm 140-440 N PLTCT) MPV (test code = MPV) 8.4 fL Diff Method (test code = DIFFM) Auto Neutrophil (test code = NEUT) 53.8 % 36-70 N Lymphocyte (test code = LYMPH) 36.8 % 12-44 N Monocyte (test code = MONO) 8.1 % 0-11 N Eosinophil (test code = EOS) 0.6 % 0-7 N Basophil (test code = BASO) 0.8 % 0-2 N Neutro Abs (test code = ANEUT) 2.7 K/cumm 1.6-7.4 N Lymph Abs (test code = ALYMPH) 1.9 K/cumm 0.5-4.6 N Fisher Abs (test code = AMONO) 0.4 K/cumm 0.0-1.2 N Eos Abs (test code = AEOS) 0.03 K/cumm 0.00-0.74 N Baso Abs (test code = ABASO) 0.0 K/cumm 0.00-0.21 N XR CHEST 1 [id number] 09:15:06CHEST 1 VIEWCLINICAL INFORMATION: Cerebrovascular accidentCOMPARISON: February 16, 2017FINDINGS:The lungs are well- expanded and clear. No airspace consolidation isseen. No pneumothorax or pleural effusion is present. The cardiacsilhouette is upper normal in size. The aorta is tortuous. The bonesare grossly intact.IMPRESSION:No acute cardiopulmonary finding.LOCATION: R16XR CHEST 1 [id number] 19:58:58LOCATION: [id number]: 51-year-old male presents with chest pain.COMMENT:The examination was obtainedat the bedside at 7:15 p.m., with thepatient sitting upright.The lungs are clear, and well-aerated. The cardiac silhouette, darius, andmediastinum are unremarkable. The skeleton and soft tissues areunremarkable. A mildly elongated and ectatic thoracic aorta is noted.IMPRESSION:Unremarkable portable examination of the chest.Troponin [id number] 19:42:00 Test Item Value Reference Range Interpretation Comments Troponin T (test code = KORTNEY) <0.010 ng/mL 0.000-0.090 N Comprehensive Metabolic [id number] 19:42:00 Test Item Value Reference Range Interpretation Comments Sodium (test code = 131 mmol/L 135-145 L NA) Potassium (test 3.3 mmol/L 3.5-5.1 L code = K) Chloride (test code 93 mmol/L 98-105 L = CL) Carbon Dioxide 24 mmol/L 22-29 N (test code = CO2) Glucose (test code 114 mg/dL 70-115 N = GLU) Blood Urea Nitrogen 9 mg/dL 6-20 N (test code = BUN) Creatinine (test 1.0 mg/dL 0.7-1.2 N code = CREAT) Calcium (test code 9.3 mg/dL 8.3-10.5 N = CA) Prot Total (test 7.5 g/dL 6.4-8.3 N code = TP) Albumin (test code 3.6 g/dL 3.5-5.2 N = ALB) A/G Ratio (test 0.9 Ratio code = AGRATIO) Globulin (test code 3.9 2.9-3.1 H = GLOB) Bili Total (test 1.2 mg/dL 0.1-0.9 H code = TBIL) Alk Phos (test code 122 U/L 40-129 N = APHOS) AST (test code = 69 U/L 1-40 H AST) ALT (test code = 37 U/L 1-41 N ALT) BUN/Creatinine 9.0 Ratio (test code = BCRATIO) Anion Gap (test 14 mmol/L 7-16 N code = AGAP) Estimated GFR (test >60 eGFR (es timated code = GFR) mL/min/1.73m2 Glomerular Neri tration Rate) is an est imated value,calculate d from the patient's s tanisha creatinine usin g the MDRD equation.I t is NOT the patient 's actual GFR. The eGFR provides a more clinicallyusefu l measure of kidn ey disease than se rum creatinine alone.This calculation jacque es sex and race into account, if the informationis provided. If th e race is not provided , and the patient isAfrican-Ameri can, multiply by 1.2 12. If sex is not prov ided, and thepatient is female, multipl y by 0.742. Results for patients <18 ye ars ofage have not been validated by th e MDRD study and shoul d be interpretedwith caution.eGFR Re sult Interpretation: eGFR > or = 60 is in t he Normal RangeeGF R < 60 may mean kidney diseaseeGFR < 1 5 may mean kidney failureRange s recommended by the National Kidney Foundation,http ://nkd ep.nih.gov [id number] 19:36:00 Test Item Value Reference Range Interpretation Comments Amphetamine (test Negative Negative N For diagno stic code = AMPH) purposes only, positive result s should always b e assessedin conjunctionwith the patient's medic al history,clinica l examination and otherfindings.T o fulfill legal requirements, a more specific altern ate chemical method must be used inorder to obtain a Confirmed adina lytical result. GC/MS i s the preferred confi rmatory method. Barbiturates (test Negative Negative N code = CLIFTON) Benzodiazepine (test Negative Negative N code = AG) Cocaine (test code = POSITIVE Negative A COCA) Methadone (test code Negative Negative N = MTHD) Opiates (test code = Negative Negative N OPIA) PCP (test code = PCP) Negative Negative N Propoxyphene (test Negative Negative N code = PROPOX) THC (test code = THC) Negative Negative N Alcohol, Urine (test <0.01 g/dL 0.00-0.01 N code = ETOHU) CBC with [id number] 19:25:00 Test Item Value Reference Range Interpretation Comments WBC (test code = WBC) 6.4 K/cumm 4.4-10.5 N RBC (test code = RBC) 4.27 M/cumm 4.10-5.70 N Hemoglobin (test code = HGB) 13.7 gm/dL 13.4-17.4 N Hematocrit (test code = HCT) 38.7 % 38.7-52.0 N MCV (test code = MCV) 90.5 fL 80-100 N MCH (test code = MCH) 32.1 pg 27.0-32.5 N MCHC (test code = MCHC) 35.5 g/dL 32.0-37.5 N RDW (test code = RDW) 13.1 % 11.5-14.5 N Platelet Count (test code = 206 K/cumm 140-440 N PLTCT) MPV (test code = MPV) 10.4 fL Diff Method (test code = DIFFM) Auto Neutrophil (test code = NEUT) 58.1 % 36-70 N Lymphocyte (test code = LYMPH) 33.3 % 12-44 N Monocyte (test code = MONO) 8.2 % 0-11 N Eosinophil (test code = EOS) 0.2 % 0-7 N Basophil (test code = BASO) 0.2 % 0-2 N Neutro Abs (test code = ANEUT) 3.7 K/cumm 1.6-7.4 N Lymph Abs (test code = ALYMPH) 2.1 K/cumm 0.5-4.6 N Fisher Abs (test code = AMONO) 0.5 K/cumm 0.0-1.2 N Eos Abs (test code = AEOS) 0.01 K/cumm 0.00-0.74 N Baso Abs (test code = ABASO) 0.0 K/cumm 0.00-0.21 N
--- NOTE | 2019-09-02 13:46 | ER ---
Nurse's Notes [facility] Name: Nico Woods Age: 54 yrs Sex: Male : 1965 Arrival Date: 09/02/2019 Time: 13:07 Bed 8 Private MD: Diagnosis: Abrasion, left lower leg;Fall from non-moving wheelchair Presentation: 09/01 13:07 Chief complaint: EMS states: Pt from [facility], faculty reported pt fell from wheelchair and jl7 are unsure if he hit his head. Pt was on floor with head resting on wall. Pt is non-verbal and communicates via hand-held alphabet page; denies hitting his head, denies pain. Small old abrasion with small amount of dried blood noted to left schmidt. Coronavirus screen: Patient denies a cough. Patient denies shortness of breath or difficulty breathing. Patient denies measured and/or subjective temperature greater than 100.4F prior to today's visit. Patient denies travel on a cruise ship or to a country the [facility] currently lists as an affected area. Patient denies contact with known and/or suspected case of COVID-19. Proceed with normal triage. Ebola Screen: No symptoms or risks identified at this time. Initial Sepsis Screen: Does the patient meet any 2 criteria? No. Patient's initial sepsis screen is negative. Does the patient have a suspected source of infection? No. Patient's initial sepsis screen is negative. Risk Assessment: Do you want to hurt yourself or someone else? Patient reports no desire to harm self or others. Onset of symptoms was September 02, 2019. Care prior to arrival: None. Transition of care: patient was received from another setting of care (long-term care facility), [facility]. 13:07 Method Of Arrival: EMS: [facility] jl7 13:07 Acuity: AMADOU 4 jl7 Triage Assessment: 13:16 General: Appears in no apparent distress. uncomfortable, Behavior is calm, cooperative, jl7 appropriate for age. Pain: Denies pain. Neuro: Level of Consciousness is awake, alert, obeys commands, Oriented to person, place, time, situation. Cardiovascular: Patient's skin is warm and dry. Respiratory: Airway is patent Respiratory effort is even, unlabored, Respiratory pattern is regular, symmetrical. Derm: Skin is pink, warm \\T\\ dry. Musculoskeletal: Pt non ambulatory, uses a wheelchair. Historical: - Allergies: 13:16 No Known Allergies; jl7 - Home Meds: 13:16 amlodipine 10 mg tab 1 tab once daily [Active]; carvedilol 12.5 mg oral tab 1 tab every jl7 12 hours [Active]; doxazosin 2 mg oral tab 1 tab once daily [Active]; omeprazole 20 mg Oral cpDR 1 cap once daily [Active]; Remeron 15 mg Oral tab 1 tab once daily [Active]; - PMHx: 13:16 GERD; CVA; Hypertension; jl7 - Immunization history:: Adult Immunizations up to date. - Social history:: Smoking status: Patient denies any tobacco usage or history of. Screenin:00 Abuse screen: Denies threats or abuse. Denies injuries from another. Nutritional [facility] screening: No deficits noted. Tuberculosis screening: No symptoms or risk factors identified. Fall Risk Total Alanis Fall Scale indicates High Risk Score (45 or more points). Fall prevention measures have been instituted. Side Rails Up X 2 Placed Close to Nursing Station Frequent Obs/Assessments Occuring As available patient and family educated on Fall Prevention Program and Strategies. Assessment: 13:15 General: See triage assessment. [facility] 14:20 Reassessment: HEATHER Rogers at [facility] given report for discharge and request for pt to be [facility] transported back to the facility. HEATHER Rogers states "My DON said that we do not transport pts back from the hospital to here." Camilla show host Nurse notified. 14:29 Reassessment: [facility] will be to ER to transport pt back to [facility] in [facility] approximately 45 minutes. 15:18 Reassessment: [facility] AT B/S FOR TRANSPORT TO [facility]. bp 15:35 Reassessment: [facility] report pt is now complaining of right foot pain, provider aa5 notified. . 16:10 Reassessment: X-ray reviewed by provider, states ok to d/c to [facility] aa5 at this time. . Vital Signs: 13:07 BP 137 / 101; Pulse 65; Resp 15; Pulse Ox 95% ; Pain 0/10; jl7 14:00 BP 140 / 95; Pulse 63; Resp 17; Pulse Ox 96% ; Pain 0/10; jl7 15:17 BP 187 / 91; Pulse 81; Resp 19; Temp 98.5; Pulse Ox 100% ; bp ED Course: 13:07 Patient arrived in ED. jl7 13:09 Ramez Sky NP is PHCP. pm1 13:09 Prabhakar Bermeo MD is Attending Physician. pm1 13:12 Triage completed. jl7 13:12 Patient has correct armband on for positive identification. Fall risk band placed. mh5 Placed in gown. Bed in low position. Call light in reach. Side rails up X2. Warm blanket given. secured entrance monitor on. Pulse ox on. NIBP on. 13:16 Arm band placed on right wrist. jl7 14:25 Ric Keith RN is Primary Nurse. jl7 14:29 No provider procedures requiring assistance completed. Patient did not have IV access jl7 during this emergency room visit. 15:40 Primary Nurse role handed off by Ric Keith RN eb 16:41 Foot Right 2 View XRAY In Process Unspecified. EDMS Administered Medications: No medications were administered Outcome: 13:45 Discharge ordered by . pm1 15:19 Discharged to [facility]. Report called to AMBER ROMERO Transfer form completed. bp 15:19 Condition: stable 15:19 Discharge instructions given to patient, [facility], Instructed on discharge instructions, follow up and referral plans. Demonstrated understanding of instructions, follow-up care. 16:12 Patient left the ED. aa5 Signatures: Dispatcher [employer] EDMS Camilla Garcia RN RN aa5 aRmez Sky NP [employer]UTIONS OPERATOR pm1 Cristiane Perdomo [facility] Ric Keith RN RN jl7 Peltier, Brian, RN RN bp Botello, Elizabeth eb Corrections: (The following items were deleted from the chart) 16:20 15:20 Patient left the ED. bp aa5 16:20 16:19 Patient left the ED. aa5 aa5
--- NOTE | 2019-09-02 13:46 | EDPHYS ---
Physician Documentation [facility] Name: Nico Woods Age: 54 yrs Sex: Male : 1965 Arrival Date: 09/02/2019 Time: 13:07 Bed 8 Private MD: ED Physician Prabhakar Bermeo HPI: 09/01 13:44 This 54 yrs old Unknown Male presents to ER via EMS with complaints of Fall Injury. pm1 13:44 Details of fall: The patient fell from seated position, out of a wheelchair. Onset: The pm1 symptoms/episode began/occurred today. Associated injuries: The patient sustained left schmidt, abrasion. Severity of symptoms: in the emergency department the symptoms have improved. Patient was sitting in his wheelchair and tried to get up. He fell down and presented to the ER with an abrasion to his left schmidt. Patient was sent by the assisted because they were concerned that he hit his head. The patient is not verbal but is able to communicate with a letter chart and denies hitting his head, headache, head injury, neck pain, LOC. Patient told me that his main complaint is hunger and that he would like a pureed diet. Historical: - Allergies: 13:16 No Known Allergies; jl7 - Home Meds: 13:16 amlodipine 10 mg tab 1 tab once daily [Active]; carvedilol 12.5 mg oral tab 1 tab every jl7 12 hours [Active]; doxazosin 2 mg oral tab 1 tab once daily [Active]; omeprazole 20 mg Oral cpDR 1 cap once daily [Active]; Remeron 15 mg Oral tab 1 tab once daily [Active]; - PMHx: 13:16 GERD; CVA; Hypertension; jl7 - Immunization history:: Adult Immunizations up to date. - Social history:: Smoking status: Patient denies any tobacco usage or history of. ROS: 13:44 Constitutional: Negative for fever, chills, and weight loss, Cardiovascular: Negative pm1 for chest pain, palpitations, and edema, Respiratory: Negative for shortness of breath, cough, wheezing, and pleuritic chest pain, Back: Negative for injury and pain, MS/Extremity: Negative for injury and deformity. 13:44 Neck: Negative for injury, pain, and swelling, Abdomen/GI: Negative for abdominal pain, nausea, vomiting, diarrhea, and constipation, Neuro: Negative for headache, weakness, numbness, tingling, and seizure. 13:44 Skin: Positive for abrasion(s), of the left schmidt, Negative for laceration(s). Exam: 13:44 Constitutional: This is a well developed, well nourished patient who is awake, alert, pm1 and in no acute distress. Head/Face: Normocephalic, atraumatic. Neck: Trachea midline, no thyromegaly or masses palpated, and no cervical lymphadenopathy. Supple, full range of motion without nuchal rigidity, or vertebral point tenderness. No Meningismus. 13:44 Back: No spinal tenderness. No costovertebral tenderness. Full range of motion. 13:44 Cardiovascular: Exam negative for acute changes, Rate: normal, Rhythm: regular, Pulses: no pulse deficits are appreciated, Edema: is not appreciated. 13:44 Respiratory: Exam negative for acute changes, respiratory distress, shortness of breath. 13:44 Skin: Appearance: normal except for affected area, injury, abrasion(s), very small abrasion noted, of the left schmidt. 13:44 Neuro: Orientation: is normal, Mentation: is normal. Vital Signs: 13:07 BP 137 / 101; Pulse 65; Resp 15; Pulse Ox 95% ; Pain 0/10; jl7 14:00 BP 140 / 95; Pulse 63; Resp 17; Pulse Ox 96% ; Pain 0/10; jl7 15:17 BP 187 / 91; Pulse 81; Resp 19; Temp 98.5; Pulse Ox 100% ; bp MDM: 13:11 Patient medically screened. [facility] 13:44 Data reviewed: vital signs. Data interpreted: Pulse oximetry: on room air is 95 %. pm1 Interpretation: normal. 13:44 Counseling: I had a detailed discussion with the patient and/or guardian regarding: the pm1 historical points, exam findings, and any diagnostic results supporting the discharge/admit diagnosis, the need for outpatient follow up, to return to the emergency department if symptoms worsen or persist or if there are any questions or concerns that arise at home. 15:50 ED course: Patient complained of right foot pain as he was being loaded onto the pm1 ambulance to return to assisted. X-ray ordered. Patient did not want to return to the assisted. Patient without any indication for admission to the hospital. 07/26 15:41 Order name: Foot Right 2 View XRAY; Complete Time: 17:42 eb 09/01 13:43 Order name: Wound Care; Complete Time: 14:42 pm1 Administered Medications: No medications were administered Disposition: 09/02 05:37 Co-signature as Attending Physician, Prabhakar Bermeo MD I agree with the assessment and adolfo plan of care. Disposition: 09/02/19 13:45 Discharged to Home. Impression: Abrasion, left lower leg, Fall from non-moving wheelchair. - Condition is Stable. - Discharge Instructions: Abrasion, Fall Prevention in the Home. - Medication Reconciliation Form, Thank You Letter, Antibiotic Education, Prescription Opioid Use form. - Follow up: Emergency Department; When: As needed; Reason: Worsening of condition. Follow up: Private Physician; When: 2 - 3 days; Reason: Recheck today's complaints, Continuance of care, Re-evaluation by your physician. - Problem is new. - Symptoms have improved. Signatures: Dispatcher [employer] EDPrabhakar Adair MD MD cha Calderon, Audri, RN RN aa5 Ramez Sky NP [employer] pm1 Ric Keith RN RN jl7 Modesto Gore RN RN bp Corrections: (The following items were deleted from the chart) 09/01 15:20 13:45 09/02/2019 13:45 Discharged to Home. Impression: Abrasion, left lower leg; Fall bp from non-moving wheelchair. Condition is Stable. Forms are Medication Reconciliation Form, Thank You Letter, Antibiotic Education, Prescription Opioid Use. Follow up: Emergency Department; When: As needed; Reason: Worsening of condition. Follow up: Private Physician; When: 2 - 3 days; Reason: Recheck today's complaints, Continuance of care, Re-evaluation by your physician. Problem is new. Symptoms have improved. pm1 16:19 15:20 09/02/2019 13:45 Discharged to Home. Impression: Abrasion, left lower leg; Fall aa5 from non-moving wheelchair. Condition is Stable. Discharge Instructions: Abrasion, Fall Prevention in the Home. Forms are Medication Reconciliation Form, Thank You Letter, Antibiotic Education, Prescription Opioid Use. Follow up: Emergency Department; When: As needed; Reason: Worsening of condition. Follow up: Private Physician; When: 2 - 3 days; Reason: Recheck today's complaints, Continuance of care, Re-evaluation by your physician. Problem is new. Symptoms have improved. bp
[2019-09-02 15:28] VITALS: BP 187/91; TEMP 98.5; O2SAT 100
--- NOTE | 2019-09-02 17:08 | RAD REPORT ---
EXAM DESCRIPTION: RAD - Foot Right 2 View - 09/02/2019 4:41 pm CLINICAL HISTORY: Foot pain FINDINGS: No fracture dislocation Bones are markedly osteoporotic
== END 2019-09-02 16:19 | disposition home or self-care (01) ==
LOC: ER 13:05
DX: S80.812A Abrasion, left lower leg, initial encounter (principal); W05.0XXA Fall from non-moving wheelchair, initial encounter; Y93.89 Activity, other specified; Y92.129 Unspecified place in nursing home as the place of occurrence of the external cause; I10 Essential (primary) hypertension; Z86.73 Personal history of transient ischemic attack (TIA), and cerebral infarction without residual deficits; K21.9 Gastro-esophageal reflux disease without esophagitis
CPT/HCPCS: 99284